=== PATIENT | female | born 2000 | race Caucasian/White ===

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

== ENCOUNTER 2019-01-07 14:53 | Inpatient (IN) | payer OTHER ==
[~2019-01-07] VITALS: Ht 162.6 cm; Wt 99.2 kg
[~2019-01-07 14:53] MED LIST changes: -ONDA-83; +ONDA4TAB5; +VENL150C43 PO; +VENL37.598 PO
[2019-01-07 16:44] LABS: HEMATOCRIT 37.6 % (36.0-47.0); MEAN CORPUSCULAR HEMOGLOBIN 27.4 pg (27.0-33.0); MEAN CORPUSCULAR HGB CONC 31.9 g/dl (32.0-36.5); MEAN CORPUSCULAR VOLUME 85.8 fl (80.0-96.0); PLATELET COUNT, AUTOMATED 293 10^3/uL (150-450); RED BLOOD COUNT 4.38 10^6/uL (4.00-5.40); WHITE BLOOD COUNT 8.9 10^3/uL (4.0-10.0)
[2019-01-07 17:09] LABS: AMPHETAMINES LEVEL URINE NEGATIVE (NEGATIVE); BARBITURATES URINE NEGATIVE (NEGATIVE); BENZODIAZEPINES URINE NEGATIVE (NEGATIVE); CANNABINOIDS URINE POSITIVE (NEGATIVE); COCAINE METABOLITE URINE NEGATIVE (NEGATIVE); METHADONE URINE NEGATIVE (NEGATIVE); OPIATES URINE NEGATIVE (NEGATIVE); PHENCYCLIDINE URINE NEGATIVE (NEGATIVE)
[2019-01-07 17:13] LABS: HCG, SERUM QUALITATIVE NEGATIVE (NEGATIVE)
[2019-01-07 17:24] LABS: ACETAMINOPHEN LEVEL < 2.0 UG/ML (10.0-30.0); ALBUMIN 3.8 GM/DL (3.2-5.2); ALT/SGPT 30 U/L (12-78); BILIRUBIN,DIRECT < 0.1 MG/DL (0.0-0.2); BILIRUBIN,TOTAL 0.2 MG/DL (0.2-1.0); BLOOD UREA NITROGEN 13 MG/DL (7-18); CARBON DIOXIDE LEVEL 29 MEQ/L (21-32); CHLORIDE LEVEL 105 MEQ/L (98-107); ETHYL ALCOHOL (ETHANOL) < 0.003 % (0.000-0.010); GLUCOSE, FASTING 88 MG/DL (70-100); POTASSIUM SERUM 4.6 MEQ/L (3.5-5.1); SALICYLATE LEVEL 3.7 MG/DL (5.0-30.0); SODIUM LEVEL 140 MEQ/L (136-145); TOTAL PROTEIN 7.5 GM/DL (6.4-8.2)
[2019-01-07] MEDS ORDERED: MOM 30ML SUSPENSION UDC PO PRN (19:30)
[2019-01-07] MEDS ORDERED: ACETAMINOPHEN TAB 650MG DOSE (2X325MG) PO PRN (19:30)
[2019-01-07] MEDS ORDERED: MAALOX 30 ML SUSP *UDC PO PRN (19:30)
[2019-01-07 21:03] VITALS: BP 126/63
[2019-01-07] MEDS ORDERED: OLANZapine ORAL DISINTEGRATING TAB 5MG PO PRN (22:30)
[2019-01-07] MEDS: traZODone 50 MG TAB PO PRN (22:47)
[2019-01-08 06:26] VITALS: BP 120/64
--- NOTE | 2019-01-08 14:34 | MHHPEPDOC ---
[facility] History & Physical History and Physical DATE OF ADMISSION: Jan 07, 2019 at 19:20 New Patient Edilma Nguyen MRN: N/A Date of : N/A Date of Service: 01/08/2019 Chief Complaint "I'm good now." History of Present Illness The patient a 18-year-old young woman with a long history of borderline personality disorder and likely malingering presents to [facility] and is admitted out of an abundance of caution when she reports a suicidal thoug ht that she had had earlier in the day with a reported planned overdose. When I initially met with the patient on the unit, she smiled and had been sleeping the majority of the day stating that her suicidal ideation had not been present. When I discussed with her the potential about being discharged, she said "what if I am not ready," which appears to be part of her normal presentation where she generally malingerers. The patient has a history of multiple admissions where I've tried her. She presents likely for various small frustration tolerance issues and prefers to be on the unit without any interactions. She generally sleeps, but is euthymic and does not demonstrate any overt depressive symptoms. When I asked the patient, she states that she has not been taking her mental health medications and that she had felt "worse," however, the symptoms she describes are only vague, low mood without any significant neurovegetative symptoms that she is able to describe with me. She describes that none of her other psychiatric symptoms have changed. Review Of Systems Depression: As above. Anxiety: No changes. Lorelei: No changes. Psychotic: No changes. Trauma: No changes. Borderline: Screen is positive. Past Psychiatric History The patient has a history of multiple inpatient psychiatric admissions last several months ago. She is currently on a mixture of venlafaxine and lithium for reported bipolar disorder of which she is treated at [facility] for. The patient reports a history of suicide attempts, however, going back through her records and go back to 2006, it does not appear that she has had a confirmed suicide attempt. The notes go back to mention an attempt in 2013 of Tylenol overdose, but this is unconfirmed. She reportedly had an additional attempt of which she is unable to describe. Allergies Please see below. Family Psychiatric History She reports having a family history of mental health problems and had an reported cousin and uncle by suicide. No history of addiction. Social History The patient is a never woman with no children. She is identifies as heterosexual. She currently resides with her grandmother and generally goes to her friends house multiple different times. She reports having a generally good relationship with her parents, although at times it has been a problem in the past. She has no income, graduate high school. She does describe having a poor relationship with her mother at times and her parents who have . She has no history of legal trouble. Substance Abuse History The patient is a confusing report of multiple substance use including Xanax, cannabis, stimulants and hallucinogens; however, her urine toxicology on this admission is only positive for cannabis. Medical History Patient has no significant past medical history. Mental Status Examination General: Well dressed with good hygiene Speech: Spontaneous and fluid Thought processes: Linear and logical MSK: Smooth and coordinated gait, no signs of tremors or involuntary orofacial movements Thought content: Future orientated Abstract reasoning, and computation: Intact Description of associations: Intact Description of abnormal or psychotic thoughts: Denies any suicidal or homicidal ideation. Denies any auditory or visual hallucinations. Does not appear to be responding to internal stimuli. Does not appear to be endorsing any bizarre or p aranoid ideation. Judgment: Chronically limited Insight: Chronically limited Orientation: Alert and orientated 3 Cognition: Grossly normal Recent and remote memory: Intact Attention span and concentration: Intact Fund of knowledge: Adequate Mood: "okay" Affect: Euthymic with a full range Diagnoses Malingering. Borderline personality disorder. Cannabis use disorder, moderate. Benzodiazepine use disorder, unspecified. Assessment and Plan The patient a well known 18-year-old woman who presents reportedly with vague suicidal thoughts and plan of overdosing on medications who subsequently reports that she has not been filling her medications, confirmed with the medication refill history from the external factors indicate that she has not been refilling her medications. When I meet with her at first, she denies suicidal ideation, however, when discharged is talked about, suddenly the patient reports having suicidal ideation and an interesting mix of her previous presentations further making the diagnosis of malingering far more likely. In my clinical judgment is likely that the patient has poor frustration tolerance and is malingering to avoid various social stressors. She has a reported history of overdoses, however, upon scrutiny they do not appear to stand up too much investigation as I can only find references to a 2014 attempt despite her multiple presentations starting from 2013 where she appears to be present with regularity. There has been no medical treatment for any of these attempts that I could find further suggesting low lethality, suicidal gestures. Disposition Discharge tomorrow. Problem List 1. Ineffective coping. 2. Risk for suicide, although unlikely in the immediate term. Initial Treatment Plan 1. Patient was admitted on a 9.39 legal status. 2. Complete history was obtained. 3. With patients permission, family will be contacted and database will be expanded. 4. Patients medication regimen will be reviewed and changed accordingly. 5. Patient will be provided with protected environment. 6. Patient will be treated with individual, group, and milieu therapies. 7. Patient will receive supportive psych-education. 8. Discharge planning will commence immediately. 9. Outpatient follow-up treatment will be strongly recommended. 10. The initial treatment plan will focus initially on: Estimated Length Of Stay 2 days. Time Spent 70 minutes. Monday Vital Signs Vital Signs Date Time Temp Pulse Resp B/P (MAP) Pulse Ox O2 Delivery O2 Flow Rate FiO2 01/08/19 06:26 99.1 52 16 120/64 (82) Room Air 01/07/19 19:30 97 Laboratory Data 24H Labs Laboratory Tests 2 01/07/19 16:19: Nucleated Red Blood Cells % (auto) 0.0, Anion Gap 6L, Calcium Level 9.0, Total Bilirubin 0.2, Direct Bilirubin < 0.1, Aspartate Amino Transf (AST/SGOT) 11, Alanine Aminotransferase (ALT/SGPT) 30, Alkaline Phosphatase 139H, Total Protein 7.5, Albumin 3.8, Albumin/Globulin Ratio 1.03, Thyroid Stimulating Hormone (TSH) 0.920, Human Chorionic Gonadotropin, Qual NEGATIVE, Salicylates Level 3.7L, Urine Opiates Screen NEGATIVE, Urine Methadone Screen NEGATIVE, Acetaminophen Level < 2.0L, Urine Barbiturates Screen NEGATIVE, Urine Phencyclidine Screen NEGATIVE, Urine Amphetamines Screen NEGATIVE, Urine Benzodiazepines Screen NEGATIVE, Urine Cocaine Metabolite Screen NEGATIVE, Urine Cannabinoids Screen POSITIVEH, Ethyl Alcohol Level < 0.003 CBC/BMP Laboratory Tests 01/07/19 16:19 Medications No Active Prescriptions or Reported Meds Allergies Coded Allergies: No Known Allergies (Unverified , 07/31/18) BRIAN CHAVEZ DO Jan 08, 2019 14:34
[2019-01-08] MEDS: NICOTINE 21MG/24HR 1 EA TRANSDERMAL TD SCH ×2 (14:35→17:48)
[2019-01-08] MEDS ORDERED: VENLAFAXINE **XR** 75MG CAPSULE PO ONE (15:00)
[2019-01-08 17:52] VITALS: BP 100/74
[2019-01-08] MEDS: MUPIROCIN 2% OINT 22 GM TUBE TOP SCH (20:17)
[2019-01-08] MEDS ORDERED: QUEtiapine FUMARATE **XR** 200MG TABLET PO SCH (21:00)
[2019-01-08] MEDS: LITHIUM CARBONATE 300 MG CAP PO SCH (21:40)
[2019-01-08] MEDS: traZODone 50 MG TAB PO PRN (21:40)
--- NOTE | 2019-01-08 22:14 | HPEPDOC ---
General Date of Admission Jan 07, 2019 at 19:20 Date of Service: Jan 08, 2019 Chief Complaint The patient is a 18-year-old female admitted with a reason for visit of Unspecified Depressive Disorder. Source: Patient, Old records History of Present Illness 18 year old female with PMH of Oppositional defiant disorder, bipolar, ADHD, boderline personality disorder, polysubstance abuse, suicidal attempts in the past, with 3 functioning kidneys was admitted to the [facility] for depression. Today she says that she is very tired and wants to sleep. She says she is also having a headache throbbing type no nausea or vomiting no problem with light. Its all over her head. She did say that her right peripheral vision is a little blurry. She also complained of discharge and redness around her umbilicus where she had a piercing done 2 weeks ago but says it si getting better though not completely healed. She also complained of not having a menstruation and requested to see a dry end operator. I am seeing her for medical history and physical . Home Medications No Active Prescriptions or Reported Meds Allergies Coded Allergies: No Known Allergies (Unverified , 07/31/18) Past Medical History Medical History Oppositional defiant disorder, bipolar, ADHD, boderline personality disorder, p olysubstance abuse, suicidal attempts in the past, 3 kidneys. Surgical History none Family History stroke in grandmother paternal Social History * Smoker: current smoker Alcohol: heavy Drugs: cocaine, heroin, marijuana, other (LSD, xanax) A-FIB/CHADSVASC A-FIB History Current/History of A-Fib/PAF?: No Review of Systems Constitutional: Denies: Chills, Fever, Night Sweats Eyes: Denies: Pain, Vision change ENT: Reports: Head Aches; Denies: Ear Pain, Dysphagia Skin: Denies: Rash, Lesions, Breakdown Pulmonary: Denies: Dyspnea, Cough Cardiovascular: Denies: Chest Pain, Palpitations, Orthopnea, Paroxysmal Noc. Dyspnea, Lt Headedness Gastrointestinal: Denies: Nausea, Vomiting, Abdominal Pain, Diarrhea Genitourinary: Reports: Dysuria Hematologic: Denies: Bruising, Bleeding Excessively Musculoskeletal: Denies: Neck Pain, Back Pain, Joint Pain, Muscle Pain, Spasms Psych: Reports: Depression, Thoughts of Self Harm Physical Examination General Exam: Positive: Alert, Cooperative, No Acute Distress Eye Exam: Positive: PERRLA, Conjunctiva & lids normal, EOMI; Negative: Sclera icteric ENT Exam: Positive: Atraumatic, Mucous membr. moist/pink, Pharynx Normal Neck Exam: Positive: Supple; Negative: JVD, thyromegaly Chest Exam: Positive: Clear to auscultation, Normal air movement Heart Exam: Positive: Rate Normal, Regular Rhythm, Normal S1, Normal S2; Negative: Murmurs, Rubs Abdomen Exam: Positive: Normal bowel sounds, Soft, Other (mild inflammation around umbilical piercing site); Negative: Tenderness, Hepatospenomegaly Extremity Exam: Positive: Normal pulses; Negative: Clubbing, Cyanosis, Edema Skin Exam: Positive: Nl turgor and temperature; Negative: Breakdown, Lesion Vital Signs Vital Signs Date Time Temp Pulse Resp B/P (MAP) Pulse Ox O2 Delivery O2 Flow Rate FiO2 01/08/19 06:26 99.1 52 16 120/64 (82) Room Air 01/07/19 19:30 97 Laboratory Data Labs 24H Laboratory Tests 2 01/07/19 16:19: Nucleated Red Blood Cells % (auto) 0.0, Anion Gap 6L, Calcium Level 9.0, Total Bilirubin 0.2, Direct Bilirubin < 0.1, Aspartate Amino Transf (AST/SGOT) 11, Alanine Aminotransferase (ALT/SGPT) 30, Alkaline Phosphatase 139H, Total Protein 7.5, Albumin 3.8, Albumin/Globulin Ratio 1.03, Thyroid Stimulating Hormone (TSH) 0.920, Human Chorionic Gonadotropin, Qual NEGATIVE, Salicylates Level 3.7L, Urine Opiates Screen NEGATIVE, Urine Methadone Screen NEGATIVE, Acetaminophen Level < 2.0L, Urine Barbiturates Screen NEGATIVE, Urine Phencyclidine Screen NEGATIVE, Urine Amphetamines Screen NEGATIVE, Urine Benzodiazepines Screen NEGATIVE, Urine Cocaine Metabolite Screen NEGATIVE, Urine Cannabinoids Screen POSITIVEH, Ethyl Alcohol Level < 0.003 CBC/BMP Laboratory Tests 01/07/19 16:19 Assessment/Plan 18 year old female with PMH of Oppositional defiant disorder, bipolar, ADHD, boderline personality disorder, polysubstance abuse, suicidal attempts in the past, with 3 functioning kidneys was admitted to the [facility] for depression. I am seeing her for medical history and physical. Inflammation around umbilical piercing will give mupirocin ointment. Headache with some blurring of right peripheral vision Benign idiopathic intracranial hypertension remains in the differential after substance withdrawal heache migraine an dtension headache. if persists will need further evaluation including ophthalmology referral. Obesity complicating care. Amenorrhea Needs referral to [employer] on discharge. SHe would like a utility bill collector in [place]. Psychiatric issues as per psych. Plan / VTE VTE Prophylaxis Ordered?: No (freely ambulatory) EDIN RESTREPO MD Jan 08, 2019 10:12
[2019-01-09 06:09] VITALS: BP 118/62
[2019-01-09] MEDS: LITHIUM CARBONATE 300 MG CAP PO SCH (08:56)
[2019-01-09] MEDS: NICOTINE 21MG/24HR 1 EA TRANSDERMAL TD SCH (08:56)
[2019-01-09] MEDS: MUPIROCIN 2% OINT 22 GM TUBE TOP SCH (08:57)
[2019-01-09] MEDS ORDERED: VENLAFAXINE **XR** 75MG CAPSULE PO SCH (09:00)
--- NOTE | 2019-01-09 11:42 | MHIPNPDOC ---
[facility] Progress Note Vital Signs Vital Signs Date Time Temp Pulse Resp B/P (MAP) Pulse Ox O2 Delivery O2 Flow Rate FiO2 01/09/19 06:09 97.9 74 18 118/62 (80) Room Air 01/07/19 19:30 97 Current Medications Current Medications Medications (Trade) Dose Ordered Sig/Gregorio Route PRN Reason Start Time Stop Time Status Last Admin Dose Admin Acetaminophen (Tylenol Tab) 650 mg Q6HP PRN PO HEADACHE or DISCOMFORT 01/07/19 19:30 Al Hydrox/Mg Hydrox/Simethicone (Mylanta) 30 ml Q4HP PRN PO HEARTBURN/INDIGESTION 01/07/19 19:30 Home Med (Med Rec Complete!) ASDIRECTED XX 01/07/19 19:15 01/07/19 19:10 DC [place] Carbonate ([place] Carbonate) 300 mg BID PO 01/08/19 21:00 01/09/19 08:56 Magnesium Hydroxide (Milk Of Magnesia) 30 ml DAILYPRN PRN PO CONSTIPATION 01/07/19 19:30 Mupirocin (Bactroban 2% Ointment) around the umbilicus BID TOP 01/08/19 21:00 01/09/19 08:57 Nicotine (Nicoderm Cq 21mg) 1 patch DAILY TD 01/08/19 09:00 01/09/19 08:56 Olanzapine (ZyPREXA ZYDIS) 10 mg Q4HP PRN PO ANXIETY/AGITATION 01/07/19 22:30 01/07/19 22:47 Quetiapine Fumarate (SEROquel XR) 400 mg QHS PO 01/08/19 21:00 01/08/19 21:40 Trazodone HCl (Desyrel) 50 mg QHSP PRN PO INSOMNIA 01/07/19 19:30 01/08/19 21:40 Venlafaxine HCl (Effexor Xr) 225 mg DAILY PO 01/09/19 09:00 01/09/19 08:56 Allergies Coded Allergies: No Known Allergies (Unverified , 07/31/18) BRIAN CHAVEZ DO Jan 09, 2019 11:42
--- NOTE | 2019-01-09 13:11 | MHDSPDOC ---
[facility] Discharge Summary Discharge Summary DATE OF ADMISSION: Jan 07, 2019 at 19:20 DATE OF DISCHARGE: 01/09/19 Discharge Edilma Nguyen MRN: N/A Date of : N/A Date of Service: 01/09/2019 Diagnoses Malingering. Borderline personality disorder. Cannabis use disorder, moderate. Benzodiazepine use disorder, unspecified. History of Present Illness The patient a 18-year-old young woman with a long history of borderline personality disorder and likely malingering presents to [facility] and is admitted out of an abundance of caution when she reports a suicidal thought that she had had earlier in the day with a reported planned overdose. When I initially met with the patient on the unit, she smiled and had been sleeping the majority of the day stating that her suicidal ideation had not been present. When I discussed with her the potential about being discharged, she said "what if I am not ready," which appears to be part of her normal presentation where she generally malingerers. The patient has a history of multiple admissions where I've tried her. She presents likely for various small frustration tolerance issues and prefers to be on the unit without any interactions. She generally sleeps, but is euthymic and does not demonstrate any overt depressive symptoms. When I asked the patient, she states that she has not been taking her mental health medications and that she had felt "worse," however, the symptoms she describes are only vague, low mood without any significant neurovegetative symptoms that she is able to describe with me. She describes that none of her other psychiatric symptoms have changed. Consultants Involved Hospitalist/PCP screening Treatment and Progress On The Unit The patient was admitted to the inpatient unit out of an abundance of caution. However, when I first met with the patient, she had denied any suicidal francesco ation, stated that she was "doing well." The patient, after discharge was discussed, suddenly began to claim that she was suicidal but had no plan or intention. On the next day after she was restarted on her home medications, she reported that she was suicidal with a plan to "overdose." After discussion with the patient, she was offered to continue on a voluntary admission as she does not have a confirmed history of suicidal overdoses and is likely malingering as well as having secondary borderline personality disorder. However, it was told that she would need to attend groups and would not be allowed to sleep in her room for the majority of the day, which she has done on many previous admissions and not engaging at all. After she engaged in treatment, she subsequently reported to us that she was no longer suicidal or homicidal and that she wished to go. The patient, at the time of discharge, did not meet involuntary criteria as she was denying suicidal and homicidal ideation and I believe that her reported suicidal ideation that had manifested after my initial discussion with her the prior day was secondary in order to continue her admission. However, this appeared to rapidly dissipate when she had to engage in treatment, furthering my opinion that it is a symptom of the patient's malingering. The patient declined further voluntary admission and wished to leave and thus must be discharged in good [place], as she did not meet either involuntary and declined voluntary. She was restarted on her home medications of Effexor, lithium, and Seroquel, of which she reports she had not been taking for the last month. She was given a 3-day supply with 8 refills of her medications as she had reported ideation frequently of wanting to "overdose" in order to prevent any accumul ation as individuals with borderline personality are far more likely to do incidental damage to themselves as a suicidal gesture rather than an overt suicide attempt. Discharge Assessment 18-year-old woman with a history of borderline personality disorder and malingering, presents after reporting that she is suicidal. After this rapidly dissipates, the patient subsequently reinstates her suicidal ideation the moment discharge is discussed. After she is made to engage in treatment and go to groups, she suddenly has her suicidal ideation vanish and requests to leave, further supporting my opinion that the patient is malingering in order to get out of various housing problems, conflicts with family, or other low-level stressors. The patient likely presents with reported suicidal ideation of a plan to overdose, however she has not had any confirmed attempts and only a vague mention in 2013 of an overdose that did not appear in any medical records despite her being established with care back to 2006 in our charts. Mental Status Examination General: Well dressed with good hygiene Speech: Spontaneous and fluid Thought processes: Linear and logical MSK: Smooth and coordinated gait, no signs of tremors or involuntary orofacial movements Thought content: Future orientated Abstract reasoning, and computation: Intact Description of associations: Intact Description of abnormal or psychotic thoughts: Denies any suicidal or homicidal ideation. Denies any auditory or visual hallucinations. Does not appear to be responding to internal stimuli. Does not appear to be endorsing any bizarre or paranoid ideation. Judgment: chronically limited Insight: chronically limited Orientation: Alert and orientated 3 Cognition: Grossly normal Recent and remote memory: Intact Attention span and concentration: Intact Fund of knowledge: Adequate Mood: "okay" Affect: Euthymic with a full range Follow Up The social work team worked during the predischarge meeting in order to evaluate for further issues of lethality address them fully before discharge. They worked on safety planning with the patient's family members in order to ensure that the patient will have a safe and effective discharge. Time Spent The amount of time spent in the coordination of care for this patient was zahida roximately 90 minutes. Monday Vital Signs/I&Os Vital Signs Date Time Temp Pulse Resp B/P (MAP) Pulse Ox O2 Delivery O2 Flow Rate FiO2 01/09/19 06:09 97.9 74 18 118/62 (80) Room Air 01/07/19 19:30 97 Medications Scheduled [place] Carbonate ([place] Carbonate) 300 Mg Capsule, 300 MG PO BID for mood for 3 Days, #6 Nicotine (Nicotine Patch) 21 Mg Patch.td24, 1 PATCH TD DAILY for tobacco for 30 Days, #30 Quetiapine Fumarate (Quetiapine Fumarate ER) 200 Mg Tab.er.24h, 400 MG PO QHS for mood for 3 Days, #6 Venlafaxine HCl (Venlafaxine HCl ER) 75 Mg Cap.er.24h, 225 MG PO DAILY for mood for 3 Days, #9 Allergies Coded Allergies: No Known Allergies (Unverified , 07/31/18) BRIAN CHAVEZ DO Jan 09, 2019 13:10
[2019-01-09] MEDS ORDERED: NICO21PAT TD (13:13)
[2019-01-09] MEDS ORDERED: QUET200T54 PO (13:13)
[2019-01-09] MEDS ORDERED: LITH300C PO (13:13)
[2019-01-09] MEDS ORDERED: VENL75CA47 PO (13:13)
--- NOTE | 2019-01-09 18:03 | IPNPDOC ---
Subjective Date Seen The patient was seen on 01/09/19 prior to discharge. Patient assessed medically by hospitalist staff. Patient denied any medical issues at this time. She reported that she is well and ready to go home. Patient reported she does have a history of migraine headaches and was supposed to be assessed by a neurologist but she was unable to attend her appointment. Disha has requested a follow-up appointment if possible. Subjective Chief Complaint/HPI Depression General: Reports: Normal Appetite; Denies: Chills, Night Sweats, Fatigue, Malaise Neurological: Reports: Other Symptoms (Migraine headaches ) Objective Physical Examination General Exam: Positive: Alert, Cooperative, No Acute Distress Eye Exam: Positive: Conjunctiva & lids normal ENT Exam: Positive: Atraumatic, Mucous membr. moist/pink, Pharynx Normal Neck Exam: Positive: Supple; Negative: JVD, thyromegaly Chest Exam: Positive: Clear to auscultation, Normal air movement Heart Exam: Positive: Rate Normal, Regular Rhythm, Normal S1, Normal S2 Extremity Exam: Negative: Clubbing, Cyanosis, Edema Skin Exam: Positive: Nl turgor and temperature Neuro Exam: Positive: Normal Gait, Normal Speech Psych Exam: Positive: Mental status NL, Mood NL Assessment /Plan Problems (1) Migraine headache Status: Chronic Discussed With: Patient Problem Specific Plan: Consult Specialist (Patient to follow-up with her PCP within 2 weeks for a referral to neurology) Plan/VTE VTE Prophylaxis Ordered?: No (freely ambulatory) Plan Anticipated Discharge: Psych Patient medically stable; will be managed per psychiatry. Patient is to follow up with her PCP for outpatient neurology Dx: Chronic Migraines. VS, I&O, 24H, Fishbone Vital Signs/I&O Vital Signs Date Time Temp Pulse Resp B/P (MAP) Pulse Ox O2 Delivery O2 Flow Rate FiO2 01/09/19 06:09 97.9 74 18 118/62 (80) Room Air 01/07/19 19:30 97 JUSTIN WILLETT PA-C Jan 09, 2019 18:03
== END 2019-01-09 14:00 | disposition home or self-care (01) | DRG 752 ==
LOC: M ED 14:53 → M ED INP 19:20 → M PSY 20:58
PROVIDERS: ADMIT Psychiatry & Neurology Addiction Medicine; ATTEND Psychiatry & Neurology Addiction Medicine
DX: F60.3 Borderline personality disorder (principal); Z76.5 Malingerer [conscious simulation]; Z79.899 Other long term (current) drug therapy; F31.9 Bipolar disorder, unspecified; Z81.8 Family history of other mental and behavioral disorders; F12.10 Cannabis abuse, uncomplicated; F13.90 Sedative, hypnotic, or anxiolytic use, unspecified, uncomplicated; Z91.14 Patient's other noncompliance with medication regimen; F17.210 Nicotine dependence, cigarettes, uncomplicated; F91.3 Oppositional defiant disorder; F90.9 Attention-deficit hyperactivity disorder, unspecified type; Z91.5 Personal history of self-harm; N91.2 Amenorrhea, unspecified; E66.9 Obesity, unspecified; Z68.52 Body mass index [BMI] pediatric, 5th percentile to less than 85th percentile for age; G43.909 Migraine, unspecified, not intractable, without status migrainosus; L08.89 Other specified local infections of the skin and subcutaneous tissue

== ENCOUNTER → 2019-02-02 | Outpatient (CLI) | payer OTHER ==
[~2019-02-02] MED LIST changes: +LITH300C PO; +VENL75CA47 PO
[2019-02-02 16:20] LABS: HCG, SERUM QUALITATIVE NEGATIVE (NEGATIVE)
[2019-02-02 16:22] LABS: HCG, SERUM QUANTITATIVE < 1.0 MIU/ML
== END ==
LOC: M LAB 15:25
PROVIDERS: ATTEND Physician Assistant Medical
DX: Z32.00 Encounter for pregnancy test, result unknown (principal)

== ENCOUNTER 2019-03-14 02:22 | Inpatient (IN) | payer OTHER ==
[~2019-03-14] VITALS: Ht 162.6 cm; Wt 104.4 kg
[~2019-03-14 02:22] MED LIST changes: -FLUO20CA19 PO; +FLUO20CA22 PO; +ONDA-83; -ONDA4TAB5; +QUET100T2 PO; -QUET1TAB8 PO
[2019-03-14] MEDS ORDERED: QUET400T PO (02:44)
[2019-03-14 03:45] LABS: HEMATOCRIT 39.3 % (36.0-47.0); HEMOGLOBIN 12.2 g/dl (12.0-15.5); MEAN CORPUSCULAR HEMOGLOBIN 26.8 pg (27.0-33.0); MEAN CORPUSCULAR VOLUME 86.2 fl (80.0-96.0); PLATELET COUNT, AUTOMATED 312 10^3/uL (150-450); RED BLOOD COUNT 4.56 10^6/uL (4.00-5.40)
[2019-03-14 04:06] LABS: AMPHETAMINES LEVEL URINE NEGATIVE (NEGATIVE); BARBITURATES URINE NEGATIVE (NEGATIVE); BENZODIAZEPINES URINE NEGATIVE (NEGATIVE); CANNABINOIDS URINE POSITIVE (NEGATIVE); COCAINE METABOLITE URINE NEGATIVE (NEGATIVE); METHADONE URINE NEGATIVE (NEGATIVE); OPIATES URINE NEGATIVE (NEGATIVE); PHENCYCLIDINE URINE NEGATIVE (NEGATIVE)
[2019-03-14 04:18] LABS: ACETAMINOPHEN LEVEL < 2.0 UG/ML (10.0-30.0); ALBUMIN 4.2 GM/DL (3.2-5.2); ALT/SGPT 25 U/L (12-78); BILIRUBIN,DIRECT < 0.1 MG/DL (0.0-0.2); BILIRUBIN,TOTAL 0.2 MG/DL (0.2-1.0); BLOOD UREA NITROGEN 11 MG/DL (7-18); CALCIUM LEVEL 9.3 MG/DL (8.5-10.1); CARBON DIOXIDE LEVEL 30 MEQ/L (21-32); CHLORIDE LEVEL 105 MEQ/L (98-107); CREATININE FOR GFR 0.81 MG/DL (0.55-1.30); ETHYL ALCOHOL (ETHANOL) < 0.003 % (0.000-0.010); GLUCOSE, FASTING 103 MG/DL (70-100); SALICYLATE LEVEL 2.7 MG/DL (5.0-30.0); SODIUM LEVEL 140 MEQ/L (136-145); TOTAL PROTEIN 7.8 GM/DL (6.4-8.2)
[2019-03-14 07:56] LABS: LITHIUM LEVEL < 0.20 MEQ/L (0.60-1.20)
[2019-03-14] MEDS ORDERED: LITH300T2 PO (09:32)
[2019-03-14] MEDS ORDERED: QUET200T2 PO (09:32)
[2019-03-14] MEDS ORDERED: VENL75CA47 PO (09:32)
[2019-03-14 15:20] LABS: HCG, SERUM QUALITATIVE NEGATIVE (NEGATIVE)
[2019-03-14] MEDS ORDERED: traZODone 50 MG TAB PO PRN (17:30)
[2019-03-14] MEDS ORDERED: MAALOX 30 ML SUSP *UDC PO PRN (17:30)
[2019-03-14] MEDS ORDERED: MOM 30ML SUSPENSION UDC PO PRN (17:30)
[2019-03-14] MEDS ORDERED: ACETAMINOPHEN TAB 650MG DOSE (2X325MG) PO PRN (17:30)
[2019-03-14 17:56] VITALS: BP 142/89
[2019-03-14] MEDS: LITHIUM CARBONATE 300 MG CAP PO SCH (21:29)
[2019-03-14] MEDS: QUEtiapine FUMARATE 200 MG TAB PO SCH (21:29)
[2019-03-14] MEDS: PILL CUTTER 1 EACH XX PRN (21:29)
[2019-03-14] MEDS ORDERED: hydrOXYzine 50 MG TAB PO ONE (23:45)
[2019-03-15 06:13] VITALS: BP 124/74
[2019-03-15] MEDS: VENLAFAXINE **XR** 75MG CAPSULE PO SCH (09:44)
[2019-03-15] MEDS: LITHIUM CARBONATE 300 MG CAP PO SCH ×2 (09:44→21:18)
--- NOTE | 2019-03-15 11:47 | MHHPEPDOC ---
General Date Of Admission: Mar 14, 2019 Legal Status: 9.39 Chief Complaint "I cut my thigh b/c I though I'd reach a vein." History of Present Illness HISTORY OF THE PRESENT ILLNESS: Patient is a 19 -year-old , female, has a history of borderline personality d/o and multiple admission [facility] s/p cutting behavior, with recent d/c [facility] 03/05/19 for cutting who was brought to ED after pt call the Suicide Hotline stating she was feeling depressed, suicidal, and had cut her thigh to harm herself b/c she thought she'd reach a vein. Per ED, pt's cuts to her thigh were superficial.. Per ED Pt stated she had a fight with her boyfriend and he broke up with her the previous day "out of the blue" and did not give her a reason as to why. Stated that he then sent a text a a friend of hers making fun of her. Pt stated that this caused her to cut her thy as a SA in an attempt to reach a vein. Pt endorsed depressed mood in the ED and cannabis abuse. Psychiatric Review of Systems Depression (2 or more weeks): depressed mood, feelings of worthlesness, suicidal thoughts Lorelei (4 or more days of): denies Psychosis: denies PTSD: denies Anxiety: situational anxiety, stressor related anxiety Anxiety/ 6 months or more of: restlessness, keyed up, difficulty concentrating, irritability, personality cluster A,BC (b) Past Psychiatric History Previous Psychiatric Diagnosis: borderline personality d/o Previous Psychiatric Admissions: multiple inpatient psychiatric admissions to [facility] for SI or cutting, last 01/08/19, states d/c [facility] 03/05/19 Suicide Attempts: long history of cutting, no confirm reports of SA even though pt claims to have attempted suicide in the past usually be non-lethal cutting Psychiatric Follow-up: [facility]. Psychiatric medications: seroquel 500mg qhs, lithium 300mg bid, effexor er 225mg daily. Past Medical History Medical Problems denies Head Injury: No Seizures: No Hospitalizations: Yes Surgeries: No Family Medical/Psychiatric HX Medical Problems She reports having a family history of mental health problems and had an reported cousin and uncle by suicide. No history of addiction. Psychiatric Disorders: Yes Addiction: No Suicide Attemps/Completions: Yes Addiction History other (The patient is a confusing report of multiple substance use including Xanax, cannabis, stimulants and hallucinogens; urine toxicology on this admission is only positive for cannabis.) Social History Childhood: Born and raised in [place], [place], no siblings, continues to have a good relationship with her grandparents who are Abuse/Trauma: denies Current Living Situation: lives with Grandmother but stays at friend's house frequently in Education: high school grad Employment: unemployed, no income Social Support: grandmother, parents Legal: denies Marital: single, never , no kids Mental Status Examination General Appearance: well groomed, appears stated age, hospital scubs/clothing, other (orange and other colors hair) Build: overweight Demeanor: average Eye Contact: average Activity: average Behavior: cooperative, restless Speech: clear, spontaneous, reg/rate,rhythm,volume Mood: euthymic Mood better Affect: full, congruent, anxious Thought Process: logical/linear Thought Content (Delusions): none reported, denies SI, HI, AVH Thought Content (Other): none reported, appropriate Thought Content (Aggressive): none reported Perception (Hallucinations): none reported Perception (Other): none reported Cognition (Impairment of): none reported Cognition(Intelligence Est.): average Oriented: Awake, Alert, Oriented times three Insight: fair Judgment: Fair Psychosis: Denies Diagnoses Adjustment d/o with depressed mood borderline personality d/o A-FIB/CHADSVASC A-FIB History Current/History of A-Fib/PAF?: No Assessment Pt seen and states she here after she had a fight with her boyfriend and he broke up with her which caused her to start to cut her thigh b/c "I thought I'd reach a vein." States she realizes now that that was actually possible. Admits she ahs a problem with cutting behavior to relieve emotional pain but hadn't cut herself in 6 months until yesterday. Would like to restart her outpatient medication as states thy are helpful and that she tolerates them well. Denies that she is having an current thoughts of self harm, SI/HI currently and states she feels safe on the unit. Pt encouraged to go to groups as part of her treatment her to aid her with coping skills. She denies hallucinations and delusions. Initial Treatment Plan 1. Patient was admitted on a 9.39 status. 2. Complete history was obtained. 3. With patients permission, family will be contacted and database will be expanded. 4. Patients medication regimen will be reviewed and changed accordingly. 5. Patient will be provided with protected environment. 6. Patient will be treated with individual, group, and milieu therapies. 7. Patient will receive supportive psych-education. 8. Discharge planning will commence immediately. 9. Outpatient follow-up treatment will be strongly recommended. 10. The initial treatment plan will focus initially on: * Depression. * Risk for suicide. 11. seroquel 500mg qhs,lithium 300mg bid, effexor er 225mg daily. ESTIMATED LENGTH OF STAY: 3-5 DAYS. TIME SPENT COUNSELING AND COORDINATING INITIAL CARE: 30 minutes. Vital Signs Vital Signs Date Time Temp Pulse Resp B/P (MAP) Pulse Ox O2 Delivery O2 Flow Rate FiO2 03/15/19 10:19 Room Air 03/15/19 06:13 98.7 80 18 124/74 (91) 03/14/19 17:56 99 Medications Scheduled [place] Carbonate ([place] Carbonate) 300 Mg Tablet, 300 MG PO BID, (Reported) Quetiapine Fumarate (Quetiapine Fumarate) 200 Mg Tablet, 500 MG PO QHS, (Reported) Venlafaxine HCl (Venlafaxine HCl ER) 75 Mg Cap.er.24h, 225 MG PO DAILY, (Reported) Allergies Coded Allergies: No Known Allergies (Unverified , 07/31/18) OC MCKEON DO Mar 15, 2019 11:47 am
[2019-03-15] MEDS ORDERED: hydrOXYzine 50 MG TAB PO PRN (12:00)
[2019-03-15 16:30] VITALS: BP 111/57
[2019-03-15] MEDS: PILL CUTTER 1 EACH XX PRN (21:18)
[2019-03-15] MEDS: QUEtiapine FUMARATE 200 MG TAB PO SCH (21:18)
[2019-03-16 06:30] VITALS: BP 127/60
[2019-03-16] MEDS: VENLAFAXINE **XR** 75MG CAPSULE PO SCH (09:47)
[2019-03-16] MEDS: LITHIUM CARBONATE 300 MG CAP PO SCH ×2 (09:47→23:57)
--- NOTE | 2019-03-16 10:06 | MHIPNPDOC ---
[facility] Progress Note Progress Note DATE OF SERVICE: 03/16/19 HISTORY: Patient is a 19 -year-old , female, has a history of borderline personality d/o and multiple admission [facility] s/p cutting behavior, with recent d/c [facility] 03/05/19 for cutting who was brought to ED after pt call the Suicide Hotline stating she was feeling depressed, suicidal, and had cut her thigh to harm herself b/c she thought she'd reach a vein. Per ED, pt's cuts to her thigh were superficial.. Per ED Pt stated she had a fight with her boyfriend and he broke up with her the previous day "out of the blue" and did not give her a reason as to why. Stated that he then sent a text a a friend of hers making fun of her. Pt stated that this caused her to cut her thigh as a SA in an attempt to reach a vein. Pt endorsed depressed mood in the ED and cannabis abuse. Pt seen and states she here after she had a fight with her boyfriend and he broke up with her which caused her to start to cut her thigh b/c "I thought I'd reach a vein." States she realizes now that that was actually possible. Admits she ahs a problem with cutting behavior to relieve emotional pain but hadn't cut herself in 6 months until yesterday. Would like to restart her outpatient medi cation as states thy are helpful and that she tolerates them well. Denies that she is having an current thoughts of self harm, SI/HI currently and states she feels safe on the unit. Pt encouraged to go to groups as part of her treatment her to aid her with coping skills. She denies hallucinations and delusions. VITAL SIGNS: See below. NEW TEST RESULTS: See below. CURRENT MEDICATIONS: See below. MENTAL STATUS EXAMINATION: General Appearance: well groomed, appears stated age, hospital scrubs/clothing, other (orange and other colors hair) Build: overweight Demeanor: average Eye Contact: average Activity: average Behavior: cooperative, restless Speech: clear, spontaneous, reg/rate,rhythm,volume Mood: euthymic Mood "ok" Affect: full, congruent, anxious Thought Process: logical/linear Thought Content (Delusions): none reported, denies SI, HI, AVH Thought Content (Other): none reported, appropriate Thought Content (Aggressive): none reported Perception (Hallucinations): none reported Perception (Other): none reported Cognition (Impairment of): none reported Cognition(Intelligence Est.): average Oriented: Awake, Alert, Oriented times three Insight: fair Judgment: Fair Psychosis: Denies DIAGNOSES: Adjustment d/o with depressed mood borderline personality d/o ASSESSMENT:Pt seen and states that her mood is "ok" and that it's improving with treatment. States she slept well last night. Feels she is tolerating her medications and they're beneficial. She is attending groups and finding them helpful. She denies thoughts to self harm, SI/HI, hallucinations, delusions. Pt feels safe here. MANAGEMENT PLAN: continue plan seroquel 500mg qhs lithium 300mg bid effexor er 225mg daily. TIME SPENT: 30 minutes. Vital Signs Vital Signs Date Time Temp Pulse Resp B/P (MAP) Pulse Ox O2 Delivery O2 Flow Rate FiO2 03/16/19 06:30 97.6 64 18 127/60 (82) 03/15/19 10:19 Room Air 03/14/19 17:56 99 Current Medications Current Medications Medications (Trade) Dose Ordered Sig/Gregorio Route PRN Reason Start Time Stop Time Status Last Admin Dose Admin Acetaminophen (Tylenol Tab) 650 mg Q6HP PRN PO HEADACHE or DISCOMFORT 03/14/19 17:30 Al Hydrox/Mg Hydrox/Simethicone (Mylanta) 30 ml Q4HP PRN PO HEARTBURN/INDIGESTION 03/14/19 17:30 Home Med (Med Rec Complete!) ASDIRECTED XX 03/14/19 09:45 03/14/19 09:35 DC Hydroxyzine HCl (Atarax) 50 mg Q4HP PRN PO ANXIETY/AGITATION 03/15/19 12:00 Clarion Carbonate (Clarion Carbonate) 300 mg BID PO 03/14/19 21:00 03/16/19 09:47 Magnesium Hydroxide (Milk Of Magnesia) 30 ml DAILYPRN PRN PO CONSTIPATION 03/14/19 17:30 Quetiapine Fumarate (SEROquel) 500 mg QHS PO 03/14/19 21:00 03/15/19 21:18 Trazodone HCl (Desyrel) 50 mg QHSP PRN PO INSOMNIA 03/14/19 17:30 03/14/19 21:29 Venlafaxine HCl (Effexor Xr) 225 mg DAILY PO 03/15/19 09:00 03/16/19 09:47 Allergies Coded Allergies: No Known Allergies (Unverified , 07/31/18) OC MCKEON DO Mar 16, 2019 10:06 am
[2019-03-16 16:23] VITALS: BP 133/64
[2019-03-16] MEDS: NICOTINE 7 MG/24 HR TRANSDERMAL TD SCH (18:24)
[2019-03-16] MEDS: QUEtiapine FUMARATE 200 MG TAB PO SCH (23:57)
[2019-03-16] MEDS: PILL CUTTER 1 EACH XX PRN (23:57)
[2019-03-17 06:58] VITALS: BP 112/72
[2019-03-17] MEDS: LITHIUM CARBONATE 300 MG CAP PO SCH ×2 (09:22→20:51)
[2019-03-17] MEDS: VENLAFAXINE **XR** 75MG CAPSULE PO SCH (09:22)
--- NOTE | 2019-03-17 09:48 | MHIPNPDOC ---
[facility] Progress Note Progress Note DATE OF SERVICE: 03/17/19 HISTORY: Patient is a 19 -year-old , female, has a history of borderline personality d/o and multiple admission [facility] s/p cutting behavior, with recent d/c [facility] 03/05/19 for cutting who was brought to ED after pt call the Suicide Hotline stating she was feeling depressed, suicidal, and had cut her thigh to harm herself b/c she thought she'd reach a vein. Per ED, pt's cuts to her thigh were superficial.. Per ED Pt stated she had a fight with her boyfriend and he broke up with her the previous day "out of the blue" and did not give her a reason as to why. Stated that he then sent a text a a friend of hers making fun of her. Pt stated that this caused her to cut her thigh as a SA in an attempt to reach a vein. Pt endorsed depressed mood in the ED and cannabis abuse. Pt seen and states she here after she had a fight with her boyfriend and he broke up with her which caused her to start to cut her thigh b/c "I thought I'd reach a vein." States she realizes now that that was actually possible. Admits she ahs a problem with cutting behavior to relieve emotional pain but hadn't cut herself in 6 months until yesterday. Would like to restart her outpatient medi cation as states thy are helpful and that she tolerates them well. Denies that she is having an current thoughts of self harm, SI/HI currently and states she feels safe on the unit. Pt encouraged to go to groups as part of her treatment her to aid her with coping skills. She denies hallucinations and delusions. VITAL SIGNS: See below. NEW TEST RESULTS: See below. CURRENT MEDICATIONS: See below. MENTAL STATUS EXAMINATION: General Appearance: well groomed, appears stated age, hospital scrubs/clothing, other (orange and other colors hair) Build: overweight Demeanor: average Eye Contact: average Activity: average Behavior: cooperative Speech: clear, spontaneous, reg/rate,rhythm,volume Mood: euthymic Mood "alright... better than it was" Affect: full, congruent, less anxious Thought Process: logical/linear Thought Content (Delusions): none reported, denies SI, HI, AVH Thought Content (Other): none reported, appropriate Thought Content (Aggressive): none reported Perception (Hallucinations): none reported Perception (Other): none reported Cognition (Impairment of): none reported Cognition(Intelligence Est.): average Oriented: Awake, Alert, Oriented times three Insight: fair Judgment: Fair Psychosis: Denies DIAGNOSES: Adjustment d/o with depressed mood borderline personality d/o ASSESSMENT:Pt seen and states that her mood is "alright... better than it was" and that her medications and treatment are beneficial. Pt is attending groups and behaving on the unit without the need of being locked out of her room which has previous needed to be done due to lack of attending groups as per her treatment here. States that the groups are beneficial for her to improve her coping skills. Reads on her own as a coping skill during unit down time. States she slept well last night. Feels she is tolerating her medications and they're beneficial. he denies thoughts to self harm, SI/HI, hallucinations, delusions. Pt feels safe here. MANAGEMENT PLAN: continue plan seroquel 500mg qhs lithium 300mg bid effexor er 225mg daily. TIME SPENT: 30 minutes. Vital Signs Vital Signs Date Time Temp Pulse Resp B/P (MAP) Pulse Ox O2 Delivery O2 Flow Rate FiO2 03/17/19 06:58 98.3 71 16 112/72 (85) Room Air 03/14/19 17:56 99 Current Medications Current Medications Medications (Trade) Dose Ordered Sig/Gregorio Route PRN Reason Start Time Stop Time Status Last Admin Dose Admin Acetaminophen (Tylenol Tab) 650 mg Q6HP PRN PO HEADACHE or DISCOMFORT 03/14/19 17:30 Al Hydrox/Mg Hydrox/Simethicone (Mylanta) 30 ml Q4HP PRN PO HEARTBURN/INDIGESTION 03/14/19 17:30 Home Med (Med Rec Complete!) ASDIRECTED XX 03/14/19 09:45 03/14/19 09:35 DC Hydroxyzine HCl (Atarax) 50 mg Q4HP PRN PO ANXIETY/AGITATION 03/15/19 12:00 [place] Carbonate (Guerneville Carbonate) 300 mg BID PO 03/14/19 21:00 03/17/19 09:22 Magnesium Hydroxide (Milk Of Magnesia) 30 ml DAILYPRN PRN PO CONSTIPATION 03/14/19 17:30 Nicotine (Nicoderm Cq 7 Mg) 1 patch DAILY TD 03/16/19 09:00 03/16/19 18:24 Quetiapine Fumarate (SEROquel) 500 mg QHS PO 03/14/19 21:00 03/16/19 23:57 Trazodone HCl (Desyrel) 50 mg QHSP PRN PO INSOMNIA 03/14/19 17:30 03/14/19 21:29 Venlafaxine HCl (Effexor Xr) 225 mg DAILY PO 03/15/19 09:00 03/17/19 09:22 Allergies Coded Allergies: No Known Allergies (Unverified , 07/31/18) OC MCKEON DO Mar 17, 2019 9:48 am
[2019-03-17] MEDS: NICOTINE 7 MG/24 HR TRANSDERMAL TD SCH (09:58)
[2019-03-17 16:11] VITALS: BP 140/75
[2019-03-17] MEDS: QUEtiapine FUMARATE 200 MG TAB PO SCH (21:45)
[2019-03-17] MEDS: PILL CUTTER 1 EACH XX PRN (21:45)
[2019-03-18 06:56] VITALS: BP 117/68
[2019-03-18] MEDS ORDERED: VENL75CA47 PO (08:48)
[2019-03-18] MEDS ORDERED: QUET200T2 PO (08:48)
[2019-03-18] MEDS ORDERED: LITH300T2 PO (08:48)
--- NOTE | 2019-03-18 08:48 | MHDSPDOC ---
[facility] Discharge Summary Discharge Summary DATE OF ADMISSION: Mar 14, 2019 at 5:18 pm DATE OF DISCHARGE: Mar 18, 2019 DISCHARGE DIAGNOSES: Adjustment d/o with depressed mood borderline personality d/o REASON FOR ADMISSION: Patient is a 19 -year-old , female, has a history of borderline personality d/o and multiple admission [facility] s/p cutting behavior, with recent d/c [facility] 03/05/19 for cutting who was brought to ED after pt call the Suicide Hotline stating she was feeling depressed, suicidal, and had cut her thigh to harm herself b/c she thought she'd reach a vein. Per ED, pt's cuts to her thigh were superficial.. Per ED Pt stated she had a fight with her boyfriend and he broke up with her the previous day "out of the blue" and did not give her a reason as to why. Stated that he then sent a text a a friend of hers making fun of her. Pt stated that this caused her to cut her thigh as a SA in an attempt to reach a vein. Pt endorsed depressed mood in the ED and c annabis abuse. Pt seen and states she here after she had a fight with her boyfriend and he broke up with her which caused her to start to cut her thigh b/c "I thought I'd reach a vein." States she realizes now that that was actually possible. Admits she ahs a problem with cutting behavior to relieve emotional pain but hadn't cut herself in 6 months until yesterday. Would like to restart her outpatient medication as states thy are helpful and that she tolerates them well. Denies that she is having an current thoughts of self harm, SI/HI currently and states she feels safe on the unit. Pt encouraged to go to groups as part of her treatment her to aid her with coping skills. She denies hallucinations and delusions. CONSULTANTS INVOLVED: none TREATMENT AND PROGRESS ON THE UNIT : Pt was admitted to [facility], seen for psychiatric assessment and restarted on her outpatient medication effexor xr 225mg daily seroquel 500mg qhs, and lithium 300mg bid. She was provided trazodone 50mg qhs prn insomnia. Pt found her medications beneficial and tolerated them well. She attended groups daily during her stay. Her symptoms improved with treatment. On day of discharge she denied depression, anxiety, insomnia, SI/HI, hallucinations, delusions. She was discharged home to her grandmother's house with follow-up at [facility]. She felt safe for discharge. DISCHARGE ASSESSMENT: Pt seen and states that her mood is "good" and that she's looking forward to going home to her grandmother's house today. She states that her medications and treatment are beneficial and she's tolerating them well. Pt is attending groups and has behaved well on the unit without the need of being locked out of her room which has previous needed to be done due to lack of attending groups as per her treatment here. States that the groups are beneficial for her to improve her coping skills which she plans to use in the future after d/c. States she's motivated to get better. States she slept well last night. Feels she is tolerating her medications and they're beneficial. She denies thoughts to depression, anxiety, self harm, SI/HI, hallucinations, delusions. Pt feels safe to d/c home to her grandmother's today. MENTAL STATUS EXAMINATION ON DISCHARGE: General Appearance: well groomed, appears stated age, hospital scrubs/clothing, other (orange and other colors hair) Build: overweight Demeanor: average Eye Contact: average Activity: average Behavior: cooperative Speech: clear, spontaneous, reg/rate,rhythm,volume Mood: euthymic Mood "good" Affect: full, congruent, appropriate Thought Process: logical/linear Thought Content (Delusions): none reported, denies SI, HI, AVH Thought Content (Other): none reported, appropriate Thought Content (Aggressive): none reported Perception (Hallucinations): none reported Perception (Other): none reported Cognition (Impairment of): none reported Cognition(Intelligence Est.): average Oriented: Awake, Alert, Oriented times three Insight: good Judgment: good Psychosis: Denies MEDICATIONS ON DISCHARGE: seroquel 500mg qhs lithium 300mg bid effexor er 225mg daily. PLAN/FOLLOWUP ARRANGEMENTS: D/c home with follow-up at [facility]. The amount of time spent in the coordination of care for this patient was approximately 30 minutes. Vital Signs/I&Os Vital Signs Date Time Temp Pulse Resp B/P (MAP) Pulse Ox O2 Delivery O2 Flow Rate FiO2 03/18/19 06:56 99.1 81 12 117/68 (84) Room Air 03/14/19 17:56 99 Medications Scheduled Kosse Carbonate (Kosse Carbonate) 300 Mg Tablet, 300 MG PO BID, (Reported) Quetiapine Fumarate (Quetiapine Fumarate) 200 Mg Tablet, 500 MG PO QHS, (Reported) Venlafaxine HCl (Venlafaxine HCl ER) 75 Mg Cap.er.24h, 225 MG PO DAILY, (Reported) Allergies Coded Allergies: No Known Allergies (Unverified , 07/31/18) OC MCKEON DO Mar 18, 2019 8:48 am
[2019-03-18] MEDS: NICOTINE 7 MG/24 HR TRANSDERMAL TD SCH (09:00)
[2019-03-18] MEDS: VENLAFAXINE **XR** 75MG CAPSULE PO SCH (09:01)
[2019-03-18] MEDS: LITHIUM CARBONATE 300 MG CAP PO SCH (09:01)
== END 2019-03-18 10:57 | disposition home or self-care (01) | DRG 754 ==
LOC: M ED 02:22 → M ED INP 17:18 → M PSY 18:01
PROVIDERS: ADMIT Psychiatry & Neurology Addiction Medicine; ATTEND Psychiatry & Neurology Psychiatry
DX: F43.21 Adjustment disorder with depressed mood (principal); F17.200 Nicotine dependence, unspecified, uncomplicated; F60.3 Borderline personality disorder; Z63.5 Disruption of family by separation and divorce; Z81.8 Family history of other mental and behavioral disorders; Z79.899 Other long term (current) drug therapy; Z91.5 Personal history of self-harm; S71.112A Laceration without foreign body, left thigh, initial encounter; X78.9XXA Intentional self-harm by unspecified sharp object, initial encounter; Y92.009 Unspecified place in unspecified non-institutional (private) residence as the place of occurrence of the external cause

== ENCOUNTER 2019-03-24 14:42 | Emergency (ER) | payer OTHER ==
[~2019-03-24] VITALS: Ht 162.6 cm; Wt 104.5 kg
[~2019-03-24 14:42] MED LIST changes: +LITH300T2 PO; +QUET200T2 PO; +QUET400T PO
[2019-03-24] MEDS ORDERED: ADACEL/BOOSTRIX VACCINE (DIPHTH/PERTUSS/ACELL/TETANUS)0.5ML SYR (90715) IM ONE (15:30)
[2019-03-24 15:32] LABS: HEMATOCRIT 40.2 % (36.0-47.0); HEMOGLOBIN 13.1 g/dl (12.0-15.5); MEAN CORPUSCULAR HEMOGLOBIN 27.9 pg (27.0-33.0); MEAN CORPUSCULAR HGB CONC 32.6 g/dl (32.0-36.5); MEAN CORPUSCULAR VOLUME 85.7 fl (80.0-96.0); PLATELET COUNT, AUTOMATED 311 10^3/uL (150-450); RED BLOOD COUNT 4.69 10^6/uL (4.00-5.40); WHITE BLOOD COUNT 9.6 10^3/uL (4.0-10.0)
[2019-03-24 15:45] LABS: AMPHETAMINES LEVEL URINE NEGATIVE (NEGATIVE); BARBITURATES URINE NEGATIVE (NEGATIVE); BENZODIAZEPINES URINE NEGATIVE (NEGATIVE); CANNABINOIDS URINE NEGATIVE (NEGATIVE); COCAINE METABOLITE URINE NEGATIVE (NEGATIVE); METHADONE URINE NEGATIVE (NEGATIVE); OPIATES URINE NEGATIVE (NEGATIVE); PHENCYCLIDINE URINE NEGATIVE (NEGATIVE)
[2019-03-24 16:17] LABS: ACETAMINOPHEN LEVEL < 2.0 UG/ML (10.0-30.0); ALBUMIN 4.1 GM/DL (3.2-5.2); ALT/SGPT 36 U/L (12-78); BILIRUBIN,DIRECT 0.1 MG/DL (0.0-0.2); BILIRUBIN,TOTAL 0.3 MG/DL (0.2-1.0); BLOOD UREA NITROGEN 9 MG/DL (7-18); CALCIUM LEVEL 9.2 MG/DL (8.5-10.1); CARBON DIOXIDE LEVEL 29 MEQ/L (21-32); CHLORIDE LEVEL 104 MEQ/L (98-107); CREATININE FOR GFR 0.66 MG/DL (0.55-1.30); ETHYL ALCOHOL (ETHANOL) < 0.003 % (0.000-0.010); GLUCOSE, FASTING 83 MG/DL (70-100); POTASSIUM SERUM 4.4 MEQ/L (3.5-5.1); SALICYLATE LEVEL 2.2 MG/DL (5.0-30.0); SODIUM LEVEL 138 MEQ/L (136-145); THYROID STIMULATING HORMONE 0.757 uIU/ML (0.463-3.98); TOTAL PROTEIN 7.8 GM/DL (6.4-8.2)
[2019-03-24 18:32] VITALS: BP 132/85
--- NOTE | 2019-03-24 18:45 | ED PDOC ---
Provider Note Consult Edilma Nguyen MRN: N/A Date of : N/A Date of Service: 03/24/2019 Chief Complaint "I was not intending to hurt myself." History of Present Illness The patient a 19-year-old young woman with a long history of psychiatric admissions and malingering on our ER/psychiatric services after subsequently saying that she has not taken her medications. She presents regularly with cutting at times and at other times reportedly suicidal ideation. The patient reportedly had cut herself superficially on her arm and started to take pictures of it in order to send to her family as she was reportedly upset about the reaction to her recent breakup of a two-week relationship. The patient has a notable borderline like traits and is significantly attention seeking. The patient's grandmother for collateral was interviewed where she reported that this was similar to the same presentation she has done multiple times and that it was primarily "for attention." She reports that she is displeased with the patient's inability to stay out of the hospital. The patient was met with where she described that she cuts for soothing and had not intended to kill herself. She was initially quite focused on going to the inpatient mental health unit; however, after some empathetic listening, the patient reported that she was feeling better and had no suicidal ideation at thi s time, but instead "wanted to be heard." The patient reported that she had not been taking any of her medications but that her symptoms had not significantly changed from the last time she was discharged from our inpatient unit several weeks ago. Review Of Systems Depression: No changes. Anxiety: No changes. Lorelei: No changes. Psychotic: No changes. Trauma: No changes. Borderline: Positive screen. Past Psychiatric History The patient has a history of multiple inpatient psychiatric admissions last se veral months ago. She is currently on a mixture of venlafaxine and lithium for reported bipolar disorder of which she is treated at [facility] for. The patient reports a history of suicide attempts, however, going back through her records and go back to 2006, it does not appear that she has had a confirmed suicide attempt. The notes go back to mention an attempt in 2013 of Tylenol overdose, but this is unconfirmed. She reportedly had an additional attempt of which she is unable to describe. Family Psychiatric History The patient denies/is unaware any history of mental health history including addictions and suicide. Social History The patient is a never woman with no children. She is identifies as heterosexual. She currently resides with her grandmother and generally goes to her friends house multiple different times. She reports having a generally good relationship with her parents, although at times it has been a problem in the past. She has no income, graduate high school. She does describe having a poor relationship with her mother at times and her parents who have . She has no history of legal trouble. Medical History Patient has no significant past medical history. Allergies See below Mental Status Examination General: Well dressed with good hygiene Speech: Spontaneous and fluid Thought processes: Linear and logical MSK: Smooth and coordinated gait, no signs of tremors or involuntary orofacial movements Thought content: Future orientated Abstract reasoning, and computation: Intact Description of associations: Intact Description of abnormal or psychotic thoughts: Denies any suicidal or homicidal ideation. Denies any auditory or visual hallucinations. Does not appear to be responding to internal stimuli. Does not appear to be endorsing any bizarre or paranoid ideation. Judgment: Limited Insight: Limited Orientation: Alert and orientated 3 Cognition: Grossly normal Recent and remote memory: Intact Attention span and concentration: Intact Fund of knowledge: Adequate Mood: "okay" Affect: Euthymic with a full range Diagnoses Malingering. Assessment and Plan The patient is a well known 19-year-old man with a history of malingering in our ER, presents again after engaging in some superficial self-injurious behavior in order to gain attention by her own report. The patient's grandmother was contacted for collateral information which she provided that the patient has had no significant departure from her regular symptoms of attention seeking and that her grandmother believes that this is primarily "for attention." The patient at this time is denying suicidal ideation and homicidal ideation. She generally focuses on getting admitted whenever she has a stressor as she has been noted to focus on trying to find young eligible bachelors in order to date them. She has a well known history of doing this, cooperates a little with treatment and presents again stating that "no one's helping me." Patient at this time does not meet involuntary criteria as she has a normal mental status exam with baseline levels of insight and judgment. She is currently denying any suicidal or homicidal ideation. Her behavior is not significantly different than her baseline. Her reported cutting appears to be primarily superficial with little need for medical intervention and collateral information supports that it was primarily for attention rather than a suicide. She declines a voluntary adm ission and is discharged in good [place]. Disposition Discharged to home. Time Spent 30 minutes. Stefan BRIAN CHAVEZ DO Mar 24, 2019 18:44
== END 2019-03-24 19:11 | disposition home or self-care (01) ==
LOC: M ED 14:42 → CANBEDREQ 17:45 → M ED 19:11
DX: S51.812A Laceration without foreign body of left forearm, initial encounter (principal); X78.8XXA Intentional self-harm by other sharp object, initial encounter; Y92.9 Unspecified place or not applicable; F60.3 Borderline personality disorder; F33.9 Major depressive disorder, recurrent, unspecified; E66.9 Obesity, unspecified; F17.210 Nicotine dependence, cigarettes, uncomplicated; Z79.899 Other long term (current) drug therapy
CPT/HCPCS: 36415; 80048; 80076; 80307; 84443; 85027; 90471; 90715; 99284; G0480

== ENCOUNTER 2019-04-10 13:19 | Emergency (ER) | payer OTHER ==
[~2019-04-10] VITALS: Ht 162.6 cm; Wt 108.4 kg
[2019-04-10] MEDS ORDERED: AMOX875T PO (13:25)
[2019-04-10 14:02] LABS: HEMATOCRIT 38.8 % (36.0-47.0); HEMOGLOBIN 12.4 g/dl (12.0-15.5); MEAN CORPUSCULAR HEMOGLOBIN 27.6 pg (27.0-33.0); MEAN CORPUSCULAR VOLUME 86.2 fl (80.0-96.0); PLATELET COUNT, AUTOMATED 329 10^3/uL (150-450); WHITE BLOOD COUNT 12.2 10^3/uL (4.0-10.0)
[2019-04-10 14:31] LABS: AMPHETAMINES LEVEL URINE NEGATIVE (NEGATIVE); BARBITURATES URINE NEGATIVE (NEGATIVE); BENZODIAZEPINES URINE NEGATIVE (NEGATIVE); CANNABINOIDS URINE NEGATIVE (NEGATIVE); COCAINE METABOLITE URINE NEGATIVE (NEGATIVE); METHADONE URINE NEGATIVE (NEGATIVE); OPIATES URINE NEGATIVE (NEGATIVE); PHENCYCLIDINE URINE NEGATIVE (NEGATIVE)
[2019-04-10 14:38] LABS: HCG, SERUM QUALITATIVE NEGATIVE (NEGATIVE)
[2019-04-10 14:41] LABS: ACETAMINOPHEN LEVEL < 2.0 UG/ML (10.0-30.0); ALBUMIN 4.3 GM/DL (3.2-5.2); ALT/SGPT 33 U/L (12-78); BILIRUBIN,DIRECT < 0.1 MG/DL (0.0-0.2); BILIRUBIN,TOTAL 0.2 MG/DL (0.2-1.0); BLOOD UREA NITROGEN 9 MG/DL (7-18); CALCIUM LEVEL 9.4 MG/DL (8.5-10.1); CARBON DIOXIDE LEVEL 31 MEQ/L (21-32); CHLORIDE LEVEL 104 MEQ/L (98-107); CREATININE FOR GFR 0.62 MG/DL (0.55-1.30); ETHYL ALCOHOL (ETHANOL) < 0.003 % (0.000-0.010); GLUCOSE, FASTING 54 MG/DL (70-100); POTASSIUM SERUM 4.4 MEQ/L (3.5-5.1); SALICYLATE LEVEL < 1.7 MG/DL (5.0-30.0); SODIUM LEVEL 139 MEQ/L (136-145); TOTAL PROTEIN 8.1 GM/DL (6.4-8.2)
[2019-04-10 16:06] VITALS: BP 131/72
== END 2019-04-10 16:09 | disposition home or self-care (01) ==
LOC: M ED 13:19
DX: F60.3 Borderline personality disorder (principal); R45.851 Suicidal ideations; F33.9 Major depressive disorder, recurrent, unspecified; F17.210 Nicotine dependence, cigarettes, uncomplicated; Z79.899 Other long term (current) drug therapy
CPT/HCPCS: 36415; 80048; 80076; 80307; 84443; 84703; 85027; 99283; G0480

== ENCOUNTER 2019-04-18 21:15 | Emergency (ER) | payer OTHER ==
[~2019-04-18] VITALS: Ht 162.6 cm; Wt 107.4 kg
[~2019-04-18 21:15] MED LIST changes: +AMOX875T PO
[2019-04-18] MEDS ORDERED: HYDR1CAP25 PO ×2 (22:23→22:26)
[2019-04-18 22:53] VITALS: BP 134/61
== END 2019-04-18 22:55 | disposition home or self-care (01) ==
LOC: M ED 21:15
DX: F31.9 Bipolar disorder, unspecified (principal); F17.200 Nicotine dependence, unspecified, uncomplicated; Z79.899 Other long term (current) drug therapy

== ENCOUNTER 2019-04-30 01:07 | Emergency (ER) | payer OTHER ==
[~2019-04-30] VITALS: Ht 162.6 cm; Wt 104.5 kg
[~2019-04-30 01:07] MED LIST changes: +HYDR1CAP25 PO
[2019-04-30 01:43] LABS: HEMATOCRIT 39.5 % (36.0-47.0); HEMOGLOBIN 12.6 g/dl (12.0-15.5); MEAN CORPUSCULAR HEMOGLOBIN 27.8 pg (27.0-33.0); MEAN CORPUSCULAR HGB CONC 31.9 g/dl (32.0-36.5); PLATELET COUNT, AUTOMATED 330 10^3/uL (150-450); RED BLOOD COUNT 4.54 10^6/uL (4.00-5.40); WHITE BLOOD COUNT 10.2 10^3/uL (4.0-10.0)
[2019-04-30 02:07] LABS: AMPHETAMINES LEVEL URINE NEGATIVE (NEGATIVE); BARBITURATES URINE NEGATIVE (NEGATIVE); BENZODIAZEPINES URINE NEGATIVE (NEGATIVE); CANNABINOIDS URINE POSITIVE (NEGATIVE); COCAINE METABOLITE URINE NEGATIVE (NEGATIVE); METHADONE URINE NEGATIVE (NEGATIVE); OPIATES URINE NEGATIVE (NEGATIVE); PHENCYCLIDINE URINE NEGATIVE (NEGATIVE)
[2019-04-30 02:18] LABS: ACETAMINOPHEN LEVEL < 2.0 UG/ML (10.0-30.0); ALBUMIN 4.1 GM/DL (3.2-5.2); ALT/SGPT 33 U/L (12-78); BILIRUBIN,DIRECT < 0.1 MG/DL (0.0-0.2); BILIRUBIN,TOTAL 0.2 MG/DL (0.2-1.0); BLOOD UREA NITROGEN 15 MG/DL (7-18); CALCIUM LEVEL 9.4 MG/DL (8.5-10.1); CARBON DIOXIDE LEVEL 29 MEQ/L (21-32); CHLORIDE LEVEL 105 MEQ/L (98-107); CREATININE FOR GFR 0.77 MG/DL (0.55-1.30); ETHYL ALCOHOL (ETHANOL) 0.006 % (0.000-0.010); GLUCOSE, FASTING 89 MG/DL (70-100); POTASSIUM SERUM 4.4 MEQ/L (3.5-5.1); SALICYLATE LEVEL 2.5 MG/DL (5.0-30.0); SODIUM LEVEL 139 MEQ/L (136-145); THYROID STIMULATING HORMONE 0.847 uIU/ML (0.463-3.98)
--- NOTE | 2019-04-30 10:48 | MHCRPDOC ---
[facility] Consultation Consultation DATE OF CONSULTATION: 04/30/19 CONSULTATION REQUESTED BY: ED REASON FOR CONSULTATION: SI RELEVANT HISTORY: Pt is a 19y/o CF with a psych history of borderline personality d/o, malingering d/o, and multiple admission to IMU for SI currently seen at [facility]. Pt brought by PD after calling them endorsing SI with plan to OD. Pt seen and states that she is depressed due to recently being diagnosis with PCOS. States she's has intent for suicide like she is reading a dialog at first but as continued to speak with pt she actually denied SI (plan or intent) and stated she wanted to go home as with outpatient f/u at [facility]. Admits she has been non-compliant on her outpatient medication seroquel 50mg qhs and states she thinks she needs to get back on it to help her. Pt lives with her family and feels safe returning home to them. Past Psychiatric History The patient has a history of multiple inpatient psychiatric admissions last several months ago. She is currently on seroquel 50mg qhs (has been on effexor xr and lithium in the past) for reported bipolar disorder of which she is treated at [facility] for. The patient reports a history of suicide attempts, however, going back through her records and go back to 2006, it does not appear that she has had a confirmed suicide attempt. The notes go back to mention an attempt in 2013 of Tylenol overdose, but this is unconfirmed. She reportedly had an additional attempt of which she is unable to describe. Family Psychiatric History The patient denies/is unaware any history of mental health history including addictions and suicide. Social History The patient is a never woman with no children. She is identifies as heterosexual. She currently resides with her grandmother and generally goes to her friends house multiple different times. She reports having a generally good relationship with her parents, although at times it has been a problem in the past. She has no income, graduate high school. She does describe having a poor relationship with her mother at times and her parents who have . She has no history of legal trouble. Medical History Patient has no significant past medical history. MENTAL STATUS EXAMINATION: General: Well dressed with good hygiene Speech: Spontaneous and fluid Thought processes: Linear and logical MSK: Smooth and coordinated gait, no signs of tremors or involuntary orofacial movements Thought content: Future orientated Abstract reasoning, and computation: Intact Description of associations: Intact Description of abnormal or psychotic thoughts: Denies any suicidal or homicidal ideation. Denies any auditory or visual hallucinations. Does not appear to be responding to internal stimuli. Does not appear to be endorsing any bizarre or paranoid ideation. Judgment: fair Insight: fair Orientation: Alert and orientated 3 Cognition: Grossly normal Recent and remote memory: Intact Attention span and concentration: Intact Fund of knowledge: Adequate Mood: "send me home" Affect: Euthymic with a full range DIAGNOSIS: 1. malingering d/o PLAN: 1.d/c home with follow-up at [facility] Vital Signs Vital Signs Date Time Temp Pulse Resp B/P (MAP) Pulse Ox O2 Delivery O2 Flow Rate FiO2 04/30/19 08:48 97.5 98 16 106/68 (81) 97 Room Air Laboratory Data 24H Labs Laboratory Tests 2 04/30/19 01:28: Nucleated Red Blood Cells % (auto) 0.0, Anion Gap 5L, Calcium Level 9.4, Total Bilirubin 0.2, Direct Bilirubin < 0.1, Aspartate Amino Transf (AST/SGOT) 20, Alanine Aminotransferase (ALT/SGPT) 33, Alkaline Phosphatase 141H, Total Protein 8.0, Albumin 4.1, Albumin/Globulin Ratio 1.05, Thyroid Stimulating Hormone (TSH) 0.847, Salicylates Level 2.5L, Urine Opiates Screen NEGATIVE, Urine Methadone Screen NEGATIVE, Acetaminophen Level < 2.0L, Urine Barbiturates Screen NEGATIVE, Urine Phencyclidine Screen NEGATIVE, Urine Amphetamines Screen NEGATIVE, Urine Benzodiazepines Screen NEGATIVE, Urine Cocaine Metabolite Screen NEGATIVE, Urine Cannabinoids Screen POSITIVEH, Ethyl Alcohol Level 0.006 Home Medications Scheduled Quetiapine Fumarate (Quetiapine Fumarate) 200 Mg Tablet, 500 MG PO QHS for bipolar d/o Allergies Coded Allergies: No Known Allergies (Unverified , 03/24/19) OC MCKEON DO Apr 30, 2019 10:14
[2019-04-30 11:32] VITALS: BP 112/68
== END 2019-04-30 11:33 | disposition home or self-care (01) ==
LOC: M ED 01:07
DX: F33.9 Major depressive disorder, recurrent, unspecified (principal); F60.3 Borderline personality disorder; F31.9 Bipolar disorder, unspecified; Z91.5 Personal history of self-harm; Z79.899 Other long term (current) drug therapy
CPT/HCPCS: 36415; 80048; 80076; 80307; 84443; 85027; 99284; G0480

== ENCOUNTER 2019-05-12 13:26 | Inpatient (IN) | payer OTHER ==
[2019-05-12] MEDS ORDERED: ZOLP5TAB PO (14:13)
[2019-05-12] MEDS ORDERED: ARIP1TAB PO (14:13)
[2019-05-12] MEDS ORDERED: KURV0.15 PO (14:13)
[2019-05-12] MEDS ORDERED: SERT50TA29 PO (14:13)
[2019-05-12] MEDS ORDERED: TRAZ-252 PO (14:13)
[2019-05-12] MEDS ORDERED: HYDR-3363 PO (14:13)
[2019-05-12] MEDS ORDERED: QUET200T2 PO (14:14)
[2019-05-12] MEDS ORDERED: NICOTINE 21MG/24HR 1 EA TRANSDERMAL TD ONE (14:15)
[2019-05-12 14:24] LABS: HEMATOCRIT 38.8 % (36.0-47.0); HEMOGLOBIN 12.6 g/dl (12.0-15.5); MEAN CORPUSCULAR HEMOGLOBIN 27.9 pg (27.0-33.0); MEAN CORPUSCULAR HGB CONC 32.5 g/dl (32.0-36.5); PLATELET COUNT, AUTOMATED 281 10^3/uL (150-450); RED BLOOD COUNT 4.51 10^6/uL (4.00-5.40)
[2019-05-12] MEDS ORDERED: HYDR50CA2 PO (14:36)
[2019-05-12 15:06] LABS: ACETAMINOPHEN LEVEL < 2.0 UG/ML (10.0-30.0); ALBUMIN 4.1 GM/DL (3.2-5.2); ALT/SGPT 28 U/L (12-78); BILIRUBIN,DIRECT 0.1 MG/DL (0.0-0.2); BILIRUBIN,TOTAL 0.4 MG/DL (0.2-1.0); BLOOD UREA NITROGEN 13 MG/DL (7-18); CALCIUM LEVEL 8.8 MG/DL (8.5-10.1); CARBON DIOXIDE LEVEL 25 MEQ/L (21-32); CHLORIDE LEVEL 110 MEQ/L (98-107); CREATININE FOR GFR 0.76 MG/DL (0.55-1.30); ETHYL ALCOHOL (ETHANOL) < 0.003 % (0.000-0.010); GLUCOSE, FASTING 82 MG/DL (70-100); POTASSIUM SERUM 4.7 MEQ/L (3.5-5.1); SODIUM LEVEL 138 MEQ/L (136-145); TOTAL PROTEIN 7.8 GM/DL (6.4-8.2)
[2019-05-12 15:06] LABS: AMPHETAMINES LEVEL URINE NEGATIVE (NEGATIVE); BARBITURATES URINE NEGATIVE (NEGATIVE); BENZODIAZEPINES URINE NEGATIVE (NEGATIVE); CANNABINOIDS URINE POSITIVE (NEGATIVE); COCAINE METABOLITE URINE NEGATIVE (NEGATIVE); METHADONE URINE NEGATIVE (NEGATIVE); OPIATES URINE NEGATIVE (NEGATIVE); PHENCYCLIDINE URINE NEGATIVE (NEGATIVE)
[2019-05-12 15:12] LABS: HCG, SERUM QUALITATIVE NEGATIVE (NEGATIVE)
[2019-05-12] MEDS ORDERED: ACETAMINOPHEN TAB 650MG DOSE (2X325MG) PO PRN (17:15)
[2019-05-12] MEDS ORDERED: zolPIDEM TARTRATE 5 MG TAB PO PRN (17:15)
[2019-05-12] MEDS ORDERED: MOM 30ML SUSPENSION UDC PO PRN (17:15)
[2019-05-12] MEDS ORDERED: MAALOX 30 ML SUSP *UDC PO PRN (17:15)
[2019-05-12] MEDS ORDERED: hydrOXYzine 50 MG TAB PO PRN (17:15)
[2019-05-12 19:07] VITALS: BP 127/75
[2019-05-12] MEDS ORDERED: OLANZapine ORAL DISINTEGRATING TAB 5MG PO PRN (22:49)
[2019-05-13 06:04] VITALS: BP 123/56
[2019-05-13] MEDS ORDERED: ARIPiprazole 10 MG TAB PO SCH (09:00)
[2019-05-13] MEDS ORDERED: SERTRALINE HCL 50 MG TAB PO SCH (09:00)
[2019-05-13] MEDS ORDERED: NICOTINE 21MG/24HR 1 EA TRANSDERMAL TD SCH (09:00)
--- NOTE | 2019-05-13 11:37 | MHHPEPDOC ---
[facility] History & Physical History and Physical DATE OF ADMISSION: May 12, 2019 at 17:10 New Patient Edilma Nguyen MRN: N/A Date of : N/A Date of Service: 05/13/2019 Chief Complaint "I do not want to stay, but I want that Latuda." History of Present Illness The patient is a well-known 19-year-old woman with a history of borderline personality disorder and malingering, had been admitted to our inpatient mental health unit after reporting suicidal thoughts. She reported that she had been tried on Abilify by an outpatient provider and that this had made her "suicidal." The patient has a long history of presenting to our unit malingering for primarily attention and was admitted out of an abundance of caution by the on-call provider. When I had seen the patient, she described no major changes in her psychiatric symptoms and other than the vague "depression" as she usually describes. She had described no other major changes in her life. She had report ed that she had relapsed "on benzodiazepines and stimulants," however her urinary tox screen was negative. The patient reports no other major changes. After discussing with patient about staying on voluntary, she had elected against staying on a voluntary and simply wanted to try the medication savita mmendation for Latuda and was uninterested in staying longer and had placed a letter for a court hearing as is the normal for this individual. The patient had denied any suicidality when meeting with me and had been consistently denying it throughout the entire day. Review Of Systems Depression: No changes. Anxiety: No changes. Lorelei: No changes. Psychotic: No changes. Trauma: No changes. Borderline: No changes. Past Psychiatric History The patient reports no history of psychiatric admissions, medication trials or current follow up. Allergies Please see below. Family Psychiatric History The patient denies/is unaware any history of mental health history including addictions and suicide. Social History Substance Abuse History The patient reports a history of substance use, but has had consistent negative urine tox screens, unclear if this is related to her chronic history of attention-seeking behavior. Medical History Patient has no significant past medical history. Mental Status Examination General: Well dressed with good hygiene Speech: Spontaneous and fluid Thought processes: Linear and logical MSK: Smooth and coordinated gait, no signs of tremors or involuntary orofacial movements Thought content: Future orientated Abstract reasoning, and computation: Intact Description of associations: Intact Description of abnormal or psychotic thoughts: Denies any suicidal or homicidal ideation. Denies any auditory or visual hallucinations. Does not appear to be responding to internal stimuli. Does not appear to be endorsing any bizarre or paranoid ideation. Judgment: Chronically limited. Insight: Chronically limited. Orientation: Alert and orientated 3 Cognition: Grossly normal Recent and remote memory: Intact Attention span and concentration: Intact Fund of knowledge: Adequate Mood: "okay" Affect: Euthymic with a full range Diagnoses Malingering. Borderline personality disorder. Assessment and Plan The patient is well known 19-year-old woman with a history of malingering in our ER and our inpatient who presents again very much in the same presentation, reporting suicidality with no clear provoking factor, she is observed and subsequently request to leave, refusing any voluntary admission. She has been denying any suicidal or homicidal ideation through the entirety of the day and other than wanting to try the recommended Latuda which has some off label treatment for borderline personality disorder and mood variation, is uninterested in care. She does have chronic historical risk factors in the form of presenting to the ER and superficial nonlethal cuts, however, at this time I do not believe her to be at imminent risk for self-harm or harm towards others and not to be greatly disabled, as she has returned to likely chronic baseline level of risk that is not mitigateable on this unit. At this time, will discharge in good germán as she generally does not do well on the unit when either constrained or kept for too long as she decompensates due to her border line personality disorder. Disposition Same day discharge. Problem List 1. Ineffective coping. Initial Treatment Plan 1. Patient was admitted on a 39 legal status. 2. Complete history was obtained. 3. With patients permission, family will be contacted and database will be expanded. 4. Patients medication regimen will be reviewed and changed accordingly. 5. Patient will be provided with protected environment. 6. Patient will be treated with individual, group, and milieu therapies. 7. Patient will receive supportive psych-education. 8. Discharge planning will commence immediately. 9. Outpatient follow-up treatment will be strongly recommended. 10. The initial treatment plan will focus initially on: . Estimated Length Of Stay Same day. Time Spent 70 minutes with greater than 50% of time spent on counseling/coordination of care. Monday Vital Signs Vital Signs Date Time Temp Pulse Resp B/P (MAP) Pulse Ox O2 Delivery O2 Flow Rate FiO2 05/13/19 06:04 98.3 55 16 123/56 (78) 96 Room Air Laboratory Data 24H Labs Laboratory Tests 2 05/12/19 13:41: Nucleated Red Blood Cells % (auto) 0.0, Anion Gap 3L, Calcium Level 8.8, Total Bilirubin 0.4, Direct Bilirubin 0.1, Aspartate Amino Transf (AST/SGOT) 21, Alanine Aminotransferase (ALT/SGPT) 28, Alkaline Phosphatase 142H, Total Protein 7.8, Albumin 4.1, Albumin/Globulin Ratio 1.11, Thyroid Stimulating Hormone (TSH) 1.170, Human Chorionic Gonadotropin, Qual NEGATIVE, Salicylates Level 3.0L, Acetaminophen Level < 2.0L, Ethyl Alcohol Level < 0.003 05/12/19 14:00: Urine Color YELLOW, Urine Appearance CLOUDYH, Urine pH 6.0, Urine Specific [place] 1.028, Urine Protein NEGATIVE, Urine Glucose (UA) NEGATIVE, Urine Ketones NEGATIVE, Urine Blood NEGATIVE, Urine Nitrite NEGATIVE, Urine Bilirubin NEGATIVE, Urine Urobilinogen 4.0H, Urine Leukocyte Esterase NEGATIVE, Urine WBC (Auto) 4H, Urine RBC (Auto) 1, Urine Hyaline Casts (Auto) 0, Urine Bacteria (Auto) 1+H, Urine Squamous Epithelial Cells 8, Urine Mucus (Auto) SMALL, Urine Sperm (Auto) , Urine Opiates Screen NEGATIVE, Urine Methadone Screen NEGATIVE, Urine Barbiturates Screen NEGATIVE, Urine Phencyclidine Screen NEGATIVE, Urine Amphetamines Screen NEGATIVE, Urine Benzodiazepines Screen NEGATIVE, Urine Cocaine Metabolite Screen NEGATIVE, Urine Cannabinoids Screen POSITIVEH CBC/BMP Laboratory Tests 05/12/19 13:41 Medications Scheduled Levonorgestrel-Ethin Estradiol (Kurvelo Tablet) 1 Each Tablet, 1 TAB PO DAILY, (Reported) HAS NOT PICKED UP FROM THE PHARMACY Lurasidone Hydrochloride (Latuda) 20 Mg Tablet, 20 MG PO DAILY@18 for mood Sertraline HCl (Sertraline HCl) 50 Mg Tablet, 50 MG PO DAILY, (Reported) Zolpidem Tartrate (Zolpidem Tartrate) 5 Mg Tablet, 5 MG PO QHS, (Reported) Scheduled PRN Hydroxyzine Pamoate (Hydroxyzine Pamoate) 50 Mg Capsule, 50 MG PO QID PRN for ANXIETY/AGITATION, (Reported) Allergies Coded Allergies: No Known Allergies (Unverified , 03/24/19) BRIAN CHAVEZ DO May 13, 2019 11:37
--- NOTE | 2019-05-13 13:38 | MHDSPDOC ---
[facility] Discharge Summary Discharge Summary DATE OF ADMISSION: May 12, 2019 at 17:10 DATE OF DISCHARGE: 05/13/19 please h/p same day d/c Vital Signs/I&Os Vital Signs Date Time Temp Pulse Resp B/P (MAP) Pulse Ox O2 Delivery O2 Flow Rate FiO2 05/13/19 06:04 98.3 55 16 123/56 (78) 96 Room Air Laboratory Data Labs 24H Laboratory Tests 2 05/12/19 13:41: Nucleated Red Blood Cells % (auto) 0.0, Anion Gap 3L, Calcium Level 8.8, Total Bilirubin 0.4, Direct Bilirubin 0.1, Aspartate Amino Transf (AST/SGOT) 21, Alanine Aminotransferase (ALT/SGPT) 28, Alkaline Phosphatase 142H, Total Protein 7.8, Albumin 4.1, Albumin/Globulin Ratio 1.11, Thyroid Stimulating Hormone (TSH) 1.170, Human Chorionic Gonadotropin, Qual NEGATIVE, Salicylates Level 3.0L, Acetaminophen Level < 2.0L, Ethyl Alcohol Level < 0.003 05/12/19 14:00: Urine Color YELLOW, Urine Appearance CLOUDYH, Urine pH 6.0, Urine Specific [place] 1.028, Urine Protein NEGATIVE, Urine Glucose (UA) NEGATIVE, Urine Ketones NEGATIVE, Urine Blood NEGATIVE, Urine Nitrite NEGATIVE, Urine Bilirubin NEGATIVE, Urine Urobilinogen 4.0H, Urine Leukocyte Esterase NEGATIVE, Urine WBC (Auto) 4H, Urine RBC (Auto) 1, Urine Hyaline Casts (Auto) 0, Urine Bacteria (Auto) 1+H, Urine Squamous Epithelial Cells 8, Urine Mucus (Auto) SMALL, Urine Sperm (Auto) , Urine Opiates Screen NEGATIVE, Urine Methadone Screen NEGATIVE, Urine Barbiturates Screen NEGATIVE, Urine Phencyclidine Screen NEGATIVE, Urine Amphetamines Screen NEGATIVE, Urine Benzodiazepines Screen NEGATIVE, Urine Cocaine Metabolite Screen NEGATIVE, Urine Cannabinoids Screen POSITIVEH CBC/BMP Laboratory Tests 05/12/19 13:41 Medications Scheduled Levonorgestrel-Ethin Estradiol (Kurvelo Tablet) 1 Each Tablet, 1 TAB PO DAILY, (Reported) HAS NOT PICKED UP FROM THE PHARMACY Lurasidone Hydrochloride (Latuda) 20 Mg Tablet, 20 MG PO DAILY@18 for mood for 7 Days, #7 Sertraline HCl (Sertraline HCl) 50 Mg Tablet, 50 MG PO DAILY, (Reported) Zolpidem Tartrate (Zolpidem Tartrate) 5 Mg Tablet, 5 MG PO QHS, (Reported) Scheduled PRN Hydroxyzine Pamoate (Hydroxyzine Pamoate) 50 Mg Capsule, 50 MG PO QID PRN for ANXIETY/AGITATION, (Reported) Allergies Coded Allergies: No Known Allergies (Unverified , 03/24/19) BRIAN CHAVEZ DO May 13, 2019 13:38
[2019-05-13] MEDS ORDERED: LATU20TA PO (13:39)
[2019-05-13] MEDS ORDERED: LURASIDONE 20 MG TAB (LATUDA) PO SCH (18:00)
== END 2019-05-13 14:35 | disposition home or self-care (01) | DRG 756 ==
LOC: M ED 13:26 → M ED INP 17:10 → ENRESERV 17:18 → M PSY 18:00
PROVIDERS: ADMIT Psychiatry & Neurology Psychiatry; ATTEND Psychiatry & Neurology Addiction Medicine
DX: R45.851 Suicidal ideations (principal); F60.3 Borderline personality disorder; Z76.5 Malingerer [conscious simulation]; Z79.899 Other long term (current) drug therapy

== ENCOUNTER 2019-05-17 14:14 | Emergency (ER) | payer OTHER ==
[~2019-05-17 14:14] MED LIST changes: +ARIP1TAB PO; +HYDR50CA2 PO; +KURV0.15 PO; +SERT50TA29 PO; +ZOLP5TAB PO
[2019-05-17 15:00] LABS: HEMATOCRIT 39.8 % (36.0-47.0); HEMOGLOBIN 12.8 g/dl (12.0-15.5); MEAN CORPUSCULAR HEMOGLOBIN 27.7 pg (27.0-33.0); MEAN CORPUSCULAR HGB CONC 32.2 g/dl (32.0-36.5); MEAN CORPUSCULAR VOLUME 86.1 fl (80.0-96.0); PLATELET COUNT, AUTOMATED 301 10^3/uL (150-450); RED BLOOD COUNT 4.62 10^6/uL (4.00-5.40); WHITE BLOOD COUNT 8.5 10^3/uL (4.0-10.0)
[2019-05-17 15:27] LABS: HCG, SERUM QUALITATIVE NEGATIVE (NEGATIVE)
[2019-05-17 15:34] LABS: AMPHETAMINES LEVEL URINE NEGATIVE (NEGATIVE); BARBITURATES URINE NEGATIVE (NEGATIVE); BENZODIAZEPINES URINE NEGATIVE (NEGATIVE); CANNABINOIDS URINE POSITIVE (NEGATIVE); COCAINE METABOLITE URINE NEGATIVE (NEGATIVE); METHADONE URINE NEGATIVE (NEGATIVE); OPIATES URINE NEGATIVE (NEGATIVE); PHENCYCLIDINE URINE NEGATIVE (NEGATIVE)
[2019-05-17 15:35] LABS: ACETAMINOPHEN LEVEL < 2.0 UG/ML (10.0-30.0); ALBUMIN 4.1 GM/DL (3.2-5.2); ALT/SGPT 26 U/L (12-78); BILIRUBIN,DIRECT < 0.1 MG/DL (0.0-0.2); BILIRUBIN,TOTAL 0.2 MG/DL (0.2-1.0); BLOOD UREA NITROGEN 12 MG/DL (7-18); CALCIUM LEVEL 9.2 MG/DL (8.5-10.1); CARBON DIOXIDE LEVEL 30 MEQ/L (21-32); CHLORIDE LEVEL 107 MEQ/L (98-107); CREATININE FOR GFR 0.65 MG/DL (0.55-1.30); ETHYL ALCOHOL (ETHANOL) < 0.003 % (0.000-0.010); GLUCOSE, FASTING 84 MG/DL (70-100); POTASSIUM SERUM 4.1 MEQ/L (3.5-5.1); SALICYLATE LEVEL 2.9 MG/DL (5.0-30.0); SODIUM LEVEL 141 MEQ/L (136-145); THYROID STIMULATING HORMONE 0.625 uIU/ML (0.463-3.98); TOTAL PROTEIN 7.7 GM/DL (6.4-8.2)
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
[2019-05-17 16:31] VITALS: BP 129/69
== END 2019-05-17 16:45 | disposition home or self-care (01) ==
LOC: M ED 14:14
DX: F60.3 Borderline personality disorder (principal); Z76.5 Malingerer [conscious simulation]; S51.812A Laceration without foreign body of left forearm, initial encounter; S61.211A Laceration without foreign body of left index finger without damage to nail, initial encounter; X78.8XXA Intentional self-harm by other sharp object, initial encounter; Y92.89 Other specified places as the place of occurrence of the external cause; Z79.899 Other long term (current) drug therapy
CPT/HCPCS: 36415; 80048; 80076; 80307; 84443; 84703; 85027; 99284; G0480

== ENCOUNTER 2019-05-28 21:41 | Inpatient (IN) | payer OTHER ==
[~2019-05-28] VITALS: Ht 162.6 cm; Wt 106.3 kg
[2019-05-28] MEDS: LURASIDONE 20 MG TAB (LATUDA) PO SCH (21:00)
[2019-05-28 23:07] LABS: HEMATOCRIT 40.9 % (36.0-47.0); HEMOGLOBIN 13.2 g/dl (12.0-15.5); MEAN CORPUSCULAR HEMOGLOBIN 27.5 pg (27.0-33.0); MEAN CORPUSCULAR HGB CONC 32.3 g/dl (32.0-36.5); MEAN CORPUSCULAR VOLUME 85.2 fl (80.0-96.0); PLATELET COUNT, AUTOMATED 321 10^3/uL (150-450); WHITE BLOOD COUNT 9.8 10^3/uL (4.0-10.0)
[2019-05-28 23:38] LABS: AMPHETAMINES LEVEL URINE NEGATIVE (NEGATIVE); BARBITURATES URINE NEGATIVE (NEGATIVE); BENZODIAZEPINES URINE NEGATIVE (NEGATIVE); CANNABINOIDS URINE POSITIVE (NEGATIVE); COCAINE METABOLITE URINE NEGATIVE (NEGATIVE); METHADONE URINE NEGATIVE (NEGATIVE); OPIATES URINE NEGATIVE (NEGATIVE); PHENCYCLIDINE URINE NEGATIVE (NEGATIVE)
[2019-05-29 00:10] LABS: ACETAMINOPHEN LEVEL < 2.0 UG/ML (10.0-30.0); ALBUMIN 4.2 GM/DL (3.2-5.2); ALT/SGPT 27 U/L (12-78); BILIRUBIN,DIRECT 0.1 MG/DL (0.0-0.2); BILIRUBIN,TOTAL 0.1 MG/DL (0.2-1.0); BLOOD UREA NITROGEN 13 MG/DL (7-18); CALCIUM LEVEL 9.4 MG/DL (8.5-10.1); CARBON DIOXIDE LEVEL 27 MEQ/L (21-32); CHLORIDE LEVEL 105 MEQ/L (98-107); CREATININE FOR GFR 0.69 MG/DL (0.55-1.30); ETHYL ALCOHOL (ETHANOL) < 0.003 % (0.000-0.010); GLUCOSE, FASTING 80 MG/DL (70-100); POTASSIUM SERUM 4.2 MEQ/L (3.5-5.1); SODIUM LEVEL 138 MEQ/L (136-145)
[2019-05-29] MEDS ORDERED: MAALOX 30 ML SUSP *UDC PO PRN (02:00)
[2019-05-29] MEDS ORDERED: MOM 30ML SUSPENSION UDC PO PRN (02:00)
[2019-05-29] MEDS ORDERED: ACETAMINOPHEN TAB 650MG DOSE (2X325MG) PO PRN (02:00)
[2019-05-29] MEDS ORDERED: LATU20TA PO (02:04)
[2019-05-29] MEDS ORDERED: AMBI10TA PO (02:04)
[2019-05-29] MEDS ORDERED: hydrOXYzine 50 MG TAB PO PRN (02:15)
[2019-05-29] MEDS ORDERED: zolPIDEM TARTRATE 5 MG TAB PO PRN (02:15)
[2019-05-29 02:53] VITALS: BP 127/60
[2019-05-29] MEDS: SERTRALINE HCL 50 MG TAB PO SCH (08:41)
[2019-05-29] MEDS: NICOTINE 21MG/24HR 1 EA TRANSDERMAL TD SCH (08:50)
--- NOTE | 2019-05-29 09:25 | MHHPEPDOC ---
[facility] History & Physical History and Physical DATE OF ADMISSION: May 29, 2019 at 01:49 New Patient Edilma Nguyen MRN: N/A Date of : N/A Date of Service: 05/29/2019 Chief Complaint "I just had a moment." History of Present Illness The patient a 19-year-old woman with a history of borderline personality disorder presents after reportedly having an incidence where she felt down after some psychosocial stressors. She reports that she had suicidal thoughts of a plan to jump off a bridge and had called 911 where she was brought in and admitted out of an abundance of caution and the event of suicidality rapidly vanished. When the patient was met with, she reported that she was feeling much better and the prior 2 days ago when she had lost some friends to overdose that she had been feeling fine, her depression doing well and she been following up with her outpatient care. She reports that part of this she had had no major social problems and has been socializing well using the internet as she had been doing prior. The patient reports she is not suicidal and requests discharge. The inflammation below is extracted from previous H&P and updated as appropriate with the patient. Review Of Systems Depression: As above. Anxiety: As above. Lorelei: No changes. Psychotic: No changes. Trauma: No changes. Borderline: No changes. Past Psychiatric History Allergies Please see below. Family Psychiatric History She reports having a family history of mental health problems and had an reported cousin and uncle by suicide. No history of addiction. Social History The patient is a never woman with no children. She is identifies as heterosexual. She currently resides with her grandmother and generally goes to her friends house multiple different times. She reports having a generally good relationship with her parents, although at times it has been a problem in the past. She has no income, graduate high school. She does describe having a poor relationship with her mother at times and her parents who have . She has no history of legal trouble. Substance Abuse History The patient is a confusing report of multiple substance use including Xanax, cannabis, stimulants and hallucinogens; however, her urine toxicology on this admissio Medical History Patient has no significant past medical history. Mental Status Examination General: Well dressed with good hygiene Speech: Spontaneous and fluid Thought processes: Linear and logical MSK: Smooth and coordinated gait, no signs of tremors or involuntary orofacial movements Thought content: Future orientated Abstract reasoning, and computation: Intact Description of associations: Intact Description of abnormal or psychotic thoughts: Denies any suicidal or homicidal ideation. Denies any auditory or visual hallucinations. Does not appear to be responding to internal stimuli. Does not appear to be endorsing any bizarre or paranoid ideation. Judgment: Chronically limited. Insight: Chronically limited. Orientation: Alert and orientated 3 Cognition: Grossly normal Recent and remote memory: Intact Attention span and concentration: Intact Fund of knowledge: Adequate Mood: "okay" Affect: Euthymic with a full range Diagnoses Situational disturbance/unspecified depressive disorder. Likely adjustment versus situational problems. Borderline personality disorder. Cannabis use disorder, moderate. Benzodiazepine use disorder, unspecified. Stimulant use disorder, unspecified. Assessment and Plan The patient a well known 19-year-old woman with a history of borderline personality disorder presents after encountering a mild psychosocial stressor as is her normal presentation. She stabilizes quickly, even perhaps even before she had to arrive to our unit. She will be observed overnight and if she is continuing to be not suicidal and in behavioral control, she will be discharged at her request. Disposition Discharge tomorrow if continues to improve. Problem List 1. Risk of suicide. 2. Ineffective coping. Initial Treatment Plan 1. Patient was admitted on a 9.13 legal status. 2. Complete history was obtained. 3. With patients permission, family will be contacted and database will be expanded. 4. Patients medication regimen will be reviewed and changed accordingly. 5. Patient will be provided with protected environment. 6. Patient will be treated with individual, group, and milieu therapies. 7. Patient will receive supportive psych-education. 8. Discharge planning will commence immediately. 9. Outpatient follow-up treatment will be strongly recommended. 10. The initial treatment plan will focus initially on: Estimated Length Of Stay 3 days. Time Spent 70 minutes with greater than 50% of time spent on counseling/coordination of care. Monday Vital Signs Vital Signs Date Time Temp Pulse Resp B/P (MAP) Pulse Ox O2 Delivery O2 Flow Rate FiO2 05/29/19 08:51 Room Air 05/29/19 02:53 97.6 90 18 127/60 (82) 97 Laboratory Data 24H Labs Laboratory Tests 2 05/28/19 22:53: Nucleated Red Blood Cells % (auto) 0.0, Anion Gap 6L, Calcium Level 9.4, Total Bilirubin 0.1L, Direct Bilirubin 0.1, Aspartate Amino Transf (AST/SGOT) 16, Alanine Aminotransferase (ALT/SGPT) 27, Alkaline Phosphatase 127H, Total Protein 8.0, Albumin 4.2, Albumin/Globulin Ratio 1.11, Thyroid Stimulating Hormone (TSH) 1.460, Salicylates Level 3.0L, Urine Opiates Screen NEGATIVE, Urine Methadone Screen NEGATIVE, Acetaminophen Level < 2.0L, Urine Barbiturates Screen NEGATIVE, Urine Phencyclidine Screen NEGATIVE, Urine Amphetamines Screen NEGATIVE, Urine Benzodiazepines Screen NEGATIVE, Urine Cocaine Metabolite Screen NEGATIVE, Urine Cannabinoids Screen POSITIVEH, Ethyl Alcohol Level < 0.003 CBC/BMP Laboratory Tests 05/28/19 22:53 Medications Scheduled Levonorgestrel-Ethin Estradiol (Kurvelo Tablet) 1 Each Tablet, 1 TAB PO DAILY, (Reported) HAS NOT PICKED UP FROM THE PHARMACY Lurasidone Hydrochloride (Latuda) 20 Mg Tablet, 20 MG PO QHS, (Reported) Nicotine (Nicotine Patch) 21 Mg Patch.td24, 1 PATCH TD DAILY for tobacco Sertraline HCl (Sertraline HCl) 50 Mg Tablet, 50 MG PO DAILY, (Reported) Zolpidem Tartrate (Ambien) 10 Mg Tablet, 10 MG PO QHS, (Reported) Scheduled PRN Hydroxyzine Pamoate (Hydroxyzine Pamoate) 50 Mg Capsule, 50 MG PO QID PRN for ANXIETY/AGITATION, (Reported) Olanzapine (Olanzapine) 5 Mg Tablet, 1 TAB PO DAILYPRN PRN for ANXIETY/AGITATION Allergies Coded Allergies: No Known Allergies (Unverified , 03/24/19) A-FIB/CHADSVASC A-FIB History Current/History of A-Fib/PAF?: No BRIAN CHAVEZ DO May 29, 2019 09:25
--- NOTE | 2019-05-29 14:20 | HPEPDOC ---
[facility] Medical History & Physical Date of Admission May 29, 2019 Date of Service: May 29, 2019 Attending Physician: Nola Willams MD History and Physical HISTORY OF PRESENT ILLNESS: The patient is a 19-year-old female with past medical history of oppositional defiant disorder, anxiety, depression, bipolar disorder, ADHD, borderline personality disorder who is admitted to inpatient mental health unit at [facility] for unspecified depressive disorder, suicidal ideation with plan. As per the patient and notes gathered, the patient was disturbed when she found out a close family member several days ago about all with cancer. She has been feeling as though she wanted to kill herself ever since. She admitted to having a suicide plan of jumping off a bridge. Her grandmother called 911 due to this plan. The patient has a history of being admitted to inpatient mental health, last admission was at [facility] on 05/12/2019 with discharge on 05/13/2019. She requested to be admitted this stay because she continued to feel suicidal prior to being possibly discharge. has had increased anxiety outside of her relative's the Covid 19 pandemic. According to notes the patient has had 2 prior suicide attempts by overdose, one in 2019 and another one at the age of 13. The patient admits to having a decreased appetite, depressed mood, erratic behavior, suicidal thoughts, decreased sleep. She denies visual and auditory hallucinations, chest pain, fevers, chills, cough, shortness of breath, recent illnesses. Patient denies having a primary care provider but follows with [facility] in [place], [place] for mental health. REVIEW OF SYSTEMS: CONSTITUTIONAL: Denies unexplained weight gain or weight loss, fever, night sweats EYES: Denies eye drainage, eye pain, visual changes, dry/irritated eye EARS, NOSE, MOUTH, THROAT: Denies difficulty hearing, ringing in ears, mouth sores, loose teeth, sore throat, facial numbness or pain NECK: Denies swollen glands CARDIOVASCULAR: Denies irregular heartbeat, racing heart, chest pains, swelling of feet or legs, pain in legs with walking RESPIRATORY: Denies shortness of breath, night sweats, wheezing, sputum production, oxygen at home, coughing up blood, cough lasting > 1 month GASTROINTESTINAL: Denies abdominal pain, constipation, bloody stool, diarrhea, heartburn, nausea, vomiting GENITOURINARY: Denies painful urination, bloody urine, frequent urination, urgency, leaking urine, impotence MUSCULOSKELETAL: Denies joint pain, muscle pain, leg swelling INTEGUMENTARY: Denies rash, itching, new skin lesion, change in existing skin lesion, hair loss or increase, breast changes. NEUROLOGICAL: Denies difficulty walking, numbness or tingling PSYCHIATRIC: Denies hallucinations PAST MEDICAL HISTORY: 1. Oppositional defiant disorder 2. Bipolar disorder 3. ADHD 4. Borderline personality disorder 5. PCOS 6. Tobacco use 7. Anxiety 8. Depression 9. Insomnia 10. Hx of suicide attempt PAST SURGICAL HISTORY: None FAMILY HISTORY: Father: No medical history, alive. Mother: Her medical history, alive. Grandmother: Lupus, diabetes. Alive SOCIAL HISTORY: The patient is a 2 pack per day smoker and has been smoking for 3 years. She also smokes marijuana recreationally. She denies any illicit drug use in addition to the marijuana. She drinks alcohol socially. She lives in the surrounding community with her father. She follows with behavioral health specialist only. She sees no other primary care provider or specialist. ALLERGIES: Please see below. HOME MEDICATIONS: Please see below. PHYSICAL EXAMINATION: CONSTITUTIONAL: No acute distress, resting comfortably, AAO x 3 EYES: PERRLA, EOM intact HENT, MOUTH: Normocephalic, atraumatic, moist mucous membranes, NECK: SUPPLE, no JVD, no lymphadenopathy, no carotid bruit CV: Regular rate and rhythm, S1S2 normal, no murmurs/rubs/gallops RESPIRATORY: Clear to auscultation bilaterally, no rales/rhonchi/wheezes GI: obese abdomen, BS positive in 4 quadrants, soft, nontender, nondistended, no rebound or guarding, no organomegaly : Deferred MUSCULOSKELETAL: Normal ROM. No cyanosis, clubbing, swelling, joint deformity, extremity edema INTEGUMENTARY: Intact, no rashes, no lesions, no erythema NEUROLOGIC: Cranial Nerves II-XII are intact, no focal deficits PSYCHIATRIC: Mood and affect are normal LABORATORY DATA: Please see below IMAGING: None ASSESSMENT: 19-year-old female admitted in inpatient mental health for unspecified depressive disorder, suicidal ideations. PLAN: 1. Unspecified depressive disorder, suicidal ideations. To be managed by primary team. 2. Bipolar disorder. To be managed by primary team. 3. ADHD. To be managed by primary team. 4. Borderline personality disorder. To be managed by primary team. 5. PCOS. Continue with home control. 6. Tobacco use. Recommend nicotine patch daily. 7. Anxiety. Stable. To be managed by primary team. 8. Oppositional defiant disorder. To be managed by primary team. 9. Insomnia. C/w home meds. DISPOSITION: Thank you for consulting on this patient. At this time will sign off as there are no active medical issues outside of those which the primary team is managing that needs close attention. Please feel free to contact to reevaluate at any time. Vital Signs Vital Signs Date Time Temp Pulse Resp B/P (MAP) Pulse Ox O2 Delivery O2 Flow Rate FiO2 05/29/19 08:51 Room Air 05/29/19 02:53 97.6 90 18 127/60 (82) 97 Laboratory Data Labs 24H Laboratory Tests 2 05/28/19 22:53: Nucleated Red Blood Cells % (auto) 0.0, Anion Gap 6L, Calcium Level 9.4, Total Bilirubin 0.1L, Direct Bilirubin 0.1, Aspartate Amino Transf (AST/SGOT) 16, Alanine Aminotransferase (ALT/SGPT) 27, Alkaline Phosphatase 127H, Total Protein 8.0, Albumin 4.2, Albumin/Globulin Ratio 1.11, Thyroid Stimulating Hormone (TSH) 1.460, Salicylates Level 3.0L, Urine Opiates Screen NEGATIVE, Urine Methadone Screen NEGATIVE, Acetaminophen Level < 2.0L, Urine Barbiturates Screen NEGATIVE, Urine Phencyclidine Screen NEGATIVE, Urine Amphetamines Screen NEGATIVE, Urine Benzodiazepines Screen NEGATIVE, Urine Cocaine Metabolite Screen NEGATIVE, Urine Cannabinoids Screen POSITIVEH, Ethyl Alcohol Level < 0.003 CBC/BMP Laboratory Tests 05/28/19 22:53 Home Medications Scheduled Levonorgestrel-Ethin Estradiol (Kurvelo Tablet) 1 Each Tablet, 1 TAB PO DAILY HAS NOT PICKED UP FROM THE PHARMACY Lurasidone Hydrochloride (Latuda) 20 Mg Tablet, 20 MG PO QHS Sertraline HCl (Sertraline HCl) 50 Mg Tablet, 50 MG PO DAILY Zolpidem Tartrate (Ambien) 10 Mg Tablet, 10 MG PO QHS Scheduled PRN Hydroxyzine Pamoate (Hydroxyzine Pamoate) 50 Mg Capsule, 50 MG PO QID PRN for ANXIETY/AGITATION Allergies Coded Allergies: No Known Allergies (Unverified , 03/24/19) A-FIB/CHADSVASC A-FIB History Current/History of A-Fib/PAF?: No Current PO Anticoag Therapy: No Age/Risk Factor Scoring CHADSVASC: CHADSVASC Response (Comments) Value Age Risk Factor Age < 65 years old 0 Gender Risk Factor Female 1 Hx of CHF No 0 Hx of HTN No 0 Hx of Stroke/TIA/or VTE No 0 Hx of Diabetes No 0 Hx of Vascular Disease No 0 Total 1 Treatment Treatment ordered: NONE (not indicated) Nola Willams MD May 29, 2019 14:20
[2019-05-29 15:39] VITALS: BP 110/57
[2019-05-29] MEDS ORDERED: OLANZapine ORAL DISINTEGRATING TAB 5MG PO STA (17:18)
[2019-05-29] MEDS: LURASIDONE 20 MG TAB (LATUDA) PO SCH (21:53)
[2019-05-30 06:34] VITALS: BP 122/57
[2019-05-30] MEDS: SERTRALINE HCL 50 MG TAB PO SCH (08:36)
[2019-05-30] MEDS: NICOTINE 21MG/24HR 1 EA TRANSDERMAL TD SCH (08:37)
--- NOTE | 2019-05-30 09:09 | MHDSPDOC ---
[facility] Discharge Summary Discharge Summary DATE OF ADMISSION: May 29, 2019 at 01:49 DATE OF DISCHARGE: 05/30/19 Discharge Edilma Nguyen MRN: N/A Date of : N/A Date of Service: 05/30/2019 Diagnoses Situational disturbance/unspecified depressive disorder. Likely adjustment versus situational problems. Borderline personality disorder. Cannabis use disorder, moderate. Benzodiazepine use disorder, unspecified. Stimulant use disorder, unspecified. History of Present Illness The patient a 19-year-old woman with a history of borderline personality disorder presents after reportedly having an incidence where she felt down after some psychosocial stressors. She reports that she had suicidal thoughts of a plan to jump off a bridge and had called 911 where she was brought in and admitted out of an abundance of caution and the event of suicidality rapidly vanished. When the patient was met with, she reported that she was feeling much better and the prior 2 days ago when she had lost some friends to overdose that she had been feeling fine, her depression doing well and she been following up with her outpatient care. She reports that part of this she had had no major social problems and has been socializing well using the internet as she had been doing prior. The patient reports she is not suicidal and requests discharge. The inflammation below is extracted from previous H&P and updated as appropriate with the patient. Consultants Involved Hospitalist/PCP screening Treatment and Progress On The Unit The patient was admitted to the inpatient mental health unit after having a reported situational disturbance, she reported that her depression actually doing well, but that she had felt rejected and had brief suicidal thoughts. She was admitted and observed for 48 hours where she denied suicidality throughout the admission and requested discharge. No changes to her medications were made. She was resumed on her home Zoloft and Ambien without any incident. She had no behavioral problems other than a reported instance where she had suicidal thoughts, however, she practiced good coping skills and demonstrates a good ab ility to cope with them by asking for help, spoke them out and they had vanished. Discharge Assessment 19-year-old woman with likely borderline personality disorder and situational disturbance presents with brief suicidal thoughts that rapidly dissipate. She has a long history of admissions and appears to have poor ability to cope in these situations. The patient at the time of discharge did not meet criteria for involuntary admission/extension due to having a normal mental status exam, fair insight into the situation, They are engaged in the discharge process, as well as being friendly and amenable in behavioral control and havent been engaging in any observed concerning behavior or ideation recently. They decline voluntary extension/admission at this time and must be discharged in good germán, as Im unable to make a case for holding the patient against their will. They may have historical risk factors of admissions and other interactions with psychiatry however, those are not modifiable from a clinical perspective. The patient will need to be discharged in good germán. Mental Status Examination General: Well dressed with good hygiene Speech: Spontaneous and fluid Thought processes: Linear and logical MSK: Smooth and coordinated gait, no signs of tremors or involuntary orofacial movements Thought content: Future orientated Abstract reasoning, and computation: Intact Description of associations: Intact Description of abnormal or psychotic thoughts: Denies any suicidal or homicidal ideation. Denies any auditory or visual hallucinations. Does not appear to be responding to internal stimuli. Does not appear to be endorsing any bizarre or p aranoid ideation. Judgment: fair Insight: fair Orientation: Alert and orientated 3 Cognition: Grossly normal Recent and remote memory: Intact Attention span and concentration: Intact Fund of knowledge: Adequate Mood: "okay" Affect: Euthymic with a full range Follow Up The social work team worked during the predischarge meeting in order to evaluate for further issues of lethality address them fully before discharge. They worked on safety planning with the patient's family members in order to ensure that the patient will have a safe and effective discharge. Time Spent The amount of time spent in the coordination of care for this patient was approximately 45 minutes. Vital Signs/I&Os Vital Signs Date Time Temp Pulse Resp B/P (MAP) Pulse Ox O2 Delivery O2 Flow Rate FiO2 05/30/19 06:34 98.0 69 14 122/57 (78) 98 Room Air Medications Scheduled Levonorgestrel-Ethin Estradiol (Kurvelo Tablet) 1 Each Tablet, 1 TAB PO DAILY, (Reported) HAS NOT PICKED UP FROM THE PHARMACY Lurasidone Hydrochloride (Latuda) 20 Mg Tablet, 20 MG PO QHS, (Reported) Nicotine (Nicotine Patch) 21 Mg Patch.td24, 1 PATCH TD DAILY for tobacco for 30 Days, #30 Sertraline HCl (Sertraline HCl) 50 Mg Tablet, 50 MG PO DAILY, (Reported) Zolpidem Tartrate (Ambien) 10 Mg Tablet, 10 MG PO QHS, (Reported) Scheduled PRN Hydroxyzine Pamoate (Hydroxyzine Pamoate) 50 Mg Capsule, 50 MG PO QID PRN for ANXIETY/AGITATION, (Reported) Olanzapine (Olanzapine) 5 Mg Tablet, 1 TAB PO DAILYPRN PRN for ANXIETY/AGITATION for 7 Days, #7 Allergies Coded Allergies: No Known Allergies (Unverified , 03/24/19) BRIAN CHAVEZ DO May 30, 2019 09:09
[2019-05-30] MEDS ORDERED: NICO21PAT TD (09:28)
[2019-05-30] MEDS ORDERED: OLAN5TAB PO (10:42)
== END 2019-05-30 13:15 | disposition home or self-care (01) | DRG 755 ==
LOC: M ED 21:41 → M ED INP 05-29 01:49 → M PSY 05-29 02:22
PROVIDERS: ADMIT Psychiatry & Neurology Psychiatry; ATTEND Psychiatry & Neurology Addiction Medicine
DX: F43.20 Adjustment disorder, unspecified (principal); F32.9 Major depressive disorder, single episode, unspecified; F60.3 Borderline personality disorder; F12.20 Cannabis dependence, uncomplicated; F15.10 Other stimulant abuse, uncomplicated; F19.10 Other psychoactive substance abuse, uncomplicated; F17.200 Nicotine dependence, unspecified, uncomplicated; E28.2 Polycystic ovarian syndrome; G47.00 Insomnia, unspecified; Z79.899 Other long term (current) drug therapy; Z81.8 Family history of other mental and behavioral disorders; Z91.5 Personal history of self-harm

== ENCOUNTER 2019-06-09 21:26 | Emergency (ER) | payer OTHER ==
[~2019-06-09] VITALS: Ht 162.6 cm; Wt 105.5 kg
[~2019-06-09 21:26] MED LIST changes: +AMBI10TA PO; -BUPR150T3 PO; +BUPR150T4 PO; -CLOT1CRE TOP; +CLOT1CRE51 TOP; +ESCI10TA16 PO; -ESCI10TA2 PO; +MIRT-62 PO; +NICO1DIS12 TD; -NICO21DI31 TD; +OLAN5TAB PO; -QUET1TAB10 PO; +QUET300T2 PO; -REME15TA PO
[2019-06-09 22:45] LABS: HEMATOCRIT 38.1 % (36.0-47.0); HEMOGLOBIN 12.4 g/dl (12.0-15.5); MEAN CORPUSCULAR HEMOGLOBIN 27.4 pg (27.0-33.0); MEAN CORPUSCULAR HGB CONC 32.5 g/dl (32.0-36.5); MEAN CORPUSCULAR VOLUME 84.1 fl (80.0-96.0); PLATELET COUNT, AUTOMATED 299 10^3/uL (150-450); RED BLOOD COUNT 4.53 10^6/uL (4.00-5.40); WHITE BLOOD COUNT 9.9 10^3/uL (4.0-10.0)
[2019-06-09 23:08] LABS: HCG, SERUM QUALITATIVE NEGATIVE (NEGATIVE)
[2019-06-09 23:10] LABS: AMPHETAMINES LEVEL URINE NEGATIVE (NEGATIVE); BARBITURATES URINE NEGATIVE (NEGATIVE); BENZODIAZEPINES URINE NEGATIVE (NEGATIVE); CANNABINOIDS URINE POSITIVE (NEGATIVE); COCAINE METABOLITE URINE NEGATIVE (NEGATIVE); METHADONE URINE NEGATIVE (NEGATIVE); OPIATES URINE NEGATIVE (NEGATIVE); PHENCYCLIDINE URINE NEGATIVE (NEGATIVE)
[2019-06-09 23:20] LABS: ACETAMINOPHEN LEVEL < 2.0 UG/ML (10.0-30.0); ALBUMIN 3.9 GM/DL (3.2-5.2); ALT/SGPT 31 U/L (12-78); BILIRUBIN,DIRECT < 0.1 MG/DL (0.0-0.2); BILIRUBIN,TOTAL 0.2 MG/DL (0.2-1.0); BLOOD UREA NITROGEN 11 MG/DL (7-18); CALCIUM LEVEL 8.8 MG/DL (8.5-10.1); CARBON DIOXIDE LEVEL 27 MEQ/L (21-32); CHLORIDE LEVEL 105 MEQ/L (98-107); CREATININE FOR GFR 0.66 MG/DL (0.55-1.30); ETHYL ALCOHOL (ETHANOL) < 0.003 % (0.000-0.010); GLUCOSE, FASTING 77 MG/DL (70-100); POTASSIUM SERUM 4.1 MEQ/L (3.5-5.1); SALICYLATE LEVEL 3.2 MG/DL (5.0-30.0); SODIUM LEVEL 142 MEQ/L (136-145); THYROID STIMULATING HORMONE 0.873 uIU/ML (0.463-3.98); TOTAL PROTEIN 7.7 GM/DL (6.4-8.2)
[2019-06-10 00:07] VITALS: BP 120/67
--- NOTE | 2019-06-10 03:44 | REP ---
Clinical: Trauma. Technique: AP, lateral, bilateral oblique views right hand . Findings: The osseous structures and joint spaces are intact and normal. There is no evidence for acute fracture or dislocation. Surrounding soft tissues are unremarkable. No subcutaneous emphysema or radiodense foreign body. Impression: Age-appropriate right hand series . No acute fracture or dislocation. Electronically Signed by Krishna Mcknight MD 06/10/2019 03:35 A
[2019-10-15] MEDS ORDERED: IBUP1TAB5 PO (03:47)
== END 2019-06-10 00:14 | disposition home or self-care (01) ==
LOC: M ED 21:26
DX: F43.0 Acute stress reaction (principal); S60.221A Contusion of right hand, initial encounter; W22.09XA Striking against other stationary object, initial encounter; Y92.019 Unspecified place in single-family (private) house as the place of occurrence of the external cause; F33.9 Major depressive disorder, recurrent, unspecified; F17.210 Nicotine dependence, cigarettes, uncomplicated; Z79.899 Other long term (current) drug therapy
CPT/HCPCS: 36415; 73130; 80048; 80076; 80307; 84443; 84703; 85027; 99284; G0480

== ENCOUNTER 2019-07-25 18:02 | Inpatient (IN) | payer OTHER ==
[~2019-07-25] VITALS: Ht 162.6 cm; Wt 109.1 kg
[~2019-07-25 18:02] MED LIST changes: +BUPR150T3 PO; -BUPR150T4 PO; -ESCI10TA16 PO; +ESCI10TA2 PO; -MIRT-62 PO; -NICO1DIS12 TD; +NICO21DI31 TD; +QUET1TAB10 PO; -QUET300T2 PO; +REME15TA PO
[2019-07-25] MEDS ORDERED: MIRE1IUD PV (18:24)
[2019-07-25] MEDS ORDERED: ZOLP10TA2 PO (18:24)
[2019-07-25 19:02] LABS: HEMATOCRIT 39.9 % (36.0-47.0); HEMOGLOBIN 12.7 g/dl (12.0-15.5); MEAN CORPUSCULAR HEMOGLOBIN 26.8 pg (27.0-33.0); MEAN CORPUSCULAR HGB CONC 31.8 g/dl (32.0-36.5); MEAN CORPUSCULAR VOLUME 84.2 fl (80.0-96.0); PLATELET COUNT, AUTOMATED 281 10^3/uL (150-450); RED BLOOD COUNT 4.74 10^6/uL (4.00-5.40); WHITE BLOOD COUNT 9.9 10^3/uL (4.0-10.0)
[2019-07-25 19:26] LABS: AMPHETAMINES LEVEL URINE NEGATIVE (NEGATIVE); BARBITURATES URINE NEGATIVE (NEGATIVE); BENZODIAZEPINES URINE NEGATIVE (NEGATIVE); CANNABINOIDS URINE POSITIVE (NEGATIVE); COCAINE METABOLITE URINE NEGATIVE (NEGATIVE); METHADONE URINE NEGATIVE (NEGATIVE); OPIATES URINE NEGATIVE (NEGATIVE); PHENCYCLIDINE URINE NEGATIVE (NEGATIVE)
[2019-07-25 19:27] LABS: HCG, SERUM QUALITATIVE NEGATIVE (NEGATIVE)
[2019-07-25 19:38] LABS: ACETAMINOPHEN LEVEL < 2.0 UG/ML (10.0-30.0); ALBUMIN 4.2 GM/DL (3.2-5.2); ALT/SGPT 34 U/L (12-78); BILIRUBIN,DIRECT 0.1 MG/DL (0.0-0.2); BILIRUBIN,TOTAL 0.3 MG/DL (0.2-1.0); BLOOD UREA NITROGEN 15 MG/DL (7-18); CALCIUM LEVEL 9.3 MG/DL (8.5-10.1); CARBON DIOXIDE LEVEL 29 MEQ/L (21-32); CHLORIDE LEVEL 107 MEQ/L (98-107); CREATININE FOR GFR 0.79 MG/DL (0.55-1.30); ETHYL ALCOHOL (ETHANOL) 0.004 % (0.000-0.010); GLUCOSE, FASTING 87 MG/DL (70-100); POTASSIUM SERUM 4.2 MEQ/L (3.5-5.1); SALICYLATE LEVEL 2.5 MG/DL (5.0-30.0); SODIUM LEVEL 140 MEQ/L (136-145); THYROID STIMULATING HORMONE 0.695 uIU/ML (0.463-3.98); TOTAL PROTEIN 7.5 GM/DL (6.4-8.2)
[2019-07-25] MEDS ORDERED: NICOTINE 21MG/24HR 1 EA TRANSDERMAL TD PRN (22:00)
[2019-07-25] MEDS ORDERED: MAALOX 30 ML SUSP *UDC PO PRN (22:00)
[2019-07-25] MEDS ORDERED: ACETAMINOPHEN TAB 650MG DOSE (2X325MG) PO PRN (22:00)
[2019-07-25] MEDS ORDERED: OLANZapine ORAL DISINTEGRATING TAB 5MG PO PRN (22:00)
[2019-07-25] MEDS ORDERED: MOM 30ML SUSPENSION UDC PO PRN (22:00)
[2019-07-25 23:24] VITALS: BP 122/75
[2019-07-26] MEDS ORDERED: traZODone 50 MG TAB PO PRN (06:30)
[2019-07-26 06:48] VITALS: BP 126/62
[2019-07-26] MEDS ORDERED: SERTRALINE HCL 50 MG TAB PO SCH (09:00)
--- NOTE | 2019-07-26 10:01 | MHHPEPDOC ---
[facility] History & Physical History and Physical DATE OF ADMISSION: Jul 25, 2019 at 21:54 HPI: Edilma presents today for concerns regarding suicidal thoughts. Which she denies at this time, reports that she was presenting for an accident and was admitted as ER provider felt she was not trustworthy. Patient had a relapse on Gabapentin on Day. Patient denies suicidal thoughts, homicidal thoughts, hallucinations at the moment. She denies hearing voices or suicidal attempts. Currently taking Zoloft and Ambien FAMILY HISTORY: Patients grandmother is bipolar SOCIAL HISTORY: Patient is on the waiting list for TLS. Objective Appearance: Well groomed. Well nourished. Behavior: Engaged. Pleasant. Cooperative with good eye contact. Affect: Appropriate to context. Full range. Mood: Appropriately reactive. Generally good. Euthymic. Speech: Normal volume. Normal rate. Motor: No gross motor abnormalities. Cognition: Alert, Attentive, and Oriented to person, place, time. Memory: No formal testing. No gross abnormalities of short or detention memory noted during interview. Thought Form: Linear and goal directed. Thought Content: No evidence of suicidal ideation. No thoughts of self harm. No evidence of aggressive or homicidal ideation. No evidence of delusions. Perception: No perceptual abnormalities noted. Judgement: chronically limited. Insight: chronically limited. Assessment adjustment reaction brief borderline personality disorder Plan Patient has presented again likely secondary for frustration tolerance as she is done multiple times before. Her presentations are generally consistent with their previous ones with extremely limited insight into problems. Her judgement will likely remain unchanged. She is euthymic as would be expected in any individual with borderline personality disorder. Change normal mental status to baseline. Discharge patient on home meds. Estimated length of stay one day with same day discharge. Treatment plan priorities are in effective coping. Vital Signs Vital Signs Date Time Temp Pulse Resp B/P (MAP) Pulse Ox O2 Delivery O2 Flow Rate FiO2 07/26/19 06:48 97.2 59 12 126/62 (83) 94 Room Air Laboratory Data 24H Labs Laboratory Tests 2 07/25/19 18:48: Nucleated Red Blood Cells % (auto) 0.0, Anion Gap 4L, Calcium Level 9.3, Total Bilirubin 0.3, Direct Bilirubin 0.1, Aspartate Amino Transf (AST/SGOT) 15, Alanine Aminotransferase (ALT/SGPT) 34, Alkaline Phosphatase 148H, Total Protein 7.5, Albumin 4.2, Albumin/Globulin Ratio 1.3, Thyroid Stimulating Hormone (TSH) 0.695, Human Chorionic Gonadotropin, Qual NEGATIVE, Salicylates Level 2.5L, Urine Opiates Screen NEGATIVE, Urine Methadone Screen NEGATIVE, Acetaminophen Level < 2.0L, Urine Barbiturates Screen NEGATIVE, Urine Phencyclidine Screen NEGATIVE, Urine Amphetamines Screen NEGATIVE, Urine Benzodiazepines Screen NEGATIVE, Urine Cocaine Metabolite Screen NEGATIVE, Urine Cannabinoids Screen POSITIVEH, Ethyl Alcohol Level 0.004 CBC/BMP Laboratory Tests 07/25/19 18:48 Medications Scheduled Levonorgestrel (Mirena) 1 Each Iud, 1 IUD PV ASDIRECTED, (Reported) BEING PLACED ON 08/14/2019 Sertraline HCl (Sertraline HCl) 50 Mg Tablet, 50 MG PO DAILY, (Reported) Zolpidem Tartrate (Zolpidem Tartrate) 10 Mg Tablet, 10 MG PO QHS, (Reported) Allergies Coded Allergies: No Known Allergies (Unverified , 07/25/19) BRIAN CHAVEZ DO Jul 26, 2019 10:01
--- NOTE | 2019-07-26 18:39 | MHDSPDOC ---
[facility] Discharge Summary Discharge Summary DATE OF ADMISSION: Jul 25, 2019 at 21:54 DATE OF DISCHARGE: Jul 26, 2019 at 13:00 Please see H&P for same-day discharge Vital Signs/I&Os Vital Signs Date Time Temp Pulse Resp B/P (MAP) Pulse Ox O2 Delivery O2 Flow Rate FiO2 07/26/19 06:48 97.2 59 12 126/62 (83) 94 Room Air Laboratory Data Labs 24H Laboratory Tests 2 07/25/19 18:48: Nucleated Red Blood Cells % (auto) 0.0, Anion Gap 4L, Calcium Level 9.3, Total Bilirubin 0.3, Direct Bilirubin 0.1, Aspartate Amino Transf (AST/SGOT) 15, Alanine Aminotransferase (ALT/SGPT) 34, Alkaline Phosphatase 148H, Total Protein 7.5, Albumin 4.2, Albumin/Globulin Ratio 1.3, Thyroid Stimulating Hormone (TSH) 0.695, Human Chorionic Gonadotropin, Qual NEGATIVE, Salicylates Level 2.5L, Urine Opiates Screen NEGATIVE, Urine Methadone Screen NEGATIVE, Acetaminophen Level < 2.0L, Urine Barbiturates Screen NEGATIVE, Urine Phencyclidine Screen NEGATIVE, Urine Amphetamines Screen NEGATIVE, Urine Benzodiazepines Screen NEGATIVE, Urine Cocaine Metabolite Screen NEGATIVE, Urine Cannabinoids Screen POSITIVEH, Ethyl Alcohol Level 0.004 CBC/BMP Laboratory Tests 07/25/19 18:48 Medications Scheduled Levonorgestrel (Mirena) 1 Each Iud, 1 IUD PV ASDIRECTED, (Reported) BEING PLACED ON 08/14/2019 Sertraline HCl (Sertraline HCl) 50 Mg Tablet, 50 MG PO DAILY, (Reported) Zolpidem Tartrate (Zolpidem Tartrate) 10 Mg Tablet, 10 MG PO QHS, (Reported) Allergies Coded Allergies: No Known Allergies (Unverified , 07/25/19) BRIAN CHAVEZ DO Jul 26, 2019 18:39
== END 2019-07-26 13:00 | disposition home or self-care (01) | DRG 755 ==
LOC: M ED 18:02 → M ED INP 21:54 → M PSY 22:45
PROVIDERS: ADMIT Psychiatry & Neurology Psychiatry; ATTEND Psychiatry & Neurology Addiction Medicine
DX: F43.20 Adjustment disorder, unspecified (principal); F60.3 Borderline personality disorder; Z79.899 Other long term (current) drug therapy

== ENCOUNTER → 2019-09-15 22:40 | Emergency (ER) | payer OTHER ==
[~2019-09-15 22:40] MED LIST changes: +ACET-907 PO; +D3 +TAB PO; +DIPH25CA32 PO; +IBUP40TA PO; +MIRE1IUD IU; +MIRE1IUD PV; +TRAZ-257 PO; +ZOLP10TA2 PO; +diphenhydrAMINE 25MG CAP As Ordered ONE
== END | disposition home or self-care (01) ==
LOC: M ED 22:40
DX: F41.9 Anxiety disorder, unspecified (principal); F33.9 Major depressive disorder, recurrent, unspecified; Z79.899 Other long term (current) drug therapy; Z79.3 Long term (current) use of hormonal contraceptives

== ENCOUNTER 2019-10-14 23:24 | Inpatient (IN) | payer OTHER ==
[~2019-10-14] VITALS: Ht 162.6 cm; Wt 103.3 kg
[~2019-10-14 23:24] MED LIST changes: -ACET-907 PO; -D3 +TAB PO; -DIPH25CA32 PO; -IBUP40TA PO; -MIRE1IUD IU; -TRAZ-257 PO; -diphenhydrAMINE 25MG CAP As Ordered ONE
[2019-10-15 00:41] LABS: AMPHETAMINES LEVEL URINE NEGATIVE (NEGATIVE); BARBITURATES URINE NEGATIVE (NEGATIVE); BENZODIAZEPINES URINE NEGATIVE (NEGATIVE); CANNABINOIDS URINE POSITIVE (NEGATIVE); COCAINE METABOLITE URINE NEGATIVE (NEGATIVE); HEMATOCRIT 37.1 % (36.0-47.0); HEMOGLOBIN 12.3 g/dl (12.0-15.5); MEAN CORPUSCULAR HEMOGLOBIN 28.8 pg (27.0-33.0); MEAN CORPUSCULAR HGB CONC 33.2 g/dl (32.0-36.5); MEAN CORPUSCULAR VOLUME 86.9 fl (80.0-96.0); METHADONE URINE NEGATIVE (NEGATIVE); OPIATES URINE NEGATIVE (NEGATIVE); PHENCYCLIDINE URINE NEGATIVE (NEGATIVE); PLATELET COUNT, AUTOMATED 278 10^3/uL (150-450); RED BLOOD COUNT 4.27 10^6/uL (4.00-5.40); WHITE BLOOD COUNT 8.6 10^3/uL (4.0-10.0)
[2019-10-15 00:53] LABS: ACETAMINOPHEN LEVEL < 2.0 UG/ML (10.0-30.0); ALBUMIN 3.8 GM/DL (3.2-5.2); ALT/SGPT 23 U/L (12-78); BILIRUBIN,DIRECT < 0.1 MG/DL (0.0-0.2); BILIRUBIN,TOTAL 0.1 MG/DL (0.2-1.0); BLOOD UREA NITROGEN 11 MG/DL (7-18); CARBON DIOXIDE LEVEL 29 MEQ/L (21-32); CHLORIDE LEVEL 107 MEQ/L (98-107); CREATININE FOR GFR 0.71 MG/DL (0.55-1.30); ETHYL ALCOHOL (ETHANOL) < 0.003 % (0.000-0.010); GLUCOSE, FASTING 86 MG/DL (70-100); SALICYLATE LEVEL 2.8 MG/DL (5.0-30.0); SODIUM LEVEL 139 MEQ/L (136-145); TOTAL PROTEIN 7.2 GM/DL (6.4-8.2)
[2019-10-15 02:01] LABS: HCG, SERUM QUALITATIVE NEGATIVE (NEGATIVE)
[2019-10-15] MEDS ORDERED: IBUP40TA PO (03:47)
[2019-10-15] MEDS ORDERED: ACET-907 PO (03:47)
[2019-10-15] MEDS ORDERED: DIPH25CA32 PO (03:47)
[2019-10-15] MEDS ORDERED: MIRE1IUD IU (03:47)
[2019-10-15] MEDS ORDERED: SERTRALINE HCL 50 MG TAB PO ONE (08:30)
[2019-10-15] MEDS: NICOTINE 21MG/24HR 1 EA TRANSDERMAL TD SCH (09:00)
[2019-10-15] MEDS ORDERED: QUEtiapine FUMARATE 50 MG TAB As Ordered ONE (11:20)
[2019-10-15] MEDS ORDERED: SERTRALINE HCL 50 MG TAB As Ordered ONE (11:28)
[2019-10-15] MEDS ORDERED: MOM 30ML SUSPENSION UDC PO PRN (19:00)
[2019-10-15] MEDS ORDERED: MAALOX 30 ML SUSP *UDC PO PRN (19:00)
[2019-10-15] MEDS ORDERED: traZODone 50 MG TAB PO PRN (19:00)
[2019-10-15] MEDS ORDERED: ACETAMINOPHEN TAB 650MG DOSE (2X325MG) PO PRN (19:00)
[2019-10-15 22:35] VITALS: BP 114/62
[2019-10-16 06:30] VITALS: BP 132/62
[2019-10-16] MEDS: NICOTINE 21MG/24HR 1 EA TRANSDERMAL TD SCH (08:30)
--- NOTE | 2019-10-16 08:53 | MHHPEPDOC ---
[facility] History & Physical History and Physical DATE OF ADMISSION: Oct 15, 2019 at 18:56 Subjective HPI: Edilma presents today for being admitted at inpatient mental health unit after reportedly cutting two days ago. She reported to be upset and had been brought in out of [facility]. She denies any sustained depressive, psychotic, or bipolar symptoms at this time. She claims to be doing well with the CR and states to still have some self-harming activity sometimes. No new confirmed episodes of suicide attempts, but has had cutting in the past, however non-suicidal one for self-soothing. MEDICAL HISTORY: Past psychiatric history consists of multiple impatient remissions with borderline personality disorder and treated on number of different antipsychotics. FAMILY HISTORY: Family history consists of bipolar disorders. 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 SOCIAL HISTORY - LIVING SITUATION: Patient currently lives at [facility] and is disabled, receiving Social Security assistance. SOCIAL HISTORY - SMOKING: Regarding substance abuse, she smokes marijuana once monthly and previously reported much heavier drug use, however urine toxicology never been present or demonstrate any significant changes. Objective Appearance: Appears to be stated age. Well nourished. Well groomed. Behavior: Engaged. Cooperative with good eye contact. Pleasant. Affect: Appropriate to context. Full range. Mood: Euthymic. Generally good. Appropriately reactive. Speech: Normal volume. Spontaneous and Fluid. Normal rate. Cognition: Alert, Attentive, and Oriented to person, place, time. Thought Form: Linear and goal directed. Thought Content: No thoughts of self harm. No evidence of delusions. No evidence of suicidal ideation. No evidence of aggressive or homicidal ideation. Judgement: Intact as evidenced by decision making in the recent past. Insight: Good insight into symptoms and treatment options. Assessment F60.3 Borderline personality disorder Plan Discharge patient for home at her request, but does not mean involuntary criteri a as she is in her baseline state from previous remissions. Contact is made demonstrating that shes currently in a setting with limited access to means. Shes able to participate with discharge summary and Im unable at this time to make an argument for further involuntary care. She declines for the voluntary emission and is discharged with good germán and ineffective coping. Vital Signs Vital Signs Date Time Temp Pulse Resp B/P (MAP) Pulse Ox O2 Delivery O2 Flow Rate FiO2 10/16/19 06:30 97.8 58 14 132/62 (85) 97 Room Air Medications Scheduled Levonorgestrel (Mirena) 1 Each Iud, 20 MCG IU ASDIRECTED, (Reported) Sertraline HCl (Sertraline HCl) 50 Mg Tablet, 50 MG PO DAILY, (Reported) Scheduled PRN Acetaminophen (Tylenol) 325 Mg Tablet, 650 MG PO Q6H PRN for PAIN / FEVER, (Reported) Diphenhydramine HCl (Diphenhydramine HCl) 25 Mg Capsule, 50 MG PO QHS PRN for INSOMNIA, (Reported) Ibuprofen (Ibuprofen) 400 Mg Tablet, 400 MG PO Q8H PRN for PAIN / FEVER, (Reported) Zolpidem Tartrate (Zolpidem Tartrate) 10 Mg Tablet, 10 MG PO QHS PRN for INSOMNIA, (Reported) Allergies Coded Allergies: No Known Allergies (Unverified , 07/25/19) A-FIB/CHADSVASC A-FIB History Current/History of A-Fib/PAF?: No BRIAN CHAVEZ DO Oct 16, 2019 08:53
--- NOTE | 2019-10-16 09:49 | MHDSPDOC ---
[facility] Discharge Summary Discharge Summary DATE OF ADMISSION: Oct 15, 2019 at 18:56 DATE OF DISCHARGE: Oct 16, 2019 at 14:47 please see h/p for same day discharge Vital Signs/I&Os Vital Signs Date Time Temp Pulse Resp B/P (MAP) Pulse Ox O2 Delivery O2 Flow Rate FiO2 10/16/19 06:30 97.8 58 14 132/62 (85) 97 Room Air Medications Scheduled Levonorgestrel (Mirena) 1 Each Iud, 20 MCG IU ASDIRECTED, (Reported) Sertraline HCl (Sertraline HCl) 50 Mg Tablet, 50 MG PO DAILY, (Reported) Scheduled PRN Acetaminophen (Tylenol) 325 Mg Tablet, 650 MG PO Q6H PRN for PAIN / FEVER, (Reported) Diphenhydramine HCl (Diphenhydramine HCl) 25 Mg Capsule, 50 MG PO QHS PRN for INSOMNIA, (Reported) Ibuprofen (Ibuprofen) 400 Mg Tablet, 400 MG PO Q8H PRN for PAIN / FEVER, (Reported) Zolpidem Tartrate (Zolpidem Tartrate) 10 Mg Tablet, 10 MG PO QHS PRN for INSOMNIA, (Reported) Allergies Coded Allergies: No Known Allergies (Unverified , 07/25/19) BRIAN CHAVEZ DO Oct 16, 2019 09:49
--- NOTE | 2019-10-21 12:00 | ECGEPIP ---
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
== END 2019-10-16 14:47 | disposition home or self-care (01) | DRG 752 ==
LOC: M ED 23:24 → M ED INP 10-15 18:56 → M PSY 10-15 22:19
PROVIDERS: ADMIT Psychiatry & Neurology Addiction Medicine; ATTEND Psychiatry & Neurology Addiction Medicine
DX: F60.3 Borderline personality disorder (principal); Z79.899 Other long term (current) drug therapy; Z81.8 Family history of other mental and behavioral disorders; Z91.5 Personal history of self-harm

== ENCOUNTER 2019-11-17 20:50 | Emergency (ER) | payer OTHER ==
[~2019-11-17 20:50] MED LIST changes: +ACET-907 PO; +DIPH25CA32 PO; +IBUP40TA PO; +MIRE1IUD IU
[2019-11-17] MEDS ORDERED: TRAZ-257 PO (21:07)
[2019-11-17 21:08] VITALS: BP 129/71
[2019-11-17] MEDS ORDERED: TRAZ-252 PO (22:19)
== END 2019-11-17 23:56 | disposition home or self-care (01) ==
LOC: M ED 20:50
DX: F32.9 Major depressive disorder, single episode, unspecified (principal); F90.9 Attention-deficit hyperactivity disorder, unspecified type; F42.9 Obsessive-compulsive disorder, unspecified; F12.10 Cannabis abuse, uncomplicated; F17.200 Nicotine dependence, unspecified, uncomplicated

== ENCOUNTER 2019-12-09 22:43 | Emergency (ER) | payer OTHER ==
[~2019-12-09] VITALS: Ht 162.6 cm; Wt 102.3 kg
[~2019-12-09 22:43] MED LIST changes: +TRAZ-257 PO
[2019-12-09 23:28] LABS: HEMATOCRIT 39.1 % (36.0-47.0); HEMOGLOBIN 12.7 g/dl (12.0-15.5); MEAN CORPUSCULAR HGB CONC 32.5 g/dl (32.0-36.5); MEAN CORPUSCULAR VOLUME 86.1 fl (80.0-96.0); PLATELET COUNT, AUTOMATED 308 10^3/uL (150-450); RED BLOOD COUNT 4.54 10^6/uL (4.00-5.40); WHITE BLOOD COUNT 10.7 10^3/uL (4.0-10.0)
[2019-12-09 23:55] LABS: AMPHETAMINES LEVEL URINE NEGATIVE (NEGATIVE); BARBITURATES URINE NEGATIVE (NEGATIVE); BENZODIAZEPINES URINE NEGATIVE (NEGATIVE); CANNABINOIDS URINE POSITIVE (NEGATIVE); COCAINE METABOLITE URINE NEGATIVE (NEGATIVE); METHADONE URINE NEGATIVE (NEGATIVE); OPIATES URINE NEGATIVE (NEGATIVE); PHENCYCLIDINE URINE NEGATIVE (NEGATIVE)
[2019-12-09 23:56] LABS: HCG, SERUM QUALITATIVE NEGATIVE (NEGATIVE)
[2019-12-10 00:04] LABS: ACETAMINOPHEN LEVEL < 2.0 UG/ML (10.0-30.0); ALBUMIN 4.2 GM/DL (3.2-5.2); ALT/SGPT 20 U/L (12-78); BILIRUBIN,DIRECT < 0.1 MG/DL (0.0-0.2); BILIRUBIN,TOTAL 0.2 MG/DL (0.2-1.0); BLOOD UREA NITROGEN 14 MG/DL (7-18); CARBON DIOXIDE LEVEL 27 MEQ/L (21-32); CHLORIDE LEVEL 106 MEQ/L (98-107); CREATININE FOR GFR 0.88 MG/DL (0.55-1.30); ETHYL ALCOHOL (ETHANOL) < 0.003 % (0.000-0.010); GLUCOSE, FASTING 87 MG/DL (70-100); POTASSIUM SERUM 4.1 MEQ/L (3.5-5.1); SALICYLATE LEVEL 2.4 MG/DL (5.0-30.0); SODIUM LEVEL 139 MEQ/L (136-145); TOTAL PROTEIN 7.9 GM/DL (6.4-8.2)
[2019-12-10] MEDS ORDERED: SERTRALINE HCL 50 MG TAB PO SCH (09:00)
[2019-12-10] MEDS ORDERED: NICOTINE 21MG/24HR 1 EA TRANSDERMAL TD ONE (09:15)
--- NOTE | 2019-12-10 09:33 | ECGEPIP ---
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
[2019-12-10 20:24] VITALS: BP 132/70
== END 2019-12-10 20:30 ==
LOC: M ED 22:43
DX: R45.851 Suicidal ideations (principal); F32.9 Major depressive disorder, single episode, unspecified; F41.9 Anxiety disorder, unspecified; F91.3 Oppositional defiant disorder; F90.9 Attention-deficit hyperactivity disorder, unspecified type; G47.00 Insomnia, unspecified; E28.2 Polycystic ovarian syndrome; F17.200 Nicotine dependence, unspecified, uncomplicated; Z79.899 Other long term (current) drug therapy
CPT/HCPCS: 36415; 80048; 80076; 80307; 84443; 84703; 85027; 93005; 99284; G0480; U0002

== ENCOUNTER 2019-12-18 15:52 | Emergency (ER) | payer OTHER ==
[~2019-12-18] VITALS: Ht 162.6 cm; Wt 103.0 kg
[2019-12-18] MEDS ORDERED: D3 +TAB PO (16:09)
[2019-12-18] MEDS ORDERED: PRAZ1CAP PO (16:09)
[2019-12-18] MEDS ORDERED: HYDR-643 PO (16:09)
[2019-12-18] MEDS ORDERED: BENZOCAINE 20% GEL 9GM TUBE (ANBESOL MAX STRENGTH) TOP ONE (16:45)
[2019-12-18] MEDS ORDERED: KETOROLAC 30 MG/ML 1ML VIAL IM ONE (16:45)
[2019-12-18] MEDS ORDERED: AUGM875T28 PO (17:28)
[2019-12-18 17:42] VITALS: BP 146/71
== END 2019-12-18 17:44 | disposition home or self-care (01) ==
LOC: M ED 15:52
DX: K02.9 Dental caries, unspecified (principal); K05.10 Chronic gingivitis, plaque induced; K05.30 Chronic periodontitis, unspecified; K08.89 Other specified disorders of teeth and supporting structures; E28.2 Polycystic ovarian syndrome; F31.9 Bipolar disorder, unspecified; F91.3 Oppositional defiant disorder; F90.9 Attention-deficit hyperactivity disorder, unspecified type; F60.3 Borderline personality disorder; F17.290 Nicotine dependence, other tobacco product, uncomplicated; Z79.899 Other long term (current) drug therapy
CPT/HCPCS: 84702; 99283; J1885

== ENCOUNTER 2020-01-06 20:50 | Emergency (ER) | payer OTHER ==
[~2020-01-06] VITALS: Ht 162.6 cm; Wt 100.0 kg
[~2020-01-06 20:50] MED LIST changes: +D3 +TAB PO; +MIRT-62 PO; +NICO1DIS12 TD; -NICO21DI31 TD; -REME15TA PO
[2020-01-06 21:10] VITALS: BP 132/85
[2020-01-06 22:02] LABS: HEMATOCRIT 39.5 % (36.0-47.0); HEMOGLOBIN 12.8 g/dl (12.0-15.5); MEAN CORPUSCULAR HEMOGLOBIN 27.7 pg (27.0-33.0); MEAN CORPUSCULAR HGB CONC 32.4 g/dl (32.0-36.5); MEAN CORPUSCULAR VOLUME 85.5 fl (80.0-96.0); PLATELET COUNT, AUTOMATED 310 10^3/uL (150-450); RED BLOOD COUNT 4.62 10^6/uL (4.00-5.40); WHITE BLOOD COUNT 11.3 10^3/uL (4.0-10.0)
[2020-01-06 22:21] LABS: AMPHETAMINES LEVEL URINE NEGATIVE (NEGATIVE); BARBITURATES URINE NEGATIVE (NEGATIVE); BENZODIAZEPINES URINE NEGATIVE (NEGATIVE); CANNABINOIDS URINE POSITIVE (NEGATIVE); COCAINE METABOLITE URINE NEGATIVE (NEGATIVE); METHADONE URINE NEGATIVE (NEGATIVE); OPIATES URINE NEGATIVE (NEGATIVE); PHENCYCLIDINE URINE NEGATIVE (NEGATIVE)
[2020-01-06 22:44] LABS: ACETAMINOPHEN LEVEL < 2.0 UG/ML (10.0-30.0); ALBUMIN 3.9 GM/DL (3.2-5.2); ALT/SGPT 20 U/L (12-78); BILIRUBIN,DIRECT < 0.1 MG/DL (0.0-0.2); BILIRUBIN,TOTAL 0.2 MG/DL (0.2-1.0); BLOOD UREA NITROGEN 15 MG/DL (7-18); CALCIUM LEVEL 8.7 MG/DL (8.5-10.1); CARBON DIOXIDE LEVEL 25 MEQ/L (21-32); CHLORIDE LEVEL 107 MEQ/L (98-107); CREATININE FOR GFR 0.78 MG/DL (0.55-1.30); ETHYL ALCOHOL (ETHANOL) < 0.003 % (0.000-0.010); GLUCOSE, FASTING 54 MG/DL (70-100); POTASSIUM SERUM 4.1 MEQ/L (3.5-5.1); SALICYLATE LEVEL 3.2 MG/DL (5.0-30.0); SODIUM LEVEL 138 MEQ/L (136-145); THYROID STIMULATING HORMONE 0.612 uIU/ML (0.463-3.98); TOTAL PROTEIN 7.5 GM/DL (6.4-8.2)
== END 2020-01-06 22:21 | disposition home or self-care (01) ==
LOC: M ED 20:50
DX: F43.21 Adjustment disorder with depressed mood (principal); F91.3 Oppositional defiant disorder; F31.9 Bipolar disorder, unspecified; F90.9 Attention-deficit hyperactivity disorder, unspecified type; F60.3 Borderline personality disorder; E28.2 Polycystic ovarian syndrome; Z91.5 Personal history of self-harm; F17.210 Nicotine dependence, cigarettes, uncomplicated; Z79.899 Other long term (current) drug therapy; Z97.5 Presence of (intrauterine) contraceptive device
CPT/HCPCS: 36415; 80048; 80076; 80307; 84443; 85027; 99284; G0480

== ENCOUNTER 2020-03-22 00:16 | Inpatient (IN) | payer OTHER ==
[2020-03-21] MEDS: PRAZOSIN 1 MG CAP PO SCH (21:00)
[~2020-03-22] VITALS: Ht 165.1 cm; Wt 103.8 kg
[~2020-03-22 00:16] MED LIST changes: -BUPR150T3 PO; +BUPR150T4 PO; +ESCI10TA16 PO; -ESCI10TA2 PO; +IBUP1TAB5 PO; -IBUP40TA PO; -QUET1TAB10 PO; +QUET300T2 PO
--- OUTSIDE RECORDS SUMMARY | 2020-03-22 00:22 | CCD ---
Author Author [facility] Organization [facility] Address Unknown Phone Unavailable Care Team Providers Care Radiation Protection Technician Name Role Phone Prabhakar Austin Unavailable Unavailable Prabhakar Austin Unavailable Unavailable Prabhakar Austin Unavailable Unavailable Prabhakar Austin Unavailable Unavailable Prabhakar Austin Unavailable Unavailable Prabhakar Austin Unavailable Unavailable Scordo, M Dai PA Unavailable Unavailable Scordo, M Dai PA Unavailable Unavailable Scordo, M Dai PA Unavailable Unavailable Scordo, M Dai PA Unavailable Unavailable Scordo, M Dai PA Unavailable Unavailable Scordo, M Dai PA Unavailable Unavailable Scordo, M Dai PA Unavailable Unavailable Scordo, M Dai PA Unavailable Unavailable Scordo, M Dai PA Unavailable Unavailable Scordo, M Dai PA Unavailable Unavailable Scordo, M Dai PA Unavailable Unavailable Scordo, M Dai PA Unavailable Unavailable Scordo, M Dai PA Unavailable Unavailable Scordo, M Dai PA Unavailable Unavailable Scordo, M Dai PA Unavailable Unavailable Scordo, M Dai PA Unavailable Unavailable Scordo, M Dai PA Unavailable Unavailable Scordo, M Dai PA Unavailable Unavailable Scordo, M Dai PA Unavailable Unavailable Scordo, M Dai PA Unavailable Unavailable Scordo, M Dai PA Unavailable Unavailable Scordo, M Dai PA Unavailable Unavailable Scordo, M Dai PA Unavailable Unavailable Scordo, M Dia PA Unavailable Unavailable Scordo, M Dia PA Unavailable Unavailable Scordo, M Dai PA Unavailable Unavailable Scordo, M Dai PA Unavailable Unavailable Scordo, M Dai PA Unavailable Unavailable Scordo, M Dai PA Unavailable Unavailable Scordo, M Dai PA Unavailable Unavailable Scordo, M Dai PA Unavailable Unavailable Scordo, M Dai PA Unavailable Unavailable Scordo, M Dai PA Unavailable Unavailable Scordo, M Dai PA Unavailable Unavailable Scordo, M Dai PA Unavailable Unavailable Scordo, M Dai PA Unavailable Unavailable Smiley Childs Evangelina PA-C Unavailable Unavailable Smiley Childs Evangelina PA-C Unavailable Unavailable Smiley Childs Evangelina PA-C Unavailable Unavailable Smiley Childs Evangelina PA-C Unavailable Unavailable Smiley Childs Evangelina PA-C Unavailable Unavailable Smiley Childs Evangelina PA-C Unavailable Unavailable Smiley Childs Evangelina PA-C Unavailable Unavailable Smiley Childs Evangelina PA-C Unavailable Unavailable Smiley Childs Evangelina PA-C Unavailable Unavailable Smiley Childs Evangelina PA-C Unavailable Unavailable Smiley Childs Evangelina PA-C Unavailable Unavailable Smiley Childs Evangelina PA-C Unavailable Unavailable Smiley Childs Evangelina PA-C Unavailable Unavailable Smiley Childs Evangelina PA-C Unavailable Unavailable Smiley Childs Evangelina PA-C Unavailable Unavailable Smiley Childs Evangelina PA-C Unavailable Unavailable ChildsSmiley Evangelina PA-C Unavailable Unavailable Smiley Childs Evangelina PA-C Unavailable Unavailable Smiley Childs Evangelina PA-C Unavailable Unavailable Smiley Childs Evangelina PA-C Unavailable Unavailable Smiley Childs Evangelina PA-C Unavailable Unavailable Smiley Childs Evangelina PA-C Unavailable Unavailable ChildsSmiley Evangelina PA-C Unavailable Unavailable Colon, Onesimo Unavailable Unavailable Colon, Onesimo Unavailable Unavailable Colon, Onesimo Unavailable Unavailable Colon, Onesimo Unavailable Unavailable Burton Gabriel MD Unavailable Unavailable Burton Gabriel MD Unavailable Unavailable Burton Gabriel MD Unavailable Unavailable Burton Gabriel MD Unavailable Unavailable Burton Gabriel MD Unavailable Unavailable Burton Gabriel MD Unavailable Unavailable Burton Gabriel MD Unavailable Unavailable Burton Gabriel MD Unavailable Unavailable Burton Gabriel MD Unavailable Unavailable Burton Gabriel MD Unavailable Unavailable Burton Gabriel MD Unavailable Unavailable Burton Gabriel MD Unavailable Unavailable Burton Gabriel MD Unavailable Unavailable Burton Gabriel MD Unavailable Unavailable Burton Gabriel MD Unavailable Unavailable Burton Gabriel MD Unavailable Unavailable Burton Gabriel MD Unavailable Unavailable Burton Gabriel MD Unavailable Unavailable Burton Gabriel MD Unavailable Unavailable Burton Gabriel MD Unavailable Unavailable Burton Gabriel MD Unavailable Unavailable Burton Gabriel MD Unavailable Unavailable Burton Gabriel MD Unavailable Unavailable Burton Gabriel MD Unavailable Unavailable Burton Gabriel MD Unavailable Unavailable Burton Gabriel MD Unavailable Unavailable Burton Gabriel MD Unavailable Unavailable Prabhakar MANLEY MD Unavailable Unavailable Prabhakar MANLEY MD Unavailable Unavailable Prabhakar MANLEY MD Unavailable Unavailable Prabhakar MANLEY MD Unavailable Unavailable Prabhakar MANLEY MD Unavailable Unavailable Prabhakar MANLEY MD Unavailable Unavailable Prabhakar MANLEY MD Unavailable Unavailable VANVALKENBURG, Prabhakar SANTACRUZ MD Unavailable Unavailable VANVALKENBURG, Prabhakar SANTACRUZ MD Unavailable Unavailable VANVALKENBURG, Prabhakar SATNACRUZ MD Unavailable Unavailable VANVALKENBURG, Prabhakar SANTACRUZ MD Unavailable Unavailable VANVALKENBURG, M BURTON KIM Unavailable Unavailable VANVALKENBURG, Prabhakar SANTACRUZ MD Unavailable Unavailable VANVALKENBURG, Prabhakar SANTACRUZ MD Unavailable Unavailable VANVALKENBURG, Prabhakar SANTACRUZ MD Unavailable Unavailable VANVALKENBURG, Prabhakar SANTACRUZ MD Unavailable Unavailable VANVALKENBURG, Prabhakar SANTACRUZ MD Unavailable Unavailable VANVALKENBURG, M BURTON KIM Unavailable Unavailable VANVALKENBURG, M BURTON KIM Unavailable Unavailable VANVALKENBURG, Prabhakar SANTACRUZ MD Unavailable Unavailable VANVALKENBURG, Prabhakar SANTACRUZ MD Unavailable Unavailable VANVALKENBURG, M BURTON KIM Unavailable Unavailable VANVALKENBURG, M BURTON KIM Unavailable Unavailable VANVALKENBURG, M BURTON KIM Unavailable Unavailable VANVALKENBURG, M BURTON KIM Unavailable Unavailable VANVALKENBURG, Prabhakar SANTACRUZ MD Unavailable Unavailable VANVALKEN[place]G, Prabhakar SANTACRUZ MD Unavailable Unavailable VANVALKEN[place], Prabhakar SANTACRUZ MD Unavailable Unavailable VANVALKEN[place], Prabhakar SANTACRUZ MD Unavailable Unavailable VANVALKENBURG, M BURTON KIM Unavailable Unavailable VANVALKEN[place], Prabhakar SANTACRUZ MD Unavailable Unavailable VANVALKEN[place], Prabhakar SANTACRUZ MD Unavailable Unavailable VANVALKEN[place], Prabhakar SANTACRUZ MD Unavailable Unavailable VANVALKEN[place], Prabhakar SANTACRUZ MD Unavailable Unavailable VANVALKENBURG, Prabhakar SANTACRUZ MD Unavailable Unavailable VANVALKENBURG, Prabhakar SANTACRUZ MD Unavailable Unavailable VANVALKENBURG, Prabhakar SANTACRUZ MD Unavailable Unavailable VANVALKENBURG, Prabhakar SANTACRUZ MD Unavailable Unavailable VANVALKEN[place], Prabhakar SANTACRUZ MD Unavailable Unavailable VANVALKEN[place], Prabhakar SANTACRUZ MD Unavailable Unavailable VANVALKEN[place], Prabhakar SANTACRUZ MD Unavailable Unavailable VANVALKEN[place], Prabhakar SANTACRUZ MD Unavailable Unavailable VAN[place], Prabhakar SANTACRUZ MD Unavailable Unavailable VANVALKEN[place], Prabhakar SANTACRUZ MD Unavailable Unavailable VANVAL[place], Prabhakar SANTACRUZ MD Unavailable Unavailable VANVALKEN[place], Prabhakar SANTACRUZ MD Unavailable Unavailable VANVALKEN[place], Prabhakar SANTACRUZ MD Unavailable Unavailable VANVALKEN[place], Prabhakar SANTACRUZ MD Unavailable Unavailable VANVALKEN[place], Prabhakar SANTACRUZ MD Unavailable Unavailable VANVALKEN[place], Prabhakar SANTACRUZ MD Unavailable Unavailable VAN[place], Prabhakar SANTACRUZ MD Unavailable Unavailable VANVALKEN[place], Prabhakar SANTACRUZ MD Unavailable Unavailable VANVALKEN[place], Prabhakar SANTACRUZ MD Unavailable Unavailable VANVALKENBURG, Prabhakar SANTACRUZ MD Unavailable Unavailable VANVALKEN[place], Prabhakar SANTACRUZ MD Unavailable Unavailable VANVALKEN[place], Prabhakar SANTACRUZ MD Unavailable Unavailable VANVALKEN[place], Prabhakar SANTACRUZ MD Unavailable Unavailable VANVALKENBURG, M BURTON MD Unavailable Unavailable Prabhakar MANLEY MD Unavailable Unavailable Prabhakar MANLEY MD Unavailable Unavailable Prabhakar MANLEY MD Unavailable Unavailable Prabhakar MANLEY MD Unavailable Unavailable Prabhakar MANLEY MD Unavailable Unavailable Prabhakar MANLEY MD Unavailable Unavailable RAYANCHA, DAVIS MD Unavailable Unavailable RAYANCHA, DAVIS MD Unavailable Unavailable RAYANCHA, DAVIS MD Unavailable Unavailable RAYANCHA, DAVIS MD Unavailable Unavailable RAYANCHA, DAVIS MD Unavailable Unavailable RAYANCHA, DAVIS MD Unavailable Unavailable RAYANCHA, DAVIS MD Unavailable Unavailable RAYANCHA, DAVIS MD Unavailable Unavailable RAYANCHA, DAVIS MD Unavailable Unavailable RAYANCHA, DAVIS MD Unavailable Unavailable RAYANCHA, DAVIS MD Unavailable Unavailable RAYANCHA, DAVIS MD Unavailable Unavailable RAYANCHA, DAVIS MD Unavailable Unavailable RAYANCHA, DAVIS MD Unavailable Unavailable RAYANCHA, DAVIS MD Unavailable Unavailable RAYANCHA, DAVIS MD Unavailable Unavailable RAYANCHA, DAVIS MD Unavailable Unavailable RAYANCHA, DAVIS MD Unavailable Unavailable RAYANCHA, DAVIS MD Unavailable Unavailable RAYANCHA, DAVIS MD Unavailable Unavailable RAYANCHA, DAVIS MD Unavailable Unavailable RAYANCHA, DAVIS MD Unavailable Unavailable RAYANCHA, DAVIS MD Unavailable Unavailable Adryan Cole Ravinder MD Unavailable Unavailable ColeAdryan moncada Ravinder MD Unavailable Unavailable ColeAdryan moncada Ravinder MD Unavailable Unavailable Cole, Adryan Ravinder MD Unavailable Unavailable ColeAdryan moncada Ravinder MD Unavailable Unavailable Cole, Ali Ravinder MD Unavailable Unavailable ColeArdyan moncada Ravinder MD Unavailable Unavailable Cole, Adryan Ravinder MD Unavailable Unavailable Cole, Adryan Ravinder MD Unavailable Unavailable Cole, Ali Ravinder MD Unavailable Unavailable Cole, Ali Ravinder MD Unavailable Unavailable Cole, Ali Ravinder MD Unavailable Unavailable Cole, Ali Ravinder MD Unavailable Unavailable Cole, Adryan Ravinder MD Unavailable Unavailable Cole, Ali Ravinder MD Unavailable Unavailable Cole, Adryan Ravinder MD Unavailable Unavailable Cole, Ali Ravinder MD Unavailable Unavailable Cole, Ali Ravinder MD Unavailable Unavailable Cole, Ali Ravinder MD Unavailable Unavailable Cole, Ali Ravinder MD Unavailable Unavailable Cole, Ali Ravinder MD Unavailable Unavailable Cole, Ali Ravinder MD Unavailable Unavailable Cole, Ali Ravinder MD Unavailable Unavailable Adryan Cole MD Unavailable Unavailable ColeAdryan moncada MD Unavailable Unavailable HERCULESNEVILLE MD Unavailable Unavailable Peter, A Bárbara ROPE CLEANER Unavailable Unavailable Peter, A Bárbara ROPE CLEANER Unavailable Unavailable Peter, A Bárbara ROPE CLEANER Unavailable Unavailable Peter, A Bárbara ROPE CLEANER Unavailable Unavailable Peter, A Bárbara ROPE CLEANER Unavailable Unavailable Peter, A Bárbara ROPE CLEANER Unavailable Unavailable Peter, A Bárbara ROPE CLEANER Unavailable Unavailable Peter, A Bárbara ROPE CLEANER Unavailable Unavailable Peter, A Bárbara ROPE CLEANER Unavailable Unavailable Peter, A Bárbara ROPE CLEANER Unavailable Unavailable Peter, A Bárbara ROPE CLEANER Unavailable Unavailable Peter, A Bárbara ROPE CLEANER Unavailable Unavailable Peter, A Bárbara ROPE CLEANER Unavailable Unavailable Peter, A Bárbara ROPE CLEANER Unavailable Unavailable Peter, A Bárbara ROPE CLEANER Unavailable Unavailable Peter, A Bárbara ROPE CLEANER Unavailable Unavailable Peter, A Bárbara ROPE CLEANER Unavailable Unavailable Peter, A Bárbara ROPE CLEANER Unavailable Unavailable Peter, A Bárbara ROPE CLEANER Unavailable Unavailable Peter, A Bárbara ROPE CLEANER Unavailable Unavailable Petre, A Bárbara ROPE CLEANER Unavailable Unavailable Peter, A Bárbara ROPE CLEANER Unavailable Unavailable Peter, A Bárbara ROPE CLEANER Unavailable Unavailable Peter, A Bárbara ROPE CLEANER Unavailable Unavailable Peter, A Bárbara ROPE CLEANER Unavailable Unavailable Peter, A Bárbara ROPE CLEANER Unavailable Unavailable Peter, A Bárbara ROPE CLEANER Unavailable Unavailable Peter, A Bárbara ROPE CLEANER Unavailable Unavailable Peter, A Bárbara ROPE CLEANER Unavailable Unavailable Peter, A Bárbara ROPE CLEANER Unavailable Unavailable Peter, A Bárbara ROPE CLEANER Unavailable Unavailable Peter, A Bárbara ROPE CLEANER Unavailable Unavailable Peter, A Bárbara ROPE CLEANER Unavailable Unavailable Peter, A Bárbara ROPE CLEANER Unavailable Unavailable Peter, A Bárbara ROPE CLEANER Unavailable Unavailable Peter, A Bárbara ROPE CLEANER Unavailable Unavailable Peter, A Bárbara ROPE CLEANER Unavailable Unavailable Peter, A Bárbara ROPE CLEANER Unavailable Unavailable DENY COLE MD Unavailable Unavailable DENY COLE MD Unavailable Unavailable DENY COLE MD Unavailable Unavailable DENY COLE MD Unavailable Unavailable DENY COLE MD Unavailable Unavailable DENY COLE MD Unavailable Unavailable DENY COLE MD Unavailable Unavailable DENY COLE MD Unavailable Unavailable Althouse, Whit ROPE CLEANER Unavailable Unavailable JOLLY, U JULIEN MD Unavailable Unavailable JOLLY, U JULIEN MD Unavailable Unavailable JOLLY U WILY KIM Unavailable Unavailable JOLLY U WILY KIM Unavailable Unavailable Renato KEN MD Unavailable Unavailable JOLLY U WILY KIM Unavailable Unavailable Renato KEN MD Unavailable Unavailable Renato KEN MD Unavailable Unavailable Alyssa Dixon MD Unavailable Unavailable Alyssa Dixon MD Unavailable Unavailable Alyssa Dixon MD Unavailable Unavailable Alyssa Dixon MD Unavailable Unavailable Alyssa Dixon MD Unavailable Unavailable Alyssa Dixon MD Unavailable Unavailable Alyssa Dixon MD Unavailable Unavailable Alyssa Dixon MD Unavailable Unavailable Alyssa Dixon MD Unavailable Unavailable Alyssa Dixon MD Unavailable Unavailable Alyssa Dixon MD Unavailable Unavailable Alyssa Dixon MD Unavailable Unavailable Alyssa Dixon MD Unavailable Unavailable Alyssa Dixon MD Unavailable Unavailable KARINE F JOLANTA MD Unavailable Unavailable KARINE F JOLANTA MD Unavailable Unavailable KARINE F JOLANTA MD Unavailable Unavailable KARINE F JOLANTA MD Unavailable Unavailable KARINE F JOLANTA MD Unavailable Unavailable KARINE F JOLANTA MD Unavailable Unavailable KARINE, F JOLANTA MD Unavailable Unavailable KARINE, F JOLANTA MD Unavailable Unavailable KARINE F JOLANTA Unavailable Unavailable KARINE, F JOLANTA Unavailable Unavailable KARINE F JOLANTA Unavailable Unavailable KARINE, F JOLANTA Unavailable Unavailable KARINE, F JOLANTA Unavailable Unavailable KARINE F JOLANTA Unavailable Unavailable KARINE F JOLANTA MD Unavailable Unavailable KARINE, F JOLANTA Unavailable Unavailable KARINE, F JOLANTA Unavailable Unavailable KARINE, F JOLANTA Unavailable Unavailable KARINE, F JOLANTA Unavailable Unavailable KARINE, F JOLANTA Unavailable Unavailable KARINE, F JOLANTA Unavailable Unavailable KARINE, F JOLANTA Unavailable Unavailable KARINE, F JOLANTA Unavailable Unavailable KARINE, F JOLANTA Unavailable Unavailable KARINE, F JOLANTA Unavailable Unavailable KARINE, F JOLANTA Unavailable Unavailable KARINE, F JOLANTA Unavailable Unavailable KARINE, F JOLANTA MD Unavailable Unavailable ALLAN MOESR MD Unavailable Unavailable Scordo, M Dai PA Unavailable Unavailable Scordo, M Dai PA Unavailable Unavailable Scordo, M Dai PA Unavailable Unavailable Scordo, M Dai PA Unavailable Unavailable Scordo, M Dai PA Unavailable Unavailable Scordo, M Dai PA Unavailable Unavailable Scordo, M Dai PA Unavailable Unavailable Scordo, M Dai PA Unavailable Unavailable Scordo, M Dai PA Unavailable Unavailable Scordo, M Dai PA Unavailable Unavailable Scordo, M Dai PA Unavailable Unavailable Scordo, M Dai PA Unavailable Unavailable Scordo, M Dai PA Unavailable Unavailable Scordo, M Dai PA Unavailable Unavailable Scordo, M Dai PA Unavailable Unavailable Scordo, M Dai PA Unavailable Unavailable Scordo, M Dai PA Unavailable Unavailable Scordo, M Dai PA Unavailable Unavailable Scordo, M Dai PA Unavailable Unavailable Scordo, M Dai PA Unavailable Unavailable Scordo, M Dai PA Unavailable Unavailable Scordo, M Dai PA Unavailable Unavailable Scordo, M Dai PA Unavailable Unavailable Scordo, M Dai PA Unavailable Unavailable Scordo, M Dai PA Unavailable Unavailable Scordo, M Dai PA Unavailable Unavailable Scordo, M Dai PA Unavailable Unavailable Scordo, M Dai PA Unavailable Unavailable Scordo, M Dai PA Unavailable Unavailable Scordo, M Dai PA Unavailable Unavailable Scordo, M Dai PA Unavailable Unavailable Scordo, M Dai PA Unavailable Unavailable Scordo, M Dai PA Unavailable Unavailable Scordo, M Dai PA Unavailable Unavailable Scordo, M Dai PA Unavailable Unavailable Scordo, M Dai PA Unavailable Unavailable Scordo, M Dai PA Unavailable Unavailable Scordo, M Dai PA Unavailable Unavailable Scordo, M Dai PA Unavailable Unavailable Scordo, M Dai PA Unavailable Unavailable Scordo, M Dai PA Unavailable Unavailable Scordo, M Dai PA Unavailable Unavailable Isma LAM MD Unavailable Unavailable Isma LAM MD Unavailable Unavailable Isma LAM MD Unavailable Unavailable Isma LAM MD Unavailable Unavailable Isma LAM MD Unavailable Unavailable Isma LAM MD Unavailable Unavailable Isma LAM MD Unavailable Unavailable Isma LAM MD Unavailable Unavailable Isma LAM MD Unavailable Unavailable Isma LAM MD Unavailable Unavailable Isma LAM MD Unavailable Unavailable FATOUMATAIsam MD Unavailable Unavailable FATOUMATAIsma MD Unavailable Unavailable FATOUMATA, Isma MORRIS MD Unavailable Unavailable FATOUMATA, Isma MORRIS MD Unavailable Unavailable HOWE, ROCIO PAL ROPE CLEANER Unavailable Unavailable HOWE, ROCIO PAL ROPE CLEANER Unavailable Unavailable HOWE, ROCIO PAL ROPE CLEANER Unavailable Unavailable HOWE, ROCIO PAL ROPE CLEANER Unavailable Unavailable HOWE, ROCIO PAL ROPE CLEANER Unavailable Unavailable HOWE, ROCIO PAL ROPE CLEANER Unavailable Unavailable HOWE, ROCIO PAL ROPE CLEANER Unavailable Unavailable HOWE, ROCIO PAL ROPE CLEANER Unavailable Unavailable HOWE, ROCIO PAL ROPE CLEANER Unavailable Unavailable HOWE, ROCIO PAL ROPE CLEANER Unavailable Unavailable HOWE, ROCIO PAL ROPE CLEANER Unavailable Unavailable HOWE, ROCIO PAL ROPE CLEANER Unavailable Unavailable HOWE, ROCIO PAL ROPE CLEANER Unavailable Unavailable HOWE, ROCIO PAL ROPE CLEANER Unavailable Unavailable HOWE, ROCIO PAL ROPE CLEANER Unavailable Unavailable HOWE, ROCIO PAL ROPE CLEANER Unavailable Unavailable HOWE, ROCIO PAL ROPE CLEANER Unavailable Unavailable HOWE, ROCIO PAL ROPE CLEANER Unavailable Unavailable HOWE, ROCIO PAL ROPE CLEANER Unavailable Unavailable HOWE, ROCIO PAL ROPE CLEANER Unavailable Unavailable HOWE, ROCIO PAL ROPE CLEANER Unavailable Unavailable HOWE, ROCIO PAL ROPE CLEANER Unavailable Unavailable HOWE, ROCIO PAL ROPE CLEANER Unavailable Unavailable LAMPACK, IRMA Unavailable Unavailable SYSTEM IN, NOT IN PROVIDER Unavailable Unavailable NEVILLE RODRIGUES MD Unavailable [phone] NEVILLE RODRIGUES MD Unavailable [phone] NO, PCP Unavailable Unavailable Root, Sunni Edgar MD Unavailable Unavailable Root, Sunni Edgar MD Unavailable Unavailable Root, Sunni Edgar MD Unavailable Unavailable Root, Sunni Edgar MD Unavailable Unavailable Root, Sunni Edgar MD Unavailable Unavailable Root, Sunni Edgar MD Unavailable Unavailable Root, Sunni Edgar MD Unavailable Unavailable Root, Sunni Edgar MD Unavailable Unavailable Root, Sunni Edgar MD Unavailable Unavailable Root, Sunni Edgar MD Unavailable Unavailable Root, Sunni Edgar MD Unavailable Unavailable Root, Sunni Edgar MD Unavailable Unavailable Root, Sunni Edgar MD Unavailable Unavailable Root, Sunni Edgar MD Unavailable Unavailable Root, Sunni Edgar MD Unavailable Unavailable Root, Sunni Edgar MD Unavailable Unavailable Root, Sunni Edgar MD Unavailable Unavailable Root, Sunni Edgar MD Unavailable Unavailable Root, Sunni Edgar MD Unavailable Unavailable Root, Sunni Edgar MD Unavailable Unavailable Root, Sunni Edgar MD Unavailable Unavailable Root, Sunni Edgar MD Unavailable Unavailable Root, Sunni Edgar MD Unavailable Unavailable Root, Sunni Edgar MD Unavailable Unavailable Root, T Herve MD Unavailable Unavailable Root, T Herve MD Unavailable Unavailable Root, T Herve MD Unavailable Unavailable Root, T Herve MD Unavailable Unavailable Root, T Herve MD Unavailable Unavailable Root, T Herve MD Unavailable Unavailable Root, T Herve MD Unavailable Unavailable Root, T Herve MD Unavailable Unavailable Root, T Herve MD Unavailable Unavailable Root, T Herve MD Unavailable Unavailable Root, T Herve MD Unavailable Unavailable Root, T Herve MD Unavailable Unavailable Root, T Herve MD Unavailable Unavailable Root, T Herve MD Unavailable Unavailable Root, T Herve MD Unavailable Unavailable Root, T Herve MD Unavailable Unavailable Root, T Herve MD Unavailable Unavailable Root, T Herve MD Unavailable Unavailable Root, T Herve MD Unavailable Unavailable Root, T Herve MD Unavailable Unavailable Root, T Herve MD Unavailable Unavailable Root, T Herve MD Unavailable Unavailable Root, T Herve MD Unavailable Unavailable Root, T Herve MD Unavailable Unavailable Root, T Herve MD Unavailable Unavailable Root, T Herve MD Unavailable Unavailable Root, T Herve MD Unavailable Unavailable Root, T Herve MD Unavailable Unavailable Root, T Herve MD Unavailable Unavailable Root, T Herve MD Unavailable Unavailable Root, T Herve MD Unavailable Unavailable Root, T Herve MD Unavailable Unavailable Root, T Herve MD Unavailable Unavailable Root, T Herve MD Unavailable Unavailable Root, T Herve MD Unavailable Unavailable Root, T Herve MD Unavailable Unavailable Root, T Herve MD Unavailable Unavailable Root, T Herve MD Unavailable Unavailable Root, T Herve MD Unavailable Unavailable Root, T Herve MD Unavailable Unavailable Root, T Herve MD Unavailable Unavailable Root, T Herve MD Unavailable Unavailable Root, T Herve MD Unavailable Unavailable Root, T Herve MD Unavailable Unavailable Root, T Herve MD Unavailable Unavailable Re-disclosure Warning The records that you are about to access may contain information from federally-assisted alcohol or drug abuse programs. If such information is present, then the following federally mandated warning applies: This information has been disclosed to you from records protected by federal confidentiality rules (42 CFR part 2). The federal rules prohibit you from making any further disclosure of this information unless further disclosure is expressly permitted by the written consent of the person to whom it pertains or as otherwise permitted by 42 CFR part 2. A general authorization for the release of medical or other information is NOT sufficient for this purpose. The Federal rules restrict any use of the information to criminally investigate or prosecute any alcohol or drug abuse patient.The records that you are about to access may contain highly sensitive health information, the redisclosure of which is protected by Article 27-F of the [facility] Public Health law. If you continue you may have access to information: Regarding HIV / AIDS; Provided by facilities licensed or operated by the [facility] Office of Mental Health; or Provided by the [facility] Office for People With Developmental Disabilities. If such information is present, then the following [facility] mandated warning applies: This information has been disclosed to you from confidential records which are protected by state law. State law prohibits you from making any further disclosure of this information without the specific written consent of the person to whom it pertains, or as otherwise permitted by law. Any unauthorized further disclosure in violation of state law may result in a fine or care home sentence or both. A general authorization for the release of medical or other information is NOT sufficient authorization for further disc losure. Allergies and Adverse Reactions Type Description Substance Reaction Status Data Source(s ) Drug allergy No Known Drug Allergies No Known Drug Allergies ADDITIONAL UNSPECIFIED U [facility] Drug Class NO KNOWN ALLERGIES NO KNOWN ALLERGIES [facility] Drug allergy No Known Drug Allergies No Known Drug Allergies [facility] Family History Family Member Name Family Member Gender Family Member Status Date o f Status Description Data Source(s) Unknown Condition [facility] Unknown Condition [facility] Encounters Encounter Providers Location Date Indications Data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 left ovary is not seen. Electronically Reviewed and Signed By Bret Joseph MD , 11/25/19 10:55, TDS Transcribe Initials: EULA , Transcribe Date: 11/23/19 20:18, Dictation Date: Page 1 of 2 [facility] [address] [place] [address] PHONE: [phone] FAX: [phone] Name .................. : RAMONA Radford Acct Number.................. : [id number] ROOM. ................. : MR Number ................... : [id number] Stay type ............. : O/P Discharge Date......... ... : 11/23/19 Admit Date ......... : 11/23/19 Admit Phys .................... : KARINE GA Date of ....... : 2000 Family Phys ................... : NO PCP Phone .................. : [phone] Age ................................ : 19 Film# .................. .:[id number] Sex ................................. : F Unsigned transcriptions are preliminary reports and do not represent a medical or legal document PELVIC [id number] COMPLETE:11/23/19 15:26 BAW [id number] (REASON FOR PELVIS: pelvic pain with IUD Copy for: 710 MED REC Page 2 of 2 Name Value Range Interpretation Code Description Data Jolene rce(s) Supporting Document(s) ID Date Data Source [id number] 11/21/2019 04:44:00 PM EDT [facility] ([facility]) Name Value Range Interpretation Code Description Data Joleen rce(s) Supporting Document(s) Pelvic Laboratory test result [facility] ([facility]) ID Date Data Source [id number] 09/18/2019 01:52:00 PM EDT [facility] Patient Name: CECILY GREENE OB: 2000 Sex: F Pt Unit #: [id number] Location:[facility] Provider: Visit Date/Time: 09/18/19 Primary Insurance: [facility] Secondary Insurance: Self Pay Intake Vital Signs 09/18/19 13:57 Current Weight 230 lb Weight Measurement Method Standing Scale BP 110/60 Blood Pressure Location Rt brachial Position Sitting Respiration 18 Pulse 103 H Pulse Source Pulse Oximeter Temp 98.3 F Temp Source Oral Pulse Oximetry (%) 97 Intake Visit Reasons: Skin complaints Nurse Note: Has form from [facility] to fill out for today since in a senior living now. Went to [facility] on Monday for not sleeping. Gave benadryl for sleep for 1 day and it was effective. Possible script for benadryl for sleep with her ambien. Having migraines. possible script for that. Has red rash on posterior legs and under posterior arms that itch really bad. ? eczema. Is p atient in pain?: No Allergies tretinoin Adverse Reaction (Mild, Unverified 01/25/18 14:11) Erythema Medications acetaminophen 650 mg (2 x 325 mg) PO Q6H 30 days PRN diphenhydramine HCl (Allergy (diphenhydramine)) 50 mg (2 x 25 mg) PO HS 30 days PRN ibuprofen 400 mg PO Q8H 30 days PRN levonorgestrel intrauterine sertraline 50 mg PO QDAY triamcinolone acetonide 0.1% 1 applic topical BID 14 days PRN zolpidem (Ambien) 10 mg PO HS Fall Risk Medications:: Sedatives and Psychotropics HIV Testing Offer - ages 13-64 HIV testing Offer: No Coronavirus Screening Screening Have you traveled outside of [facility] or [facility] in the last 14 days.: No Has patient experienced coronavirus symptoms: No [facility] Medical History (Updated 09/23/19 @ 07:15 by Bárbara Green NP) ADD (attention deficit disorder) Attention deficit hyperactivity disorder (ADHD), predominantly inattentive type (05/22/17) Bipolar 1 disorder Borderline personality disorder (05/22/17) Chronic gastroesophageal reflux disease (07/11/16) Crushing inj of finger Depression with anxiety Migraine Moderate episode of recurrent major depressive disorder (04/20/17) Nicotine dependence with current use PCOS (polycystic ovarian syndrome) Vision problems Family History Mother Polycystic ovarian disease Diabetes Paternal Grandmother Lupus Diabetes Gastritis Hypertension Father Gastritis Other Bipolar 1 disorder Social History (Updated 09/18/19 @ 13:52 by Marlen Rios) Does the Patient have a Healthcare Proxy: No Does Patient have a DNR?: No Does Patient have a Living Will?: No Hx Recent Travel (where): No HPI Additional HPI HPI Details: Cecily presents to the clinic for itchy rash to bilateral upper arms and legs. Denies changes in lotions or soaps. Also requests Tylenol and Ibuprofen orders for senior living, so that she can take prn as well as benadryl for sleep. She sees mental health for medication adjustment in october. Review of Systems Const All systems reviewed are unremarkable except as noted in HPI and below Reports as per HPI Skin/Breast Reports dry skin, Reports pruritus, Reports erythema and Reports rash Exam Const General: cooperative, healthy appearing and comfortable Nutritional Appearance: obese Orientation: alert, awake and oriented x3 Skin Rashes: rashes noted Other: Small dry patches with red pin point spotted rash. No drainage or blistering. Assessment Plan Assessment Plan (1) Eczem atous dermatitis: Status: Acute Code(s): L30.9 - Dermatitis, unspecified SNOMED Code(s): 25565919 Category: Medical Plan - Bárbara Green ROPE CLEANER: Apply topical BID until resolved, then ensure to moisturize area well and often with an unscented moisturizer. I suggest cetaphil. Orders Other Medications: New: triamcinolone acetonide 0.1% 1 applic topical BID 14 days PRN 30 grams 1RF itching diphenhydramine HCl (Allergy (diphenhydramine)) 50 mg (2 x 25 mg) PO HS 30 days PRN 60 tabs 0RF sleep ibuprofen 400 mg PO Q8H 30 days PRN 90 tabs 3RF headache acetaminophen 650 mg (2 x 325 mg) PO Q6H 30 days PRN 120 tabs 3RF headache Electronically Signed By: <Electronically signed by Bárbara Green ROPE CLEANER> Date/Time Signed: 09/23/19 0716 Name Value Range Interpretation Code Description Data Joleen rce(s) Supporting Document(s) ID Date Data Source [id number] 08/14/2019 05:00:00 PM EDT [facility] ([facility]) Name Value Range Interpretation Code Description Data Joleen rce(s) Supporting Document(s) Chlamydia trachomatis,Mona [facility] {SOURCE: Genital, VAGINAL~.~.~Z30.430 Source: Laboratory test result [facility] ([facility]) {SOURCE: Genital, VAGINAL~.~.~Z30.430 Neisseria gonorrhoeae,Mona Laboratory test result [facility] ([facility]) {SOURCE: Genital, VAGINAL~.~.~Z30.430 ID Date Data Source [id number] 08/19/2019 03:23:00 PM EDT [facility] Name Value Range Interpretation Code Description Data Joleen rce(s) Supporting Document(s) SOURCE: Genital, VAGINAL [facility] Chlamydia trachomatis rRNA [Presence] in Unspecified specimen by Probe and target amplification method Negative Negative [facility] Neisseria gonorrhoeae rRNA [Presence] in Unspecified specimen by Probe and target amplification method Negative Negative [facility] ID Date Data Source [id number] 08/14/2019 04:40:00 PM EDT [facility] ([facility]) Name Value Range Interpretation Code Description Data Joleen rce(s) Supporting Document(s) Inhouse Urine Test Laboratory test result [facility] ([facility]) ID Date Data Source [id number] 07/19/2019 01:00:00 PM EDT [facility] Patient Name: CECILY GREENE Prabhakar Parada OB: 2000 Sex: F Pt Unit #: [id number] Location:[facility] Provider: Visit Date/Time: 07/19/19 Primary Insurance: [facility] Secondary Insurance: Self Pay Intake Vital Signs 07/19/19 13:04 Current Height 5 ft 4 in Current Weight 240 lb Weight Measurement Method Standing Scale BMI 41.1 BP 124/84 Blood Pressure Location Lt brachial Position Sitting Respiration 18 Pulse 100 Pulse Strength Normal Pulse Source Pulse Oximeter Temp 98.3 F Temp Source Oral Pulse Oximetry (%) 97 Oxygen Delivery Method room air Intake Visit Reasons: Annual Physical Nurse Note: Pt presents today to establish care. Pt states that she has no medical issues but does need a note signed to live in [facility]. Instructor Kindergarten Required: No Accompanied by: Grandmother Is patient in pain?: No Allergies tretinoin Adverse Reaction (Mild, Unverified 01/25/18 14:11) Erythema Is last menstrual period known: No Post menopausal: No Patient : No Fall Risk History of falls: No Ambulatory Aid:: None Gait/Transferring:: Normal Medications:: No High Risk Medications PHQ-2/9 Over the last 2 weeks, how often have you been bothered by any of the following problems? 1. Little interest or pleasure in doing things: not at all 2. Feeling down, depressed, or hopeless: not at all Total score: 0 HIV Testing Offer - ages 13-64 Requirement for HIV testing offer been met?: Declines today. Pretest education received and acknowledged SBIRT Annual Questionnaire Are you currently in recovery for alcohol or substance use?: Yes How many times in the past year have you had 4 or more drinks in a day?: None How many times in the past year have you used a recreational drug or used a prescription me dication for nonmedical reasons?: 1 or more Do you need a note to return Do you need a note to return to daycare/school/sports/work: No Coronavirus Screening Screening Have you traveled outside of [facility] or [facility] in the last 14 days.: No Has patient experienced coronavirus symptoms: No [facility] Medical History (Updated 07/19/19 @ 14:00 by Bárbara Green NP) ADD (attention deficit disorder) Depression with anxiety Headaches Vision problems Family History Mother Polycystic ovarian disease Diabetes Paternal Grandmother Lupus Diabetes Gastritis Hypertension Father Gastritis Other Bipolar 1 disorder Social History Does the Patient have a Healthcare Proxy: No Does Patient have a DNR?: No Does Patient have a Living Will?: No Hx Recent Travel (where): No HPI Additional HPI HPI Details: Cecily presents to the clinic to [facility]. She takes medications for MH. She see's Monique at [facility] 1X per month. C/O reflux daily. Has had her gallbladder worked up, NEG in 2017. LMP 2 months ago, irregular. Dx with PCOS. Dx by [address] in [place]. Smokes 2 PPD. Review of Systems Const All systems reviewed are unremarkable except as noted in HPI and below Reports as per HPI Card Denies chest pain, Denies pedal edema, Denies lightheadedness, Denies palpitations and Denies dyspnea Resp Denies dyspnea Genitourinary: Reports abnormal menses (PCOS) Psych Reports anxiety, Reports depression, Denies homicidal ideation and Denies suicidal francesco ation Details: Bipolar; PTSD Endo Denies palpitations Exam Const General: cooperative, healthy appearing and comfortable Nutritional Appearance: obese Orientation: alert, awake and oriented x3 Resp Effort Inspection: normal respiratory effort Auscultation: clear to auscultation bilaterally Cardio Rate: regular rate Rhythm: regular rhythm Heart Sounds: S1 normal and S2 normal Skin Lesions: no lesions Rashes: no rashes Hair: normal Nails: normal Psych Appearance: grossly normal and well kempt Mental Status: mental status grossly normal Speech and Movement: speech and movement normal Mood: congruent mood Affect: normal affect Attitude: cooperative Thought Process: normal Thought Content: normal Insight: insight good Judgment: judgment good Assessment Plan Assessment Plan (1) Nicotine dependence with current use: Status: Acute Comment: Encouraged to follow up when she is ready to quit. Code(s): F17.200 - Nicotine dependence, uns pecified, uncomplicated SNOMED Code(s): 864477014 Category: Medical (2) PCOS (polycystic ovarian syndrome): Status: Acute Comment: Has an appt next month to have a mirena placed. Code(s): E28.2 - Polycystic ovarian syndrome SNOMED Code(s): 466747049 Category: Medical Orders: Orders: BMP 1 Week LIPID PANEL 1 Week HGBA1C + EAG 1 Week (3) Bipolar 1 disorder: Status: Acute Comment: Follows with [facility] in [place]. Seeing Monique; seeing her once a month. Has paperwork to live in a senior living, this would provide her with more stable home and support for her mental health. I will complete paperwork and return to patient. Code(s): F31.9 - Bipolar disorder, unspecified SNOMED Code(s): 067371529 Category: Medical Additional Comments Additional Comments: anxiety, bipolar, depression and PTSD. Orders Follow Up: 6 Months (Annual PE) Electronically Signed By: <Electronically signed by Bárbara Green NP> Date/Time Signed: 07/19/19 1400 Name Value Range Interpretation Code Description Data Joleen rce(s) Supporting Document(s) ID Date Data Source [id number] 05/09/2019 02:53:46 PM [facility]T [facility] NT INFORMATIONPatient MRN Name Date of Age Gend*PT [id number] Cecily Greene [age] years F OBSPT Location Admission Date/Time Visit ID Attending [id number] 05/01/192352 --- --- EPI ID CSN Admitting Provider [id number] ---Attestation signed by Mariia Angulo MD at 05/09/2019 2:53 PMInitial time of commencing Psychiatrist [id number] encounter with patient:05/01/192352 : Alexandra Lam MDI have examined the patient, [id number], and have personally participated inperforming a psychiatric diagnostic examination. I have participated inperforming or have personally reviewed the patients psychosocial assessment andmedical examination. I have assessed the patient s treatment needs based uponpsychiatric, physical, social and functional evaluations and have reviewed theplan with the patient. --------Hospitalist History & PhysicalKen Prabhakar Fani:[id number] and Plan:Active Problems: Polysubstance abuse Encounter for routine history and physical exam in female Tobacco abuse History of PCOSPolysubstance abuse- Evaluation and treatment as per primary attending provider.pcos-pt states she is not currently on any medication, reports appointment nextmonth with [facility] IN[employer]CTURE ARCH[employer] for w/u, and denies any abd pain or dysuria. Patient shouldfollow up with primary care provider upon discharge for routine healthmanagement.Tobacco Use-Encourage smoking cessation.History & Physical exam-VSS, labs non actionable. Maintain good PO intake and hydration, and patientshould follow up with primary care provider upon discharge for routine healthmanagement.Psychiatric evaluation and treatment as per primary psychiatric provider.PCP: No primary care provider on file.DVT prophylaxis: Not required as patient is ambulatory.Code status: No OrderPatient reliability as historian: fairCC: "I just need to sleep."HPI: 19 y/o CF with past medical history significant for Polysubstance andtobacco abuse, depression and SI presented to [facility] on 05/02/19 as a walk in c/osubstance abuse relapse (adderal, chet, cocaine) and SI. The patient is now onEOB status and was seen in their room, admits to above mentioned pmhx and deniesany physical complaints at present. The patient denies any recent travel to [facility],out of state or country, denies chest pain, palpitations, shortness of breath,abdominal pain, extremity pain, nausea, vomiting, constipation, diarrhea, cough,fever, chills, sweats, headache rash or dysuria. A fourteen point review ofsystems was done with the patient and negative except for that which is listedabove.Past Medical History:History reviewed. No pertinent past medical history.Past Surgical History:History reviewed. No pertinent surgical history.Medications:Prior to Admission medicationsMedication Sig Start Date End Date Taking? Authorizing ProviderhydrOXYzine (ATARAX) 25 MG tablet Take 25 mg by mouth every 6 (six) hours asneeded for itching Yes Historical Provider, QUEtiapine (SEROQUEL) 200 MG tablet Take 200 mg by mouth nightly YesHistorical Provider, Presleyergies:Patient has no known drug allergies.Family History:Family HistoryProblem Relation Age of Onset Bipolar disorder MotherSocial History:Social HistoryTobacco Use Smoking status: Former Smoker Smokeless tobacco: Never UsedSubstance Use Topics Alcohol use: Not on file Drug use: Not on fileReview of Systems:Review of Systems 14 point ROS conducted and negative unless mentioned above.Physical Exam:Vital Signs: Temp: [97.5 F-98.6 F] 97.5 FHeart Rate: [70-105] 70Resp: [16-18] 18BP: (99-126)/(65-79) 99/65Physical ExamConstitutional: She appears well-developed and well-nourished. She i scooperative. No distress.DisheveledHENT:Head: Normocephalic and atraumatic.Right Ear: External ear normal.Left Ear: External ear normal.Nose: Nose normal.Mouth/Throat: Oropharynx is clear and moist. No oropharyngeal exudate.Eyes: Pupils are equal, round, and reactive to light. Conjunctivae, EOM and lidsare normal.Neck: Trachea normal and normal range of motion. Neck supple. Carotid bruit isnot present. No thyromegaly present.Cardiovascular: Normal rate, regular rhythm, S1 normal, S2 normal, intact distalpulses and normal pulses. Exam reveals no gallop and no friction rub.No murmur heard.Pulmonary/Chest: Effort normal and breath sounds normal. No respiratorydistress. She has no wheezes. She has no rhonchi. She has no rales.Abdominal: Soft. Bowel sounds are normal. She exhibits no distension and nomass. There is no tenderness. There is no guarding and no CVA tenderness.ObesityMusculoskeletal: Normal range of motion. She exhibits no edema.Lymphadenopathy: She has no cervical adenopathy.Neurological: She is alert.Skin: Skin is warm and dry. No lesion and no rash noted.Nursing note and vitals reviewed.Labs, Imaging and Other Diagnostics:Diagnostic tests reviewed:Labs from 05/02/19CBC with Diff:Lab ResultsComponent Value Date WBC 6.1 05/02/2019 RBC 4.31 05/02/2019 HGB 12.1 05/02/2019 HCT 35.8 (L) 05/02/2019 MCV 83.1 05/02/2019 MCH 28.1 05/02/2019 MCHC 33.8 05/02/2019 RDW 14.8 (H) 05/02/2019 PLT 253 05/02/2019 MPV 8.6 05/02/2019 LYMPHOPCT 44.0 05/02/2019 MONOPCT 8.2 (H) 05/02/2019 EOSPCT 2.5 05/02/2019 BASOPCT 0.2 05/02/2019 NEUTROABS 2.7 05/02/2019 MONOABS 0.5 05/02/2019 BASOSABS 0.0 05/02/2019CMP:Lab ResultsComponent Value Date NA 141 05/02/2019 K 3.8 05/02/2019 CL 109 (H) 05/02/2019 CO2 25 05/02/2019 ANIONGAP 7 05/02/2019 BUN 13 05/02/2019 CREATININE 0.69 05/02/2019 BCR 18.8 05/02/2019 GLU 92 05/02/2019 CALCIUM 8.8 05/02/2019 ALBUMIN 3.7 05/02/2019 GLOB 3.4 05/02/2019 AGRC 1.1 05/02/2019 ALKPHOS 145 (H) 05/02/2019 LABBILI 0.4 05/02/2019 AST 23 05/02/2019 ALT 39 05/02/2019 GFRAA >60 05/02/2019 GFRNONAA >60 05/02/2019Thyroid:Lab ResultsComponent Value Date TSH 2.277 05/02/2019Urinalysis: No results found for: COLORU, SPECGRAV, GLUCOSEU, KETONESU, BLOODU,NITRITE, LEUKOCYTESUR, PHUR, PROTEINUA, BILIRUBINUR, UROBILINOGEN, RBCU, WBCU,APUUrine : No results found for: PREGTESTURUrine Tox Screen: No results found for: AMPHETAMINE, BARBU, LABBENZ, LABCANN,COCUR, OPIATUR, PCPURSignature: Baudilio Taylor PADate: May 02, 2019Time: 4:49 PMBlue Team Hospitalist Name Value Range Interpretation Code Description Data Joleen rce(s) Supporting Document(s) ID Date Data Source [id number] 05/03/2019 11:35:14 AM EDT [facility] NT INFORMATIONPatient MRN Name Date of Age Gend*PT [id number] Cecily Greene [age] years F OBSPT Location Admission Date/Time Visit ID Attending [id number] 05/01/19 5883 --- Mariia Angulo MD([id number]) EPI ID CSN Admitting Provider [id number] ---[facility] Discharge NotePatient Name: Cecily GreenePatient at CPEP: 05/01/19 2156Date and Time of Assessment: 05/03/2019, 11:31 AMChief Complaint:Chief ComplaintPatient presents with Suicidal Pt arrives as a walk-in with suicidal thoughts, states she has a history ofsubstance abuse has been sober for approx 2 months, plan to OD on street drugs.Pt reports she was at "[facility] times this last month and they keepdischarging me" Denies HI/AVHAge: 19 yearsRace: White or CaucasianGender: femaleChart Reviewed and Patient ExaminedDischarge to: HomeHistory of Present IllnessPatient InfoHistory provided by: patient, medical recordsHistory limited by: condition of the patientLanguage textile screen maker used?: NoHPI: Mental Health ProblemPresenting Symptoms: suicidal statement(s), depressionPatient accompanied by: (self)Degree of incapacity (severity) : severeDuration: 2 monthsTiming: intermittentProgression: partially resolved, improvingChronicity: chronicContext : drug abuse, medication, Current interpersonal stressorTreatment compliance: untreatedTime since last psychoactive medication taken: TodayRelieved by: antidepressants, antipsychoticsIneffective Treatments: none triedAssociated symptoms: irritabilityRisk factors: substance abuseLegal Issues:: (None stated or known. )HPI comments: "I am feeling alright I want to go home"Outside Treatment HistoryTreatment History Location Date of Last Tx Type of Tx Tx Reason/Dx Tx Length of Stay Tx helpful?Drug/Alcohol Rehab? Records Requested? Comments [facility] Inpatient depression [facility] Inpatient Depression [place] 5 years Inpatient [facility] 2 monthsSelf Harm/Suicide HistoryHabitual Self Harm History No Self Harm HistorySuicide HistorySuicide Method Approximate Date/Age Medical Care? Reason/CommentsOverdose (Rx-prescription medication)Substance Use SUBSTANCE ROUTE OF ADMINISTRATION AGE AT FIRST USE SUBSTANCE LAST TIME USEDSUBSTANCE PATTERN OF USE SUBSTANCE PATTERN OF ABSTINANCE Comments benzodiazepine oral Feb 2019 cocaine snort Feb 2019 synthetic inhalation Feb 2019 prescription medications oralFamily HistoryProblem Relation Age of Onset Bipolar disorder MotherSocial HistoryTobacco Use Smoking status: Former Smoker Smokeless tobacco: Never UsedSubstance Use Topics Alcohol use: Not on file Drug use: Not on fileSocial HistorySubstance and Sexual ActivitySexual Activity Yes Partners: MaleHistory reviewed. No pertinent past medical history.History reviewed. No pertinent surgical history.Care Coordination/CollateralReview of SystemsPsychiatricPsychiatric: DepressionReview of SystemsAllergic/Immunologic: No pertinent findingsCardiovascular : No pertinent findingsConstitutional Symptoms: No pertinent findingsEndocrine: No pertinent findingsEars, Nose, Mouth and Throat: No pertinent findingsEyes: No pertinent findingsGastrointestinal: No pertinent findingsGenitourinary: No pertinent findingsHemeatological/Lymphatic: No pertinent findingsMusculoskeletal: No pertinent findingsNeurological : No pertinent findingsRespiratory: No pertinent findingsSkin: No pertinent findingsVital SignsBP 114/79 | Pulse 89 | Temp 97.9 F (Oral) | Resp 18 | Ht 5' 4" | Wt (!)108.9 kg | LMP 04/24/2019 (Approximate) | SpO2 96% | No | BMI41.20 kg/m Temp Refused: Yes (05/01/192210)BP Refused: Yes (05/01/192210)O2 Sat Refused: Yes (05/01/192210)Psychiatric ExamMental Status ExamGeneral Appearance: Appears Stated AgeBuild/Stature: ThinPosture: WNLHygiene/Grooming: Fair HygieneClothing: Hospital AttireEye Contact: GoodSpeech: ClearPsychomotor Activity: WNLMood: FineAffect: FullPerceptual Disturbances: Denied and none evidantDelusions: NoneThought Process: Linear and LogicalThought Content: WNLSuicidal Ideation: Denies suicidal thoughtsHomicidal Ideation: Denies homicidal thoughtsRemote Memory: IntactRecent Memory: IntactInsight: LimitedJudgment: LimitedOrientation: Appropriately Oriented [id number] Toward Examiner: CooperativeAssociations: No loosening evidentFund of Knowledge: FairConcentration: FairAttention Span: FairCognition: IntactLanguage: Fluent in English-SSRS Suicide Screening:In the past three months, have you wished you were or wished you could goto sleep and not wake up?: YesIn the past three months, have you actually had any thoughts of killingyourself?: Yes3.In the past three months, have you been thinking about how you might do this?: Yes4.In the past three months, have you had these thoughts and had some intentionof acting on them?: Yes5.In the past three months, have you started to work out or worked out thedetails of how to kill yourself? Do you intend to carry out this plan?: No6.Have you done anything, started to do anything, or prepared to do anything toend your life?: Yes- Within your lifetime7.Have you made a suicide attempt in your lifetime (took action to end yourlife)? : Yes7A. How many attempts have you ever made?: [id number]. How long ago was your most recent attempt? : Between 1-5 yearsRisk Factors:Non-Suicidal self-injury: Most recent event; include frequency, description ofinjury and severity:: Cutting self mutilation last time about a month ago.Diagnoses & Symptoms of Concern: : Substance Use Disorders, Borderline &Antisocial Personality DisorderFamily & Social Factors (Distal Factors):: History of sexual and psychicalabuse, neglect, or domestic violenceAccess to Lethal Means:: Pills, ingestible poisonsPrecipitants/Activating Events: : Recent or impending loss(es)Protective Factors:Protective Factors:: In supervised/inpatient setting, Access to clinicalinterventions, Fear of or dying, Supportive social network or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 mm[Hg] 106 mm[Hg] M [facility] ([facility]) ID Date Data Source [id number] 03/07/2019 11:07:00 AM PAYTON stewart Name Value Range Interpretation Code Description Data Source(s) WEIGHT 100 kilos 100 kilos [facility] HEIGHT 152.4 centimeters 152.4 centimeters [facility] WEIGHT 100 kilos 100 kilos [facility] HEIGHT 162.56 centimeters 162.56 centimeter [facility] ID Date Data Source [id number] 03/14/2019 02:59:00 PM EST Subhash stewart Name Value Range Interpretation Code Description Data Source(s) WEIGHT 100 kilos 100 kilos [facility] HEIGHT 162.56 centimeters 162.56 centimeter [facility] WEIGHT [facility].367724 [facility].56 [facility] 162.56 centimeter [facility] Patient Treatment Plan of Care Planned Activity Planned Date Details Description Data Source (s) Sertraline 50 MG Oral Tablet 05/04/2019 12:00:00 AM EDT [facility] aripiprazole 10 MG Oral Tablet 05/04/2019 12:00:00 AM EDT [facility] Hydroxyzine Pamoate 50 MG Oral Capsule 05/03/2019 12:00:00 AM EDT [facility] Trazodone Hydrochloride 50 MG Oral Tablet 05/03/2019 12:00:00 AM ED T [facility] Amoxicillin 875 MG Oral Tablet 04/08/2019 12:00:00 AM EST [facility] ([facility]) Hydroxyzine Hydrochloride 25 MG Oral Tablet [facility] quetiapine 200 MG Oral Tablet [facility]
[2020-03-22 01:17] LABS: HEMOGLOBIN 12.8 g/dl (12.0-15.5); MEAN CORPUSCULAR HEMOGLOBIN 27.7 pg (27.0-33.0); MEAN CORPUSCULAR HGB CONC 32.8 g/dl (32.0-36.5); MEAN CORPUSCULAR VOLUME 84.4 fl (80.0-96.0); PLATELET COUNT, AUTOMATED 295 10^3/uL (150-450); RED BLOOD COUNT 4.62 10^6/uL (4.00-5.40)
--- OUTSIDE RECORDS SUMMARY | 2020-03-22 01:22 | CCD ---
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 Code Description Data Joleen rce(s) Supporting Document(s) ID Date Data Source [id number] 04/18/2019 10:25:00 AM EDT [facility] ([facility]) Name Value Range Interpretation Code Description Data Joleen rce(s) Supporting Document(s) Total Insulin 25 uU/mL [facility] ([facility]) Is patient fasting? N~.~.~<DG1.3.1>N92.6</DG1.3.1><DG1.3.1>N92.6</DG1.3.1><DG1.3.1>N92.6</DG1.3. .~.~<DG1.3.1>N92.6</DG1.3.1><DG1.3.1>N92.6</DG1.3.1><DG1.3.1>N92.6</DG1.3.1><DG1 .3.1 .~.~<DG1.3.1> N92.6</DG1.3.1><DG1.3.1>N92.6</DG1.3.1><DG1.3.1>N92.6</DG1.3.1><DG1.3.1 .~.~<DG1.3.1>N92.6</DG1.3.1><DG1.3.1>N92.6</DG1.3.1><DG1.3.1>N92.6</DG1.3.1><DG1 .3.1 .~.~<DG1.3.1>N92.6</DG1.3.1><DG1.3.1> N92.6</DG1.3.1><DG1.3.1>N92.6</DG1.3.1><DG1.3.1 .~.~<DG1.3.1>N92.6</DG1.3.1><DG1.3.1>N92.6</DG1.3.1><DG1.3.1>N92.6</DG1.3.1><DG1 .3.1 .~.~<DG1.3.1>N92.6</DG1.3.1><DG1.3.1>N92.6</DG1.3.1><DG1.3.1> N92.6</DG1.3.1><DG1.3.1 .~.~<DG1.3.1>N92.6</DG1.3.1><DG1.3.1>N92.6</DG1.3.1><DG1.3.1>N92.6</DG1.3.1><DG1 .3.1 .~.~<DG1.3.1>N92.6</DG1.3.1><DG1.3.1>N92.6</DG1.3.1><DG1.3.1>N92.6</DG1.3.1> <DG1.3.1 .~.~<DG1.3.1>N92.6</DG1.3.1><DG1.3.1>N92.6</DG1.3.1><DG1.3.1>N92.6</DG1.3.1><DG1 .3.1 Insulin Free \\T\\ Tot Laboratory test result [facility] ([facility]) Is patient fasting? N~.~.~<DG1.3.1>N92.6</DG1.3.1><DG1.3.1>N92.6</DG1.3.1><DG1.3.1>N92.6</DG1.3. .~.~<DG1.3.1>N92.6</DG1.3.1><DG1.3.1>N92.6</DG1.3.1><DG1.3.1>N92.6</DG1.3.1><DG1 .3.1 .~.~<DG1.3.1> N92.6</DG1.3.1><DG1.3.1>N92.6</DG1.3.1><DG1.3.1>N92.6</DG1.3.1><DG1.3.1 .~.~<DG1.3.1>N92.6</DG1.3.1><DG1.3.1>N92.6</DG1.3.1><DG1.3.1>N92.6</DG1.3.1><DG1 .3.1 .~.~<DG1.3.1>N92.6</DG1.3.1><DG1.3.1> N92.6</DG1.3.1><DG1.3.1>N92.6</DG1.3.1><DG1.3.1 .~.~<DG1.3.1>N92.6</DG1.3.1><DG1.3.1>N92.6</DG1.3.1><DG1.3.1>N92.6</DG1.3.1><DG1 .3.1 .~.~<DG1.3.1>N92.6</DG1.3.1><DG1.3.1>N92.6</DG1.3.1><DG1.3.1> N92.6</DG1.3.1><DG1.3.1 .~.~<DG1.3.1>N92.6</DG1.3.1><DG1.3.1>N92.6</DG1.3.1><DG1.3.1>N92.6</DG1.3.1><DG1 .3.1 .~.~<DG1.3.1>N92.6</DG1.3.1><DG1.3.1>N92.6</DG1.3.1><DG1.3.1>N92.6</DG1.3.1> <DG1.3.1 .~.~<DG1.3.1>N92.6</DG1.3.1><DG1.3.1>N92.6</DG1.3.1><DG1.3.1>N92.6</DG1.3.1><DG1 .3.1 Free Insulin 25 uU/mL Above high normal [facility] ([facility]) Is patient fasting? N~.~.~<DG1.3.1>N92.6</DG1.3.1><DG1.3.1>N92.6</DG1.3.1><DG1.3.1>N92.6</DG1.3. .~.~<DG1.3.1>N92.6</DG1.3.1><DG1.3.1>N92.6</DG1.3.1><DG1.3.1>N92.6</DG1.3.1><DG1 .3.1 .~.~<DG1.3.1> N92.6</DG1.3.1><DG1.3.1>N92.6</DG1.3.1><DG1.3.1>N92.6</DG1.3.1><DG1.3.1 .~.~<DG1.3.1>N92.6</DG1.3.1><DG1.3.1>N92.6</DG1.3.1><DG1.3.1>N92.6</DG1.3.1><DG1 .3.1 .~.~<DG1.3.1>N92.6</DG1.3.1><DG1.3.1> N92.6</DG1.3.1><DG1.3.1>N92.6</DG1.3.1><DG1.3.1 .~.~<DG1.3.1>N92.6</DG1.3.1><DG1.3.1>N92.6</DG1.3.1><DG1.3.1>N92.6</DG1.3.1><DG1 .3.1 .~.~<DG1.3.1>N92.6</DG1.3.1><DG1.3.1>N92.6</DG1.3.1><DG1.3.1> N92.6</DG1.3.1><DG1.3.1 .~.~<DG1.3.1>N92.6</DG1.3.1><DG1.3.1>N92.6</DG1.3.1><DG1.3.1>N92.6</DG1.3.1><DG1 .3.1 .~.~<DG1.3.1>N92.6</DG1.3.1><DG1.3.1>N92.6</DG1.3.1><DG1.3.1>N92.6</DG1.3.1> <DG1.3.1 .~.~<DG1.3.1>N92.6</DG1.3.1><DG1.3.1>N92.6</DG1.3.1><DG1.3.1>N92.6</DG1.3.1><DG1 .3.1 ID Date Data Source [id number] 04/18/2019 10:25:00 AM [facility] ([facility]) Name Value Range Interpretation Code Description Data Joleen rce(s) Supporting Document(s) HCG Serum Qual Laboratory test result [facility] ([facility]) Is patient fasting? N~.~.~<DG1.3.1>N92.6</DG1.3.1><DG1.3.1>N92.6</DG1.3.1><DG1.3.1>N92.6</DG1.3. .~.~<DG1.3.1>N92.6</DG1.3.1><DG1.3.1>N92.6</DG1.3.1><DG1.3.1>N92.6</DG1.3.1><DG1 .3.1 .~.~<DG1.3.1> N92.6</DG1.3.1><DG1.3.1>N92.6</DG1.3.1><DG1.3.1>N92.6</DG1.3.1><DG1.3.1 .~.~<DG1.3.1>N92.6</DG1.3.1><DG1.3.1>N92.6</DG1.3.1><DG1.3.1>N92.6</DG1.3.1><DG1 .3.1 .~.~<DG1.3.1>N92.6</DG1.3.1><DG1.3.1> N92.6</DG1.3.1><DG1.3.1>N92.6</DG1.3.1><DG1.3.1 .~.~<DG1.3.1>N92.6</DG1.3.1><DG1.3.1>N92.6</DG1.3.1><DG1.3.1>N92.6</DG1.3.1><DG1 .3.1 .~.~<DG1.3.1>N92.6</DG1.3.1><DG1.3.1>N92.6</DG1.3.1><DG1.3.1> N92.6</DG1.3.1><DG1.3.1 .~.~<DG1.3.1>N92.6</DG1.3.1><DG1.3.1>N92.6</DG1.3.1><DG1.3.1>N92.6</DG1.3.1><DG1 .3.1 .~.~<DG1.3.1>N92.6</DG1.3.1><DG1.3.1>N92.6</DG1.3.1><DG1.3.1>N92.6</DG1.3.1> <DG1.3.1 .~.~<DG1.3.1>N92.6</DG1.3.1><DG1.3.1>N92.6</DG1.3.1><DG1.3.1>N92.6</DG1.3.1><DG1 .3.1 HCG Serum QL Reenter Laboratory test result [facility] ([facility]) Is patient fasting? N~.~.~<DG1.3.1>N92.6</DG1.3.1><DG1.3.1>N92.6</DG1.3.1><DG1.3.1>N92.6</DG1.3. .~.~<DG1.3.1>N92.6</DG1.3.1><DG1.3.1>N92.6</DG1.3.1><DG1.3.1>N92.6</DG1.3.1><DG1 .3.1 .~.~<DG1.3.1> N92.6</DG1.3.1><DG1.3.1>N92.6</DG1.3.1><DG1.3.1>N92.6</DG1.3.1><DG1.3.1 .~.~<DG1.3.1>N92.6</DG1.3.1><DG1.3.1>N92.6</DG1.3.1><DG1.3.1>N92.6</DG1.3.1><DG1 .3.1 .~.~<DG1.3.1>N92.6</DG1.3.1><DG1.3.1> N92.6</DG1.3.1><DG1.3.1>N92.6</DG1.3.1><DG1.3.1 .~.~<DG1.3.1>N92.6</DG1.3.1><DG1.3.1>N92.6</DG1.3.1><DG1.3.1>N92.6</DG1.3.1><DG1 .3.1 .~.~<DG1.3.1>N92.6</DG1.3.1><DG1.3.1>N92.6</DG1.3.1><DG1.3.1> N92.6</DG1.3.1><DG1.3.1 .~.~<DG1.3.1>N92.6</DG1.3.1><DG1.3.1>N92.6</DG1.3.1><DG1.3.1>N92.6</DG1.3.1><DG1 .3.1 .~.~<DG1.3.1>N92.6</DG1.3.1><DG1.3.1>N92.6</DG1.3.1><DG1.3.1>N92.6</DG1.3.1> <DG1.3.1 .~.~<DG1.3.1>N92.6</DG1.3.1><DG1.3.1>N92.6</DG1.3.1><DG1.3.1>N92.6</DG1.3.1><DG1 .3.1 ID Date Data Source [id number] 04/18/2019 10:25:00 AM EDT [facility] ([facility]) Name Value Range Interpretation Code Description Data Joleen rce(s) Supporting Document(s) Prolactin [Mass/volume] in Serum or Plasma 10.8 ng/mL 4.8-23.3 [facility] Is patient fasting? N~.~.~<DG1.3.1>N92.6</DG1.3.1><DG1.3.1>N92.6</DG1.3.1><DG1.3.1>N92.6</DG1.3. .~.~<DG1.3.1>N92.6</DG1.3.1><DG1.3.1>N92.6</DG1.3.1><DG1.3.1>N92.6</DG1.3.1><DG1 .3.1 .~.~<DG1.3.1> N92.6</DG1.3.1><DG1.3.1>N92.6</DG1.3.1><DG1.3.1>N92.6</DG1.3.1><DG1.3.1 .~.~<DG1.3.1>N92.6</DG1.3.1><DG1.3.1>N92.6</DG1.3.1><DG1.3.1>N92.6</DG1.3.1><DG1 .3.1 .~.~<DG1.3.1>N92.6</DG1.3.1><DG1.3.1> N92.6</DG1.3.1><DG1.3.1>N92.6</DG1.3.1><DG1.3.1 .~.~<DG1.3.1>N92.6</DG1.3.1><DG1.3.1>N92.6</DG1.3.1><DG1.3.1>N92.6</DG1.3.1><DG1 .3.1 .~.~<DG1.3.1>N92.6</DG1.3.1><DG1.3.1>N92.6</DG1.3.1><DG1.3.1> N92.6</DG1.3.1><DG1.3.1 .~.~<DG1.3.1>N92.6</DG1.3.1><DG1.3.1>N92.6</DG1.3.1><DG1.3.1>N92.6</DG1.3.1><DG1 .3.1 .~.~<DG1.3.1>N92.6</DG1.3.1><DG1.3.1>N92.6</DG1.3.1><DG1.3.1>N92.6</DG1.3.1> <DG1.3.1 .~.~<DG1.3.1>N92.6</DG1.3.1><DG1.3.1>N92.6</DG1.3.1><DG1.3.1>N92.6</DG1.3.1><DG1 .3.1 Thyrotropin [Units/volume] in Serum or Plasma 1.77 uIU/mL 0.47-5.01 [facility] ([facility]) Is patient fasting? N~.~.~<DG1.3.1>N92.6</DG1.3.1><DG1.3.1>N92.6</DG1.3.1><DG1.3.1>N92.6</DG1.3. .~.~<DG1.3.1>N92.6</DG1.3.1><DG1.3.1>N92.6</DG1.3.1><DG1.3.1>N92.6</DG1.3.1><DG1 .3.1 .~.~<DG1.3.1> N92.6</DG1.3.1><DG1.3.1>N92.6</DG1.3.1><DG1.3.1>N92.6</DG1.3.1><DG1.3.1 .~.~<DG1.3.1>N92.6</DG1.3.1><DG1.3.1>N92.6</DG1.3.1><DG1.3.1>N92.6</DG1.3.1><DG1 .3.1 .~.~<DG1.3.1>N92.6</DG1.3.1><DG1.3.1> N92.6</DG1.3.1><DG1.3.1>N92.6</DG1.3.1><DG1.3.1 .~.~<DG1.3.1>N92.6</DG1.3.1><DG1.3.1>N92.6</DG1.3.1><DG1.3.1>N92.6</DG1.3.1><DG1 .3.1 .~.~<DG1.3.1>N92.6</DG1.3.1><DG1.3.1>N92.6</DG1.3.1><DG1.3.1> N92.6</DG1.3.1><DG1.3.1 .~.~<DG1.3.1>N92.6</DG1.3.1><DG1.3.1>N92.6</DG1.3.1><DG1.3.1>N92.6</DG1.3.1><DG1 .3.1 .~.~<DG1.3.1>N92.6</DG1.3.1><DG1.3.1>N92.6</DG1.3.1><DG1.3.1>N92.6</DG1.3.1> <DG1.3.1 .~.~<DG1.3.1>N92.6</DG1.3.1><DG1.3.1>N92.6</DG1.3.1><DG1.3.1>N92.6</DG1.3.1><DG1 .3.1 Lutropin [Units/volume] in Serum or Plasma 5.1 mIU/mL [facility] ([facility]) Is patient fasting? N~.~.~<DG1.3.1>N92.6</DG1.3.1><DG1.3.1>N92.6</DG1.3.1><DG1.3.1>N92.6</DG1.3. .~.~<DG1.3.1>N92.6</DG1.3.1><DG1.3.1>N92.6</DG1.3.1><DG1.3.1>N92.6</DG1.3.1><DG1 .3.1 .~.~<DG1.3.1> N92.6</DG1.3.1><DG1.3.1>N92.6</DG1.3.1><DG1.3.1>N92.6</DG1.3.1><DG1.3.1 .~.~<DG1.3.1>N92.6</DG1.3.1><DG1.3.1>N92.6</DG1.3.1><DG1.3.1>N92.6</DG1.3.1><DG1 .3.1 .~.~<DG1.3.1>N92.6</DG1.3.1><DG1.3.1> N92.6</DG1.3.1><DG1.3.1>N92.6</DG1.3.1><DG1.3.1 .~.~<DG1.3.1>N92.6</DG1.3.1><DG1.3.1>N92.6</DG1.3.1><DG1.3.1>N92.6</DG1.3.1><DG1 .3.1 .~.~<DG1.3.1>N92.6</DG1.3.1><DG1.3.1>N92.6</DG1.3.1><DG1.3.1> N92.6</DG1.3.1><DG1.3.1 .~.~<DG1.3.1>N92.6</DG1.3.1><DG1.3.1>N92.6</DG1.3.1><DG1.3.1>N92.6</DG1.3.1><DG1 .3.1 .~.~<DG1.3.1>N92.6</DG1.3.1><DG1.3.1>N92.6</DG1.3.1><DG1.3.1>N92.6</DG1.3.1> <DG1.3.1 .~.~<DG1.3.1>N92.6</DG1.3.1><DG1.3.1>N92.6</DG1.3.1><DG1.3.1>N92.6</DG1.3.1><DG1 .3.1 Follitropin [Units/volume] in Serum or Plasma 2.1 mIU/mL [facility] ([facility]) Is patient fasting? N~.~.~<DG1.3.1>N92.6</DG1.3.1><DG1.3.1>N92.6</DG1.3.1><DG1.3.1>N92.6</DG1.3. .~.~<DG1.3.1>N92.6</DG1.3.1><DG1.3.1>N92.6</DG1.3.1><DG1.3.1>N92.6</DG1.3.1><DG1 .3.1 .~.~<DG1.3.1> N92.6</DG1.3.1><DG1.3.1>N92.6</DG1.3.1><DG1.3.1>N92.6</DG1.3.1><DG1.3.1 .~.~<DG1.3.1>N92.6</DG1.3.1><DG1.3.1>N92.6</DG1.3.1><DG1.3.1>N92.6</DG1.3.1><DG1 .3.1 .~.~<DG1.3.1>N92.6</DG1.3.1><DG1.3.1> N92.6</DG1.3.1><DG1.3.1>N92.6</DG1.3.1><DG1.3.1 .~.~<DG1.3.1>N92.6</DG1.3.1><DG1.3.1>N92.6</DG1.3.1><DG1.3.1>N92.6</DG1.3.1><DG1 .3.1 .~.~<DG1.3.1>N92.6</DG1.3.1><DG1.3.1>N92.6</DG1.3.1><DG1.3.1> N92.6</DG1.3.1><DG1.3.1 .~.~<DG1.3.1>N92.6</DG1.3.1><DG1.3.1>N92.6</DG1.3.1><DG1.3.1>N92.6</DG1.3.1><DG1 .3.1 .~.~<DG1.3.1>N92.6</DG1.3.1><DG1.3.1>N92.6</DG1.3.1><DG1.3.1>N92.6</DG1.3.1> <DG1.3.1 .~.~<DG1.3.1>N92.6</DG1.3.1><DG1.3.1>N92.6</DG1.3.1><DG1.3.1>N92.6</DG1.3.1><DG1 .3.1 Testosterone Free [Mass/volume] in Serum or Plasma 6.2 pg/mL 0.0-4.2 Above high normal [facility] ([facility]) Is patient fasting? N~.~.~<DG1.3.1>N92.6</DG1.3.1><DG1.3.1>N92.6</DG1.3.1><DG1.3.1>N92.6</DG1.3. .~.~<DG1.3.1>N92.6</DG1.3.1><DG1.3.1>N92.6</DG1.3.1><DG1.3.1>N92.6</DG1.3.1><DG1 .3.1 .~.~<DG1.3.1> N92.6</DG1.3.1><DG1.3.1>N92.6</DG1.3.1><DG1.3.1>N92.6</DG1.3.1><DG1.3.1 .~.~<DG1.3.1>N92.6</DG1.3.1><DG1.3.1>N92.6</DG1.3.1><DG1.3.1>N92.6</DG1.3.1><DG1 .3.1 .~.~<DG1.3.1>N92.6</DG1.3.1><DG1.3.1> N92.6</DG1.3.1><DG1.3.1>N92.6</DG1.3.1><DG1.3.1 .~.~<DG1.3.1>N92.6</DG1.3.1><DG1.3.1>N92.6</DG1.3.1><DG1.3.1>N92.6</DG1.3.1><DG1 .3.1 .~.~<DG1.3.1>N92.6</DG1.3.1><DG1.3.1>N92.6</DG1.3.1><DG1.3.1> N92.6</DG1.3.1><DG1.3.1 .~.~<DG1.3.1>N92.6</DG1.3.1><DG1.3.1>N92.6</DG1.3.1><DG1.3.1>N92.6</DG1.3.1><DG1 .3.1 .~.~<DG1.3.1>N92.6</DG1.3.1><DG1.3.1>N92.6</DG1.3.1><DG1.3.1>N92.6</DG1.3.1> <DG1.3.1 .~.~<DG1.3.1>N92.6</DG1.3.1><DG1.3.1>N92.6</DG1.3.1><DG1.3.1>N92.6</DG1.3.1><DG1 .3.1 Dehydroepiandrosterone sulfate (DHEA-S) [Mass/volume] in Serum or Plasma 379.6 ug/dL 110.0-431.7 [facility] ([facility]) Is patient fasting? N~.~.~<DG1.3.1>N92.6</DG1.3.1><DG1.3.1>N92.6</DG1.3.1><DG1.3.1>N92.6</DG1.3. .~.~<DG1.3.1>N92.6</DG1.3.1><DG1.3.1>N92.6</DG1.3.1><DG1.3.1>N92.6</DG1.3.1><DG1 .3.1 .~.~<DG1.3.1> N92.6</DG1.3.1><DG1.3.1>N92.6</DG1.3.1><DG1.3.1>N92.6</DG1.3.1><DG1.3.1 .~.~<DG1.3.1>N92.6</DG1.3.1><DG1.3.1>N92.6</DG1.3.1><DG1.3.1>N92.6</DG1.3.1><DG1 .3.1 .~.~<DG1.3.1>N92.6</DG1.3.1><DG1.3.1> N92.6</DG1.3.1><DG1.3.1>N92.6</DG1.3.1><DG1.3.1 .~.~<DG1.3.1>N92.6</DG1.3.1><DG1.3.1>N92.6</DG1.3.1><DG1.3.1>N92.6</DG1.3.1><DG1 .3.1 .~.~<DG1.3.1>N92.6</DG1.3.1><DG1.3.1>N92.6</DG1.3.1><DG1.3.1> N92.6</DG1.3.1><DG1.3.1 .~.~<DG1.3.1>N92.6</DG1.3.1><DG1.3.1>N92.6</DG1.3.1><DG1.3.1>N92.6</DG1.3.1><DG1 .3.1 .~.~<DG1.3.1>N92.6</DG1.3.1><DG1.3.1>N92.6</DG1.3.1><DG1.3.1>N92.6</DG1.3.1> <DG1.3.1 .~.~<DG1.3.1>N92.6</DG1.3.1><DG1.3.1>N92.6</DG1.3.1><DG1.3.1>N92.6</DG1.3.1><DG1 .3.1 Glucose [Mass/volume] in Serum or Plasma 97 mg/dL 65-110 [facility] ([facility]) Is patient fasting? N~.~.~<DG1.3.1>N92.6</DG1.3.1><DG1.3.1>N92.6</DG1.3.1><DG1.3.1>N92.6</DG1.3. .~.~<DG1.3.1>N92.6</DG1.3.1><DG1.3.1>N92.6</DG1.3.1><DG1.3.1>N92.6</DG1.3.1><DG1 .3.1 .~.~<DG1.3.1> N92.6</DG1.3.1><DG1.3.1>N92.6</DG1.3.1><DG1.3.1>N92.6</DG1.3.1><DG1.3.1 .~.~<DG1.3.1>N92.6</DG1.3.1><DG1.3.1>N92.6</DG1.3.1><DG1.3.1>N92.6</DG1.3.1><DG1 .3.1 .~.~<DG1.3.1>N92.6</DG1.3.1><DG1.3.1> N92.6</DG1.3.1><DG1.3.1>N92.6</DG1.3.1><DG1.3.1 .~.~<DG1.3.1>N92.6</DG1.3.1><DG1.3.1>N92.6</DG1.3.1><DG1.3.1>N92.6</DG1.3.1><DG1 .3.1 .~.~<DG1.3.1>N92.6</DG1.3.1><DG1.3.1>N92.6</DG1.3.1><DG1.3.1> N92.6</DG1.3.1><DG1.3.1 .~.~<DG1.3.1>N92.6</DG1.3.1><DG1.3.1>N92.6</DG1.3.1><DG1.3.1>N92.6</DG1.3.1><DG1 .3.1 .~.~<DG1.3.1>N92.6</DG1.3.1><DG1.3.1>N92.6</DG1.3.1><DG1.3.1>N92.6</DG1.3.1> <DG1.3.1 .~.~<DG1.3.1>N92.6</DG1.3.1><DG1.3.1>N92.6</DG1.3.1><DG1.3.1>N92.6</DG1.3.1><DG1 .3.1 17-Hydroxyprogesterone [Mass/volume] in Serum or Plasma 63 ng/dL [facility] ([facility]) Is patient fasting? N~.~.~<DG1.3.1>N92.6</DG1.3.1><DG1.3.1>N92.6</DG1.3.1><DG1.3.1>N92.6</DG1.3. .~.~<DG1.3.1>N92.6</DG1.3.1><DG1.3.1>N92.6</DG1.3.1><DG1.3.1>N92.6</DG1.3.1><DG1 .3.1 .~.~<DG1.3.1> N92.6</DG1.3.1><DG1.3.1>N92.6</DG1.3.1><DG1.3.1>N92.6</DG1.3.1><DG1.3.1 .~.~<DG1.3.1>N92.6</DG1.3.1><DG1.3.1>N92.6</DG1.3.1><DG1.3.1>N92.6</DG1.3.1><DG1 .3.1 .~.~<DG1.3.1>N92.6</DG1.3.1><DG1.3.1> N92.6</DG1.3.1><DG1.3.1>N92.6</DG1.3.1><DG1.3.1 .~.~<DG1.3.1>N92.6</DG1.3.1><DG1.3.1>N92.6</DG1.3.1><DG1.3.1>N92.6</DG1.3.1><DG1 .3.1 .~.~<DG1.3.1>N92.6</DG1.3.1><DG1.3.1>N92.6</DG1.3.1><DG1.3.1> N92.6</DG1.3.1><DG1.3.1 .~.~<DG1.3.1>N92.6</DG1.3.1><DG1.3.1>N92.6</DG1.3.1><DG1.3.1>N92.6</DG1.3.1><DG1 .3.1 .~.~<DG1.3.1>N92.6</DG1.3.1><DG1.3.1>N92.6</DG1.3.1><DG1.3.1>N92.6</DG1.3.1> <DG1.3.1 .~.~<DG1.3.1>N92.6</DG1.3.1><DG1.3.1>N92.6</DG1.3.1><DG1.3.1>N92.6</DG1.3.1><DG1 .3.1 ID Date Data Source [id number] 04/25/2019 06:14:00 AM EDT [facility] Name Value Range Interpretation Code Description Data Joleen rce(s) Supporting Document(s) INSULIN FREE & TOTAL [facility] Test(s) [id number] Progesterone LCMSwa s developed and its performance characteristics determinedby [facility]. It has not been cleared or approved by the Foodand Drug Administration. Insulin Free [Units/volume] in Serum or Plasma 25 uU/mL [facility] Reference Range:Pubertal Children andAdu lts (fasting): 0 - 17 Insulin [Units/volume] in Serum or Plasma 25 uU/mL [facility] Non-Diabetic: In the absence of insulin [...] bound insulin fractions. ID Date Data Source [id number] 04/23/2019 10:51:00 PM EDT [facility] Value Range Interpretation Code Description Data Joleen rce(s) Supporting Document(s) 17-Hydroxyprogesterone [Mass/volume] in Serum or Plasma 63 ng/dL [facility] Adult Female Follicular 15 - 70 Luteal 35 - 290 ID Date Data Source [id number] 04/20/2019 08:10:00 AM EDT [facility] Value Range Interpretation Code Description Data Joleen rce(s) Supporting Document(s) Testosterone Free [Mass/volume] in Serum or Plasma 6.2 pg/mL 0.0-4.2 H [facility] ID Date Data Source [id number] 04/19/2019 01:21:00 PM T [facility] Value Range Interpretation Code Description Data Joleen rce(s) Supporting Document(s) Dehydroepiandrosterone sulfate (DHEA-S) [Mass/volume] in Serum or Plasma 379.6 ug/dL 110.0-431.7 [facility] ID Date Data Source [id number] 04/19/2019 01:20:00 PM EDT [facility] Value Range Interpretation Code Description Data Joleen rce(s) Supporting Document(s) Prolactin [Mass/volume] in Serum or Plasma 10.8 ng/mL 4.8-23.3 [facility] ID Date Data Source [id number] 04/19/2019 01:20:00 PM EDT [facility] Value Range Interpretation Code Description Data Joleen rce(s) Supporting Document(s) Follitropin [Units/volume] in Serum or Plasma 2.1 mIU/mL [facility] Adult Female: Follicular phase 3.5 - 12.5 Ovulation phase 4.7 - 21.5 Luteal phase 1.7 - 7.7 Postmenopausal 25.8 - 134.8 ID Date Data Source [id number] 04/19/2019 01:20:00 PM T [facility] Value Range Interpretation Code Description Data Joleen rce(s) Supporting Document(s) Lutropin [Units/volume] in Serum or Plasma 5.1 mIU/mL [facility] Adult Female: Follicular phase 2.4 - 12.6 Ovulation phase 14.0 - 95.6 Luteal phase 1.0 - 11.4 Postmenopausal 7.7 - 58.5 ID Date Data Source [id number] 04/18/2019 11:15:00 AM EDT [facility] Name Value Range Interpretation Code Description Data Joleen rce(s) Supporting Document(s) Thyrotropin [Units/volume] in Serum or Plasma by Detec tion limit <= 0.05 mIU/L 1.77 uIU/mL 0.47 - 5.01 [facility] ID Date Data Source [id number] 04/18/2019 11:11:00 AM EDT [facility] Name Value Range Interpretation Code Description Data Joleen rce(s) Supporting Document(s) HCG SERUM QUAL NEGATIVE NORMAL: NEGATIVE [facility] HCG SERUM QL REENTER NEGATIVE NORMAL: NEGATIVE [facility] { KIT LOT # [id number] ){ KIT EXP DATE ){ PROCEDURAL CONTROL VALID ) ID Date Data Source [id number] 04/18/2019 11:05:00 AM EDT [facility] Name Value Range Interpretation Code Description Data Joleen rce(s) Supporting Document(s) Glucose [Mass/volume] in Serum or Plasma 97 MG/DL 65 - 110 [facility] ID Date Data Source [id number] 04/18/2019 09:31:00 [place] [address] PHONE: [phone] FAX: [phone] Name .................. : RAMONA Radford Acct Number.................. : [id number] ROOM. ................. : MR Number ................... : [id number] Stay type ............. : CLINIC Discharge Date......... ... : 04/15/19 Admit Date ......... : 04/15/19 Admit Phys .................... : CARLEY VARGAS Date of ....... : 2000 Family Phys ................... : TRACIE RICK Phone .................. : [phone] Age ................................ : 19 Film# .................. .:[id number] Sex ................................. : F Unsigned transcriptions are preliminary reports and do not represent a medical or legal document PELVIC [id number] COMPLETE:04/15/19 18:54 ADB 43520 POSSIBLE PCOS PELVIC ULTRASOUND: HISTORY: Possible polycystic [...] By Mitesh Wilde MD , 04/18/19 09:31, [facility] Transcribe Initials: EULA , Transcribe Date: 04/15/19 20:03, Dictation Date: Page 1 of 1 Name Value Range Interpretation Code Description Data Joleen rce(s) Supporting Document(s) ID Date Data Source [id number] 04/15/2019 02:41:00 PM EDT [facility] ([facility]) Name Value Range Interpretation Code Description Data Joleen rce(s) Supporting Document(s) Chlamydia trachomatis,Mona Laboratory test result [facility] ([facility]) {SOURCE: Genital~.~.~N92.6 Source: Laboratory test result [facility] ([facility]) {SOURCE: Genital~.~.~N92.6 Neisseria gonorrhoeae,Mona Laboratory test result [facility] ([facility]) {SOURCE: Genital~.~.~N92.6 ID Date Data Source [id number] 04/18/2019 07:39:00 AM EDT [facility] Name Value Range Interpretation Code Description Data Joleen rce(s) Supporting Document(s) SOURCE: Genital [facility] Chlamydia trachomatis rRNA [Presence] in Unspecified specimen by Probe and target amplification method Negative Negative [facility] Neisseria gonorrhoeae rRNA [Presence] in Unspecified specimen by Probe and target amplification method Negative Negative [facility] ID Date Data Source [id number] 04/15/2019 02:36:00 PM EDT [facility] ([facility]) Name Value Range Interpretation Code Description Data Joleen rce(s) Supporting Document(s) US Pelvic <pending> [facility] ([facility]) ID Date Data Source [id number] 04/08/2019 12:00:00 AM EST [facility] ([facility]) Name Value Range Interpretation Code Description Data Joleen rce(s) Supporting Document(s) strep antigen neg Normal strep antigen [facility] ([facility]) ID Date Data Source [id number] 04/01/2019 01:14:00 PM EST [facility] ([facility]) Name Value Range Interpretation Code Description Data Joleen rce(s) Supporting Document(s) Streptococcus pyogenes Ag [Presence] in Throat by Rapid immunoas say <pending> [facility] ([facility]) ID Date Data Source [id number] 04/01/2019 07:28:00 PM EST [facility] Name Value Range Interpretation Code Description Data Joleen rce(s) Supporting Document(s) RAPID STREP NEGATIVE NORMAL: NEGATIVE [facility] RAPID STREP REENTER NEGATIVE NORMAL: NEGATIVE [facility] { PROCEDURAL CONTROL VALID ){ KIT LOT # [id number] ){ KIT EXP DATE 04/04/20 )The Strep [...] basis for treatment. ID Date Data Source [id number] 03/05/2019 07:08:[address] [facility] [place] [address] [id number] NAME: CECILY GREENE#: [id number] PHYSICIAN: WALDEMAR MOSER [facility] #: [id number] ADM. DATE: 02/24/19PATIENT : 89 DISCH. DATE: [...] upappointmentDischarge InformationDISCHARGE INFORMATION* Thank you for choosing [facility] and allowing us toserve you* Our Goal is to provide the highest quality of care.* This discharge information is to help you better understand your diagnosisand medication* Avoid taking heox-gon-kxrjvey medicines unless approved by your physician.* Take your medications as prescribed. DO NOT stop any medications unlessapproved first* Weigh yourself daily. Report any gain of 5 lbs in a week* 24 Hour Crisis HOTLINE available: Call [facility] at [phone]* Chem. Dependency: Walk in Clinics [place] ([phone]) and [place] ([phone]) anytime Monday thru Monday 8 to 10am. [place] ([phone]) anytimeMonday thru Monday 8 to 10am. [place] ([phone]) Monday or Monday from 8to 10am (Bring $30 to First Appt) SMOKING CESSATION* Smoking is dangerous to your health. It delays the healing process, andworks against your medications. Not smoking will improve your health* Our hospital participates with the Opt-to-Quit program. You will be contactedafter discharge by the [facility] Smoker's Quitline for support with tobaccocessation. You have the option once contacted to refuse this service.* You can also go online to www.Vitalbox - Improved Affordable Healthcare. Free nicotine replacementsare available ___Attention* You should [...] rce(s) Supporting Document(s) ID Date Data Source [id number] 03/05/2019 05:40:00 PM [facility] [place], [place] [address]BAFWTUW NAME: SILVINOEMMYCECILY#: [id number] PHYSICIAN: WALDEMAR MOSER MD ADM. DATE: 02/24/19ACCOUNT #: [id number] DISCH. DATE: 03/05/19DISCHARGE SUMMARYIDENTIFICATION: A 18-year-old female [...] discharge fromour service she stopped taking the [place]. It is not clear why. The patientstated that the [place] is the medication that keeps her off [...] born in [place], grew up in [place].She finished high school. She is not working. She is living with friends. Thelast hospitalization she stated that she had problems with biological family.During this hospitalization she stated that she will go back with them, thatthings are getting better.DIAGNOSIS AT ADMISSION: Borderline pe rsonality disorder, bipolar disorder,type I, depressed mood and suicidal ideation.MEDICATIONS AT DISCHARGE: Seroquel 500 mg at bedtime, [place] 300 mg twice aday with the [place] level of 0.4 and Effexor 225 mg daily.LABORATORY: Hemoglobin 12.1, hematocrit of 38.1, platelets 322. Sodium 142,potassium 3.8. [place] level 0.4.HOSPITAL COURSE: The patient stayed in our service for 10 days. The first partof the hospitalization she is clearly suicidal, requires a lot of redirectionand there are a lot of behavioral problems. The patient was in one-on-one thelast part of the hospitalization but that was related to behavioral problemsmore than suicidal.The patient was put back on the [place] 150 mg at the beginning, at the time ofdischarge, 300 mg po twice a day with the [place] level of 0.4.The patient denied that she [...] rce(s) Supporting Document(s) ID Date Data Source [id number] 03/04/2019 09:48:00 AM EST [facility] Name Value Range Interpretation Code Description Data Joleen rce(s) Supporting Document(s) LITHIUM 0.40 mmol/L 0.50-1.20 [facility] ID Date Data Source [id number] 03/04/2019 09:48:00 AM EST [facility] Name Value Range Interpretation Code Description Data Joleen rce(s) Supporting Document(s) GLU 84 mg/dL 70-110 [facility] Patients taking Sulfasalazine may have f alsely depressedGlucose levels. Patients taking Sulfapyridine may havefalsely elevated Glucose levels. Patients should be drawnfor Glucose before the initial administration of eitherdrug. BUN 13 mg/dL 7-23 [facility] CRE 0.903 mg/dL 0.500-1.300 [facility] CHLORIDE 106 mmol/L 99-110 [facility] NA 140 mmol/L 136-147 [facility] POTASSIUM 4.2 mmol/L 3.5-5.1 [facility] TCO2 28 mmol/L 20-33 [facility] ANION GAP 10.2 10.0-20.0 [facility] CA 9.0 mg/dL 8.3-10.7 [facility] ALKALINE PHOS 127 U/L 82-169 [facility] TP 7.1 g/dL 6.0-7.8 [facility] ALB 3.9 g/dL 3.5-5.0 [facility] ESRD Dialysis patient Albumin reference range: 2.9-4.4 g/dL GL 3.2 g/dL 2.3-3.5 [facility] A/G 1.2 1.0-2.5 [facility] TOTAL BILIRUBIN 0.4 mg/dL 0.1-1.1 [facility] 27 U/L 6-54 [facility] Patients taking Sulfasalazine and/or Sul fapyridine may havefalsely depressed ALT levels. Patients should be drawn forALT before the initial administration of either drug. AST 27 U/L 6-38 [facility] Patients taking Sulfasalazine and/or Sul fapyridine may havefalsely depressed AST levels. Patients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 Treatment Plan of Care Planned Activity Planned Date Details Description Data Source (s) Sertraline 50 MG Oral Tablet 05/04/2019 12:00:00 AM EDT [facility] aripiprazole 10 MG Oral Tablet 05/04/2019 12:00:00 AM EDT [facility] Hydroxyzine Pamoate 50 MG Oral Capsule 05/03/2019 12:00:00 AM EDT [facility] Trazodone Hydrochloride 50 MG Oral Tablet 05/03/2019 12:00:00 AM ED T [facility] Amoxicillin 875 MG Oral Tablet 04/08/2019 12:00:00 AM [facility] ([facility]) Hydroxyzine Hydrochloride 25 MG Oral Tablet [facility] quetiapine 200 MG Oral Tablet [facility]
[2020-03-22 01:44] LABS: AMPHETAMINES LEVEL URINE NEGATIVE (NEGATIVE); BARBITURATES URINE NEGATIVE (NEGATIVE); BENZODIAZEPINES URINE NEGATIVE (NEGATIVE); CANNABINOIDS URINE POSITIVE (NEGATIVE); COCAINE METABOLITE URINE NEGATIVE (NEGATIVE); METHADONE URINE NEGATIVE (NEGATIVE); OPIATES URINE NEGATIVE (NEGATIVE); PHENCYCLIDINE URINE NEGATIVE (NEGATIVE)
[2020-03-22 01:58] LABS: ACETAMINOPHEN LEVEL < 2.0 UG/ML (10.0-30.0); ALBUMIN 4.3 GM/DL (3.2-5.2); ALT/SGPT 24 U/L (12-78); BILIRUBIN,DIRECT < 0.1 MG/DL (0.0-0.2); BILIRUBIN,TOTAL 0.1 MG/DL (0.2-1.0); BLOOD UREA NITROGEN 12 MG/DL (7-18); CALCIUM LEVEL 9.5 MG/DL (8.5-10.1); CARBON DIOXIDE LEVEL 27 MEQ/L (21-32); CHLORIDE LEVEL 105 MEQ/L (98-107); CREATININE FOR GFR 0.74 MG/DL (0.55-1.30); ETHYL ALCOHOL (ETHANOL) < 0.003 % (0.000-0.010); GLOMERULAR FILTRATION RATE > 60.0 (>60); GLUCOSE, FASTING 84 MG/DL (70-100); SALICYLATE LEVEL 3.4 MG/DL (5.0-30.0); SODIUM LEVEL 139 MEQ/L (136-145); TOTAL PROTEIN 7.7 GM/DL (6.4-8.2)
[2020-03-22 03:15] LABS: HCG, SERUM QUALITATIVE NEGATIVE (NEGATIVE)
[2020-03-22 03:19] LABS: RSV AMPLIFICATION NEGATIVE (NEGATIVE)
[2020-03-22] MEDS ORDERED: ZOLO100T PO (03:23)
[2020-03-22] MEDS ORDERED: PRAZ2CAP PO (03:23)
[2020-03-22] MEDS ORDERED: IBUPROFEN 400MG TAB PO PRN (04:00)
[2020-03-22] MEDS ORDERED: OLANZapine 5 MG TAB PO PRN (04:00)
[2020-03-22] MEDS ORDERED: MAALOX 30 ML SUSP *UDC PO PRN (04:00)
[2020-03-22] MEDS ORDERED: ACETAMINOPHEN TAB 650MG DOSE (2X325MG) PO PRN (04:00)
[2020-03-22] MEDS ORDERED: SERTRALINE 100 MG TAB PO ONE (04:00)
[2020-03-22] MEDS ORDERED: MOM 30ML SUSPENSION UDC PO PRN (04:00)
[2020-03-22 04:45] VITALS: BP 124/80
--- OUTSIDE RECORDS SUMMARY | 2020-03-22 04:48 | CCD ---
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 NCE, IN REMISSION Diagnosis 02/10/2019 11:32:00 PM [facility] F32.9 Major depressive disorder, single episod e, unspecified MAJOR DEPRESSIVE DISORDER, SINGLE EPISODE, UNSPECI Diagnosis 02/10/2019 11:32:00 PM [facility] R45.851 Suicidal ideations SUICIDAL IDEATIONS Diagnosis 06/2019 11:32:00 PM [facility] Z91.14 Patient's other noncompliance with medic ation regimen PATIENT'S OTHER NONCOMPLIANCE WITH MEDICATION LAST Diagnosis 02/10/2019 11:32:[address] [facility] F33.2 Major depressive disorder, recurrent sev ere without psychotic features MAJOR DEPRESSV DISORDER, RECURRENT SEVER Diagnosis 02/10/2019 11:32:00 PM [facility] F25.0 Schizoaffective disorder, bipolar type S CHIZOAFFECTIVE DISORDER, BIPOLAR TYPE Diagnosis 02/10/2019 11:32:00 PM [facility] pat Surgeries/Procedures Procedure Description Date Indications Data Source(s) Insert Intrauterine Device 08/14/2019 12:00:00 AM EDT [facility] ([facility]) URINE TEST VISUAL COLOR CMPRSN METHS POCT QUICK V UE URINE Routine 05/03/2019 11:28 AM EDT 05/03/2019 03:28:00 PM EDT [facility] URINE MICROSCOPIC URINE MICROSCOPIC Add-On 05/02/2019 11:45 AM EDT 05/02/2019 03:45:00 PM EDT [facility] DRUG SCR QUAL 1 DRUG CLASS METH EA DRUG CLASS DRUGS O F ABUSE, URINE (STAT, ER/INPATIENT) Routine 05/02/2019 11:45 AM EDT 05/02/2019 0 3:45:00 PM EDT [facility] URNLS DIP STICK/TABLET RGNT AUTO W/O MICROSCOPY URINALYSIS W/O MICRO Routine 05/02/2019 11:45 AM EDT 05/02/2019 03:45:00 PM EDT [facility] THYROID STIMULATING HORMONE TSH TSH Routine 05/02/2019 8:47 AM EDT 05/02/2019 12:47:00 PM EDT [facility] COMPREHENSIVE METABOLIC PANEL COMPREHENSIVE METABOLIC PANEL Rou chester 05/02/2019 8:47 AM EDT 05/02/2019 12:47:[address] [facility] BLOOD COUNT COMPLETE AUTO&AUTO DIFRNTL WBC COUNT CBC AND DIFFER ENTIAL Routine 05/02/2019 8:47 AM EDT 05/02/2019 12:47:00 PM EDT [facility] RAPID STREP RAPID STREP 04/08/2019 12:00:00 AM EST [facility] ([facility]) Psychiatric Diagnostic Evaluation 03/27/2019 12:00:00 AM EST [facility] ([facility]) Psychological Tests, Neurobehavioral and Cognitive Status 02/11/2019 12:00:00 AM EST [facility] Results ID Date Data Source [id number] 12/13/2019 10:20:00 AM [facility] Name Value Range Interpretation Code Description Data Joleen rce(s) Supporting Document(s) VITAMIN B12 [id number] PG/ML 211-2000 [place] [facility] ID Date Data Source [id number] 12/13/2019 10:20:00 AM [facility] Name Value Range Interpretation Code Description Data Joleen rce(s) Supporting Document(s) FOLATE 13.85 NG/ML 3.40-24.00 [place] ID Date Data Source [id number] 12/13/2019 10:20:00 AM [facility] Name Value Range Interpretation Code Description Data Joleen rce(s) Supporting Document(s) Vitamin D,25-HYDROXY 25.0 ng/ml 30-100 [place] [facility] ealt Vitamin D Status Range De ficiency <20 ng/ml Insufficiency 20-29.9 ng/ml Sufficiency 30-100 ng/ml Toxicity >100 ng/ml Patients should not be tested for 72 hours post fluorescein dye angiography. A false elevation of result may occur. ID Date Data Source [id number] 12/13/2019 10:20:00 AM [facility] Name Value Range Interpretation Code Description Data Joleen rce(s) Supporting Document(s) TSH 1.698 uIU/ML 0.470-4.200 N [facility] Patients should not be tested for 72 ho urs post fluorescein dye angiography. A false depression of result may occur. ID Date Data Source [id number] 12/13/2019 10:04:00 AM [facility] WILL NEED TO BE DRAWN PLEASE Name Value Range Interpretation Code Description Data Joleen rce(s) Supporting Document(s) GLYCOSYLATED HGBA1C 5.4 % 4.1-6.5 [facility] ID Date Data Source [id number] 11/25/2019 10:55:00 AM EDT [facility] [address] [place] [address] PHONE: [phone] FAX: [phone] Name .................. : SILVINOEMMY CECILY Radford Acct Number.................. : [id number] ROOM. ................. : Number ................... : [id number] Stay type ............. : O/P Discharge Date......... ... : 11/23/19 Admit Date ......... : 11/23/19 Admit Phys .................... : KARINE GA Date of ....... : 2000 Family Phys ................... : NO PCP Phone .................. : [phone] Age ................................ : 19 Film# .................. .:[id number] Sex ................................. : F Unsigned transcriptions are preliminary reports and do not represent a medical or legal document [facility] [id number] COMPLETE:11/23/19 15:26 BAW 63615 (REASON FOR PELVIS: pelvic pain with IUD [...] not seen. Electronically Reviewed and Signed By Brte Joseph MD , 11/25/19 10:55, TDS Transcribe Initials: EULA , Transcribe Date: 11/23/19 20:18, Dictation Date: Page [address] [facility] [address] [place] [address] PHONE: [phone] FAX: [phone] Name .................. : SILVINOEMMY CECILY Radford Acct Number.................. : [id number] ROOM. ................. : MR Number ................... : [id number] Stay type ............. : O/P Discharge Date......... ... : 11/23/19 Admit Date ......... : 11/23/19 Admit Phys .................... : KARINE GA Date of ....... : 2000 Family Phys ................... : NO PCP Phone .................. : [phone] Age ................................ : 19 Film# .................. .:[id number] Sex ................................. : F Unsigned transcriptions are preliminary reports and do not represent a medical or legal document [facility] [id number] COMPLETE:11/23/19 15:26 BAW 62962 (REASON FOR PELVIS: pelvic pain with IUD Copy for: 710 MED REC Page 2 of 2 Name Value Range Interpretation Code Description Data Joleen rce(s) Supporting Document(s) ID Date Data Source [id number] 11/21/2019 04:44:00 PM EDT [facility] ([facility]) Name Value Range Interpretation Code Description Data Joleen rce(s) Supporting Document(s) Pelvic Laboratory test result [facility] ([facility]) ID Date Data Source [id number] 09/18/2019 01:52:00 PM EDT [facility] Patient Name: CECILY GREENE OB: 2000 Sex: F Pt Unit #: [id number] Location:[facility] Provider: Visit Date/Time: 09/18/19 Primary Insurance: [facility] Secondary Insurance: Self Pay Intake Vital Signs [...] fill out for today since in a residential now. Went to [facility] on Monday for not sleeping. Gave [...] Screening Screening Have you traveled outside of [facility] or [facility] in the last 14 days.: No Has [...] Also requests Tylenol and Ibuprofen orders for residential, so that she can take prn as [...] Code(s): L30.9 - Dermatitis, unspecified SNOMED Code(s): 36376500 Category: Medical Plan - Bárbara Green COVER OPERATOR: Apply topical BID until resolved, then [...] Signed By: <Electronically signed by Bárbara Green COVER OPERATOR> Date/Time Signed: 09/23/19 0716 Name Value Range Interpretation Code Description Data [facility] rce(s) Supporting Document(s) ID Date Data Source [id number] 08/14/2019 05:00:00 PM EDT [facility] ([facility]) Name Value Range Interpretation Code Description Data [facility] rce(s) Supporting Document(s) Chlamydia trachomatis,Mona Laboratory test result [facility] ([facility]) {SOURCE: Genital, VAGINAL~.~.~Z30.430 Source: Laboratory test result [facility] ([facility]) {SOURCE: Genital, VAGINAL~.~.~Z30.430 Neisseria gonorrhoeae,Mona Laboratory test result [facility] ([facility]) {SOURCE: Genital, VAGINAL~.~.~Z30.430 ID Date Data Source [id number] 08/19/2019 03:23:00 PM EDT [facility] Name Value Range Interpretation Code Description Data Joleen rce(s) Supporting Document(s) SOURCE: Genital, VAGINAL [facility] Chlamydia trachomatis rRNA [Presence] in Unspecified specimen by Probe and target amplification method Negative Negative [facility] Neisseria gonorrhoeae rRNA [Presence] in Unspecified specimen by Probe and target amplification method Negative Negative [facility] ID Date Data Source [id number] 08/14/2019 04:40:00 PM EDT [facility] ([facility]) Name Value Range Interpretation Code Description Data Joleen rce(s) Supporting Document(s) Inhouse Urine Test Laboratory test result [facility] ([facility]) ID Date Data Source [id number] 07/19/2019 01:00:00 PM EDT [facility] Patient Name: CECILY GREENE Prabhakar Parada OB: 2000 Sex: F Pt Unit #: [id number] Location:[facility] Provider: Visit Date/Time: 07/19/19 Primary Insurance: [facility] Secondary Insurance: Self Pay Intake Vital Signs [...] a note signed to live in [facility] residential. Tire Room Supervisor Required: No Accompanied by: Grandmother Is patient [...] Screening Screening Have you traveled outside of [facility] or [facility] in the last 14 days.: No Has [...] Cecily presents to the clinic to [facility]. She takes medications for MH. She see's Monique at [facility] 1X per month. C/O reflux daily. Has had her gallbladder worked up, NEG in 2017. LMP 2 months ago, irregular. Dx with PCOS. Dx by [address] in [place]. Smokes 2 PPD. Review of Systems Const [...] Nicotine dependence, uns pecified, uncomplicated SNOMED Code(s): 494518594 Category: Medical (2) PCOS (polycystic ovarian syndrome): Status: Acute Comment: Has an appt next month to have a mirena placed. Code(s): E28.2 - Polycystic ovarian syndrome SNOMED Code(s): 752288942 Category: Medical Orders: Orders: BMP 1 Week LIPID PANEL 1 Week HGBA1C + EAG 1 Week (3) Bipolar 1 disorder: Status: Acute Comment: Follows with [facility] [place]. Seeing Monique; seeing her once a month. Has paperwork to live in a residential, this would provide her with more stable home and support for her mental health. I will complete paperwork and return to patient. Code(s): F31.9 - Bipolar disorder, unspecified SNOMED Code(s): 355553322 Category: Medical Additional Comments Additional Comments: anxiety, bipolar, depression and PTSD. Orders Follow Up: 6 Months (Annual PE) Electronically Signed By: <Electronically signed by Bárbara Green NP> Date/Time Signed: 07/19/19 1400 Name Value Range Interpretation Code Description Data Joleen rce(s) Supporting Document(s) ID Date Data Source [id number] 05/09/2019 02:53:46 PM EDT [facility] INFORMATIONPatient MRN Name Date of Age Gend*PT [id number] Cecily Greene [birth year] 19 years F OBSPT Location Admission Date/Time Visit ID Attending [id number] 05/01/192352 --- --- EPI ID CSN Admitting Provider [id number] ---Attestation signed by Mariia Angulo MD at 05/09/2019 2:53 PMInitial time of commencing Psychiatrist [id number] encounter with patient:05/01/192352 : Alexandra Lam MDI have examined the patient, ukst-sm-wuhh, and have personally participated inperforming a psychiatric diagnostic examination. I have participated inperforming or have personally reviewed the patients psychosocial assessment andmedical examination. I have assessed the patient s treatment needs based uponpsychiatric, physical, social and functional evaluations and have reviewed theplan with the patient. --------Hospitalist History & PhysicalKen Prabhakar HollyRN:[id number] and Plan:Active Problems: Polysubstance abuse Encounter for routine history and physical exam in female Tobacco abuse History of PCOSPolysubstance abuse- Evaluation and treatment as per primary attending provider.pcos-pt states she is not currently on any medication, reports appointment nextmonth with [employer] [facility] for w/u, and denies any abd pain [...] denies any recent travel to [facility],out of state or country, denies chest pain, [...] rce(s) Supporting Document(s) ID Date Data Source [id number] 05/03/2019 11:35:14 AM EDT [facility] NT INFORMATIONPatient MRN Name Date of Age Gend*PT [id number] Cecily Greene [birth year] 19 years F OBSPT Location Admission Date/Time Visit ID Attending [id number] 05/01/19 1783 --- Mariia Angulo MD([id number]) EPI ID CSN Admitting Provider [id number] ---CPEP Discharge NotePatient Name: Cecily GreenePatient at [...] recordsHistory limited by: condition of the patientLanguage parts interpreter used?: NoHPI: Mental Health ProblemPresenting Symptoms: suicidal [...] Stay Tx helpful?Drug/Alcohol Rehab? Records Requested? Comments [facility] Inpatient depression [facility] Inpatient Depression [facility] 5 years Inpatient SI 2 monthsSelf Harm/Suicide [...] IntactRecent Memory: IntactInsight: LimitedJudgment: LimitedOrientation: Appropriately Oriented [id number] Toward Examiner: CooperativeAssociations: No loosening evidentFund of [...] How many attempts have you ever made?: [id number]. How long ago was your most recent [...] mgfor major depressive disorder.Progress Towards DischargeBilling Code: 54809 Electronically signed byMariia Angulo MD05/03/19 1135 Name Value Range Interpretation Code Description Data Joleen rce(s) Supporting Document(s) ID Date Data Source [id number] 05/02/2019 01:06:58 PM EDT [facility] NT INFORMATIONPatient MRN Name Date of Age Gend*PT [id number] Cecily Greene [age] years F OBSPT Location Admission Date/Time Visit ID Attending [id number] 05/01/19 9088 --- Mariia Angulo MD([id number]) EPI ID CSN Admitting Provider [id number] ---[facility] PROGRESS NOTE #1Patient Name: Cecily Corral at [facility]: 05/01/19 2156Date and Time of Assessment: 05/02/2019, 1:05 PMPatient Status: [facility] EOBChief ComplaintChief ComplaintPatient presents with Suicidal Pt arrives as a walk-in with suicidal thoughts, states she has a history ofsubstance abuse has been sober for approx 2 months, plan to OD on street drugs.Pt reports she was at "[facility] times this last month and they keepdischarging me" Denies HI/AVHCurrent StressorsCurrent Stressors: Pyschiatric SymptomsHistory of Present IllnessPatient InfoHistory provided by: patient, medical recordsHistory limited by: condition of the patientLanguage parts interpreter used?: NoHPI: Mental Health ProblemPresenting Symptoms: depression, [...] Stay Tx helpful?Drug/Alcohol Rehab? Records Requested? Comments [facility] Inpatient depression [facility] Inpatient Depression [facility] 5 years Inpatient SI 2 monthsPast Suicide [...] IntactRecent Memory: IntactInsight: PoorJudgment: PoorOrientation: Appropriately Oriented [id number] Toward Examiner: Cooperative, DemandingAssociations: No loosening evidentFund [...] No changes [] No side effectsBilling Code: [id number] Angulo MD05/02/19 1306 Name Value Range Interpretation Code Description Data Joleen rce(s) Supporting Document(s) ID Date Data Source [id number] 05/03/2019 12:49:21 PM EDT [facility] Name Value Range Interpretation Code Description Data Joleen rce(s) Supporting Document(s) AMPHETAMINES,URINE (NEG) [facility] BARBITURATES,URINE (NEG) [facility] BENZODIAZEPINE,URINE (NEG) [facility] CANNABINOIDS,URINE (NEG) A [facility] COCAINE,URINE (NEG) [facility] OPIATES,URINE (NEG) [facility] NOTE: Oxycodone is not sufficientlydetec raul by this screening assay. A moresensitive assay is available upon request. PHENCYCLIDINE,URINE (NEG) [facility] PLEASE NOTE: [facility] ARE REPORTED POSITIVE WHEN THE RESULT SEXCEED THE THRESHOLD (CUTOFF) INDICATED. ALIST OF POTENTIAL INTERFERENCES FOR EACHMETHOD CAN BE MADE AVAILABLE UPON REQUEST.CONFIRMATION OF A POSITIVE SCREEN CAN BE PERFORMED BY A REFERENCE LABORATORY IFREQUEST IS MADE WITHIN 48 HRS. PERFORMEDBY [address] [place] [address] ID Date Data Source [id number] 05/03/2019 12:47:55 PM EDT [facility] Name Value Range Interpretation Code Description Data Joleen rce(s) Supporting Document(s) URINE WBC (0-5) [facility] URINE RBC (0-2) [facility] EPITHELIAL CELLS 3+ [HPF] [facility] BACTERIA 3+ [HPF] [facility] ID Date Data Source [id number] 05/03/2019 12:31:02 PM EDT [facility] Name Value Range Interpretation Code Description Data Joleen rce(s) Supporting Document(s) COLOR [facility] APPEARANCE [facility] SPEC GRAV URINE 1.031 (1.003-1.030) H [facility] PH URINE 6.5 (5.0-7.5) [facility] LEUK ESTERASE 1+ (NEG) A [facility] NITRITE URINE (NEG) [facility] PROTEIN URINE (NEG) [facility] GLUCOSE URINE (NEG) [facility] KETONE URINE (NEG) A [facility] UROBILINOGEN 1.0 mg/dL (0-1.0) [facility] BILIRUBIN URINE (NEG) [facility] BLOOD/HGB URINE (NEG) [facility] ID Date Data Source [id number] 05/02/2019 10:41:30 AM EDT [facility] Name Value Range Interpretation Code Description Data Joleen rce(s) Supporting Document(s) TSH,ULTRASENSITIVE @ 2.277 mIU/L (0.463-3.980) [facility] PERFORMED AT [address] [place] [address] [place] [address] ID Date Data Source [id number] 05/02/2019 10:41:30 AM EDT [facility] Name Value Range Interpretation Code Description Data Joleen rce(s) Supporting Document(s) SODIUM 141 mmol/L (136-145) [facility] POTASSIUM 3.8 mmol/L (3.6-5.2) [facility] CHLORIDE 109 mmol/L (100-108) H [facility] CO2 25 mmol/L (22-31) [facility] ANION GAP 7 mmol/L (7-16) [facility] UREA NITROGEN 13 mg/dL (7-24) [facility] CREATININE 0.69 mg/dL (0.60-1.00) [facility] BUN/CREAT RATIO 18.8 RATIO (10.0-20.0) [facility] GLUCOSE 92 mg/dL (70-99) [facility] CALCIUM 8.8 mg/dL (8.4-10.2) [facility] TOTAL PROTEIN 7.1 g/dL (6.4-8.2) [facility] ALBUMIN 3.7 g/dL (3.5-4.6) [facility] GLOBULIN 3.4 g/dL (2.7-4.3) [facility] ALB/GLOB RATIO 1.1 RATIO [facility] ALKALINE PHOSPHATASE 145 U/L (45-117) H [facility] BILIRUBIN,TOTAL 0.4 mg/dL (0.0-1.0) [facility] PLEASE NOTE:Total bilirubin results may be falselyelevated in patients taking Eltrombopag. AST (SGOT) 23 U/L (11-39) [facility] ALT (SGPT) 39 U/L (12-78) [facility] GFR >60 ml/min/1.73m2 (>59) [facility] GFR ( AMER) >60 ml/min/1.73m2 (>59) [facility] GFR INTERPRETATION [facility] --NORMAL KIDNEY FUNCTION OR MILD DISEASE - GFR >OR= 60CHRONIC KIDNEY DISEASE - GFR 15 - 59RENAL FAILURE - GFR <15 Est. GFR calculation based on the MDRDstudy equation, which assumes a steadystate for creatinine. Est. GFR should notbe used for medication dosing. ID Date Data Source [id number] 05/02/2019 10:12:54 AM EDT [facility] Name Value Range Interpretation Code Description Data Joleen rce(s) Supporting Document(s) WBC 6.1 10*3/uL (4.1-11.0) [facility] RBC 4.31 10*6/uL (4.00-5.40) [facility] HGB 12.1 g/dL (12.0-16.0) [facility] HCT 35.8 % (36.0-47.0) L [facility] PERFORMED AT [address] [place] [address] N Y [address] MCV 83.1 fL (80.0-95.0) [facility] MCH 28.1 pg (27.0-32.0) [facility] MCHC 33.8 g/dL (32.0-36.0) [facility] RDW 14.8 % (10.5-14.5) H [facility] PLT 253 10*3/uL (150-450) [facility] MPV 8.6 fL (7.1-10.7) [facility] NEUT % 45.1 % (35.0-75.0) [facility] LYMPH % 44.0 % (16.0-52.0) [facility] MONO % 8.2 % (0.0-8.0) H [facility] EOS % 2.5 % (0.0-5.0) [facility] BASO % 0.2 % (0.0-4.0) [facility] NEUT # 2.7 10*3/uL (1.8-7.7) [facility] LYMPH # 2.7 10*3/uL (1.2-4.8) [facility] MONO # 0.5 10*3/uL (0.0-0.8) [facility] Eosinophils [#/volume] in Blood by Automated count 0.2 10*3/uL (0.0-0 .5) [facility] BASO # 0.0 10*3/uL (0.0-0.2) [facility] ID Date Data Source [id number] 05/02/2019 12:46:52 AM EDT [facility] NT INFORMATIONPatient MRN Name Date of Age Gend*PT [id number] Cecily Greene [age] years F CPEPPT Location Admission Date/Time Visit ID Attending [id number] 05/01/19 3753 --- Alexandra Lam MD([id number]) EPI ID CSN Admitting Provider [id number] ---CPEP PSYCHIATRIC ASSESSMENTPatient Name: Cecily GreenePatient at [facility]: 05/01/192155Psychiatrist First Contact: 05/01/192352 : [facility]andra [facility] ComplaintChief ComplaintPatient presents with Suicidal Pt arrives as a walk-in with suicidal thoughts, states she has a history ofsubstance abuse has been sober for approx 2 months, plan to OD on street drugs.Pt reports she was at "[facility] 3 times this last month and they keepdischarging me" Denies HI/AVHCurrent StressorsCurrent Stressors: Pyschiatric SymptomsHistory of Present IllnessPatient InfoHistory provided by: patientHistory limited by: (no limitation)parts interpreter used?: NoHPI: Mental Health ProblemPresenting Symptoms: [...] is "really suicidal". She recently went to [facility] 2[facility] ago and was refused admission. She says she feels "emotionally lost", is"a recovering addict", has "polycystic ovarian syndrome" and her aunt "Roshan" afer she says that she aided her aunt with childcare. She says she hashad a plan to overdose. She says she has a history of admits to variousinpatient psychiatric hospitals such as [facility], [facility], [place],[facility], [facility], etc since age 13 years old. [place] [facility] [place] She has had outpatient substance treatment at"[facility]" [place], [place], but says she was encouraged instead to go to "mentalhealth services" with a psychiatric nurse practitioner, Celi Ernst in [place].Evidently Ms. Ernst is advocating for patient admission [...] admit was about a month ago to [facility]. She reports "anxiety,depression, bipolar, PTSD and borderline [...] to spend nights at her father's residence [place], [place] and spend the day at a friend's so she is not alone as she saysshe is a suicide risk. She states that she has been contemplating an overdoseof her seroquel medication.Care Coordination/CollateralNone undertaken presently.HistoryPast Psychiatric Hist oryOutside Treatment HistoryTreatment History Location Date of Last Tx Type of Tx Tx Reason/Dx Tx Length of Stay Tx helpful?Drug/Alcohol Rehab? Records Requested? Comments [facility] Inpatient [facility] [place] [facility] 5 years Inpatient [facility] 2 monthsPast Suicide [...] IntactRecent Memory: IntactInsight: FairJudgment: FairOrientation: Appropriately Oriented [id number] Toward Examiner: CooperativeAssociations: No loosening evidentFund of [...] an appropriatelevel of care and service. Patient's psychiatric aides teacher is advocating for inpatientpsychiatric admission per CPEP [...] No changes [] No side effectsBilling Code: [id number] signed byAlexandra Lam MD05/02/19 0046 Name Value Range Interpretation Code Description Data Joleen rce(s) Supporting Document(s) ID Date Data Source [id number] 04/18/2019 10:25:00 AM EDT [facility] ([facility]) Name Value Range Interpretation Code Description Data Joleen rce(s) Supporting Document(s) Total Insulin 25 uU/mL [facility] ([facility]) Is patient fasting? N~.~.~<DG1.3.1>N92.6</DG1.3.1><DG1.3.1>N92.6</DG1.3.1><DG1.3.1>N92.6</DG1.3. .~.~<DG1.3.1>N92.6</DG1.3.1><DG1.3.1>N92.6</DG1.3.1><DG1.3.1>N92.6</DG1.3.1><DG1 .3.1 .~.~<DG1.3.1> N92.6</DG1.3.1><DG1.3.1>N92.6</DG1.3.1><DG1.3.1>N92.6</DG1.3.1><DG1.3.1 .~.~<DG1.3.1>N92.6</DG1.3.1><DG1.3.1>N92.6</DG1.3.1><DG1.3.1>N92.6</DG1.3.1><DG1 .3.1 .~.~<DG1.3.1>N92.6</DG1.3.1><DG1.3.1> N92.6</DG1.3.1><DG1.3.1>N92.6</DG1.3.1><DG1.3.1 .~.~<DG1.3.1>N92.6</DG1.3.1><DG1.3.1>N92.6</DG1.3.1><DG1.3.1>N92.6</DG1.3.1><DG1 .3.1 .~.~<DG1.3.1>N92.6</DG1.3.1><DG1.3.1>N92.6</DG1.3.1><DG1.3.1> N92.6</DG1.3.1><DG1.3.1 .~.~<DG1.3.1>N92.6</DG1.3.1><DG1.3.1>N92.6</DG1.3.1><DG1.3.1>N92.6</DG1.3.1><DG1 .3.1 .~.~<DG1.3.1>N92.6</DG1.3.1><DG1.3.1>N92.6</DG1.3.1><DG1.3.1>N92.6</DG1.3.1> <DG1.3.1 .~.~<DG1.3.1>N92.6</DG1.3.1><DG1.3.1>N92.6</DG1.3.1><DG1.3.1>N92.6</DG1.3.1><DG1 .3.1 Insulin Free \\T\\ Tot Laboratory test result [facility] ([facility]) Is patient fasting? N~.~.~<DG1.3.1>N92.6</DG1.3.1><DG1.3.1>N92.6</DG1.3.1><DG1.3.1>N92.6</DG1.3. .~.~<DG1.3.1>N92.6</DG1.3.1><DG1.3.1>N92.6</DG1.3.1><DG1.3.1>N92.6</DG1.3.1><DG1 .3.1 .~.~<DG1.3.1> N92.6</DG1.3.1><DG1.3.1>N92.6</DG1.3.1><DG1.3.1>N92.6</DG1.3.1><DG1.3.1 .~.~<DG1.3.1>N92.6</DG1.3.1><DG1.3.1>N92.6</DG1.3.1><DG1.3.1>N92.6</DG1.3.1><DG1 .3.1 .~.~<DG1.3.1>N92.6</DG1.3.1><DG1.3.1> N92.6</DG1.3.1><DG1.3.1>N92.6</DG1.3.1><DG1.3.1 .~.~<DG1.3.1>N92.6</DG1.3.1><DG1.3.1>N92.6</DG1.3.1><DG1.3.1>N92.6</DG1.3.1><DG1 .3.1 .~.~<DG1.3.1>N92.6</DG1.3.1><DG1.3.1>N92.6</DG1.3.1><DG1.3.1> N92.6</DG1.3.1><DG1.3.1 .~.~<DG1.3.1>N92.6</DG1.3.1><DG1.3.1>N92.6</DG1.3.1><DG1.3.1>N92.6</DG1.3.1><DG1 .3.1 .~.~<DG1.3.1>N92.6</DG1.3.1><DG1.3.1>N92.6</DG1.3.1><DG1.3.1>N92.6</DG1.3.1> <DG1.3.1 .~.~<DG1.3.1>N92.6</DG1.3.1><DG1.3.1>N92.6</DG1.3.1><DG1.3.1>N92.6</DG1.3.1><DG1 .3.1 Free Insulin 25 uU/mL Above high normal [facility] T ([facility]) Is patient fasting? N~.~.~<DG1.3.1>N92.6</DG1.3.1><DG1.3.1>N92.6</DG1.3.1><DG1.3.1>N92.6</DG1.3. .~.~<DG1.3.1>N92.6</DG1.3.1><DG1.3.1>N92.6</DG1.3.1><DG1.3.1>N92.6</DG1.3.1><DG1 .3.1 .~.~<DG1.3.1> N92.6</DG1.3.1><DG1.3.1>N92.6</DG1.3.1><DG1.3.1>N92.6</DG1.3.1><DG1.3.1 .~.~<DG1.3.1>N92.6</DG1.3.1><DG1.3.1>N92.6</DG1.3.1><DG1.3.1>N92.6</DG1.3.1><DG1 .3.1 .~.~<DG1.3.1>N92.6</DG1.3.1><DG1.3.1> N92.6</DG1.3.1><DG1.3.1>N92.6</DG1.3.1><DG1.3.1 .~.~<DG1.3.1>N92.6</DG1.3.1><DG1.3.1>N92.6</DG1.3.1><DG1.3.1>N92.6</DG1.3.1><DG1 .3.1 .~.~<DG1.3.1>N92.6</DG1.3.1><DG1.3.1>N92.6</DG1.3.1><DG1.3.1> N92.6</DG1.3.1><DG1.3.1 .~.~<DG1.3.1>N92.6</DG1.3.1><DG1.3.1>N92.6</DG1.3.1><DG1.3.1>N92.6</DG1.3.1><DG1 .3.1 .~.~<DG1.3.1>N92.6</DG1.3.1><DG1.3.1>N92.6</DG1.3.1><DG1.3.1>N92.6</DG1.3.1> <DG1.3.1 .~.~<DG1.3.1>N92.6</DG1.3.1><DG1.3.1>N92.6</DG1.3.1><DG1.3.1>N92.6</DG1.3.1><DG1 .3.1 ID Date Data Source [id number] 04/18/2019 10:25:00 AM [facility] COYLE ([facility]) Name Value Range Interpretation Code Description Data Joleen rce(s) Supporting Document(s) HCG Serum Qual Laboratory test result [facility] ([facility]) Is patient fasting? N~.~.~<DG1.3.1>N92.6</DG1.3.1><DG1.3.1>N92.6</DG1.3.1><DG1.3.1>N92.6</DG1.3. .~.~<DG1.3.1>N92.6</DG1.3.1><DG1.3.1>N92.6</DG1.3.1><DG1.3.1>N92.6</DG1.3.1><DG1 .3.1 .~.~<DG1.3.1> N92.6</DG1.3.1><DG1.3.1>N92.6</DG1.3.1><DG1.3.1>N92.6</DG1.3.1><DG1.3.1 .~.~<DG1.3.1>N92.6</DG1.3.1><DG1.3.1>N92.6</DG1.3.1><DG1.3.1>N92.6</DG1.3.1><DG1 .3.1 .~.~<DG1.3.1>N92.6</DG1.3.1><DG1.3.1> N92.6</DG1.3.1><DG1.3.1>N92.6</DG1.3.1><DG1.3.1 .~.~<DG1.3.1>N92.6</DG1.3.1><DG1.3.1>N92.6</DG1.3.1><DG1.3.1>N92.6</DG1.3.1><DG1 .3.1 .~.~<DG1.3.1>N92.6</DG1.3.1><DG1.3.1>N92.6</DG1.3.1><DG1.3.1> N92.6</DG1.3.1><DG1.3.1 .~.~<DG1.3.1>N92.6</DG1.3.1><DG1.3.1>N92.6</DG1.3.1><DG1.3.1>N92.6</DG1.3.1><DG1 .3.1 .~.~<DG1.3.1>N92.6</DG1.3.1><DG1.3.1>N92.6</DG1.3.1><DG1.3.1>N92.6</DG1.3.1> <DG1.3.1 .~.~<DG1.3.1>N92.6</DG1.3.1><DG1.3.1>N92.6</DG1.3.1><DG1.3.1>N92.6</DG1.3.1><DG1 .3.1 HCG Serum QL Reenter Laboratory test result [facility] ([facility]) Is patient fasting? N~.~.~<DG1.3.1>N92.6</DG1.3.1><DG1.3.1>N92.6</DG1.3.1><DG1.3.1>N92.6</DG1.3. .~.~<DG1.3.1>N92.6</DG1.3.1><DG1.3.1>N92.6</DG1.3.1><DG1.3.1>N92.6</DG1.3.1><DG1 .3.1 .~.~<DG1.3.1> N92.6</DG1.3.1><DG1.3.1>N92.6</DG1.3.1><DG1.3.1>N92.6</DG1.3.1><DG1.3.1 .~.~<DG1.3.1>N92.6</DG1.3.1><DG1.3.1>N92.6</DG1.3.1><DG1.3.1>N92.6</DG1.3.1><DG1 .3.1 .~.~<DG1.3.1>N92.6</DG1.3.1><DG1.3.1> N92.6</DG1.3.1><DG1.3.1>N92.6</DG1.3.1><DG1.3.1 .~.~<DG1.3.1>N92.6</DG1.3.1><DG1.3.1>N92.6</DG1.3.1><DG1.3.1>N92.6</DG1.3.1><DG1 .3.1 .~.~<DG1.3.1>N92.6</DG1.3.1><DG1.3.1>N92.6</DG1.3.1><DG1.3.1> N92.6</DG1.3.1><DG1.3.1 .~.~<DG1.3.1>N92.6</DG1.3.1><DG1.3.1>N92.6</DG1.3.1><DG1.3.1>N92.6</DG1.3.1><DG1 .3.1 .~.~<DG1.3.1>N92.6</DG1.3.1><DG1.3.1>N92.6</DG1.3.1><DG1.3.1>N92.6</DG1.3.1> <DG1.3.1 .~.~<DG1.3.1>N92.6</DG1.3.1><DG1.3.1>N92.6</DG1.3.1><DG1.3.1>N92.6</DG1.3.1><DG1 .3.1 ID Date Data Source [id number] 04/18/2019 10:25:00 AM EDT [facility] ([facility]) Name Value Range Interpretation Code Description Data Joleen rce(s) Supporting Document(s) Prolactin [Mass/volume] in Serum or Plasma 10.8 ng/mL 4.8-23.3 [facility] Is patient fasting? N~.~.~<DG1.3.1>N92.6</DG1.3.1><DG1.3.1>N92.6</DG1.3.1><DG1.3.1>N92.6</DG1.3. .~.~<DG1.3.1>N92.6</DG1.3.1><DG1.3.1>N92.6</DG1.3.1><DG1.3.1>N92.6</DG1.3.1><DG1 .3.1 .~.~<DG1.3.1> N92.6</DG1.3.1><DG1.3.1>N92.6</DG1.3.1><DG1.3.1>N92.6</DG1.3.1><DG1.3.1 .~.~<DG1.3.1>N92.6</DG1.3.1><DG1.3.1>N92.6</DG1.3.1><DG1.3.1>N92.6</DG1.3.1><DG1 .3.1 .~.~<DG1.3.1>N92.6</DG1.3.1><DG1.3.1> N92.6</DG1.3.1><DG1.3.1>N92.6</DG1.3.1><DG1.3.1 .~.~<DG1.3.1>N92.6</DG1.3.1><DG1.3.1>N92.6</DG1.3.1><DG1.3.1>N92.6</DG1.3.1><DG1 .3.1 .~.~<DG1.3.1>N92.6</DG1.3.1><DG1.3.1>N92.6</DG1.3.1><DG1.3.1> N92.6</DG1.3.1><DG1.3.1 .~.~<DG1.3.1>N92.6</DG1.3.1><DG1.3.1>N92.6</DG1.3.1><DG1.3.1>N92.6</DG1.3.1><DG1 .3.1 .~.~<DG1.3.1>N92.6</DG1.3.1><DG1.3.1>N92.6</DG1.3.1><DG1.3.1>N92.6</DG1.3.1> <DG1.3.1 .~.~<DG1.3.1>N92.6</DG1.3.1><DG1.3.1>N92.6</DG1.3.1><DG1.3.1>N92.6</DG1.3.1><DG1 .3.1 Thyrotropin [Units/volume] in Serum or Plasma 1.77 uIU/mL 0.47-5.01 [facility] ([facility]) Is patient fasting? N~.~.~<DG1.3.1>N92.6</DG1.3.1><DG1.3.1>N92.6</DG1.3.1><DG1.3.1>N92.6</DG1.3. .~.~<DG1.3.1>N92.6</DG1.3.1><DG1.3.1>N92.6</DG1.3.1><DG1.3.1>N92.6</DG1.3.1><DG1 .3.1 .~.~<DG1.3.1> N92.6</DG1.3.1><DG1.3.1>N92.6</DG1.3.1><DG1.3.1>N92.6</DG1.3.1><DG1.3.1 .~.~<DG1.3.1>N92.6</DG1.3.1><DG1.3.1>N92.6</DG1.3.1><DG1.3.1>N92.6</DG1.3.1><DG1 .3.1 .~.~<DG1.3.1>N92.6</DG1.3.1><DG1.3.1> N92.6</DG1.3.1><DG1.3.1>N92.6</DG1.3.1><DG1.3.1 .~.~<DG1.3.1>N92.6</DG1.3.1><DG1.3.1>N92.6</DG1.3.1><DG1.3.1>N92.6</DG1.3.1><DG1 .3.1 .~.~<DG1.3.1>N92.6</DG1.3.1><DG1.3.1>N92.6</DG1.3.1><DG1.3.1> N92.6</DG1.3.1><DG1.3.1 .~.~<DG1.3.1>N92.6</DG1.3.1><DG1.3.1>N92.6</DG1.3.1><DG1.3.1>N92.6</DG1.3.1><DG1 .3.1 .~.~<DG1.3.1>N92.6</DG1.3.1><DG1.3.1>N92.6</DG1.3.1><DG1.3.1>N92.6</DG1.3.1> <DG1.3.1 .~.~<DG1.3.1>N92.6</DG1.3.1><DG1.3.1>N92.6</DG1.3.1><DG1.3.1>N92.6</DG1.3.1><DG1 .3.1 Lutropin [Units/volume] in Serum or Plasma 5.1 mIU/mL [facility] ([facility]) Is patient fasting? N~.~.~<DG1.3.1>N92.6</DG1.3.1><DG1.3.1>N92.6</DG1.3.1><DG1.3.1>N92.6</DG1.3. .~.~<DG1.3.1>N92.6</DG1.3.1><DG1.3.1>N92.6</DG1.3.1><DG1.3.1>N92.6</DG1.3.1><DG1 .3.1 .~.~<DG1.3.1> N92.6</DG1.3.1><DG1.3.1>N92.6</DG1.3.1><DG1.3.1>N92.6</DG1.3.1><DG1.3.1 .~.~<DG1.3.1>N92.6</DG1.3.1><DG1.3.1>N92.6</DG1.3.1><DG1.3.1>N92.6</DG1.3.1><DG1 .3.1 .~.~<DG1.3.1>N92.6</DG1.3.1><DG1.3.1> N92.6</DG1.3.1><DG1.3.1>N92.6</DG1.3.1><DG1.3.1 .~.~<DG1.3.1>N92.6</DG1.3.1><DG1.3.1>N92.6</DG1.3.1><DG1.3.1>N92.6</DG1.3.1><DG1 .3.1 .~.~<DG1.3.1>N92.6</DG1.3.1><DG1.3.1>N92.6</DG1.3.1><DG1.3.1> N92.6</DG1.3.1><DG1.3.1 .~.~<DG1.3.1>N92.6</DG1.3.1><DG1.3.1>N92.6</DG1.3.1><DG1.3.1>N92.6</DG1.3.1><DG1 .3.1 .~.~<DG1.3.1>N92.6</DG1.3.1><DG1.3.1>N92.6</DG1.3.1><DG1.3.1>N92.6</DG1.3.1> <DG1.3.1 .~.~<DG1.3.1>N92.6</DG1.3.1><DG1.3.1>N92.6</DG1.3.1><DG1.3.1>N92.6</DG1.3.1><DG1 .3.1 Follitropin [Units/volume] in Serum or Plasma 2.1 mIU/mL [facility] ([facility]) Is patient fasting? N~.~.~<DG1.3.1>N92.6</DG1.3.1><DG1.3.1>N92.6</DG1.3.1><DG1.3.1>N92.6</DG1.3. .~.~<DG1.3.1>N92.6</DG1.3.1><DG1.3.1>N92.6</DG1.3.1><DG1.3.1>N92.6</DG1.3.1><DG1 .3.1 .~.~<DG1.3.1> N92.6</DG1.3.1><DG1.3.1>N92.6</DG1.3.1><DG1.3.1>N92.6</DG1.3.1><DG1.3.1 .~.~<DG1.3.1>N92.6</DG1.3.1><DG1.3.1>N92.6</DG1.3.1><DG1.3.1>N92.6</DG1.3.1><DG1 .3.1 .~.~<DG1.3.1>N92.6</DG1.3.1><DG1.3.1> N92.6</DG1.3.1><DG1.3.1>N92.6</DG1.3.1><DG1.3.1 .~.~<DG1.3.1>N92.6</DG1.3.1><DG1.3.1>N92.6</DG1.3.1><DG1.3.1>N92.6</DG1.3.1><DG1 .3.1 .~.~<DG1.3.1>N92.6</DG1.3.1><DG1.3.1>N92.6</DG1.3.1><DG1.3.1> N92.6</DG1.3.1><DG1.3.1 .~.~<DG1.3.1>N92.6</DG1.3.1><DG1.3.1>N92.6</DG1.3.1><DG1.3.1>N92.6</DG1.3.1><DG1 .3.1 .~.~<DG1.3.1>N92.6</DG1.3.1><DG1.3.1>N92.6</DG1.3.1><DG1.3.1>N92.6</DG1.3.1> <DG1.3.1 .~.~<DG1.3.1>N92.6</DG1.3.1><DG1.3.1>N92.6</DG1.3.1><DG1.3.1>N92.6</DG1.3.1><DG1 .3.1 Testosterone Free [Mass/volume] in Serum or Plasma 6.2 pg/mL 0.0-4.2 Above high normal [facility] ([facility]) Is patient fasting? N~.~.~<DG1.3.1>N92.6</DG1.3.1><DG1.3.1>N92.6</DG1.3.1><DG1.3.1>N92.6</DG1.3. .~.~<DG1.3.1>N92.6</DG1.3.1><DG1.3.1>N92.6</DG1.3.1><DG1.3.1>N92.6</DG1.3.1><DG1 .3.1 .~.~<DG1.3.1> N92.6</DG1.3.1><DG1.3.1>N92.6</DG1.3.1><DG1.3.1>N92.6</DG1.3.1><DG1.3.1 .~.~<DG1.3.1>N92.6</DG1.3.1><DG1.3.1>N92.6</DG1.3.1><DG1.3.1>N92.6</DG1.3.1><DG1 .3.1 .~.~<DG1.3.1>N92.6</DG1.3.1><DG1.3.1> N92.6</DG1.3.1><DG1.3.1>N92.6</DG1.3.1><DG1.3.1 .~.~<DG1.3.1>N92.6</DG1.3.1><DG1.3.1>N92.6</DG1.3.1><DG1.3.1>N92.6</DG1.3.1><DG1 .3.1 .~.~<DG1.3.1>N92.6</DG1.3.1><DG1.3.1>N92.6</DG1.3.1><DG1.3.1> N92.6</DG1.3.1><DG1.3.1 .~.~<DG1.3.1>N92.6</DG1.3.1><DG1.3.1>N92.6</DG1.3.1><DG1.3.1>N92.6</DG1.3.1><DG1 .3.1 .~.~<DG1.3.1>N92.6</DG1.3.1><DG1.3.1>N92.6</DG1.3.1><DG1.3.1>N92.6</DG1.3.1> <DG1.3.1 .~.~<DG1.3.1>N92.6</DG1.3.1><DG1.3.1>N92.6</DG1.3.1><DG1.3.1>N92.6</DG1.3.1><DG1 .3.1 Dehydroepiandrosterone sulfate (DHEA-S) [Mass/volume] in Serum or Plasma 379.6 ug/dL 110.0-431.7 [facility] ([facility]) Is patient fasting? N~.~.~<DG1.3.1>N92.6</DG1.3.1><DG1.3.1>N92.6</DG1.3.1><DG1.3.1>N92.6</DG1.3. .~.~<DG1.3.1>N92.6</DG1.3.1><DG1.3.1>N92.6</DG1.3.1><DG1.3.1>N92.6</DG1.3.1><DG1 .3.1 .~.~<DG1.3.1> N92.6</DG1.3.1><DG1.3.1>N92.6</DG1.3.1><DG1.3.1>N92.6</DG1.3.1><DG1.3.1 .~.~<DG1.3.1>N92.6</DG1.3.1><DG1.3.1>N92.6</DG1.3.1><DG1.3.1>N92.6</DG1.3.1><DG1 .3.1 .~.~<DG1.3.1>N92.6</DG1.3.1><DG1.3.1> N92.6</DG1.3.1><DG1.3.1>N92.6</DG1.3.1><DG1.3.1 .~.~<DG1.3.1>N92.6</DG1.3.1><DG1.3.1>N92.6</DG1.3.1><DG1.3.1>N92.6</DG1.3.1><DG1 .3.1 .~.~<DG1.3.1>N92.6</DG1.3.1><DG1.3.1>N92.6</DG1.3.1><DG1.3.1> N92.6</DG1.3.1><DG1.3.1 .~.~<DG1.3.1>N92.6</DG1.3.1><DG1.3.1>N92.6</DG1.3.1><DG1.3.1>N92.6</DG1.3.1><DG1 .3.1 .~.~<DG1.3.1>N92.6</DG1.3.1><DG1.3.1>N92.6</DG1.3.1><DG1.3.1>N92.6</DG1.3.1> <DG1.3.1 .~.~<DG1.3.1>N92.6</DG1.3.1><DG1.3.1>N92.6</DG1.3.1><DG1.3.1>N92.6</DG1.3.1><DG1 .3.1 Glucose [Mass/volume] in Serum or Plasma 97 mg/dL 65-110 [facility] ([facility]) Is patient fasting? N~.~.~<DG1.3.1>N92.6</DG1.3.1><DG1.3.1>N92.6</DG1.3.1><DG1.3.1>N92.6</DG1.3. .~.~<DG1.3.1>N92.6</DG1.3.1><DG1.3.1>N92.6</DG1.3.1><DG1.3.1>N92.6</DG1.3.1><DG1 .3.1 .~.~<DG1.3.1> N92.6</DG1.3.1><DG1.3.1>N92.6</DG1.3.1><DG1.3.1>N92.6</DG1.3.1><DG1.3.1 .~.~<DG1.3.1>N92.6</DG1.3.1><DG1.3.1>N92.6</DG1.3.1><DG1.3.1>N92.6</DG1.3.1><DG1 .3.1 .~.~<DG1.3.1>N92.6</DG1.3.1><DG1.3.1> N92.6</DG1.3.1><DG1.3.1>N92.6</DG1.3.1><DG1.3.1 .~.~<DG1.3.1>N92.6</DG1.3.1><DG1.3.1>N92.6</DG1.3.1><DG1.3.1>N92.6</DG1.3.1><DG1 .3.1 .~.~<DG1.3.1>N92.6</DG1.3.1><DG1.3.1>N92.6</DG1.3.1><DG1.3.1> N92.6</DG1.3.1><DG1.3.1 .~.~<DG1.3.1>N92.6</DG1.3.1><DG1.3.1>N92.6</DG1.3.1><DG1.3.1>N92.6</DG1.3.1><DG1 .3.1 .~.~<DG1.3.1>N92.6</DG1.3.1><DG1.3.1>N92.6</DG1.3.1><DG1.3.1>N92.6</DG1.3.1> <DG1.3.1 .~.~<DG1.3.1>N92.6</DG1.3.1><DG1.3.1>N92.6</DG1.3.1><DG1.3.1>N92.6</DG1.3.1><DG1 .3.1 17-Hydroxyprogesterone [Mass/volume] in Serum or Plasma 63 ng/dL [facility] ([facility]) Is patient fasting? N~.~.~<DG1.3.1>N92.6</DG1.3.1><DG1.3.1>N92.6</DG1.3.1><DG1.3.1>N92.6</DG1.3. .~.~<DG1.3.1>N92.6</DG1.3.1><DG1.3.1>N92.6</DG1.3.1><DG1.3.1>N92.6</DG1.3.1><DG1 .3.1 .~.~<DG1.3.1> N92.6</DG1.3.1><DG1.3.1>N92.6</DG1.3.1><DG1.3.1>N92.6</DG1.3.1><DG1.3.1 .~.~<DG1.3.1>N92.6</DG1.3.1><DG1.3.1>N92.6</DG1.3.1><DG1.3.1>N92.6</DG1.3.1><DG1 .3.1 .~.~<DG1.3.1>N92.6</DG1.3.1><DG1.3.1> N92.6</DG1.3.1><DG1.3.1>N92.6</DG1.3.1><DG1.3.1 .~.~<DG1.3.1>N92.6</DG1.3.1><DG1.3.1>N92.6</DG1.3.1><DG1.3.1>N92.6</DG1.3.1><DG1 .3.1 .~.~<DG1.3.1>N92.6</DG1.3.1><DG1.3.1>N92.6</DG1.3.1><DG1.3.1> N92.6</DG1.3.1><DG1.3.1 .~.~<DG1.3.1>N92.6</DG1.3.1><DG1.3.1>N92.6</DG1.3.1><DG1.3.1>N92.6</DG1.3.1><DG1 .3.1 .~.~<DG1.3.1>N92.6</DG1.3.1><DG1.3.1>N92.6</DG1.3.1><DG1.3.1>N92.6</DG1.3.1> <DG1.3.1 .~.~<DG1.3.1>N92.6</DG1.3.1><DG1.3.1>N92.6</DG1.3.1><DG1.3.1>N92.6</DG1.3.1><DG1 .3.1 ID Date Data Source [id number] 04/25/2019 06:14:00 AM EDT [facility] Name Value Range Interpretation Code Description Data Joleen rce(s) Supporting Document(s) INSULIN FREE & TOTAL [facility] Test(s) 254662-89-FM Progesterone LCMSwa s developed and its performance characteristics determinedby [facility]. It has not been cleared or approved by the Foodand Drug Administration. Insulin Free [Units/volume] in Serum or Plasma 25 uU/mL H [facility] Reference Range:Pubertal Children andAdu lts (fasting): 0 - 17 Insulin [Units/volume] in Serum or Plasma 25 uU/mL [facility] Non-Diabetic: In the absence of insulin [...] bound insulin fractions. ID Date Data Source [id number] 04/23/2019 10:51:00 PM EDT [facility] Value Range Interpretation Code Description Data Joleen rce(s) Supporting Document(s) 17-Hydroxyprogesterone [Mass/volume] in Serum or Plasma 63 ng/dL [facility] Adult Female Follicular 15 - 70 Luteal 35 - 290 ID Date Data Source [id number] 04/20/2019 08:10:00 AM EDT [facility] Value Range Interpretation Code Description Data Joleen rce(s) Supporting Document(s) Testosterone Free [Mass/volume] in Serum or Plasma 6.2 pg/mL 0.0-4.2 H [facility] ID Date Data Source [id number] 04/19/2019 01:21:00 PM T [facility] Value Range Interpretation Code Description Data Joleen rce(s) Supporting Document(s) Dehydroepiandrosterone sulfate (DHEA-S) [Mass/volume] in Serum or Plasma 379.6 ug/dL 110.0-431.7 [facility] ID Date Data Source [id number] 04/19/2019 01:20:00 PM EDT [facility] Value Range Interpretation Code Description Data Joleen rce(s) Supporting Document(s) Prolactin [Mass/volume] in Serum or Plasma 10.8 ng/mL 4.8-23.3 [facility] ID Date Data Source [id number] 04/19/2019 01:20:00 PM EDT [facility] Value Range Interpretation Code Description Data Joleen rce(s) Supporting Document(s) Follitropin [Units/volume] in Serum or Plasma 2.1 mIU/mL [facility] Adult Female: Follicular phase 3.5 - 12.5 Ovulation phase 4.7 - 21.5 Luteal phase 1.7 - 7.7 Postmenopausal 25.8 - 134.8 ID Date Data Source [id number] 04/19/2019 01:20:00 PM T [facility] Value Range Interpretation Code Description Data Joleen rce(s) Supporting Document(s) Lutropin [Units/volume] in Serum or Plasma 5.1 mIU/mL [facility] Adult Female: Follicular phase 2.4 - 12.6 Ovulation phase 14.0 - 95.6 Luteal phase 1.0 - 11.4 Postmenopausal 7.7 - 58.5 ID Date Data Source [id number] 04/18/2019 11:15:00 AM EDT [facility] Name Value Range Interpretation Code Description Data Joleen rce(s) Supporting Document(s) Thyrotropin [Units/volume] in Serum or Plasma by Detec tion limit <= 0.05 mIU/L 1.77 uIU/mL 0.47 - 5.01 [facility] ID Date Data Source [id number] 04/18/2019 11:11:00 AM EDT [facility] Name Value Range Interpretation Code Description Data Joleen rce(s) Supporting Document(s) HCG SERUM QUAL NEGATIVE NORMAL: NEGATIVE [facility] HCG SERUM QL REENTER NEGATIVE NORMAL: NEGATIVE [facility] { KIT LOT # [id number] ){ KIT EXP DATE ){ PROCEDURAL CONTROL VALID ) ID Date Data Source [id number] 04/18/2019 11:05:00 AM EDT [facility] Name Value Range Interpretation Code Description Data Joleen rce(s) Supporting Document(s) Glucose [Mass/volume] in Serum or Plasma 97 MG/DL 65 - 110 [facility] ID Date Data Source [id number] 04/18/2019 09:31:00 [place] [address] PHONE: [phone] FAX: [phone] Name .................. : RAMONA Radford Acct Number.................. : [id number] ROOM. ................. : MR Number ................... : [id number] Stay type ............. : CLINIC Discharge Date......... ... : 04/15/19 Admit Date ......... : 04/15/19 Admit Phys .................... : CARLEY VARGAS Date of ....... : 2000 Family Phys ................... : TRACIE RICK Phone .................. : [phone] Age ................................ : 19 Film# .................. .:[id number] Sex ................................. : F Unsigned transcriptions are preliminary reports and do not represent a medical or legal document PELVIC [id number] COMPLETE:04/15/19 18:54 ADB [id number] POSSIBLE PCOS PELVIC ULTRASOUND: HISTORY: Possible polycystic [...] By Mitesh Wilde MD , 04/18/19 09:31, [facility] Transcribe Initials: EULA , Transcribe Date: 04/15/19 20:03, Dictation Date: Page 1 of 1 Name Value Range Interpretation Code Description Data Joleen rce(s) Supporting Document(s) ID Date Data Source [id number] 04/15/2019 02:41:00 PM EDT [facility] ([facility]) Name Value Range Interpretation Code Description Data Joleen rce(s) Supporting Document(s) Chlamydia trachomatis,Mona Laboratory test result [facility] ([facility]) {SOURCE: Genital~.~.~N92.6 Source: Laboratory test result [facility] ([facility]) {SOURCE: Genital~.~.~N92.6 Neisseria gonorrhoeae,Mona Laboratory test result [facility] ([facility]) {SOURCE: Genital~.~.~N92.6 ID Date Data Source [id number] 04/18/2019 07:39:00 AM EDT [facility] Name Value Range Interpretation Code Description Data Joleen rce(s) Supporting Document(s) SOURCE: Genital [facility] Chlamydia trachomatis rRNA [Presence] in Unspecified specimen by Probe and target amplification method Negative Negative [facility] Neisseria gonorrhoeae rRNA [Presence] in Unspecified specimen by Probe and target amplification method Negative Negative [facility] ID Date Data Source [id number] 04/15/2019 02:36:00 PM EDT [facility] ([facility]) Name Value Range Interpretation Code Description Data Joleen rce(s) Supporting Document(s) US Pelvic <pending> [facility] ([facility]) ID Date Data Source [id number] 04/08/2019 12:00:00 AM EST [facility] Name Value Range Interpretation Code Description Data Joleen rce(s) Supporting Document(s) strep antigen neg Normal strep antigen [facility] ([facility]) ID Date Data Source [id number] 04/01/2019 01:14:00 PM EST [facility] ([facility]) Name Value Range Interpretation Code Description Data Joleen rce(s) Supporting Document(s) Streptococcus pyogenes Ag [Presence] in Throat by Rapid immunoas say <pending> [facility] ([facility]) ID Date Data Source [id number] 04/01/2019 07:28:00 PM EST [facility] Name Value Range Interpretation Code Description Data Joleen rce(s) Supporting Document(s) RAPID STREP NEGATIVE NORMAL: NEGATIVE [facility] RAPID STREP REENTER NEGATIVE NORMAL: NEGATIVE [facility] { PROCEDURAL CONTROL VALID ){ KIT LOT # [id number] ){ KIT EXP DATE 04/04/20 )The Strep [...] basis for treatment. ID Date Data Source [id number] 03/05/2019 07:08:00 AM EST [facility] [place] [address] [id number] NAME: CECILY GREENE#: [id number] PHYSICIAN: WALDEMAR [facility]ER [facility] #: [id number] ADM. DATE: 02/24/19PATIENT : 89 DISCH. DATE: [...] upappointmentDischarge InformationDISCHARGE INFORMATION* Thank you for choosing Health System and allowing us toserve you* Our Goal is to provide the highest quality of care.* This discharge information is to help you better understand your diagnosisand medication* Avoid taking [id number] medicines unless approved by your physician.* Take your medications as prescribed. DO NOT stop any medications unlessapproved first* Weigh yourself daily. Report any gain of 5 lbs in a week* 24 Hour Crisis HOTLINE available: Call Reachout at [phone]* Chem. Dependency: Walk in Clinics [place] ([phone]) and [place] ([phone]) anytime Monday thru Monday 8 to 10am. [facility] ([phone]) anytimeMonday thru Monday 8 to 10am. [facility] ([phone]) Monday or Monday from 8to 10am (Bring $30 to First [facility]) SMOKING CESSATION* Smoking is dangerous to your health. It delays the healing process, andworks against your medications. Not smoking will improve your health* Our hospital participates with the Opt-to-Quit program. You will be contactedafter discharge by the [facility] Smoker's Quitline for support with tobaccocessation. You have the option once contacted to refuse this service.* You can also go online to www.Ritani. Free nicotine replacementsare available ___Attention* You should [...] rce(s) Supporting Document(s) ID Date Data Source [id number] 03/05/2019 05:40:00 PM [facility] [place], [place] [address]KGPDXME NAME: SILVINOEMMYCECILY#: [id number] PHYSICIAN: WALDEMAR MOSER MD ADM. DATE: 02/24/19ACCOUNT #: [id number] DISCH. DATE: 03/05/19DISCHARGE SUMMARYIDENTIFICATION: A 18-year-old female [...] discharge fromour service she stopped taking the [place]. It is not clear why. The patientstated that the [place] is the medication that keeps her off [...] depression.SOCIAL/PERSONAL HISTORY: The patient was born in [place], grew up in [place].She finished high school. She is not working. She is living with friends. Thelast hospitalization she stated that she had problems with biological family.During this hospitalization she stated that she will go back with them, thatthings are getting better.DIAGNOSIS AT ADMISSION: Borderline pe rsonality disorder, bipolar disorder,type I, depressed mood and suicidal ideation.MEDICATIONS AT DISCHARGE: Seroquel 500 mg at bedtime, [place] 300 mg twice aday with the [place] level of 0.4 and Effexor 225 mg daily.LABORATORY: Hemoglobin 12.1, hematocrit of 38.1, platelets 322. Sodium 142,potassium 3.8. [place] level 0.4.HOSPITAL COURSE: The patient stayed in our service for 10 days. The first partof the hospitalization she is clearly suicidal, requires a lot of redirectionand there are a lot of behavioral problems. The patient was in one-on-one thelast part of the hospitalization but that was related to behavioral problemsmore than suicidal.The patient was put back on the [place] 150 mg at the beginning, at the time ofdischarge, 300 mg po twice a day with the [place] level of 0.4.The patient denied that she [...] rce(s) Supporting Document(s) ID Date Data Source [id number] 03/04/2019 09:48:00 AM EST [facility] Name Value Range Interpretation Code Description Data Joleen rce(s) Supporting Document(s) LITHIUM 0.40 mmol/L 0.50-1.20 L [facility] ID Date Data Source [id number] 03/04/2019 09:48:00 AM EST [facility] Name Value Range Interpretation Code Description Data Joleen rce(s) Supporting Document(s) GLU 84 mg/dL 70-110 [facility] Patients taking Sulfasalazine may have f alsely depressedGlucose levels. Patients taking Sulfapyridine may havefalsely elevated Glucose levels. Patients should be drawnfor Glucose before the initial administration of eitherdrug. BUN 13 mg/dL 7-23 [facility] CRE 0.903 mg/dL 0.500-1.300 [facility] CHLORIDE 106 mmol/L 99-110 [facility] NA 140 mmol/L 136-147 [facility] POTASSIUM 4.2 mmol/L 3.5-5.1 [facility] TCO2 28 mmol/L 20-33 [facility] ANION GAP 10.2 10.0-20.0 [facility] CA 9.0 mg/dL 8.3-10.7 [facility] ALKALINE PHOS 127 U/L 82-169 [facility] TP 7.1 g/dL 6.0-7.8 [facility] ALB 3.9 g/dL 3.5-5.0 [facility] ESRD Dialysis patient Albumin reference range: 2.9-4.4 g/dL GL 3.2 g/dL 2.3-3.5 [facility] A/G 1.2 1.0-2.5 [facility] TOTAL BILIRUBIN 0.4 mg/dL 0.1-1.1 [facility] U/L 6-54 [facility] Patients taking Sulfasalazine and/or Sul fapyridine may havefalsely depressed ALT levels. Patients should be drawn forALT before the initial administration of either drug. AST 27 U/L 6-38 [facility] Patients taking Sulfasalazine and/or Sul fapyridine may havefalsely depressed AST levels. Patients should be drawn forAST before the initial administration of either drug. ID Date Data Source [id number] 03/04/2019 08:11:00 PM EST [facility] [place], [place] [address]NVTIGNB NAME: CECILY GREENE#: [id number] PHYSICIAN: WALDEMAR MOSER MD ADM. DATE: 02/24/19PROGRESS NOTE DATE: 03/04/19 .#: [id number] #: [id number] NOTEIDENTIFICATION: A 18-year-old female with history of mood disorder andborderline personality disorder.VITAL SIGNS: Temperature of 97.5, pulse 96, respirations 15, blood upeokmvm084/73.LABORATORY: Sodium 140, potassium 4.2, chloride 106, creatinine 0.9. Liverfunction: AST 27, ALT 27. [place] level 0.4.SUBJECTIVE: The patient came to the [...] rce(s) Supporting Document(s) ID Date Data Source [id number] 03/02/2019 05:36:00 PM [place], [place] [address]PATIENT NAME: CECILY GREENE#: [id number] PHYSICIAN: WALDEMAR MOSER MD ADM. DATE: 02/24/19PROGRESS NOTE DATE: 03/01/19 .#: [id number] #: [id number] NOTEIDENTIFICATION: A 18-year-old female with suicidal ideation, bipolar disorder.VITAL SIGNS: Temperature of 97.6, pulse 108, respirations 18, blood nvvgzoyc727/75.SUBJECTIVE: The patient came to the interview room. [...] disorder, cluster B.PLAN: Continue with the medication, [place] level on Monday.DICT: 03/01/19 1126 Electronically SignedTRANS:03/02/19 1736 WALDEMAR MOSER MDTRANS BY:TDWDKRISSY SIGNED:03/04/19REPORT COPY TO: Name Value Range Interpretation Code Description Data Joleen rce(s) Supporting Document(s) ID Date Data Source [id number] 02/28/2019 06:42:00 PM [place], [place] [address]PATIENT NAME: SILVINOEMMYCECILY#: [id number] PHYSICIAN: WALDEMAR MOSER MD ADM. DATE: 02/24/19PROGRESS NOTE DATE: 02/28/19 RM.#: [id number] #: [id number] NOTEIDENTIFICATION: A 18-year-old female with bipolar disorder, personalitydisorder.VITAL SIGNS: Temperature of 98.7, pulse 85, respirations 16, blood /75.SUBJECTIVE: Yesterday afternoon the patient was aggressive, needs [...] so we can put her back on neq-wy-cgfwli she stated "yes, but I don't want or need to be in one-on-one at thispoint".MENTAL STATUS EXAMINATION: The patient is cooperative, guarded. Denies suicidalideations at this point. Judgement and insight are questionable. Realitytesting is intact. Decision making capacity is questionable. She is oriented3/3. Memory is fair. Concentration is poor.DIAGNOSIS: Bipolar disorder, personality disorder, cluster B.PLAN: The patient is on [place]. We increased the [place] to 300 mg twice aday. We will have a [place] level in the next 48 hours. The [...] rce(s) Supporting Document(s) ID Date Data Source [id number] 02/26/2019 07:09:00 PM [place], [place]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
[2020-03-22] MEDS: NICOTINE 21MG/24HR 1 EA TRANSDERMAL TD SCH (09:03)
[2020-03-22] MEDS: hydrOXYzine 10 MG TAB PO SCH ×3 (09:03→20:31)
[2020-03-22] MEDS: SERTRALINE 100 MG TAB PO SCH (09:03)
--- NOTE | 2020-03-22 12:52 | HPEPDOC ---
General Date of Admission Mar 22, 2020 at 04:42 Date of Service: Mar 22, 2020 Chief Complaint The patient is a 20-year-old female admitted with a reason for visit of Bipolar Disorder. Source: Patient Exam Limitations: No limitations History of Present Illness Patient is 20 years old female with past medical history of polycystic ovarian syndrome, bipolar disorder, anxiety presented to the hospital after suicidal attempt. Patient stated that she was depressed and she try to cut herself with knife. Of note, patient in the past multiple suicidal attempts. During my interview patient denied fever, chills, nausea, vomiting, diarrhea or dysuria. Patient complains of right ear pain for a few days Home Medications Scheduled Prazosin Hcl (Prazosin HCl) 2 Mg Capsule, 2 MG PO QHS, (Reported) Sertraline Hcl (Zoloft) 100 Mg Tablet, 100 MG PO DAILY, (Reported) Scheduled PRN Acetaminophen (Tylenol) 325 Mg Tablet, 650 MG PO Q6H PRN for PAIN / FEVER, (Reported) Hydroxyzine HCl (Hydroxyzine HCl) 10 Mg Tablet, 10 MG PO TID PRN for ANXIETY, (Reported) Ibuprofen (Ibuprofen) 400 Mg Tablet, 400 MG PO Q8H PRN for PAIN / FEVER, (Reported) Trazodone HCl (Trazodone HCl) 50 Mg Tablet, 100 MG PO QHS PRN for INSOMNIA, (Reported) Allergies Coded Allergies: No Known Allergies (Unverified , 03/22/20) Past Medical History Medical History Past psychiatric history consists of multiple impatient remissions with borderline personality disorder and treated on number of different antipsychotics, PCO S Family History Family history consists of bipolar disorders. Social History * Smoker: Denies Alcohol: Denies Drugs: marijuana A-FIB/CHADSVASC A-FIB History Current/History of A-Fib/PAF?: No Current PO Anticoag Therapy: No Review of Systems Constitutional: Denies: Chills, Fever Eyes: Reports: Pain (right ear) ENT: Denies: Head Aches Skin: Denies: Rash, Lesions Pulmonary: Denies: Dyspnea, Cough Cardiovascular: Denies: Chest Pain, Palpitations Gastrointestinal: Denies: Nausea, Vomiting Genitourinary: Denies: Dysuria, Frequency Hematologic: Denies: Bruising, Bleeding Excessively Endocrine: Denies: Polydipsia Musculoskeletal: Denies: Neck Pain Neurological: Denies: Weakness Psych: Reports: Depression Physical Examination General Exam: Positive: Alert, Cooperative Eye Exam: Positive: PERRLA ENT Exam: Positive: Atraumatic, Mucous membr. moist/pink Neck Exam: Positive: Supple; Negative: JVD Chest Exam: Positive: Clear to auscultation Heart Exam: Positive: Rate Normal Telemetry: Positive: No significant arrhythmia Abdomen Exam: Positive: Normal bowel sounds Extremity Exam: Negative: Clubbing Skin Exam: Positive: Nl turgor and temperature Neuro Exam: Positive: Normal Gait Psych Exam: Positive: Mental status NL Vital Signs Vital Signs Date Time Temp Pulse Resp B/P (MAP) Pulse Ox O2 Delivery O2 Flow Rate FiO2 03/22/20 09:38 Room Air 03/22/20 04:45 97.7 84 18 124/80 (95) 99 Laboratory Data Labs 24H Laboratory Tests 2 03/22/20 00:57: Nucleated Red Blood Cells % (auto) 0.0, Anion Gap 7L, Glomerular Filtration Rate > 60.0, Calcium Level 9.5, Total Bilirubin 0.1L, Direct Bilirubin < 0.1, Aspa rtate Amino Transf (AST/SGOT) 8, Alanine Aminotransferase (ALT/SGPT) 24, Alkaline Phosphatase 152H, Total Protein 7.7, Albumin 4.3, Albumin/Globulin Ratio 1.3, Thyroid Stimulating Hormone (TSH) 3.210, Human Chorionic Gonadotropin, Qual NEGATIVE, Salicylates Level 3.4L, Urine Opiates Screen NEGATIVE, Urine Methadone Screen NEGATIVE, Acetaminophen Level < 2.0L, Urine Barbiturates Screen NEGATIVE, Urine Phencyclidine Screen NEGATIVE, Urine Amphetamines Screen NEGATIVE, Urine Benzodiazepines Screen NEGATIVE, Urine Cocaine Metabolite Screen NEGATIVE, Urine Cannabinoids Screen POSITIVEH, Ethyl Alcohol Level < 0.003 03/22/20 02:32: Coronavirus (COVID-19)(PCR) NEGATIVE, Influenza Type A (RT-PCR) NEGATIVE, Influenza Type B (RT-PCR) NEGATIVE, Respiratory Syncytial Virus (PCR) NEGATIVE CBC/BMP Laboratory Tests 03/22/20 00:57 Assessment/Plan Patient is 20 years old female with past medical history of polycystic ovarian syndrome, bipolar disorder, anxiety presented to the hospital after suicidal attempt. Patient stated that she was depressed and she try to cut herself with knife. Of note, patient in the past multiple suicidal attempts. During my interview patient denied fever, chills, nausea, vomiting, diarrhea or dysuria. Patient complains of right ear pain for a few days Problems (1) Otitis media, right Status: Acute Problem Text: Patient has history of otitis media, her leukocytes count slightly elevated and she complains of a sharp pain few days. No any discharge from the right ear I will start Augmentin for 5 days (2) Depression with suicidal ideation Status: Acute Problem Text: Deferred treatment to psych team Plan / VTE VTE Prophylaxis Ordered?: No VTE Exclusion Mechanical Proph: Low Risk for VTE LADONNA WADE DO Mar 22, 2020 12:52
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
[2020-03-22] MEDS: AUGMENTIN 500 MG TAB PO SCH ×2 (14:38→20:31)
[2020-03-22] MEDS ORDERED: OLANZapine 5 MG TAB PO ONE (18:00)
[2020-03-22 18:38] VITALS: BP 124/80
[2020-03-22] MEDS: traZODone 50 MG TAB PO PRN (20:31)
[2020-03-22] MEDS: PRAZOSIN 1 MG CAP PO SCH (20:31)
[2020-03-23 06:54] VITALS: BP 109/63
[2020-03-23] MEDS: AUGMENTIN 500 MG TAB PO SCH ×2 (08:47→20:56)
[2020-03-23] MEDS: SERTRALINE 100 MG TAB PO SCH (08:47)
[2020-03-23] MEDS: NICOTINE 21MG/24HR 1 EA TRANSDERMAL TD SCH (08:47)
[2020-03-23] MEDS: hydrOXYzine 10 MG TAB PO SCH ×3 (08:47→20:56)
--- NOTE | 2020-03-23 13:31 | MHIPNPDOC ---
[facility] Progress Note Progress Note DATE OF SERVICE: 03/23/20 HISTORY: Patient is a 20 year old Single, Female who reported to a friend that she was having suicidal thoughts to cut her wrist or overdose on pills. Per ED Report: Pt states that she has not been doing well for the past month. She told two of her friends today that she was suicidal. The first friend refused to help her, stating that he was busy, but then he posted online that he was smoking a bong. She then told another friend, who gave her the text number to the crisis hotline. Pt states that she was texting with the crisis hotline staff, but it was just making her more agitated. Her friend then decided to call the police. Pt reports SI with plans for cutting or OD. She denies HI. Pt has a hx of two suicide attempts via OD. 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 Pt denies both AH & VH. She does not appear to be psychotic. Main stressors are that her uncle committed suicide two years ago today, she thinks that her family hates her, & she does not think that her meds are working. Pt moved out of the [facility] on 01/07/20 & now lives with her father. Pt c/o depressed mood, anxiety, decreased energy levels, excessive sleep, & poor appetite. She has a hx of depression, bipolar d/o, & borderline personality d/o with multiple admissions. She has OP tx at [facility]. Pt states she is compliant with her meds (Zoloft, Atarax, Pra zosin, & Trazodone). Pt reports that she drinks one beer once a week. She reports daily MJ use & her tox screen was positive for cannabis. VITAL SIGNS: See below. CURRENT MEDICATIONS: See below. MENTAL STATUS EXAMINATION: 20 year old Single, Female who reported to a friend that she was having suicidal thoughts to cut her wrist or overdose on pills. Patient found sleeping in her room, she was agreeable to the interview. She is dressed appropriately in hospital scrubs, hygiene and grooming is fair, she is mildly disheveled. She maintains eye contact, she is mildly disengaged in the interview, ended the session abruptly. When asked if she would like to talk about anything, she said no and walked out of the room, pleasantly but did not want to engage in the session Speech: normal rate, tone and volume Language skills are intact Thought processes including: linear and goal oriented Thought content: reports moderate depression and anxiety. Denies suicidal/homicidal ideation, planning or intent. Abstract reasoning, and computation: fair Description of associations: denies, none observed Description of abnormal or psychotic thoughts: denies, none observed. Judgment: fair Insight: fair Orientation: alert and oriented to person, place, time and situation Recent and remote memory: intact Attention span and concentration: fair Language: expansive Fund of knowledge: average Mood: Depressed Affect: Constricted, congruent DIAGNOSES: Bipolar I Disorder, recent episode, depression ASSESSMENT: Patient reports that she feels that she needs the help of a mood stabilizer which was discussed with on-call provider. She feels that she could be stabilized with Depakote which was explained to her. She reports continued depression but states that she has periods of insomnia, poor concentration, very energized, and making poor decisions and feels that she does need the mood stabilizer. MANAGEMENT PLAN: Start Depakote 125 mg tonight, increase to 250 mg on 03/24/20 and then 250 mg twice daily on 03/25. Titrate Zoloft down to 75 mg as this may be activating. TIME SPENT: 25 minutes. Vital Signs Vital Signs Date Time Temp Pulse Resp B/P (MAP) Pulse Ox O2 Delivery O2 Flow Rate FiO2 03/23/20 10:10 Room Air 03/23/20 06:54 97.9 75 16 109/63 (78) 96 Current Medications Current Medications Medications (Trade) Dose Ordered Sig/Gregorio Route PRN Reason Start Time Stop Time Status Last Admin Dose Admin Acetaminophen (Tylenol Tab) 650 mg Q6HP PRN PO HEADACHE or DISCOMFORT 03/22/20 04:00 Al Hydrox/Mg Hydrox/Simethicone (Mylanta) 30 ml Q4HP PRN PO HEARTBURN/INDIGESTION 03/22/20 04:00 Amoxicillin/ Clavulanate Potassium (Augmentin) 500 mg BID PO 03/22/20 09:00 02/24/21 08:59 03/23/20 08:47 Divalproex Sodium (Depakote) 250 mg BID PO 03/25/20 09:00 UNV Home Med (Med Rec Complete!) ASDIRECTED XX 03/22/20 03:30 03/22/20 03:25 DC Hydroxyzine HCl (Atarax) 10 mg TID PO 03/22/20 09:00 03/23/20 08:47 Ibuprofen (Advil) 400 mg Q8HP PRN PO PAIN 03/22/20 04:00 Magnesium Hydroxide (Milk Of Magnesia) 30 ml DAILYPRN PRN PO CONSTIPATION 03/22/20 04:00 Nicotine (Nicoderm Cq 21mg) 1 patch DAILY TD 03/22/20 09:00 03/23/20 08:47 Olanzapine (ZyPREXA) 5 mg Q4HP PRN PO AGITATION 03/22/20 04:00 Prazosin HCl (Minipress) 2 mg QHS PO 03/21/20 21:00 03/22/20 20:31 Sertraline HCl (Zoloft) 75 mg DAILY PO 03/24/20 09:00 UNV Sertraline HCl (Zoloft) 100 mg DAILY PO 03/22/20 09:00 03/23/20 12:59 DC 03/23/20 08:47 Trazodone HCl (Desyrel) 100 mg QHSP PRN PO INSOMNIA 03/22/20 04:00 03/22/20 20:31 Allergies Coded Allergies: No Known Allergies (Unverified , 03/22/20) GLORIA MALAGON NP Mar 23, 2020 13:09
[2020-03-23 16:50] VITALS: BP 123/59
[2020-03-23 20:56] VITALS: BP 131/97
[2020-03-23] MEDS: PRAZOSIN 1 MG CAP PO SCH (20:56)
[2020-03-23] MEDS: traZODone 50 MG TAB PO PRN (20:56)
[2020-03-23] MEDS ORDERED: DIVALPROEX 125 MG TAB PO ONE (21:00)
[2020-03-24 06:40] VITALS: BP 123/65
[2020-03-24] MEDS: NICOTINE 21MG/24HR 1 EA TRANSDERMAL TD SCH (08:44)
[2020-03-24] MEDS: AUGMENTIN 500 MG TAB PO SCH ×2 (08:45→21:02)
[2020-03-24] MEDS: SERTRALINE HCL 25 MG TABLET PO SCH (08:45)
[2020-03-24] MEDS: hydrOXYzine 10 MG TAB PO SCH ×3 (08:45→21:02)
--- NOTE | 2020-03-24 11:55 | MHIPNPDOC ---
[facility] Progress Note Progress Note DATE OF SERVICE: 03/24/20 HISTORY: Patient is a 20 year old Single, Female who reported to a friend that she was having suicidal thoughts to cut her wrist or overdose on pills. Per ED Report: Pt states that she has not been doing well for the past month. She told two of her friends today that she was suicidal. The first friend refused to help her, stating that he was busy, but then he posted online that he was smoking a bong. She then told another friend, who gave her the text number to the crisis hotline. Pt states that she was texting with the crisis hotline staff, but it was just making her more agitated. Her friend then decided to call the police. Pt reports SI with plans for cutting or OD. She denies HI. Pt has a hx of two suicide attempts via OD. 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 Pt denies both AH & VH. She does not appear to be psychotic. Main stressors are that her uncle committed suicide two years ago today, she thinks that her family hates her, & she does not think that her meds are working. Pt moved out of the [facility] on 01/07/20 & now lives with her father. Pt c/o depressed mood, anxiety, decreased energy levels, excessive sleep, & poor appetite. She has a hx of depression, bipolar d/o, & borderline personality d/o with multiple admissions. She has OP tx at [facility]. Pt states she is compliant with her meds (Zoloft, Atarax, Praz osin, & Trazodone). Pt reports that she drinks one beer once a week. She reports daily MJ use & her tox screen was positive for cannabis. VITAL SIGNS: See below. CURRENT MEDICATIONS: See below. MENTAL STATUS EXAMINATION: 20 year old Single, Female who reported to a friend that she was having suicidal thoughts to cut her wrist or overdose on pills. Patient , she was agreeable to the interview. She is dressed appropriately in hospital scrubs, hygiene and grooming is fair, she is mildly disheveled. Hair is colored pink, She maintains eye contact, she has improved mood and affect in the interview. Speech: normal rate, tone and volume Language skills are intact Thought processes including: linear and goal oriented Thought content: reports moderate depression and anxiety. Denies suicidal/homicidal ideation, planning or intent. Abstract reasoning, and computation: fair Description of associations: denies, none observed Description of abnormal or psychotic thoughts: denies, none observed. Judgment: fair Insight: fair Orientation: alert and oriented to person, place, time and situation Recent and remote memory: intact Attention span and concentration: fair Language: expansive Fund of knowledge: average Mood: Depressed Affect: Constricted, congruent DIAGNOSES: Bipolar I Disorder, recent episode, depression ASSESSMENT: Patient is calm and cooperative in the interview. She states that she wants to be discharged, reports that she wants to apologize to her friends because during her manic episode she had treated her friends poorly. She states that she is not a morning person, preferring to sleep until noon. She denies denies depression and anxiety, denies SI/HI, denies AV/VH and feels that she has improved. Patient to continue on Depakote titration and I have reinforced that Depakote should be at 250 mg twice daily. She can leave on . MANAGEMENT PLAN: Depakote increase to 250 mg at HS and then 250 mg twice daily on 03/25. Titrate Zoloft down to 75 mg as this may be activating. TIME SPENT: 25 minutes. Vital Signs Vital Signs Date Time Temp Pulse Resp B/P (MAP) Pulse Ox O2 Delivery O2 Flow Rate FiO2 03/24/20 06:40 97.7 70 18 123/65 (84) 100 Room Air Current Medications Current Medications Medications (Trade) Dose Ordered Sig/Gregorio Route PRN Reason Start Time Stop Time Status Last Admin Dose Admin Acetaminophen (Tylenol Tab) 650 mg Q6HP PRN PO HEADACHE or DISCOMFORT 03/22/20 04:00 Al Hydrox/Mg Hydrox/Simethicone (Mylanta) 30 ml Q4HP PRN PO HEARTBURN/INDIGESTION 03/22/20 04:00 Amoxicillin/ Clavulanate Potassium (Augmentin) 500 mg BID PO 03/22/20 09:00 02/24/21 08:59 03/24/20 08:45 Divalproex Sodium (Depakote) 250 mg BID PO 03/25/20 09:00 Home Med (Med Rec Complete!) ASDIRECTED XX 03/22/20 03:30 03/22/20 03:25 DC Hydroxyzine HCl (Atarax) 10 mg TID PO 03/22/20 09:00 03/24/20 08:45 Ibuprofen (Advil) 400 mg Q8HP PRN PO PAIN 03/22/20 04:00 Magnesium Hydroxide (Milk Of Magnesia) 30 ml DAILYPRN PRN PO CONSTIPATION 03/22/20 04:00 Nicotine (Nicoderm Cq 21mg) 1 patch DAILY TD 03/22/20 09:00 03/24/20 08:44 Olanzapine (ZyPREXA) 5 mg Q4HP PRN PO AGITATION 03/22/20 04:00 Prazosin HCl (Minipress) 2 mg QHS PO 03/21/20 21:00 03/23/20 20:56 Sertraline HCl (Zoloft) 75 mg DAILY PO 03/24/20 09:00 03/24/20 08:45 Sertraline HCl (Zoloft) 100 mg DAILY PO 03/22/20 09:00 03/23/20 12:59 DC 03/23/20 08:47 Trazodone HCl (Desyrel) 100 mg QHSP PRN PO INSOMNIA 03/22/20 04:00 03/23/20 20:56 Allergies Coded Allergies: No Known Allergies (Unverified , 03/22/20) GLORIA MALAGON NP Mar 24, 2020 11:55
[2020-03-24 16:12] VITALS: BP 123/70
[2020-03-24] MEDS ORDERED: DIVALPROEX 250 MG TAB PO ONE (21:00)
[2020-03-24] MEDS: traZODone 50 MG TAB PO PRN (21:02)
[2020-03-24] MEDS: PRAZOSIN 1 MG CAP PO SCH (21:02)
[2020-03-25 06:22] VITALS: BP 108/53
[2020-03-25] MEDS: hydrOXYzine 10 MG TAB PO SCH (08:25)
[2020-03-25] MEDS: SERTRALINE HCL 25 MG TABLET PO SCH (08:25)
[2020-03-25] MEDS: NICOTINE 21MG/24HR 1 EA TRANSDERMAL TD SCH (08:25)
[2020-03-25] MEDS: AUGMENTIN 500 MG TAB PO SCH (08:25)
[2020-03-25] MEDS ORDERED: DIVALPROEX 250 MG TAB PO SCH (09:00)
[2020-03-25] MEDS ORDERED: DEPA250T32 PO (11:44)
[2020-03-25] MEDS ORDERED: SERT25TA21 PO (11:44)
[2020-03-25] MEDS ORDERED: AMOX500T2 PO (11:44)
--- NOTE | 2020-03-25 14:25 | MHDSPDOC ---
[facility] Discharge Summary Discharge Summary DATE OF ADMISSION: Mar 22, 2020 at 04:42 DATE OF DISCHARGE: March 25, 2020 at 1347 DISCHARGE DIAGNOSES: Bipolar I Disorder, recent episode, depression REASON FOR ADMISSION: Patient is a 20 year old Single, Female who reported to a friend that she was having suicidal thoughts to cut her wrist or overdose on pills. Per ED Report: Pt states that she has not been doing well for the past month. She told two of her friends today that she was suicidal. The first friend refused to help her, stating that he was busy, but then he posted online that he was smoking a bong. She then told another friend, who gave her the text number to the crisis hotline. Pt states that she was texting with the crisis hotline staff, but it was just making her more agitated. Her friend then decided to call the police. Pt reports SI with plans for cutting or OD. She denies HI. Pt has a hx of two suicide attempts via OD. 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 Pt denies both AH & VH. She does not appear to be psychotic. Main stressors are that her uncle committed suicide two years ago today, she thinks that her family hates her, & she does not think that her meds are working. Pt moved out of the [facility] on 01/07/20 & now lives with her father. Pt c/o depressed mood, anxiety, decreased energy levels, excessive sleep, & poor appetite. She has a hx of depression, bipolar d/o, & borderline personality d/o with multiple admissions. She has OP tx at [facility]. Pt states she is compliant with her meds (Zoloft, Atarax, Prazosin, & Trazodone). Pt reports that she drinks one beer once a week. She reports daily MJ use & her tox screen was positive for cannabis. CONSULTANTS INVOLVED: See Medical H + P by Hospitalist TREATMENT AND PROGRESS ON THE UNIT: Patient was admitted to the [facility] on a legal status he was afforded the following treatment modalities: 1) Individual Therapy 2) Group Therapy 3) Medication Management 4) Milieu Therapy 5) Safe Environment HOSPITAL COURSE: Patient was admitted to [facility] on a legal status. She had reported that she had reported to her friend that she was having suicidal thoughts, that friend was not able to help her because he was playing videos and drinking. She texted another friend who was in contact with a crisis hotline. She reported that she had periods of both manic and depressive symptoms. She had been on Zoloft 100 mg. Zoloft was decreased to 75 mg, given that this may have been making her Bipolar symptoms worse. Initiated Depakote up to 250 mg twice daily. Patient reported today that she was doing better. She was aware that she needed to have a Valproic Acid level check but is strongly requesting discharge today. She states that her half-brother in on the unit. She previously had not been bothered by this, nor did she mentioned it in any of her session but stated that he has been intrusive and this is making her very uncomfortable. Given that this is a viable concern, she is being discharged today. DISCHARGE ASSESSMENT: In today's interview, patient is alert and oriented, pts dress is appropriate. Hygiene and grooming is well-kempt. Smiles on approach and is pleasant and engaged in the interview. Denies depression and anxiety. Denies suicidal and homicidal ideation, planning or intent. Denies and is not observed with jose francisco, psychotic symptoms of delusions, bizarre thinking, obsessions, paranoia, ruminations illogical thoughts, flight of ideas or having poor insight and judgement. Patient has normal mentation, declines further hospitalization on a voluntary status and meets criteria for discharge today. Patient encouraged to return to hospital if his symptoms worsen or change and encouraged to call unit if he/she/they needs to speak to provider for questions regarding medications or care. MENTAL STATUS EXAMINATION ON DISCHARGE: 20 year old Single, Female who reported to a friend that she was having suicidal thoughts to cut her wrist or overdose on pills. Patient , she was agreeable to the interview. She is dressed appropriately in hospital scrubs, hygiene and grooming is fair, she is mildly disheveled. Hair is colored pink, She maintains eye contact, she has improved mood and affect in the interview. Speech: normal rate, tone and volume Language skills are intact Thought processes including: linear and goal oriented Thought content: reports decreased depression and anxiety. Denies suicidal/homicidal ideation, planning or intent. Abstract reasoning, and computation: fair Description of associations: denies, none observed Description of abnormal or psychotic thoughts: denies, none observed. Judgment: fair Insight: fair Orientation: alert and oriented to person, place, time and situation Recent and remote memory: intact Attention span and concentration: fair Language: expansive Fund of knowledge: average Mood: Euthymic Affect: congruent to mood MEDICATIONS ON DISCHARGE: See Medication Reconciliation PLAN/FOLLOWUP ARRANGEMENTS: See Merchandising Specialist's Notes - [facility] The amount of time spent in the coordination of care for this patient was approximately 25 minutes. Vital Signs/I&Os Vital Signs Date Time Temp Pulse Resp B/P (MAP) Pulse Ox O2 Delivery O2 Flow Rate FiO2 03/25/20 08:38 Room Air 03/25/20 06:22 97.9 72 17 108/53 (71) 03/24/20 16:12 97 Medications Scheduled Amoxicillin/Potassium Clav (Amox-Clav 500-125 mg Tablet) 1 Each Tablet, 500 MG PO BID for Antibiotic for Ear Infection, #5 Divalproex Sodium (Depakote) 250 Mg Tablet.dr, 250 MG PO BID for Mood, #14 Prazosin Hcl (Prazosin HCl) 2 Mg Capsule, 2 MG PO QHS, (Reported) Sertraline HCl (Sertraline HCl) 25 Mg Tablet, 75 MG PO DAILY for Depression, #21 Scheduled PRN Acetaminophen (Tylenol) 325 Mg Tablet, 650 MG PO Q6H PRN for PAIN / FEVER, (Reported) Hydroxyzine HCl (Hydroxyzine HCl) 10 Mg Tablet, 10 MG PO TID PRN for ANXIETY, (Reported) Ibuprofen (Ibuprofen) 400 Mg Tablet, 400 MG PO Q8H PRN for PAIN / FEVER, (Reported) Trazodone HCl (Trazodone HCl) 50 Mg Tablet, 100 MG PO QHS PRN for INSOMNIA, (Reported) Allergies Coded Allergies: No Known Allergies (Unverified , 03/22/20) GLORIA MALAGON NP Mar 25, 2020 13:47
== END 2020-03-25 14:30 | disposition home or self-care (01) | DRG 753 ==
LOC: M ED 00:16 → M PSY 04:42
PROVIDERS: ADMIT Psychiatry & Neurology Psychiatry; ATTEND Psychiatry & Neurology Psychiatry
DX: F31.30 Bipolar disorder, current episode depressed, mild or moderate severity, unspecified (principal); R45.851 Suicidal ideations; H66.91 Otitis media, unspecified, right ear; Z63.4 Disappearance and death of family member; Z91.5 Personal history of self-harm; Z63.8 Other specified problems related to primary support group; Z79.899 Other long term (current) drug therapy; Z59.9 Problem related to housing and economic circumstances, unspecified; Z20.822 Contact with and (suspected) exposure to COVID-19

== ENCOUNTER 2020-07-17 17:56 | Emergency (ER) | payer OTHER ==
[~2020-07-17] VITALS: Ht 162.6 cm; Wt 104.5 kg
[~2020-07-17 17:56] MED LIST changes: +AMOX500T2 PO; +BUPR150T12 PO; -BUPR150T4 PO; +DEPA250T32 PO; +PRAZ2CAP PO; +SERT25TA21 PO; +ZOLO100T PO
[2020-07-17] MEDS ORDERED: SERT-141 PO (18:03)
[2020-07-17] MEDS ORDERED: DEPA1TAB3 PO (18:03)
[2020-07-17 20:50] LABS: HEMATOCRIT 39.3 % (36.0-47.0); HEMOGLOBIN 12.8 g/dl (12.0-15.5); MEAN CORPUSCULAR HEMOGLOBIN 28.6 pg (27.0-33.0); MEAN CORPUSCULAR HGB CONC 32.6 g/dl (32.0-36.5); MEAN CORPUSCULAR VOLUME 87.9 fl (80.0-96.0); PLATELET COUNT, AUTOMATED 260 10^3/uL (150-450); RED BLOOD COUNT 4.47 10^6/uL (4.00-5.40); WHITE BLOOD COUNT 9.7 10^3/uL (4.0-10.0)
[2020-07-17 21:28] LABS: HCG, SERUM QUALITATIVE NEGATIVE (NEGATIVE)
[2020-07-17 21:41] LABS: AMPHETAMINES LEVEL URINE NEGATIVE (NEGATIVE); BARBITURATES URINE NEGATIVE (NEGATIVE); BENZODIAZEPINES URINE NEGATIVE (NEGATIVE); CANNABINOIDS URINE POSITIVE (NEGATIVE); COCAINE METABOLITE URINE NEGATIVE (NEGATIVE); METHADONE URINE NEGATIVE (NEGATIVE); OPIATES URINE NEGATIVE (NEGATIVE); PHENCYCLIDINE URINE NEGATIVE (NEGATIVE)
[2020-07-17 21:48] LABS: ACETAMINOPHEN LEVEL < 2.0 UG/ML (10.0-30.0); ALBUMIN 3.9 GM/DL (3.2-5.2); ALT/SGPT 34 U/L (12-78); BILIRUBIN,DIRECT < 0.1 MG/DL (0.0-0.2); BILIRUBIN,TOTAL 0.3 MG/DL (0.2-1.0); BLOOD UREA NITROGEN 16 MG/DL (7-18); CARBON DIOXIDE LEVEL 29 MEQ/L (21-32); CHLORIDE LEVEL 104 MEQ/L (98-107); CREATININE FOR GFR 0.64 MG/DL (0.55-1.30); ETHYL ALCOHOL (ETHANOL) < 0.003 % (0.000-0.010); GLOMERULAR FILTRATION RATE > 60.0 (>60); GLUCOSE, FASTING 77 MG/DL (70-100); POTASSIUM SERUM 4.3 MEQ/L (3.5-5.1); SALICYLATE LEVEL 2.1 MG/DL (5.0-30.0); SODIUM LEVEL 139 MEQ/L (136-145); TOTAL PROTEIN 7.6 GM/DL (6.4-8.2)
[2020-07-17] MEDS ORDERED: MIRE1IUD IU (22:09)
[2020-07-18 00:30] LABS: RSV AMPLIFICATION NEGATIVE (NEGATIVE)
[2020-07-18] MEDS ORDERED: METAL LOCK LOOP XX ONE (07:13)
[2020-07-18] MEDS: DIVALPROEX 500 MG TAB PO ONE (08:14)
[2020-07-18] MEDS: SERTRALINE HCL 50 MG TAB PO ONE (08:14)
[2020-07-18 08:33] VITALS: BP 113/68
== END 2020-07-18 08:47 ==
LOC: M ED 17:56
DX: R45.851 Suicidal ideations (principal); S50.812A Abrasion of left forearm, initial encounter; X58.XXXA Exposure to other specified factors, initial encounter; Y92.89 Other specified places as the place of occurrence of the external cause; Y93.89 Activity, other specified; Y99.8 Other external cause status; F33.9 Major depressive disorder, recurrent, unspecified; Z79.899 Other long term (current) drug therapy; Z91.5 Personal history of self-harm; Z97.5 Presence of (intrauterine) contraceptive device

== ENCOUNTER 2020-09-28 16:34 | Emergency (ER) | payer OTHER ==
[~2020-09-28] VITALS: Ht 162.6 cm; Wt 106.1 kg
[~2020-09-28 16:34] MED LIST changes: +ARIP10TA32 PO; -ARIP1TAB PO; +DEPA1TAB3 PO; -DOXY100C37 PO; +DOXY1CAP62 PO; +OLAN1TAB16 PO; -OLAN5TAB PO; -QUET400T PO; +QUET400T2 PO; +SERT-141 PO
[2020-09-28] MEDS ORDERED: ZOLO100T PO (17:13)
[2020-09-28] MEDS ORDERED: TOPI25TA10 PO (17:13)
[2020-09-28 17:48] LABS: HEMATOCRIT 37.7 % (36.0-47.0); HEMOGLOBIN 12.9 g/dl (12.0-15.5); MEAN CORPUSCULAR HEMOGLOBIN 29.5 pg (27.0-33.0); MEAN CORPUSCULAR HGB CONC 34.2 g/dl (32.0-36.5); MEAN CORPUSCULAR VOLUME 86.3 fl (80.0-96.0); PLATELET COUNT, AUTOMATED 262 10^3/uL (150-450); RED BLOOD COUNT 4.37 10^6/uL (4.00-5.40); WHITE BLOOD COUNT 8.2 10^3/uL (4.0-10.0)
[2020-09-28 18:13] LABS: AMPHETAMINES LEVEL URINE NEGATIVE (NEGATIVE); BARBITURATES URINE NEGATIVE (NEGATIVE); BENZODIAZEPINES URINE NEGATIVE (NEGATIVE); CANNABINOIDS URINE POSITIVE (NEGATIVE); COCAINE METABOLITE URINE NEGATIVE (NEGATIVE); METHADONE URINE NEGATIVE (NEGATIVE); OPIATES URINE NEGATIVE (NEGATIVE); PHENCYCLIDINE URINE NEGATIVE (NEGATIVE)
[2020-09-28 18:17] LABS: HCG, SERUM QUALITATIVE NEGATIVE (NEGATIVE)
[2020-09-28 18:24] LABS: ALBUMIN 3.8 GM/DL (3.2-5.2); ALT/SGPT 29 U/L (12-78); BILIRUBIN,DIRECT < 0.1 MG/DL (0.0-0.2); BILIRUBIN,TOTAL 0.3 MG/DL (0.2-1.0); BLOOD UREA NITROGEN 10 MG/DL (7-18); CALCIUM LEVEL 8.8 MG/DL (8.5-10.1); CARBON DIOXIDE LEVEL 28 MEQ/L (21-32); CHLORIDE LEVEL 107 MEQ/L (98-107); CREATININE FOR GFR 0.77 MG/DL (0.55-1.30); ETHYL ALCOHOL (ETHANOL) < 0.003 % (0.000-0.010); GLOMERULAR FILTRATION RATE > 60.0 (>60); GLUCOSE, FASTING 98 MG/DL (70-100); POTASSIUM SERUM 3.9 MEQ/L (3.5-5.1); SALICYLATE LEVEL 3.5 MG/DL (5.0-30.0); SODIUM LEVEL 140 MEQ/L (136-145); TOTAL PROTEIN 7.5 GM/DL (6.4-8.2)
[2020-09-28 18:25] LABS: ACETAMINOPHEN LEVEL < 2.0 UG/ML (10.0-30.0)
--- NOTE | 2020-09-28 21:10 | MHIPNPDOC ---
[facility] Progress Note Progress Note DATE OF SERVICE: 09/28/20 Disposition communicated with PSA after patient was presented and confirmed patient does meet criteria for inpatient admission, as poses acute safety risk. NO beds available in [facility], so was made aware will seek transfer. Patient is 20 y.o F with worsening SI for 3 weeks and plan to O.D on an extra bottle of Depakote at home. Last [facility] visit was Mar 2020. Vital Signs Vital Signs Date Time Temp Pulse Resp B/P (MAP) Pulse Ox O2 Delivery O2 Flow Rate FiO2 09/28/20 16:35 98.2 85 17 122/77 (92) 98 Room Air Laboratory Data 24H Labs Laboratory Tests 2 09/28/20 17:32: Nucleated Red Blood Cells % (auto) 0.0, Anion Gap 5L, Glomerular Filtration Rate > 60.0, Calcium Level 8.8, Total Bilirubin 0.3, Direct Bilirubin < 0.1, Aspartate Amino Transf (AST/SGOT) 15, Alanine Aminotransferase (ALT/SGPT) 29, Alkaline Phosphatase 118H, Total Protein 7.5, Albumin 3.8, Albumin/Globulin Ratio 1.0L, Thyroid Stimulating Hormone (TSH) 1.130, Human Chorionic Gonadotropin, Qual NEGATIVE, Salicylates Level 3.5L, Urine Opiates Screen NEGATIVE, Urine Methadone Screen NEGATIVE, Acetaminophen Level < 2.0L, Urine B arbiturates Screen NEGATIVE, Urine Phencyclidine Screen NEGATIVE, Urine Amphetamines Screen NEGATIVE, Urine Benzodiazepines Screen NEGATIVE, Urine Cocaine Metabolite Screen NEGATIVE, Urine Cannabinoids Screen POSITIVEH, Ethyl Alcohol Level < 0.003 CBC/BMP Laboratory Tests 09/28/20 17:32 Allergies Coded Allergies: No Known Allergies (Unverified , 03/22/20) TIMOTHY ROSE MD Sep 28, 2020 21:10
[2020-09-29 04:33] LABS: RSV AMPLIFICATION NEGATIVE (NEGATIVE)
--- NOTE | 2020-09-29 05:08 | ECGEPIP ---
[facility] - ED Test Date: 2020-09-28 Pat Name: CECILY GREENE Department: Room: - Gender: Female Manager Of Software: : 2000 Requested By: CROW Parada Order Number: [id number] Reading MD: Chris Batres Measurements Intervals [place] Rate: 64 P: 13 NE: 152 QRS: 28 QRSD: 86 T: 23 QT: 402 QTc: 414 Interpretive Statements Normal sinus rhythm SIMILAR TO 07/18/20 Electronically Signed on 09-29-2020 5:08:40 EDT by Chris Batres
[2020-09-29 11:36] VITALS: BP 121/56
== END 2020-09-29 11:43 ==
LOC: M ED 16:34
DX: R45.851 Suicidal ideations (principal); F31.9 Bipolar disorder, unspecified; E28.2 Polycystic ovarian syndrome; Z79.899 Other long term (current) drug therapy; Z97.5 Presence of (intrauterine) contraceptive device; F12.20 Cannabis dependence, uncomplicated

== ENCOUNTER 2020-12-31 22:19 | Emergency (ER) | payer OTHER ==
[~2020-12-31] VITALS: Ht 162.6 cm; Wt 102.4 kg
[~2020-12-31 22:19] MED LIST changes: +DOXY-443 PO; -DOXY1CAP62 PO; -LATU40TA PO; +LATU40TA2 PO; +TOPI25TA10 PO
[2021-01-01 00:26] LABS: HEMATOCRIT 39.5 % (36.0-47.0); HEMOGLOBIN 13.1 g/dl (12.0-15.5); MEAN CORPUSCULAR HEMOGLOBIN 28.3 pg (27.0-33.0); MEAN CORPUSCULAR HGB CONC 33.2 g/dl (32.0-36.5); MEAN CORPUSCULAR VOLUME 85.3 fl (80.0-96.0); PLATELET COUNT, AUTOMATED 287 10^3/uL (150-450); RED BLOOD COUNT 4.63 10^6/uL (4.00-5.40); WHITE BLOOD COUNT 10.4 10^3/uL (4.0-10.0)
[2021-01-01 00:31] LABS: AMPHETAMINES LEVEL URINE NEGATIVE (NEGATIVE); BARBITURATES URINE NEGATIVE (NEGATIVE); BENZODIAZEPINES URINE NEGATIVE (NEGATIVE); CANNABINOIDS URINE POSITIVE (NEGATIVE); COCAINE METABOLITE URINE NEGATIVE (NEGATIVE); METHADONE URINE NEGATIVE (NEGATIVE); OPIATES URINE NEGATIVE (NEGATIVE); PHENCYCLIDINE URINE NEGATIVE (NEGATIVE)
[2021-01-01 01:07] LABS: ACETAMINOPHEN LEVEL < 2.0 UG/ML (10.0-30.0); ALBUMIN 4.1 GM/DL (3.2-5.2); ALT/SGPT 31 U/L (12-78); BILIRUBIN,DIRECT < 0.1 MG/DL (0.0-0.2); BILIRUBIN,TOTAL 0.1 MG/DL (0.2-1.0); BLOOD UREA NITROGEN 16 MG/DL (7-18); CALCIUM LEVEL 9.4 MG/DL (8.5-10.1); CARBON DIOXIDE LEVEL 26 MEQ/L (21-32); CHLORIDE LEVEL 106 MEQ/L (98-107); ETHYL ALCOHOL (ETHANOL) < 0.003 % (0.000-0.010); GLOMERULAR FILTRATION RATE > 60.0 (>60); GLUCOSE, FASTING 96 MG/DL (70-100); POTASSIUM SERUM 4.3 MEQ/L (3.5-5.1); SALICYLATE LEVEL 1.7 MG/DL (5.0-30.0); SODIUM LEVEL 138 MEQ/L (136-145); TOTAL PROTEIN 7.7 GM/DL (6.4-8.2)
[2021-01-01 01:08] LABS: HCG, SERUM QUALITATIVE NEGATIVE (NEGATIVE)
[2021-01-01 03:07] LABS: RSV AMPLIFICATION POSITIVE (NEGATIVE)
[2021-01-01] MEDS ORDERED: HOME MED LIST COMPLETE! XX SCH (05:30)
[2021-01-01] MEDS ORDERED: MIRE1IUD IU (05:30)
[2021-01-01 09:35] VITALS: BP 122/74
== END 2021-01-01 09:45 ==
LOC: M ED 22:19
DX: R45.851 Suicidal ideations (principal); F60.3 Borderline personality disorder; E28.2 Polycystic ovarian syndrome; F12.10 Cannabis abuse, uncomplicated; Z81.8 Family history of other mental and behavioral disorders; Z97.5 Presence of (intrauterine) contraceptive device

== ENCOUNTER 2021-03-07 19:46 | Inpatient (IN) | payer OTHER ==
[~2021-03-07] VITALS: Ht 162.6 cm; Wt 102.2 kg
[2021-03-07] MEDS ORDERED: SERT-141 PO (20:09)
[2021-03-07] MEDS ORDERED: TRAZ-257 PO (20:09)
[2021-03-07] MEDS ORDERED: TOPA1TAB PO (20:09)
[2021-03-07 21:02] LABS: HEMATOCRIT 39.2 % (36.0-47.0); HEMOGLOBIN 12.8 g/dl (12.0-15.5); MEAN CORPUSCULAR HEMOGLOBIN 28.3 pg (27.0-33.0); MEAN CORPUSCULAR HGB CONC 32.7 g/dl (32.0-36.5); MEAN CORPUSCULAR VOLUME 86.5 fl (80.0-96.0); PLATELET COUNT, AUTOMATED 285 10^3/uL (150-450); RED BLOOD COUNT 4.53 10^6/uL (4.00-5.40); WHITE BLOOD COUNT 8.7 10^3/uL (4.0-10.0)
[2021-03-07 21:17] LABS: HCG, SERUM QUALITATIVE NEGATIVE (NEGATIVE)
[2021-03-07 21:21] LABS: ACETAMINOPHEN LEVEL < 2.0 UG/ML (10.0-30.0); ALT/SGPT 21 U/L (12-78); AMPHETAMINES LEVEL URINE NEGATIVE (NEGATIVE); BARBITURATES URINE NEGATIVE (NEGATIVE); BENZODIAZEPINES URINE NEGATIVE (NEGATIVE); BILIRUBIN,DIRECT < 0.1 MG/DL (0.0-0.2); BILIRUBIN,TOTAL 0.1 MG/DL (0.2-1.0); BLOOD UREA NITROGEN 9 MG/DL (7-18); CALCIUM LEVEL 9.3 MG/DL (8.5-10.1); CANNABINOIDS URINE POSITIVE (NEGATIVE); CARBON DIOXIDE LEVEL 27 MEQ/L (21-32); CHLORIDE LEVEL 110 MEQ/L (98-107); COCAINE METABOLITE URINE NEGATIVE (NEGATIVE); CREATININE FOR GFR 0.87 MG/DL (0.55-1.30); ETHYL ALCOHOL (ETHANOL) < 0.003 % (0.000-0.010); GLOMERULAR FILTRATION RATE > 60.0 (>60); GLUCOSE, FASTING 96 MG/DL (70-100); METHADONE URINE NEGATIVE (NEGATIVE); OPIATES URINE NEGATIVE (NEGATIVE); PHENCYCLIDINE URINE NEGATIVE (NEGATIVE); POTASSIUM SERUM 4.3 MEQ/L (3.5-5.1); SODIUM LEVEL 141 MEQ/L (136-145); TOTAL PROTEIN 7.5 GM/DL (6.4-8.2)
[2021-03-07] MEDS ORDERED: HOME MED LIST COMPLETE! XX SCH (22:40)
[2021-03-08] MEDS ORDERED: SERTRALINE HCL 50 MG TAB PO SCH (09:00)
[2021-03-08] MEDS ORDERED: TOPIRAMATE (TopAMAX) 25 MG TAB PO SCH (09:00)
[2021-03-08] MEDS ORDERED: ACETAMINOPHEN TAB 650MG DOSE (2X325MG) PO PRN (13:20)
[2021-03-08] MEDS ORDERED: MOM 30ML SUSPENSION UDC PO PRN (13:20)
[2021-03-08] MEDS ORDERED: traZODone 50 MG TAB PO PRN (13:20)
[2021-03-08] MEDS ORDERED: OLANZapine ORAL DISINTEGRATING TAB 5MG PO PRN (13:20)
[2021-03-08] MEDS ORDERED: MAALOX 30 ML SUSP *UDC PO PRN (13:20)
[2021-03-08 16:42] VITALS: BP 129/70
[2021-03-08] MEDS ORDERED: traZODone 100 MG TAB PO SCH (21:00)
[2021-03-09 06:25] VITALS: BP 101/80
[2021-03-09] MEDS ORDERED: TOPIRAMATE (TopAMAX) 25 MG TAB PO SCH (09:00)
[2021-03-09] MEDS ORDERED: NICOTINE 21MG/24HR 1 EA TRANSDERMAL TD SCH (09:00)
[2021-03-09] MEDS ORDERED: SERTRALINE HCL 50 MG TAB PO SCH (09:00)
[2021-03-09] MEDS ORDERED: NICO21PAT TD (10:40)
== END 2021-03-09 15:03 | disposition home or self-care (01) | DRG 751 ==
LOC: M ED 19:46 → M ED INP 03-08 13:20 → M PSY 03-08 16:32
PROVIDERS: ADMIT Student in an Organized Health Care Education/Training Program; ATTEND Psychiatry & Neurology Psychiatry
DX: F33.0 Major depressive disorder, recurrent, mild (principal); F60.3 Borderline personality disorder; F17.200 Nicotine dependence, unspecified, uncomplicated; F12.10 Cannabis abuse, uncomplicated; R45.851 Suicidal ideations; Z79.899 Other long term (current) drug therapy

== ENCOUNTER 2022-01-02 14:22 | Emergency (ER) | payer OTHER ==
[~2022-01-02] VITALS: Ht 162.6 cm; Wt 87.3 kg
[~2022-01-02 14:22] MED LIST changes: +MELA10TA14 PO; -MELA10TA6 PO; -QUET200T54 PO; +QUET200T79 PO; -QUET300T53 PO; +QUET300T93 PO; +TOPA1TAB PO
[2022-01-02 15:16] LABS: HEMATOCRIT 41.6 % (36.0-47.0); HEMOGLOBIN 13.8 g/dl (12.0-15.5); MEAN CORPUSCULAR HEMOGLOBIN 29.4 pg (27.0-33.0); MEAN CORPUSCULAR HGB CONC 33.2 g/dl (32.0-36.5); MEAN CORPUSCULAR VOLUME 88.5 fl (80.0-96.0); PLATELET COUNT, AUTOMATED 306 10^3/uL (150-450); WHITE BLOOD COUNT 8.2 10^3/uL (4.0-10.0)
[2022-01-02 15:39] LABS: AMPHETAMINES LEVEL URINE NEGATIVE (NEGATIVE); BARBITURATES URINE NEGATIVE (NEGATIVE); BENZODIAZEPINES URINE NEGATIVE (NEGATIVE); CANNABINOIDS URINE POSITIVE (NEGATIVE); COCAINE METABOLITE URINE NEGATIVE (NEGATIVE); METHADONE URINE NEGATIVE (NEGATIVE); OPIATES URINE NEGATIVE (NEGATIVE); PHENCYCLIDINE URINE NEGATIVE (NEGATIVE)
[2022-01-02 15:42] LABS: ACETAMINOPHEN LEVEL < 2.0 UG/ML (10.0-20.0); ALBUMIN 4.5 G/DL (3.2-5.2); ALKALINE PHOSPHATASE 121 U/L (46-116); ALT/SGPT 13 U/L (7.0-40); AST/SGOT 14 U/L (<34); BILIRUBIN,DIRECT 0.2 MG/DL (<0.4); BILIRUBIN,TOTAL 0.5 MG/DL (0.3-1.2); BLOOD UREA NITROGEN 10 MG/DL (9-23); CALCIUM LEVEL 9.7 MG/DL (8.5-10.1); CARBON DIOXIDE LEVEL 27 MMOL/L (20-31); CHLORIDE LEVEL 104 MMOL/L (98-107); ETHYL ALCOHOL (ETHANOL) 0.004 % (0.000-0.010); GLOMERULAR FILTRATION RATE > 60.0 (>60); GLUCOSE, FASTING 89 MG/DL (60-100); POTASSIUM SERUM 4.2 MMOL/L (3.5-5.1); SALICYLATE LEVEL < 3.0 MG/DL (<30); SODIUM LEVEL 140 MMOL/L (136-145); THYROID STIMULATING HORMONE 0.982 uIU/ML (0.55-4.78); TOTAL PROTEIN 7.7 G/DL (5.7-8.2)
[2022-01-02] MEDS ORDERED: MIRENA IUD IU (15:43)
[2022-01-02] MEDS ORDERED: HOME MED LIST COMPLETE! XX SCH (15:45)
[2022-01-02 15:48] LABS: RSV AMPLIFICATION NEGATIVE (NEGATIVE)
[2022-01-02 15:52] LABS: HCG, SERUM QUALITATIVE NEGATIVE (NEGATIVE)
[2022-01-03 17:30] VITALS: BP 127/63
== END 2022-01-03 17:33 | disposition home or self-care (01) ==
LOC: M ED 14:22
DX: F32.A Depression, unspecified (principal); Z91.51 Personal history of suicidal behavior; E28.2 Polycystic ovarian syndrome; F17.200 Nicotine dependence, unspecified, uncomplicated

== ENCOUNTER 2022-06-20 22:45 | Emergency (ER) | payer OTHER ==
[~2022-06-20] VITALS: Ht 160 cm; Wt 90.4 kg
[~2022-06-20 22:45] MED LIST changes: +DIPH-435 PO; -DIPH25CA32 PO; +FLUT50SP17; -FLUTISP; +MIRENA IUD IU
[2022-06-20] MEDS ORDERED: BOOSTRIX VACCINE (TETANUS/DIPHTH/ACEL. PERTUSSIS) 0.5ML SYR IM.IMMUN ONE (23:45)
[2022-06-21] MEDS ORDERED: ONDA4TAB6 PO (00:09)
[2022-06-21] MEDS ORDERED: ZOLO100T PO (00:09)
[2022-06-21] MEDS ORDERED: BUSP15TA47 PO (00:09)
[2022-06-21] MEDS ORDERED: CLAR10TA7 PO (00:09)
[2022-06-21] MEDS ORDERED: HOME MED LIST COMPLETE! XX SCH (00:10)
[2022-06-21 00:14] LABS: HEMATOCRIT 39.9 % (36.0-47.0); HEMOGLOBIN 13.6 g/dl (12.0-15.5); MEAN CORPUSCULAR HEMOGLOBIN 30.4 pg (27.0-33.0); MEAN CORPUSCULAR HGB CONC 34.1 g/dl (32.0-36.5); MEAN CORPUSCULAR VOLUME 89.1 fl (80.0-96.0); PLATELET COUNT, AUTOMATED 303 10^3/uL (150-450); RED BLOOD COUNT 4.48 10^6/uL (4.00-5.40); WHITE BLOOD COUNT 11.9 10^3/uL (4.0-10.0)
[2022-06-21 00:34] LABS: AMPHETAMINES LEVEL URINE NEGATIVE (NEGATIVE); BENZODIAZEPINES URINE NEGATIVE (NEGATIVE)
[2022-06-21 00:35] LABS: BARBITURATES URINE NEGATIVE (NEGATIVE); COCAINE METABOLITE URINE NEGATIVE (NEGATIVE); METHADONE URINE NEGATIVE (NEGATIVE); OPIATES URINE NEGATIVE (NEGATIVE); PHENCYCLIDINE URINE NEGATIVE (NEGATIVE)
[2022-06-21 00:37] LABS: CANNABINOIDS URINE POSITIVE (NEGATIVE); ETHYL ALCOHOL (ETHANOL) < 0.003 % (0.000-0.010); HCG, SERUM QUALITATIVE NEGATIVE (NEGATIVE)
[2022-06-21 00:39] LABS: ACETAMINOPHEN LEVEL < 2.0 UG/ML (10.0-20.0); ALBUMIN 4.1 G/DL (3.2-5.2); ALKALINE PHOSPHATASE 118 U/L (46-116); ALT/SGPT 12 U/L (7.0-40); AST/SGOT 17 U/L (<34); BILIRUBIN,DIRECT < 0.1 MG/DL (<0.4); BILIRUBIN,TOTAL 0.3 MG/DL (0.3-1.2); BLOOD UREA NITROGEN 14 MG/DL (9-23); CALCIUM LEVEL 9.3 MG/DL (8.5-10.1); CARBON DIOXIDE LEVEL 28 MMOL/L (20-31); CHLORIDE LEVEL 107 MMOL/L (98-107); CREATININE FOR GFR 0.72 MG/DL (0.55-1.30); GLOMERULAR FILTRATION RATE > 60.0 (>60); GLUCOSE, FASTING 86 MG/DL (60-100); POTASSIUM SERUM 3.8 MMOL/L (3.5-5.1); SALICYLATE LEVEL < 3.0 MG/DL (<30); SODIUM LEVEL 141 MMOL/L (136-145); TOTAL PROTEIN 7.2 G/DL (5.7-8.2)
[2022-06-21 00:41] LABS: THYROID STIMULATING HORMONE 1.168 uIU/ML (0.55-4.78)
[2022-06-21] MEDS ORDERED: busPIRone 5 MG TAB PO SCH (09:00)
[2022-06-21] MEDS ORDERED: LORATADINE 10 MG TAB PO SCH (09:00)
[2022-06-21] MEDS ORDERED: SERTRALINE 100 MG TAB PO SCH (09:00)
[2022-06-21 10:14] VITALS: BP 119/73
== END 2022-06-21 10:16 | disposition home or self-care (01) ==
LOC: M ED 22:45
DX: F43.9 Reaction to severe stress, unspecified (principal); E28.2 Polycystic ovarian syndrome; F17.210 Nicotine dependence, cigarettes, uncomplicated; Z88.0 Allergy status to penicillin; Z79.899 Other long term (current) drug therapy

== ENCOUNTER 2022-07-20 17:02 | Inpatient (IN) | payer OTHER ==
[~2022-07-20] VITALS: Ht 165.1 cm; Wt 93.5 kg
[~2022-07-20 17:02] MED LIST changes: +BUSP15TA47 PO; +CLAR10TA7 PO; +ONDA4TAB6 PO
[2022-07-20 17:59] LABS: HEMATOCRIT 41.9 % (36.0-47.0); HEMOGLOBIN 13.6 g/dl (12.0-15.5); MEAN CORPUSCULAR HEMOGLOBIN 29.6 pg (27.0-33.0); MEAN CORPUSCULAR HGB CONC 32.5 g/dl (32.0-36.5); MEAN CORPUSCULAR VOLUME 91.3 fl (80.0-96.0); PLATELET COUNT, AUTOMATED 268 10^3/uL (150-450); RED BLOOD COUNT 4.59 10^6/uL (4.00-5.40); WHITE BLOOD COUNT 11.3 10^3/uL (4.0-10.0)
[2022-07-20] MEDS ORDERED: NICOTINE 21MG/24HR 1 EA TRANSDERMAL TD ONE (18:15)
[2022-07-20 18:19] LABS: AMPHETAMINES LEVEL URINE NEGATIVE (NEGATIVE); BARBITURATES URINE NEGATIVE (NEGATIVE); BENZODIAZEPINES URINE NEGATIVE (NEGATIVE); COCAINE METABOLITE URINE NEGATIVE (NEGATIVE); METHADONE URINE NEGATIVE (NEGATIVE); OPIATES URINE NEGATIVE (NEGATIVE); PHENCYCLIDINE URINE NEGATIVE (NEGATIVE)
[2022-07-20 18:20] LABS: CANNABINOIDS URINE POSITIVE (NEGATIVE)
[2022-07-20 18:20] LABS: ETHYL ALCOHOL (ETHANOL) < 0.003 % (0.000-0.010)
[2022-07-20 18:21] LABS: ACETAMINOPHEN LEVEL < 2.0 UG/ML (10.0-20.0); SALICYLATE LEVEL < 3.0 MG/DL (<30)
[2022-07-20 18:22] LABS: ALBUMIN 4.2 G/DL (3.2-5.2); ALKALINE PHOSPHATASE 105 U/L (46-116); ALT/SGPT 16 U/L (7.0-40); AST/SGOT 9 U/L (<34); BILIRUBIN,DIRECT < 0.1 MG/DL (<0.4); BILIRUBIN,TOTAL 0.2 MG/DL (0.3-1.2); BLOOD UREA NITROGEN 15 MG/DL (9-23); CALCIUM LEVEL 9.2 MG/DL (8.5-10.1); CARBON DIOXIDE LEVEL 26 MMOL/L (20-31); CHLORIDE LEVEL 106 MMOL/L (98-107); CREATININE FOR GFR 0.68 MG/DL (0.55-1.30); GLOMERULAR FILTRATION RATE > 60.0 (>60); GLUCOSE, FASTING 98 MG/DL (60-100); SODIUM LEVEL 141 MMOL/L (136-145); TOTAL PROTEIN 7.3 G/DL (5.7-8.2)
[2022-07-20 18:23] LABS: HCG, SERUM QUALITATIVE NEGATIVE (NEGATIVE)
[2022-07-20 18:24] LABS: THYROID STIMULATING HORMONE 0.716 uIU/ML (0.55-4.78)
[2022-07-20] MEDS ORDERED: HOME MED LIST COMPLETE! XX SCH (18:55)
[2022-07-20] MEDS ORDERED: traZODone 50 MG TAB PO PRN (20:30)
[2022-07-20] MEDS ORDERED: OLANZapine ORAL DISINTEGRATING TAB 5MG PO PRN (20:30)
[2022-07-20] MEDS ORDERED: MAALOX 30 ML SUSP *UDC PO PRN (20:30)
[2022-07-20] MEDS ORDERED: MOM 30ML SUSPENSION UDC PO PRN (20:30)
[2022-07-20] MEDS ORDERED: ACETAMINOPHEN TAB 650MG DOSE (2X325MG) PO PRN (20:30)
[2022-07-20] MEDS: busPIRone 5 MG TAB PO SCH (21:53)
[2022-07-20 22:42] VITALS: BP 114/74; TEMP 97.1; O2SAT 98
[2022-07-21 07:02] VITALS: BP 119/58; TEMP 98.1; O2SAT 99
[2022-07-21] MEDS: busPIRone 5 MG TAB PO SCH ×3 (08:47→20:51)
[2022-07-21] MEDS: LORATADINE 10 MG TAB PO SCH (08:47)
[2022-07-21] MEDS ORDERED: SERTRALINE 100 MG TAB PO SCH (09:00)
[2022-07-21] MEDS: NICOTINE 21MG/24HR 1 EA TRANSDERMAL TD SCH (12:49)
[2022-07-21 16:50] VITALS: BP 120/76; TEMP 98.2; O2SAT 97
[2022-07-21] MEDS: PRAZOSIN 1 MG CAP PO SCH (20:52)
[2022-07-21] MEDS: hydrOXYzine 50 MG TAB PO PRN (22:05)
[2022-07-22 06:37] VITALS: BP 149/55; TEMP 98.2; O2SAT 100
[2022-07-22] MEDS: SERTRALINE HCL 50 MG TAB PO SCH (09:48)
[2022-07-22] MEDS: busPIRone 5 MG TAB PO SCH ×3 (09:48→20:52)
[2022-07-22] MEDS: LORATADINE 10 MG TAB PO SCH (09:48)
[2022-07-22] MEDS: NICOTINE 21MG/24HR 1 EA TRANSDERMAL TD SCH (09:49)
[2022-07-22 18:00] VITALS: BP 127/62; TEMP 97.9; O2SAT 100
[2022-07-22] MEDS: PRAZOSIN 1 MG CAP PO SCH (20:52)
[2022-07-22] MEDS: hydrOXYzine 50 MG TAB PO PRN (22:18)
[2022-07-23 06:23] VITALS: BP 114/57; TEMP 98.2; O2SAT 98
[2022-07-23] MEDS: LORATADINE 10 MG TAB PO SCH (08:13)
[2022-07-23] MEDS: busPIRone 5 MG TAB PO SCH ×3 (08:14→20:44)
[2022-07-23] MEDS: SERTRALINE HCL 50 MG TAB PO SCH (08:14)
[2022-07-23] MEDS: NICOTINE 21MG/24HR 1 EA TRANSDERMAL TD SCH (08:15)
[2022-07-23 18:00] VITALS: BP 133/85; TEMP 96.8
[2022-07-23] MEDS: PRAZOSIN 1 MG CAP PO SCH (20:44)
[2022-07-23] MEDS: hydrOXYzine 50 MG TAB PO PRN (21:49)
[2022-07-24 06:57] VITALS: BP 112/56; TEMP 98.5; O2SAT 97
[2022-07-24] MEDS: LORATADINE 10 MG TAB PO SCH (09:12)
[2022-07-24] MEDS: SERTRALINE HCL 50 MG TAB PO SCH (09:12)
[2022-07-24] MEDS: busPIRone 5 MG TAB PO SCH ×3 (09:12→21:24)
[2022-07-24] MEDS: NICOTINE 21MG/24HR 1 EA TRANSDERMAL TD SCH (09:14)
[2022-07-24] MEDS: hydrOXYzine 50 MG TAB PO PRN ×2 (15:12→23:21)
[2022-07-24 18:00] VITALS: BP 140/86; TEMP 97.6
[2022-07-24 21:24] VITALS: BP 116/75
[2022-07-24] MEDS: PRAZOSIN 1 MG CAP PO SCH (21:24)
[2022-07-25 06:41] VITALS: BP 114/57; TEMP 98.2; O2SAT 97
[2022-07-25] MEDS: busPIRone 5 MG TAB PO SCH (08:20)
[2022-07-25] MEDS: SERTRALINE HCL 50 MG TAB PO SCH (08:20)
[2022-07-25] MEDS: NICOTINE 21MG/24HR 1 EA TRANSDERMAL TD SCH (08:20)
[2022-07-25] MEDS: LORATADINE 10 MG TAB PO SCH (08:20)
[2022-07-25] MEDS ORDERED: SERT50TA29 PO (09:46)
[2022-07-25] MEDS ORDERED: MINI1CAP PO (09:46)
[2022-07-25] MEDS ORDERED: BUSP15TA47 PO (09:46)
== END 2022-07-25 11:28 | disposition home or self-care (01) | DRG 751 ==
LOC: M ED 17:02 → M ED INP 20:26 → M PSY 22:27
PROVIDERS: ADMIT Student in an Organized Health Care Education/Training Program; ATTEND Student in an Organized Health Care Education/Training Program
DX: F33.1 Major depressive disorder, recurrent, moderate (principal); R45.851 Suicidal ideations; F17.200 Nicotine dependence, unspecified, uncomplicated; F60.3 Borderline personality disorder; F41.9 Anxiety disorder, unspecified; F12.10 Cannabis abuse, uncomplicated; Z81.8 Family history of other mental and behavioral disorders; Z62.810 Personal history of physical and sexual abuse in childhood; Z63.0 Problems in relationship with spouse or partner; Z63.8 Other specified problems related to primary support group; Z91.51 Personal history of suicidal behavior; Z88.0 Allergy status to penicillin; Z79.899 Other long term (current) drug therapy; Z91.52 Personal history of nonsuicidal self-harm; E28.2 Polycystic ovarian syndrome

== ENCOUNTER 2022-08-10 22:40 | Emergency (ER) | payer OTHER ==
[~2022-08-10] VITALS: Ht 162.6 cm; Wt 93.9 kg
[2022-08-10 22:42] VITALS: BP 118/68; TEMP 98.6; O2SAT 98
== END 2022-08-10 23:52 | disposition left against medical advice (07) ==
LOC: M ED 22:40
DX: Z53.21 Procedure and treatment not carried out due to patient leaving prior to being seen by health care provider (principal)

== ENCOUNTER 2022-08-19 16:39 | Emergency (ER) | payer OTHER ==
[~2022-08-19] VITALS: Ht 165.1 cm; Wt 91.1 kg
[2022-08-19 18:33] LABS: HEMATOCRIT 41.2 % (36.0-47.0); HEMOGLOBIN 14.1 g/dl (12.0-15.5); MEAN CORPUSCULAR HEMOGLOBIN 30.1 pg (27.0-33.0); MEAN CORPUSCULAR HGB CONC 34.2 g/dl (32.0-36.5); MEAN CORPUSCULAR VOLUME 87.8 fl (80.0-96.0); PLATELET COUNT, AUTOMATED 281 10^3/uL (150-450); RED BLOOD COUNT 4.69 10^6/uL (4.00-5.40)
[2022-08-19 18:59] LABS: ETHYL ALCOHOL (ETHANOL) < 0.003 % (0.000-0.010)
[2022-08-19 19:01] LABS: ACETAMINOPHEN LEVEL < 2.0 UG/ML (10.0-20.0); ALBUMIN 4.6 G/DL (3.2-5.2); ALKALINE PHOSPHATASE 131 U/L (46-116); ALT/SGPT 16 U/L (7.0-40); AST/SGOT 9 U/L (<34); BILIRUBIN,DIRECT < 0.1 MG/DL (<0.4); BILIRUBIN,TOTAL 0.3 MG/DL (0.3-1.2); BLOOD UREA NITROGEN 13 MG/DL (9-23); CALCIUM LEVEL 9.7 MG/DL (8.5-10.1); CARBON DIOXIDE LEVEL 23 MMOL/L (20-31); CHLORIDE LEVEL 107 MMOL/L (98-107); CREATININE FOR GFR 0.62 MG/DL (0.55-1.30); GLOMERULAR FILTRATION RATE > 60.0 (>60); GLUCOSE, FASTING 78 MG/DL (60-100); HCG, SERUM QUALITATIVE NEGATIVE (NEGATIVE); POTASSIUM SERUM 4.3 MMOL/L (3.5-5.1); SALICYLATE LEVEL < 3.0 MG/DL (<30); SODIUM LEVEL 139 MMOL/L (136-145); TOTAL PROTEIN 7.9 G/DL (5.7-8.2)
[2022-08-19 19:03] LABS: THYROID STIMULATING HORMONE 0.973 uIU/ML (0.55-4.78)
[2022-08-19 19:09] LABS: BARBITURATES URINE NEGATIVE (NEGATIVE); BENZODIAZEPINES URINE NEGATIVE (NEGATIVE); COCAINE METABOLITE URINE NEGATIVE (NEGATIVE); METHADONE URINE NEGATIVE (NEGATIVE)
[2022-08-19 19:10] LABS: OPIATES URINE NEGATIVE (NEGATIVE); PHENCYCLIDINE URINE NEGATIVE (NEGATIVE)
[2022-08-19 19:24] LABS: AMPHETAMINES LEVEL URINE POSITIVE (NEGATIVE); CANNABINOIDS URINE POSITIVE (NEGATIVE)
[2022-08-19 23:45] VITALS: BP 136/85; TEMP 97.9; O2SAT 98
== END 2022-08-20 00:17 | disposition home or self-care (01) ==
LOC: M ED 16:39
DX: R45.851 Suicidal ideations (principal); F32.A Depression, unspecified; E28.2 Polycystic ovarian syndrome; Z88.0 Allergy status to penicillin; Z79.899 Other long term (current) drug therapy; Z97.5 Presence of (intrauterine) contraceptive device

== ENCOUNTER → 2022-08-24 | Outpatient (CLI) | payer OTHER | LOC: M OUTALCOH 08:01 | PROVIDERS: ATTEND Psychiatry & Neurology Psychiatry | DX: F10.10 Alcohol abuse, uncomplicated (principal) ==

== ENCOUNTER 2022-09-04 19:46 | Inpatient (IN) | payer OTHER ==
[~2022-09-04] VITALS: Ht 165.1 cm; Wt 94.3 kg
[2022-09-04] MEDS ORDERED: SERO1TAB3 PO (20:02)
[2022-09-04] MEDS ORDERED: WELLTAB40 PO (20:02)
[2022-09-04 20:39] LABS: HEMATOCRIT 38.3 % (36.0-47.0); HEMOGLOBIN 12.8 g/dl (12.0-15.5); MEAN CORPUSCULAR HEMOGLOBIN 29.8 pg (27.0-33.0); MEAN CORPUSCULAR HGB CONC 33.4 g/dl (32.0-36.5); MEAN CORPUSCULAR VOLUME 89.3 fl (80.0-96.0); PLATELET COUNT, AUTOMATED 256 10^3/uL (150-450); RED BLOOD COUNT 4.29 10^6/uL (4.00-5.40); WHITE BLOOD COUNT 8.5 10^3/uL (4.0-10.0)
[2022-09-04 21:03] LABS: AMPHETAMINES LEVEL URINE NEGATIVE (NEGATIVE); BARBITURATES URINE NEGATIVE (NEGATIVE); BENZODIAZEPINES URINE NEGATIVE (NEGATIVE); COCAINE METABOLITE URINE NEGATIVE (NEGATIVE); METHADONE URINE NEGATIVE (NEGATIVE); OPIATES URINE NEGATIVE (NEGATIVE); PHENCYCLIDINE URINE NEGATIVE (NEGATIVE)
[2022-09-04 21:04] LABS: CANNABINOIDS URINE POSITIVE (NEGATIVE)
[2022-09-04 21:05] LABS: ETHYL ALCOHOL (ETHANOL) < 0.003 % (0.000-0.010)
[2022-09-04 21:07] LABS: ACETAMINOPHEN LEVEL < 2.0 UG/ML (10.0-20.0); ALBUMIN 4.3 G/DL (3.2-5.2); ALKALINE PHOSPHATASE 114 U/L (46-116); ALT/SGPT 23 U/L (7.0-40); AST/SGOT 12 U/L (<34); BILIRUBIN,DIRECT 0.1 MG/DL (<0.4); BILIRUBIN,TOTAL 0.4 MG/DL (0.3-1.2); BLOOD UREA NITROGEN 10 MG/DL (9-23); CALCIUM LEVEL 9.5 MG/DL (8.5-10.1); CARBON DIOXIDE LEVEL 26 MMOL/L (20-31); CHLORIDE LEVEL 105 MMOL/L (98-107); CREATININE FOR GFR 0.66 MG/DL (0.55-1.30); GLOMERULAR FILTRATION RATE > 60.0 (>60); GLUCOSE, FASTING 79 MG/DL (60-100); POTASSIUM SERUM 4.2 MMOL/L (3.5-5.1); SALICYLATE LEVEL < 3.0 MG/DL (<30); SODIUM LEVEL 142 MMOL/L (136-145)
[2022-09-04 21:09] LABS: THYROID STIMULATING HORMONE 1.653 uIU/ML (0.55-4.78)
[2022-09-04 21:11] LABS: HCG, SERUM QUALITATIVE NEGATIVE (NEGATIVE)
[2022-09-04] MEDS ORDERED: ZOLO100T PO (22:29)
[2022-09-04] MEDS ORDERED: NITR100C2 PO (22:29)
[2022-09-04] MEDS ORDERED: BUSP30TA PO (22:29)
[2022-09-04] MEDS ORDERED: PRAZ2CAP PO (22:29)
[2022-09-04] MEDS ORDERED: HOME MED LIST COMPLETE! XX SCH (22:30)
[2022-09-05] MEDS ORDERED: SERTRALINE 100 MG TAB PO ONE (10:45)
[2022-09-05] MEDS ORDERED: busPIRone 10 MG TAB PO ONE (10:45)
[2022-09-05] MEDS ORDERED: NITROFURANTOIN (MACROBID) 100 MG CAP PO ONE (10:50)
[2022-09-05] MEDS: buPROPion **XL** TABLET 150MG (WELLBUTRIN XL) PO SCH (10:54)
[2022-09-05] MEDS ORDERED: PRAZOSIN 1 MG CAP PO SCH (21:00)
[2022-09-06] MEDS: buPROPion **XL** TABLET 150MG (WELLBUTRIN XL) PO SCH (08:33)
[2022-09-06] MEDS ORDERED: MOM 30ML SUSPENSION UDC PO PRN (10:50)
[2022-09-06] MEDS ORDERED: traZODone 50 MG TAB PO PRN (10:50)
[2022-09-06] MEDS ORDERED: IBUPROFEN 400MG TAB PO PRN (10:50)
[2022-09-06] MEDS ORDERED: diphenhydrAMINE 25MG CAP PO PRN (10:50)
[2022-09-06] MEDS ORDERED: ACETAMINOPHEN TAB 650MG DOSE (2X325MG) PO PRN (10:50)
[2022-09-06] MEDS ORDERED: MAALOX 30 ML SUSP *UDC PO PRN (10:50)
[2022-09-06 14:25] VITALS: BP 132/72; TEMP 97.8; O2SAT 96
[2022-09-06] MEDS: NICOTINE 7 MG/24 HR TRANSDERMAL TD SCH (17:11)
[2022-09-06] MEDS: OLANZapine ORAL DISINTEGRATING TAB 5MG PO PRN (20:38)
[2022-09-07 06:53] VITALS: BP 120/57; TEMP 97.7; O2SAT 97
[2022-09-07] MEDS: NITROFURANTOIN (MACROBID) 100 MG CAP PO SCH ×2 (09:49→20:42)
[2022-09-07] MEDS: NICOTINE 7 MG/24 HR TRANSDERMAL TD SCH (09:50)
[2022-09-07] MEDS ORDERED: SERTRALINE HCL 50 MG TAB PO ONE (13:00)
[2022-09-07] MEDS ORDERED: buPROPion **XL** TABLET 150MG (WELLBUTRIN XL) PO ONE (13:00)
[2022-09-07] MEDS: busPIRone 10 MG TAB PO SCH ×2 (13:21→20:43)
[2022-09-07] MEDS ORDERED: NICO7PA TD (14:35)
[2022-09-07] MEDS ORDERED: NICOTINE 7 MG/24 HR TRANSDERMAL TD SCH (15:16)
[2022-09-07 16:37] VITALS: BP 126/69; TEMP 98.3; O2SAT 94
[2022-09-07 20:40] VITALS: BP 122/82
[2022-09-07 20:42] VITALS: BP 122/82
[2022-09-07] MEDS ORDERED: PRAZOSIN 1 MG CAP PO SCH (21:00)
[2022-09-07] MEDS: OLANZapine ORAL DISINTEGRATING TAB 5MG PO PRN (22:12)
[2022-09-08 06:18] VITALS: BP 108/60; TEMP 97.6; O2SAT 96
[2022-09-08] MEDS ORDERED: SERTRALINE HCL 50 MG TAB PO SCH (09:00)
[2022-09-08] MEDS: NICOTINE 7 MG/24 HR TRANSDERMAL TD SCH (09:00)
[2022-09-08] MEDS ORDERED: buPROPion **XL** TABLET 150MG (WELLBUTRIN XL) PO SCH (09:00)
[2022-09-08] MEDS: NITROFURANTOIN (MACROBID) 100 MG CAP PO SCH (09:47)
[2022-09-08] MEDS: busPIRone 10 MG TAB PO SCH (09:48)
== END 2022-09-08 12:02 | disposition home or self-care (01) | DRG 753 ==
LOC: M ED 19:46 → M ED INP 09-06 10:47 → M PSY 09-06 14:24
PROVIDERS: ADMIT Student in an Organized Health Care Education/Training Program; ATTEND Student in an Organized Health Care Education/Training Program
DX: F31.9 Bipolar disorder, unspecified (principal); R45.851 Suicidal ideations; F60.3 Borderline personality disorder; Z91.52 Personal history of nonsuicidal self-harm; Z91.410 Personal history of adult physical and sexual abuse; N39.0 Urinary tract infection, site not specified; Z79.899 Other long term (current) drug therapy

== ENCOUNTER → 2023-07-08 | Outpatient (CLI) | payer OTHER ==
[~2023-07-08] MED LIST changes: +BUSP30TA PO; +DOXY-323 PO; -DOXY-443 PO; -FLUT50SP17; +FLUTISP; -MIRT-62 PO; +MIRT-88 PO; +NICO7PA TD; +NITR100C2 PO; +WELLTAB40 PO
[2023-07-08 11:47] LABS: BASO % 0.3 % (0.0-1.0); EOS # 0.5 10^3/uL (0.0-0.5); HEMATOCRIT 38.5 % (36.0-47.0); HEMOGLOBIN 12.9 g/dl (12.0-15.5); LYMPH # 2.4 10^3/uL (1.5-5.0); LYMPH % 39.1 % (24.0-44.0); MEAN CORPUSCULAR HEMOGLOBIN 29.6 pg (27.0-33.0); MEAN CORPUSCULAR HGB CONC 33.5 g/dl (32.0-36.5); MEAN CORPUSCULAR VOLUME 88.3 fl (80.0-96.0); MONO # 0.5 10^3/uL (0.0-0.8); NEUTROPHILS # 2.6 10^3/uL (1.5-8.5); NEUTROPHILS % 43.4 % (36.0-66.0); PLATELET COUNT, AUTOMATED 272 10^3/uL (150-450); RED BLOOD COUNT 4.36 10^6/uL (4.00-5.40)
[2023-07-08 12:12] LABS: ALBUMIN 3.7 G/DL (3.2-5.2); ALKALINE PHOSPHATASE 93 U/L (46-116); ALT/SGPT 121 U/L (7.0-40); AST/SGOT 109 U/L (<34); BILIRUBIN,DIRECT 0.2 MG/DL (<0.4); BILIRUBIN,TOTAL 0.5 MG/DL (0.3-1.2); BLOOD UREA NITROGEN 8 MG/DL (9-23); CALCIUM LEVEL 9.7 MG/DL (8.5-10.1); CARBON DIOXIDE LEVEL 29 MMOL/L (20-31); CHLORIDE LEVEL 109 MMOL/L (98-107); CREATININE FOR GFR 0.71 MG/DL (0.55-1.30); GLOMERULAR FILTRATION RATE > 60.0 (>60); GLUCOSE, FASTING 109 MG/DL (60-100); MAGNESIUM LEVEL 1.8 MG/DL (1.8-2.4); POTASSIUM SERUM 4.5 MMOL/L (3.5-5.1); SODIUM LEVEL 141 MMOL/L (136-145); TOTAL PROTEIN 6.6 G/DL (5.7-8.2)
== END ==
LOC: M EKG 11:10
PROVIDERS: ATTEND Nurse Practitioner Psychiatric/Mental Health
DX: F14.20 Cocaine dependence, uncomplicated (principal)

== ENCOUNTER 2023-07-30 12:26 | Emergency (ER) | payer OTHER ==
[~2023-07-30] VITALS: Ht 165.1 cm; Wt 105.9 kg
[~2023-07-30 12:26] MED LIST changes: +FLUO-365 PO; -FLUO20CA22 PO; +ONDA-282 PO; -ONDA4TAB6 PO
[2023-07-30] MEDS ORDERED: ESZO1TAB8 (12:36)
[2023-07-30] MEDS ORDERED: BUPR1FIL37 (12:36)
[2023-07-30] MEDS ORDERED: HYDR50TA70 (12:36)
[2023-07-30] MEDS ORDERED: BENZ1TAB5 (12:36)
[2023-07-30] MEDS ORDERED: VENL-115 (12:36)
[2023-07-30] MEDS ORDERED: QUET300T2 (12:36)
[2023-07-30 13:24] LABS: BASO % 0.3 % (0.0-1.0); EOS # 0.7 10^3/uL (0.0-0.5); EOS % 5.9 % (0.0-3.0); HEMATOCRIT 35.7 % (36.0-47.0); HEMOGLOBIN 12.1 g/dl (12.0-15.5); LYMPH # 2.1 10^3/uL (1.5-5.0); LYMPH % 19.2 % (24.0-44.0); MEAN CORPUSCULAR HEMOGLOBIN 29.5 pg (27.0-33.0); MEAN CORPUSCULAR HGB CONC 33.9 g/dl (32.0-36.5); MEAN CORPUSCULAR VOLUME 87.1 fl (80.0-96.0); MONO # 1.1 10^3/uL (0.0-0.8); MONO % 9.8 % (2.0-8.0); NEUTROPHILS # 7.1 10^3/uL (1.5-8.5); NEUTROPHILS % 64.4 % (36.0-66.0); PLATELET COUNT, AUTOMATED 222 10^3/uL (150-450)
[2023-07-30 13:47] LABS: LIPASE 24 U/L (12-53)
[2023-07-30 13:49] LABS: ALBUMIN 3.7 G/DL (3.2-5.2); ALKALINE PHOSPHATASE 85 U/L (46-116); ALT/SGPT 140 U/L (7.0-40); AST/SGOT 98 U/L (<34); BILIRUBIN,DIRECT 0.2 MG/DL (<0.4); BILIRUBIN,TOTAL 0.5 MG/DL (0.3-1.2); TOTAL PROTEIN 6.4 G/DL (5.7-8.2)
[2023-07-30] MEDS: NS 1,000 ML IV ONE (13:56)
[2023-07-30] MEDS: KETOROLAC 30 MG/ML 1ML VIAL IV ONE (13:56)
[2023-07-30 14:30] LABS: HEPATITIS B SURFACE ANTIGEN NEGATIVE (NEGATIVE)
[2023-07-30 14:52] LABS: HEPATITIS B CORE ANTIBODY IGM NEGATIVE (NEGATIVE); HEPATITIS C VIRUS ABY INDEX < 0.02 INDEX (<0.8)
[2023-07-30] MEDS: cefTRIAXone SOD 1 GM in D5W MINI-BAG PLUS 50 ML IV ONE (15:39)
[2023-07-30] MEDS ORDERED: CEFD300CAP PO (15:44)
[2023-07-30 16:29] VITALS: BP 129/76; TEMP 97.4; O2SAT 96
== END 2023-07-30 16:31 | disposition home or self-care (01) ==
LOC: M ED 12:26
DX: N39.0 Urinary tract infection, site not specified (principal); R74.01 Elevation of levels of liver transaminase levels; M54.50 Low back pain, unspecified; F17.200 Nicotine dependence, unspecified, uncomplicated; Z88.0 Allergy status to penicillin
CPT/HCPCS: 74176; 76705; 80047; 80074; 80076; 81001; 83690; 84702; 85025; 87086; 96361; 96365; 96375; 99284; J0696; J1885

== ENCOUNTER 2023-09-08 21:56 | Emergency (ER) | payer OTHER ==
[~2023-09-08] VITALS: Ht 157.5 cm; Wt 97.5 kg
[~2023-09-08 21:56] MED LIST changes: +BENZ1TAB5; +BUPR1FIL37; +CEFD300CAP PO; +ESZO1TAB8; +HYDR50TA70; +QUET300T2; +VENL-115
[2023-09-08 22:48] VITALS: BP 134/78; TEMP 98.1; O2SAT 99
[2023-09-08 23:07] LABS: HEMATOCRIT 40.3 % (36.0-47.0); HEMOGLOBIN 13.6 g/dl (12.0-15.5); MEAN CORPUSCULAR HEMOGLOBIN 29.3 pg (27.0-33.0); MEAN CORPUSCULAR HGB CONC 33.7 g/dl (32.0-36.5); MEAN CORPUSCULAR VOLUME 86.9 fl (80.0-96.0); PLATELET COUNT, AUTOMATED 267 10^3/uL (150-450); RED BLOOD COUNT 4.64 10^6/uL (4.00-5.40); WHITE BLOOD COUNT 7.6 10^3/uL (4.0-10.0)
[2023-09-08 23:39] LABS: AMPHETAMINES LEVEL URINE NEGATIVE (NEGATIVE)
[2023-09-08 23:40] LABS: BARBITURATES URINE NEGATIVE (NEGATIVE); BENZODIAZEPINES URINE NEGATIVE (NEGATIVE); METHADONE URINE NEGATIVE (NEGATIVE); OPIATES URINE NEGATIVE (NEGATIVE); PHENCYCLIDINE URINE NEGATIVE (NEGATIVE)
[2023-09-08 23:42] LABS: ETHYL ALCOHOL (ETHANOL) 0.004 % (0.000-0.010)
[2023-09-08 23:43] LABS: CANNABINOIDS URINE POSITIVE (NEGATIVE); COCAINE METABOLITE URINE POSITIVE (NEGATIVE); HCG, SERUM QUALITATIVE NEGATIVE (NEGATIVE); SALICYLATE LEVEL < 3.0 MG/DL (<30)
[2023-09-08 23:44] LABS: ALBUMIN 4.7 G/DL (3.2-5.2); ALKALINE PHOSPHATASE 99 U/L (46-116); ALT/SGPT 35 U/L (7.0-40); AST/SGOT 25 U/L (<34); BILIRUBIN,DIRECT 0.2 MG/DL (<0.4); BILIRUBIN,TOTAL 0.5 MG/DL (0.3-1.2); BLOOD UREA NITROGEN 8 MG/DL (9-23); CALCIUM LEVEL 9.4 MG/DL (8.5-10.1); CARBON DIOXIDE LEVEL 27 MMOL/L (20-31); CHLORIDE LEVEL 105 MMOL/L (98-107); CREATININE FOR GFR 0.56 MG/DL (0.55-1.30); GLOMERULAR FILTRATION RATE > 60.0 (>60); GLUCOSE, FASTING 82 MG/DL (60-100); SODIUM LEVEL 138 MMOL/L (136-145); TOTAL PROTEIN 7.6 G/DL (5.7-8.2)
[2023-09-08 23:46] LABS: THYROID STIMULATING HORMONE 1.779 uIU/ML (0.55-4.78)
== END 2023-09-09 01:12 | disposition home or self-care (01) ==
LOC: M ED 21:56
DX: F43.0 Acute stress reaction (principal); F32.A Depression, unspecified; F90.9 Attention-deficit hyperactivity disorder, unspecified type; F17.210 Nicotine dependence, cigarettes, uncomplicated; F12.10 Cannabis abuse, uncomplicated; F10.10 Alcohol abuse, uncomplicated; Z88.0 Allergy status to penicillin; Z79.2 Long term (current) use of antibiotics; Z79.899 Other long term (current) drug therapy

== ENCOUNTER 2024-08-27 15:37 | Inpatient (IN) | payer OTHER ==
[~2024-08-27] VITALS: Ht 165.1 cm; Wt 103.3 kg
[~2024-08-27 15:37] MED LIST changes: -AMBI10TA PO; -ARIP10TA32 PO; +ARIP10TA63 PO; -DEPA250T32 PO; +DIVA-65 PO; -DOXY-323 PO; +DOXY-441 PO; +OLAN20TA74 PO; +TOPI-256 PO; -TOPI25TA10 PO; +ZOLP-533 PO; -ZYPR20TA PO
[2024-08-27] MEDS ORDERED: VRAY3CAP PO (15:47)
[2024-08-27] MEDS ORDERED: DOXE50CA PO (15:47)
[2024-08-27] MEDS ORDERED: BUSP15TA47 PO (15:47)
[2024-08-27] MEDS ORDERED: QUET50TA67 PO (15:47)
[2024-08-27 17:09] LABS: PLATELET COUNT, AUTOMATED 258 10^3/uL (150-450)
[2024-08-27 17:16] LABS: AMPHETAMINES LEVEL URINE NEGATIVE (NEGATIVE); BARBITURATES URINE NEGATIVE (NEGATIVE); BENZODIAZEPINES URINE NEGATIVE (NEGATIVE); COCAINE METABOLITE URINE NEGATIVE (NEGATIVE); METHADONE URINE NEGATIVE (NEGATIVE); OPIATES URINE NEGATIVE (NEGATIVE); PHENCYCLIDINE URINE NEGATIVE (NEGATIVE)
[2024-08-27 17:17] LABS: CANNABINOIDS URINE POSITIVE (NEGATIVE); ETHYL ALCOHOL (ETHANOL) < 0.003 % (0.000-0.010)
[2024-08-27 17:18] LABS: ALT/SGPT 17 U/L (7.0-40); AST/SGOT 15 U/L (<34); CALCIUM LEVEL 9.4 MG/DL (8.5-10.1); CARBON DIOXIDE LEVEL 29 MMOL/L (20-31); CHLORIDE LEVEL 103 MMOL/L (98-107); CREATININE FOR GFR 0.74 MG/DL (0.55-1.30); GLOMERULAR FILTRATION RATE > 90.0 (>60); POTASSIUM SERUM 4.0 MMOL/L (3.5-5.1); SALICYLATE LEVEL < 3.0 MG/DL (<30); SODIUM LEVEL 141 MMOL/L (136-145)
[2024-08-27] MEDS ORDERED: HOME MED LIST COMPLETE! XX SCH (17:20)
[2024-08-27 17:25] LABS: HCG, SERUM QUALITATIVE NEGATIVE (NEGATIVE)
[2024-08-27] MEDS: CARIPRAZINE 3MG CAPSULE PO SCH (20:30)
[2024-08-27] MEDS: QUEtiapine FUMERATE XR 50MG TABER PO SCH (20:30)
[2024-08-27] MEDS: DOXEPIN 25 MG CAP PO SCH (20:30)
[2024-08-27] MEDS: PRAZOSIN 1 MG CAP PO SCH (20:31)
[2024-08-27] MEDS: busPIRone 5 MG TAB PO SCH (20:31)
[2024-08-28 13:17] LABS: KETONE, URINE AUTO RFX NEGATIVE (NEGATIVE); MUCUS, URINE RFX SMALL (NEGATIVE); NITRITE, URINE AUTO RFX NEGATIVE (NEGATIVE); RBC, URINE AUTO RFX 1 /HPF (0-3); SQUAM EPITHELIAL CELL UR AURFX 15 /HPF (0-6); WBC, URINE AUTO RFX 6 /HPF (0-3)
[2024-08-28 13:20] LABS: LEUKOCYTE ESTERASE UR AUTO RFX 1+ (NEGATIVE)
[2024-08-28] MEDS ORDERED: IBUPROFEN 400 MG TAB PO PRN (15:20)
[2024-08-28] MEDS ORDERED: ACETAMINOPHEN 325 MG TAB PO PRN (15:20)
[2024-08-28] MEDS ORDERED: traZODone 50 MG TAB PO PRN (15:20)
[2024-08-28] MEDS ORDERED: MAALOX 30 ML SUSP *UDC PO PRN (15:20)
[2024-08-28] MEDS ORDERED: OLANZapine 5 MG TAB PO PRN (15:20)
[2024-08-28] MEDS ORDERED: MOM 30 ML SUSPENSION UDC PO PRN (15:20)
[2024-08-28 16:15] VITALS: BP 124/80; TEMP 97.3; O2SAT 98
[2024-08-28] MEDS: NICOTINE 14 MG/24 HR TRANSDERMAL TD SCH (17:00)
[2024-08-28] MEDS: LORazepam 1 MG TAB PO PRN (20:14)
[2024-08-28] MEDS: DOXEPIN 25 MG CAP PO ONE (21:02)
[2024-08-29 06:40] VITALS: BP 122/75; TEMP 98.1; O2SAT 96
[2024-08-29] MEDS: HALOPERIDOL 5 MG TAB PO PRN (12:02)
[2024-08-29 15:30] VITALS: BP 123/62; TEMP 98.4; O2SAT 99
[2024-08-29] MEDS ORDERED: NICOTINE POLACRILEX 2 MG GUM PO PRN (19:00)
[2024-08-29] MEDS: NICOTINE POLACRILEX 2 MG GUM PO ONE (19:25)
[2024-08-29 20:07] VITALS: BP 122/67
[2024-08-29] MEDS: DOXEPIN 25 MG CAP PO SCH (20:07)
[2024-08-29] MEDS: CARIPRAZINE 3MG CAPSULE PO SCH (20:07)
[2024-08-29] MEDS: PRAZOSIN 1 MG CAP PO SCH (20:07)
[2024-08-29] MEDS: busPIRone 5 MG TAB PO SCH (20:07)
[2024-08-29] MEDS: LIDOCAINE 5% OINT 30 GM TUBE TOP SCH (21:03)
[2024-08-29] MEDS: ERYTHROMYCIN 2 % GEL 30 GM TOP SCH (21:03)
[2024-08-30] MEDS: NICOTINE POLACRILEX 2 MG GUM PO PRN (08:53)
== END 2024-08-30 13:52 | disposition home or self-care (01) | DRG 753 ==
LOC: M ED 15:37 → M ED INP 08-28 15:16 → M PSY 08-28 16:01
PROVIDERS: ADMIT Internal Medicine; ATTEND Psychiatry & Neurology Psychiatry
DX: F31.9 Bipolar disorder, unspecified (principal); R45.851 Suicidal ideations; Z59.01 Sheltered homelessness; Z91.51 Personal history of suicidal behavior; Z62.811 Personal history of psychological abuse in childhood; F60.3 Borderline personality disorder; Z63.8 Other specified problems related to primary support group; Z81.8 Family history of other mental and behavioral disorders; Z81.1 Family history of alcohol abuse and dependence; Z81.3 Family history of other psychoactive substance abuse and dependence; E28.2 Polycystic ovarian syndrome; F17.290 Nicotine dependence, other tobacco product, uncomplicated; Z88.0 Allergy status to penicillin; Z79.899 Other long term (current) drug therapy; L70.9 Acne, unspecified; Z91.52 Personal history of nonsuicidal self-harm